=== PATIENT | female | born 1935 | race Caucasian/White ===

== ENCOUNTER 2016-11-30 13:05 | Emergency (ER) | payer MEDICARE, BC ==
[2016-11-30 13:40] VITALS: BP 125/57
[2016-11-30] MEDS ORDERED: Magnesium Citrate Solution 296 ML Bottle PO ONE (15:11)
--- NOTE | 2016-11-30 15:58 | EDM.PDOC ---
ED HPI RENAL/ - General Chief Complaint: Abdominal Pain Stated Complaint: STOMACH PAIN Time Seen by Provider: 11/30/16 13:40 Source: Reports: Patient History Limitations: Reports: No limitations - History of Present Illness INITIAL COMMENTS - FREE TEXT/NARRATIVE: pt has not had a bm for 2-3 days. She has pain in her rt lower abdoman. Timing/Duration: Reports: Hour(s):, Getting worse Location: Reports: RLQ Quality: Reports: cramping, fullness, stabbing Severity: moderate Associated Symptoms: Reports: denies other symptoms - Related Data Allergies/ADRs: Allergies Allergy/AdvReac Type Severity Reaction Status Date / Time tramadol AdvReac Vomiting Verified 11/04/16 14:22 Home Meds: Home Meds Lutein/Min/Vit C/Vit E Acetate [Ocuvite Lutein] 1 tab PO DAILY 01/13/15 [History ] Digoxin [Lanoxin] 125 mcg PO DAILY@13 tablet 04/26/15 [Rx] LORazepam 2 mg PO BEDTIME #7 tablet 04/26/15 [Rx] [id number] Ethyl Esters [Lovaza] 1 gm PO BID cap 04/26/15 [Rx] Warfarin [Coumadin] 3 mg PO DAILY 05/04/16 [History] Carvedilol [Coreg] 6.25 mg PO BIDMEALS 05/06/16 [History] Cholecalciferol (Vitamin D3) [Vitamin D3] 1,000 unit PO DAILY 06/01/16 [History] Acetaminophen [Tylenol Extra Strength] 1,000 mg PO ASDIRECTED PRN 10/03/16 [ History] Morphine [MS Contin] 15 mg PO Q6HR PRN 10/07/16 [History] Ondansetron HCl [Zofran] 4 mg PO ASDIRECTED PRN 10/07/16 [History] Past Medical History HEENT History: Reports: Cataract, Impaired vision Cardiovascular History: Reports: Afib, Arrhythmia, Heart Failure, Other (see below) Other Cardiovascular History: endocarditis 2009 Gastrointestinal History: Reports: None Genitourinary History: Reports: Urinary incontinence Musculoskeletal History: Reports: Back pain, chronic, Fracture Neurological History: Reports: None Psychiatric History: Reports: Anxiety, Depression Oncologic (Cancer) History: Reports: Uterine Dermatologic History: Reports: None - Infectious Disease History Infectious Disease History: Reports: Chicken pox, Measles, Mumps - Past Surgical History HEENT Surgical History: Reports: None, Cataract surgery Cardiovascular Surgical History: Reports: None Other Cardiovascular Surgeries/Procedures: Right 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 GI Surgical History: Reports: Colonoscopy Female Surgical History: Reports: Hysterectomy Neurological Surgical History: Reports: Discectomy Musculoskeletal Surgical History: Reports: Shoulder surgery, Other (see below) Other Musculoskeletal Surgeries/Procedures:: Knee fracture/pins, back surgery Social & Family History - Tobacco Use Smoking Status *Q: Never Smoker Years of Tobacco use: 10 Packs/Tins Daily: 0.2 Used Tobacco, but Quit: Yes Month Tobacco Last Used: September Second Hand Smoke Exposure: No - Caffeine Use Caffeine Use: Reports: None - Alcohol Use Days Per Week of Alcohol Use: 0 - Recreational Drug Use Recreational Drug Use: No ED ROS GENERAL - Review of Systems Review Of Systems: See Below Constitutional: Reports: no symptoms, weight gain HEENT: Reports: No symptoms Respiratory: Reports: No Symptoms Cardiovascular: Reports: No symptoms Endocrine: Reports: no symptoms GI/Abdominal: Reports: Abdominal pain : Reports: no symptoms Musculoskeletal: Reports: no symptoms Neurological: Reports: No Symptoms ED EXAM, RENAL/ - Physical Exam Exam: See Below Text/Narrative:: pt arrived with pain in her rt lower abdomn. She has not had a stool for the past 2-3 days. Exam Limited By: No limitations General Appearance: alert, anxious Ears: normal TMs Nose: normal inspection Throat/Mouth: Normal inspection Head: atraumatic Neck: normal inspection Respiratory/Chest: no respiratory distress GI/Abdominal: other (pt has tenderness in the rt lower abdoman. She is not guarded. ) Rectal (Female) Exam: Other (no masses. Pt has no stool low in the abdomn. ) Back Exam: normal inspection Extremities: normal inspection Neurological: alert, oriented Course - Vital Signs Last Recorded V/S: Last Vital Signs Temp 36.8 C 11/30/16 13:40 Pulse 50 L 11/30/16 13:40 Resp 15 11/30/16 13:40 BP 125/57 L 11/30/16 13:40 Pulse Ox 97 11/30/16 13:40 - Orders/Labs/Meds Orders: Active Orders 24 hr Category Date Time Status Enema [RC] ASDIRECTED Care 11/30/16 15:52 Active Abdomen 2V AP Flat Upright [CR] Stat Exams 11/30/16 14:03 Taken Labs: Laboratory Tests 11/30/16 11/30/16 11/30/16 Range/Units 14:09 14:09 14:09 WBC 4.3 L (4.5-11.0) K/uL RBC 3.71 (3.30-5.50) M/uL Hgb 12.0 (12.0-15.0) g/dL Hct 37.5 (36.0-48.0) % MCV 101 H (80-98) fL MCH 32 H (27-31) pg MCHC 32 (32-36) % Plt Count 117 L (150-400) K/uL Neut % (Auto) 64 (36-66) % Lymph % (Auto) 24 (24-44) % [place] % (Auto) 11 H (2-6) % Eos % (Auto) 1 L (2-4) % Baso % (Auto) 0 (0-1) % PT (9.5-12.0) sec INR (0.80-1.20) Sodium 144 (140-148) mmol/L Potassium 4.5 (3.6-5.2) mmol/L Chloride 108 (100-108) mmol/L Carbon Dioxide 31 (21-32) mmol/L Anion Gap 5.3 (5.0-14.0) mmol/L BUN 37 H (7-18) mg/dL Creatinine 0.9 (0.6-1.0) mg/dL Est Cr Clr Drug Dosing 36.86 mL/min Estimated GFR (MDRD) 60 (>60) Glucose 98 (74-106) mg/dL Calcium 9.6 (8.5-10.1) mg/dL Total Bilirubin 0.7 (0.2-1.0) mg/dL AST 15 (15-37) U/L ALT 18 (12-78) U/L Alkaline Phosphatase 30 L (46-116) U/L C-Reactive Protein 1.17 H (0.0-0.3) mg/dL Total Protein 6.4 (6.4-8.2) g/dL Albumin 3.0 L (3.4-5.0) g/dL Globulin 3.4 (2.3-3.5) g/dL Albumin/Globulin Ratio 0.9 L (1.2-2.2) Urine Color Urine Appearance Urine pH (4.5-8.0) Ur Specific [place] (1.008-1.030) Urine Protein (NEGATIVE) mg/dL Urine Glucose (UA) (NEGATIVE) mg/dL Urine Ketones (NEGATIVE) mg/dL Urine Occult Blood (NEGATIVE) Urine Nitrite (NEGATIVE) Urine Bilirubin (NEGATIVE) Urine Urobilinogen (NORMAL) mg/dL Ur Leukocyte Esterase (NEGATIVE) Urine RBC (0-5) Urine WBC (0-5) Ur Epithelial Cells Amorphous Sediment Urine Bacteria Urine Mucus 11/30/16 11/30/16 Range/Units 14:09 16:10 WBC (4.5-11.0) K/uL RBC (3.30-5.50) M/uL Hgb (12.0-15.0) g/dL Hct (36.0-48.0) % MCV (80-98) fL MCH (27-31) pg MCHC (32-36) % Plt Count (150-400) K/uL Neut % (Auto) (36-66) % Lymph % (Auto) (24-44) % [place] % (Auto) (2-6) % Eos % (Auto) (2-4) % Baso % (Auto) (0-1) % PT 39.3 H (9.5-12.0) sec INR 3.56 H (0.80-1.20) Sodium (140-148) mmol/L Potassium (3.6-5.2) mmol/L Chloride (100-108) mmol/L Carbon Dioxide (21-32) mmol/L Anion Gap (5.0-14.0) mmol/L BUN (7-18) mg/dL Creatinine (0.6-1.0) mg/dL Est Cr Clr Drug Dosing mL/min Estimated GFR (MDRD) (>60) Glucose (74-106) mg/dL Calcium (8.5-10.1) mg/dL Total Bilirubin (0.2-1.0) mg/dL AST (15-37) U/L ALT (12-78) U/L Alkaline Phosphatase (46-116) U/L C-Reactive Protein (0.0-0.3) mg/dL Total Protein (6.4-8.2) g/dL Albumin (3.4-5.0) g/dL Globulin (2.3-3.5) g/dL Albumin/Globulin Ratio (1.2-2.2) Urine Color Yellow Urine Appearance Clear Urine pH 6.5 (4.5-8.0) Ur Specific [place] 1.015 (1.008-1.030) Urine Protein Negative (NEGATIVE) mg/dL Urine Glucose (UA) Normal (NEGATIVE) mg/dL Urine Ketones Negative (NEGATIVE) mg/dL Urine Occult Blood Negative (NEGATIVE) Urine Nitrite Negative (NEGATIVE) Urine Bilirubin Negative (NEGATIVE) Urine Urobilinogen Normal (NORMAL) mg/dL Ur Leukocyte Esterase Negative (NEGATIVE) Urine RBC 0-5 (0-5) Urine WBC 0-5 (0-5) Ur Epithelial Cells Few Amorphous Sediment Few Urine Bacteria Not seen Urine Mucus Rare Meds: Medications Discontinued Medications Generic Name Dose Route Start Last Admin Trade Name Freq PRN Reason Stop Dose Admin Ketorolac Tromethamine 30 mg 11/30/16 16:59 11/30/16 17:06 Toradol IM 11/30/16 17:00 30 mg ONETIME ONE Administration Magnesium Citrate 296 ml 11/30/16 15:11 11/30/16 15:22 Citrate Of Magnesia PO 11/30/16 15:12 296 ml ONETIME ONE Administration - Re-Assessments/Exams Free Text/Narrative Re-Assessment/Exam: 11/30/16 15:59 wbc was normal, chem was normal. Flat and upright of the abdoman was neg except alot of stool. Pt was given mag citrate and this was followed by a tap water eneme. 11/30/16 17:02 pt was reevaluated and his abdoman was tender but not guarded. She was given torodol 30mg im. 11/30/16 17:39 She at this point is much more comfortable. She was advised that she couild have more stools from the mag citrate. Departure - Departure Time of Disposition: 17:40 Disposition: Home, Self-Care 01 Condition: fair Clinical Impression: Constipation, Right lower quadrant abdominal pain Forms: ED Department Discharge Care Plan Goals: high fiber diet, prunes 2-3 daily gummy fibers 1 tab daily, If pt continues to have pain she should rtc for a repeat wbc and have the abdoman evaluated. - My Orders Last 24 Hours: My Active Orders 11/30/16 14:03 Abdomen 2V AP Flat Upright [CR] Stat 11/30/16 15:52 Enema [RC] ASDIRECTED - Assessment/Plan Last 24 Hours: My Active Orders 11/30/16 14:03 Abdomen 2V AP Flat Upright [CR] Stat 11/30/16 15:52 Enema [RC] ASDIRECTED
[2016-11-30] MEDS ORDERED: Ketorolac 60 MG/2 ML SDV IM ONE (16:59)
--- NOTE | 2016-12-01 08:41 | CR ---
Abdomen 2V AP Flat Upright INDICATION: pain in rt lower abdomen. FINDINGS: Nonspecific bowel gas pattern. No evidence for small bowel obstruction or free air. Hernia clips projected over the lower abdomen. Cholelithiasis.
== END 2016-11-30 18:01 | disposition home or self-care (01) ==
LOC: JP.ED 13:05
DX: K59.00 Constipation, unspecified (principal); R10.31 Right lower quadrant pain; I50.9 Heart failure, unspecified; I48.91 Unspecified atrial fibrillation; F41.9 Anxiety disorder, unspecified; F32.9 Major depressive disorder, single episode, unspecified; Z98.49 Cataract extraction status, unspecified eye; Z90.710 Acquired absence of both cervix and uterus; Z98.890 Other specified postprocedural states; Z85.42 Personal history of malignant neoplasm of other parts of uterus; Z79.01 Long term (current) use of anticoagulants; Z79.899 Other long term (current) drug therapy; Z88.8 Allergy status to other drugs, medicaments and biological substances
CPT/HCPCS: 36415; 74020; 80053; 81001; 85025; 85610; 86140; 96372; 99284; A9270; J1885; 99283

== ENCOUNTER 2018-02-06 08:56 | Emergency (ER) | payer MEDICARE, BC ==
--- NOTE | 2018-02-06 10:02 | EDM.PDOC ---
ED HPI GENERAL MEDICAL PROBLEM - General Chief Complaint: Respiratory Problem Stated Complaint: SHORTNESS OF BREATH Time Seen by Provider: 02/06/18 09:30 Source of Information: Reports: Patient, Family History Limitations: Reports: No Limitations - History of Present Illness INITIAL COMMENTS - FREE TEXT/NARRATIVE: 82-year-old female who had a AAA repair 4 days ago, discharged from the [facility] 3 days ago was doing better yesterday but today has developed more shortness of breath and feels she has had more abdominal pain as well. Generalized malaise and tired, no fevers or chills. She has more cough and it hurts to cough. Onset: Unknown/Unsure Severity: Moderate Associated Symptoms: Reports: Loss of Appetite, Malaise, Shortness of Breath, Weakness. Denies: Fever/Chills Abdominal Pain Score (Numeric/FACES): 9 - Related Data Allergies Allergy/AdvReac Type Severity Reaction Status Date / Time tramadol AdvReac Vomiting Verified 11/04/16 14:22 Home Meds: Home Meds Lutein/Min/Vit C/Vit E Acetate [Ocuvite Lutein] 1 tab PO DAILY 01/13/15 [History ] Digoxin [Lanoxin] 125 mcg PO DAILY@13 tablet 04/26/15 [Rx] LORazepam 2 mg PO BEDTIME #7 tablet 04/26/15 [Rx] Warfarin [Coumadin] 3 mg PO DAILY 05/04/16 [History] Carvedilol [Coreg] 6.25 mg PO BIDMEALS 05/06/16 [History] Cholecalciferol (Vitamin D3) [Vitamin D3] 1,000 unit PO DAILY 06/01/16 [History] Acetaminophen [Tylenol Extra Strength] 1,000 mg PO ASDIRECTED PRN 10/03/16 [ History] Past Medical History HEENT History: Reports: Cataract, Impaired Vision, Macular Degeneration Cardiovascular History: Reports: Afib, Arrhythmia, Heart Failure, Other (See Below) Other Cardiovascular History: endocarditis 2009 Gastrointestinal History: Reports: None Genitourinary History: Reports: Urinary Incontinence Musculoskeletal History: Reports: Back Pain, Chronic, Fracture Neurological History: Reports: None Psychiatric History: Reports: Anxiety, Depression Oncologic (Cancer) History: Reports: Uterine Dermatologic History: Reports: None - Infectious Disease History Infectious Disease History: Reports: Chicken Pox, Measles, Mumps - Past Surgical History HEENT Surgical History: Reports: Cataract Surgery Cardiovascular Surgical History: Reports: AAA Repair Other Cardiovascular Surgeries/Procedures: 02/02/2018 [facility] GI Surgical History: Reports: Colonoscopy Neurological Surgical History: Reports: Discectomy Musculoskeletal Surgical History: Reports: Shoulder Surgery, Other (See Below) Social & Family History - Tobacco Use Smoking Status *Q: Former Smoker Used Tobacco, but Quit: Yes Month/Year Tobacco Last Used: 15 years ago - Caffeine Use Caffeine Use: Reports: None - Recreational Drug Use Recreational Drug Use: No ED ROS GENERAL - Review of Systems Review Of Systems: See Below Constitutional: Reports: Malaise, Weakness, Decreased Appetite. Denies: Fever, Chills HEENT: Reports: No Symptoms Respiratory: Reports: Shortness of Breath, Cough GI/Abdominal: Reports: Abdominal Pain, Decreased Appetite. Denies: Nausea, Vomiting Skin: Reports: Pallor Neurological: Reports: Weakness ED EXAM, GENERAL - Physical Exam Exam: See Below Exam Limited By: No Limitations General Appearance: Alert, No Apparent Distress Eye Exam: Bilateral Eye: Other (EOMs are intact, no jaundice, conjunctiva is somewhat pale) Head: Atraumatic Respiratory/Chest: No Respiratory Distress, Decreased Breath Sounds (Decreased breath sounds in the right base) Cardiovascular: Regular Rate, Rhythm GI/Abdominal: Normal Bowel Sounds, Soft, Other (Some bruising at the surgical incisions in right groin but no significant distention) Course - Vital Signs Last Recorded V/S: Last Vital Signs Temp 96.5 F 02/06/18 09:32 Pulse 65 02/06/18 11:28 Resp 18 02/06/18 11:28 BP 148/82 H 02/06/18 11:28 Pulse Ox 94 L 02/06/18 11:28 - Orders/Labs/Meds Orders: Active Orders 24 hr Category Date Time Status Chest 1V Frontal [CR] Stat Exams 02/06/18 09:49 Taken Labs: Laboratory Tests 02/06/18 02/06/18 Range/Units 10:20 10:20 WBC 4.1 L (4.5-11.0) K/uL RBC 3.49 (3.30-5.50) M/uL Hgb 11.2 L (12.0-15.0) g/dL Hct 33.9 L (36.0-48.0) % MCV 97 (80-98) fL MCH 32 H (27-31) pg MCHC 33 (32-36) % Plt Count 81 L (150-400) K/uL Neut % (Auto) 71 H (36-66) % Lymph % (Auto) 16 L (24-44) % [place] % (Auto) 11 H (2-6) % Eos % (Auto) 2 (2-4) % Baso % (Auto) 1 (0-1) % Sodium 141 (140-148) mmol/L Potassium 4.3 (3.6-5.2) mmol/L Chloride 105 (100-108) mmol/L Carbon Dioxide 25 (21-32) mmol/L Anion Gap 10.6 (5.0-14.0) mmol/L BUN 21 H (7-18) mg/dL Creatinine 0.9 (0.6-1.0) mg/dL Est Cr Clr Drug Dosing 40.77 mL/min Estimated GFR (MDRD) 60 (>60) Glucose 100 (74-106) mg/dL Calcium 8.7 (8.5-10.1) mg/dL Total Bilirubin 1.1 H D (0.2-1.0) mg/dL AST 25 (15-37) U/L ALT 15 (12-78) U/L Alkaline Phosphatase 87 D (46-116) U/L Total Protein 6.3 L (6.4-8.2) g/dL Albumin 3.0 L (3.4-5.0) g/dL Globulin 3.3 (2.3-3.5) g/dL Albumin/Globulin Ratio 0.9 L (1.2-2.2) - Re-Assessments/Exams Free Text/Narrative Re-Assessment/Exam: 02/06/18 10:02 CBC, CMP and portable chest x-ray were obtained. 02/06/18 11:15 Chest x-ray showed significant cardiomegaly but consistent with past findings. The rest of the pulmonary alvarado looked clear. The patient continued to complain of shortness of breath but looked great, normal O2 saturations, respiratory rate, and looked to be in no distress or needing extra effort. CBC was reassuring, hemoglobin was consistent with past levels and white count was normal. Electrolytes were normal. Patient was reassured but she felt she needed something to help her breathing so was offered an albuterol metered-dose inhaler to use sparingly. 02/06/18 11:39 An albuterol inhaler was prescribed to the patient that she was unable to afford it today, called her primary provider and he will provide her with one tomorrow. She is very stable and well enough to go home, she can return if she feels she is worsening. Departure - Departure Time of Disposition: 12:16 Disposition: Home, Self-Care 01 Condition: Fair Clinical Impression: Shortness of breath - Discharge Information Instructions: Shortness of Breath, Adult, [id number] Referrals: Guy Pastor Sr, MD [Primary Care Provider] - Forms: ED Department Discharge Care Plan Goals: Continue your current medications, recheck with Dr. Pastor tomorrow if you feel you are not improving. Return to the emergency room if worsening or you develop other concerns. - My Orders Last 24 Hours: My Active Orders 02/06/18 09:49 Chest 1V Frontal [CR] Stat - Assessment/Plan Last 24 Hours: My Active Orders 02/06/18 09:49 Chest 1V Frontal [CR] Stat
[2018-02-06 11:29] VITALS: BP 148/82
--- NOTE | 2018-02-07 09:32 | CR ---
Market cardiomegaly has mildly increased compared with 2009 study. Would still correlate for a perica rdial effusion. Mild interstitial pulmonary edema. Probable trace pleural effusion left costophrenic angle. Mitral valve annular calculus. No focal consolidation.
== END 2018-02-06 12:16 | disposition home or self-care (01) ==
LOC: JP.ED 08:56
DX: R06.02 Shortness of breath (principal); I48.91 Unspecified atrial fibrillation; I50.9 Heart failure, unspecified; F41.9 Anxiety disorder, unspecified; F32.9 Major depressive disorder, single episode, unspecified; Z79.01 Long term (current) use of anticoagulants; Z79.899 Other long term (current) drug therapy; Z88.5 Allergy status to narcotic agent
CPT/HCPCS: 36415; 71045; 71045-26; 80053; 85025; 99285

== ENCOUNTER 2018-02-16 07:36 | Emergency (ER) | payer MEDICARE, BC ==
[2018-02-16] MEDS ORDERED: Sodium Chloride 0.9% 10 ML Syringe FLUSH PRN (08:04)
[2018-02-16] MEDS ORDERED: Acetaminophen 500 MG Tab PO ONE (08:13)
--- NOTE | 2018-02-16 08:13 | EDM.PDOC ---
ED HPI GENERAL MEDICAL PROBLEM - General Chief Complaint: Neuro Symptoms/Deficits Stated Complaint: STOMACH PAIN CANNOT SLEEP Time Seen by Provider: 02/16/18 08:00 Source of Information: Reports: Patient, Family, Old Records History Limitations: Reports: Other (limited records available, patient not a good historian.) - History of Present Illness INITIAL COMMENTS - FREE TEXT/NARRATIVE: 82 yo female here with complaints of lower half abdominal pain that is keeping her awake the past 4 nights. Bowels are normal. Has urinary incontinence at night only, she says since her recent AAA repair in [place]. Did not have a cadet in association with that procedure. Has been to [facility] for this(her primary), but he "only prescribed ibuprofen and it is not helping". Her follow up with [place] after her procedure is still a few weeks away. Also has weak legs today and is having increased difficulty with ambulation. No recent falls reported. Onset: Unknown/Unsure (present about 4 days(abdominal pain), but the leg weakness is more recent. ) Duration: Day(s): Location: Reports: Abdomen Quality: Reports: Ache Severity: Moderate Improves with: Reports: None Worsens with: Reports: None Associated Symptoms: Reports: Weakness, Other (insomnia) Treatments [employer] HEL[employer]: Reports: NSAIDS (ibuprofen) Lower Abdominal Pain Score (Numeric/FACES): 8 - Related Data Allergies Allergy/AdvReac Type Severity Reaction Status Date / Time tramadol AdvReac Vomiting Verified 02/16/18 07:52 Home Meds: Home Meds Lutein/Min/Vit C/Vit E Acetate [Ocuvite Lutein] 1 tab PO DAILY 01/13/15 [History ] Digoxin [Lanoxin] 125 mcg PO DAILY@13 tablet 04/26/15 [Rx] LORazepam 2 mg PO BEDTIME #7 tablet 04/26/15 [Rx] Warfarin [Coumadin] 3 mg PO DAILY 05/04/16 [History] Carvedilol [Coreg] 6.25 mg PO BIDMEALS 05/06/16 [History] Cholecalciferol (Vitamin D3) [Vitamin D3] 1,000 unit PO DAILY 06/01/16 [History] Acetaminophen [Tylenol Extra Strength] 1,000 mg PO ASDIRECTED PRN 10/03/16 [ History] Ibuprofen 200 mg PO Q6HR 02/16/18 [History] Mirtazapine 15 mg PO BEDTIME #30 tablet 02/16/18 [Rx] Past Medical History HEENT History: Reports: Cataract, Impaired Vision, Macular Degeneration Cardiovascular History: Reports: Afib, Arrhythmia, Heart Failure, Other (See Below) Other Cardiovascular History: endocarditis 2009 Gastrointestinal History: Reports: None Genitourinary History: Reports: Urinary Incontinence Musculoskeletal History: Reports: Back Pain, Chronic, Fracture Neurological History: Reports: None Psychiatric History: Reports: Anxiety, Depression Oncologic (Cancer) History: Reports: Uterine Dermatologic History: Reports: None - Infectious Disease History Infectious Disease History: Reports: Chicken Pox, Measles, Mumps - Past Surgical History HEENT Surgical History: Reports: Cataract Surgery Cardiovascular Surgical History: Reports: AAA Repair Other Cardiovascular Surgeries/Procedures: 02/02/2018 [facility] GI Surgical History: Reports: Colonoscopy Neurological Surgical History: Reports: Discectomy Musculoskeletal Surgical History: Reports: Shoulder Surgery, Other (See Below) Social & Family History - Caffeine Use Caffeine Use: Reports: None ED ROS GENERAL - Review of Systems Review Of Systems: See Below Constitutional: Reports: Weakness (mainly of the legs) HEENT: Reports: No Symptoms Respiratory: Reports: No Symptoms Cardiovascular: Reports: No Symptoms Endocrine: Reports: No Symptoms GI/Abdominal: Reports: Abdominal Pain. Denies: Black Stool, Bloody Stool, Constipation, Diarrhea, Distension, Flatus, Hematemesis, Hematochezia, Melena, Nausea, Vomiting : Reports: Incontinence Musculoskeletal: Reports: No Symptoms Skin: Reports: No Symptoms Neurological: Reports: No Symptoms Psychiatric: Reports: No Symptoms ED EXAM, GI/ABD - Physical Exam Exam: See Below Exam Limited By: No Limitations General Appearance: Alert, WD/WN, No Apparent Distress Eyes: Bilateral: Normal Appearance Ears: Normal External Exam, Normal Canal, Hearing Grossly Normal, Normal TMs Nose: Normal Inspection, Normal Mucosa, No Blood Throat/Mouth: Normal Inspection, Normal Lips, Normal Oropharynx, Normal Voice, No Airway Compromise Head: Atraumatic, Normocephalic Neck: Normal Inspection, Supple, Non-Tender Respiratory/Chest: No Respiratory Distress, Lungs Clear, Normal Breath Sounds, No Accessory Muscle Use Cardiovascular: No Edema, Irregularly Irregular GI/Abdominal Exam: Normal Bowel Sounds, Soft, Non-Tender, No Distention. No: Tender (not any discernible increase in her pain with palpation. ) Back Exam: Normal Inspection. No: CVA Tenderness (R), CVA Tenderness (L) Extremities: Normal Inspection, Normal Range of Motion, Non-Tender, No Pedal Edema Neurological: Alert, Oriented, CN II-XII Intact, Normal Cognition, No Motor/ Sensory Deficits Psychiatric: Normal Affect, Normal Mood Skin Exam: Warm, Dry, Intact, Normal Color, No Rash Lymphatic: No Adenopathy EKG INTERPRETATION EKG Date: 02/16/18 Time: 07:40 Rhythm: A-Fib Rate (Beats/Min): 82 [place]: Normal P-Wave: Absent QRS: Normal ST-T: Normal QT: Normal Comparison: NA - No Prior EKG Course - Vital Signs Last Recorded V/S: Last Vital Signs Temp 36.7 C 02/16/18 07:53 Pulse 75 02/16/18 07:53 Resp 14 02/16/18 07:53 BP 145/88 H 02/16/18 07:53 Pulse Ox 92 L 02/16/18 07:53 - Orders/Labs/Meds Orders: Active Orders 24 hr Category Date Time Status Cardiac Monitoring [RC] .As Directed Care 02/16/18 08:05 Active EKG Documentation Completion [RC] ASDIRECTED Care 02/16/18 08:05 Active Abdomen 1V Flat [CR] Stat Exams 02/16/18 08:06 Taken UA W/MICROSCOPIC [URIN] Stat Lab 02/16/18 08:41 Ordered Lactated Ringers [Ringers, Lactated] 1,000 ml Med 02/16/18 08:50 Active IV BOLUS Sodium Chloride 0.9% [Saline Flush] Med 02/16/18 08:04 Active 10 ml FLUSH ASDIRECTED PRN Saline Lock Insert [OM.PC] Routine Oth 02/16/18 08:04 Ordered EKG 12 Lead [EK] Routine Ther 02/16/18 08:05 Ordered Medication Orders Lactated Ringer's (Ringers, Lactated) 1,000 mls @ 1,000 mls/hr IV BOLUS ONE Stop: 02/16/18 09:49 Last Admin: 02/16/18 09:13 Dose: 1,000 mls/hr Sodium Chloride (Saline Flush) 10 ml FLUSH ASDIRECTED PRN PRN Reason: Keep Vein Open Last Admin: 02/16/18 08:42 Dose: 10 ml Labs: Laboratory Tests 02/16/18 02/16/18 02/16/18 Range/Units 06:11 06:11 06:11 WBC 4.6 (4.5-11.0) K/uL RBC 3.66 (3.30-5.50) M/uL Hgb 11.3 L (12.0-15.0) g/dL Hct 36.1 (36.0-48.0) % MCV 99 H (80-98) fL MCH 31 (27-31) pg MCHC 31 L (32-36) % Plt Count 169 (150-400) K/uL PT (9.5-12.0) sec INR (0.80-1.20) Sodium 145 (140-148) mmol/L Potassium 4.2 (3.6-5.2) mmol/L Chloride 109 H (100-108) mmol/L Carbon Dioxide 26 (21-32) mmol/L Anion Gap 14.2 H (5.0-14.0) mmol/L BUN 26 H (7-18) mg/dL Creatinine 1.0 (0.6-1.0) mg/dL Est Cr Clr Drug Dosing TNP Estimated GFR (MDRD) 53 L (>60) Glucose 124 H (74-106) mg/dL Calcium 9.0 (8.5-10.1) mg/dL Troponin I 0.031 (0.000-0.056) ng/mL C-Reactive Protein 0.40 H (0.0-0.3) mg/dL Lipase 74 (73-393) U/L Urine Color Urine Appearance Urine pH (4.5-8.0) Ur Specific [place] (1.008-1.030) Urine Protein (NEGATIVE) mg/dL Urine Glucose (UA) (NEGATIVE) mg/dL Urine Ketones (NEGATIVE) mg/dL Urine Occult Blood (NEGATIVE) Urine Nitrite (NEGATIVE) Urine Bilirubin (NEGATIVE) Urine Urobilinogen (NORMAL) mg/dL Ur Leukocyte Esterase (NEGATIVE) Urine RBC (0-5) Urine WBC (0-5) Ur Epithelial Cells Amorphous Sediment Urine Bacteria Urine Mucus 02/16/18 02/16/18 Range/Units 08:11 08:41 WBC (4.5-11.0) K/uL RBC (3.30-5.50) M/uL Hgb (12.0-15.0) g/dL Hct (36.0-48.0) % MCV (80-98) fL MCH (27-31) pg MCHC (32-36) % Plt Count (150-400) K/uL PT 31.8 H (9.5-12.0) sec INR 2.85 H (0.80-1.20) Sodium (140-148) mmol/L Potassium (3.6-5.2) mmol/L Chloride (100-108) mmol/L Carbon Dioxide (21-32) mmol/L Anion Gap (5.0-14.0) mmol/L BUN (7-18) mg/dL Creatinine (0.6-1.0) mg/dL Est Cr Clr Drug Dosing Estimated GFR (MDRD) (>60) Glucose (74-106) mg/dL Calcium (8.5-10.1) mg/dL Troponin I (0.000-0.056) ng/mL C-Reactive Protein (0.0-0.3) mg/dL Lipase (73-393) U/L Urine Color [place] Urine Appearance Clear Urine pH 5.0 (4.5-8.0) Ur Specific [place] 1.025 (1.008-1.030) Urine Protein 30 H (NEGATIVE) mg/dL Urine Glucose (UA) Normal (NEGATIVE) mg/dL Urine Ketones Negative (NEGATIVE) mg/dL Urine Occult Blood Moderate (NEGATIVE) Urine Nitrite Negative (NEGATIVE) Urine Bilirubin Negative (NEGATIVE) Urine Urobilinogen Normal (NORMAL) mg/dL Ur Leukocyte Esterase Negative (NEGATIVE) Urine RBC 10-20 H (0-5) Urine WBC 0-5 (0-5) Ur Epithelial Cells Not seen Amorphous Sediment Few Urine Bacteria Not seen Urine Mucus Not seen Meds: Medications Generic Name Dose Route Start Last Admin Trade Name Freq PRN Reason Stop Dose Admin Lactated Ringer's 1,000 mls @ 1,000 mls/hr 02/16/18 08:50 02/16/18 09:13 Ringers, Lactated IV 02/16/18 09:49 1,000 mls/hr BOLUS ONE Administration Sodium Chloride 10 ml 02/16/18 08:04 02/16/18 08:42 Saline Flush FLUSH 10 ml ASDIRECTED PRN Administration Keep Vein Open Discontinued Medications Generic Name Dose Route Start Last Admin Trade Name Freq PRN Reason Stop Dose Admin Acetaminophen 1,000 mg 02/16/18 08:13 02/16/18 08:40 Tylenol Extra Strength PO 02/16/18 08:14 1,000 mg ONETIME ONE Administration - Radiology Interpretation Free Text/Narrative:: single view abdominal X-ray-no acute pathology noted. Departure - Departure Time of Disposition: 10:00 Disposition: Home, Self-Care 01 Condition: Fair Clinical Impression: Depression with somatization - Discharge Information Prescriptions: Mirtazapine 15 mg PO BEDTIME #30 tablet Referrals: Guy Pastor Sr, MD [Primary Care Provider] - Forms: ED Department Discharge Additional Instructions: Take mirtazipine an hour before bedtime each day. If it is not helping afte a week or two, then see Dr. Pastor to discuss increasing the dose. As much as possible avoid ibuprofen as it is not safe to take when on warfarin. Use acetaminophen as your first line agent for pain or fever control. Use low dose ibuprofen only if acetaminophen is already in use and not sufficiently effective. - My Orders Last 24 Hours: My Active Orders 02/16/18 08:04 Sodium Chloride 0.9% [Saline Flush] 10 ml FLUSH ASDIRECTED PRN Saline Lock Insert [OM.PC] Routine 02/16/18 08:05 Cardiac Monitoring [RC] .As Directed EKG Documentation Completion [RC] ASDIRECTED EKG 12 Lead [EK] Routine 02/16/18 08:06 Abdomen 1V Flat [CR] Stat 02/16/18 08:41 UA W/MICROSCOPIC [URIN] Stat 02/16/18 08:50 Lactated Ringers [Ringers, Lactated] 1,000 ml IV BOLUS - Assessment/Plan Last 24 Hours: My Active Orders 02/16/18 08:04 Sodium Chloride 0.9% [Saline Flush] 10 ml FLUSH ASDIRECTED PRN Saline Lock Insert [OM.PC] Routine 02/16/18 08:05 Cardiac Monitoring [RC] .As Directed EKG Documentation Completion [RC] ASDIRECTED EKG 12 Lead [EK] Routine 02/16/18 08:06 Abdomen 1V Flat [CR] Stat 02/16/18 08:41 UA W/MICROSCOPIC [URIN] Stat 02/16/18 08:50 Lactated Ringers [Ringers, Lactated] 1,000 ml IV BOLUS
[2018-02-16] MEDS ORDERED: Lactated Ringers 1,000 ML IV ONE (08:50)
[2018-02-16 09:58] VITALS: BP 145/81
--- NOTE | 2018-02-17 12:35 | CR ---
Abdomen 1V Flat CLINICAL HISTORY: Abdominal pain FINDINGS: The bowel gas pattern is nonobstructive. No abnormal masses are noted. There are numerous s mall calcifications curvilinear distribution in the right mid to lower abdomen . These are felt to re present numerous gallstones. Patient has an aorto iliac stent graft. There is a small calcific-like d ensity in the left paraspinal region thought to be artifact. Heart is enlarged. There appears to be a small left effusion. IMPRESSION: Nonacute intestinal gas pattern Aorto iliac stent graft Cholelithiasis with numerous tiny gallstones
== END 2018-02-16 10:22 | disposition home or self-care (01) ==
LOC: JP.ED 07:36
DX: F32.9 Major depressive disorder, single episode, unspecified (principal); F45.9 Somatoform disorder, unspecified; I50.9 Heart failure, unspecified; Z88.6 Allergy status to analgesic agent; Z79.899 Other long term (current) drug therapy
CPT/HCPCS: 36415; 74018; 80048; 81001; 83690; 84484; 85027; 85610; 86140; 93005; 96360; 99284; A9270; J7050; J7120

== ENCOUNTER 2018-02-24 09:45 | Inpatient (IN) | payer MEDICARE, BC ==
[2018-02-24] MEDS ORDERED: Sodium Chloride 0.9% 10 ML Syringe FLUSH PRN (09:57)
--- NOTE | 2018-02-24 11:48 | CR ---
CHEST: 2 view CLINICAL HISTORY:Dyspnea COMPARISON:02/06/2018 FINDINGS: The heart is markedly enlarged. Pulmonary vascularity is normal.There are atherosclerotic changes in the aorta. The no infiltrates are seen. The lungs are hyperaerated. There is mild intersti tial prominence felt to be chronic. There are no effusions.. IMPRESSION: Moderate cardiomegaly similar to prior study COPD No acute cardiac pulmonary process
[2018-02-24] MEDS ORDERED: Acetaminophen 500 MG Tab PO PRN (12:51)
[2018-02-24] MEDS: Cholecalciferol (Vitamin D3) 1,000 Unit Tab PO SCH (13:27)
[2018-02-24] MEDS: Calcium Carbonate 500 MG Tab.Chew PO SCH (13:27)
[2018-02-24] MEDS: Beta-Carotene (Vitamin A) w/Vitamin C & E plus Minerals Tab PO SCH (13:27)
[2018-02-24] MEDS: Digoxin 125 MCG Tab PO SCH (13:28)
--- NOTE | 2018-02-24 14:53 | PCM.HP ---
H&P History of Present Illness - General Date of Service: 02/24/18 Admit Problem/Dx: Admission Diagnosis/Problem Admission Diagnosis/Problem Weakness Source of Information: Patient, Family History Limitations: Reports: Respiratory Distress - History of Present Illness Initial Comments - Free Text/Narative: Melissa was brought in by her caregiver she's having difficult time sleeping at night she says she only got 4 hours the day before she came in at maximum whenever she lays down she starts to cough. She has extreme fatigue. She have a hard time eating and she is unable to walk because of severe weakness. This has been a progressive problem recently. Onset of Symptoms: Reports: Gradual Duration of Symptoms: Reports: Day(s): Associated Symptoms: Reports: Cough, Shortness of Breath - Related Data Allergies/Adverse Reactions: Allergies Allergy/AdvReac Type Severity Reaction Status Date / Time tramadol AdvReac Vomiting Verified 02/16/18 07:52 Home Medications: Home Meds Lutein/Min/Vit C/Vit E Acetate [Ocuvite Lutein] 1 tab PO DAILY 01/13/15 [History ] Digoxin [Lanoxin] 125 mcg PO DAILY@13 tablet 04/26/15 [Rx] LORazepam 2 mg PO BEDTIME #7 tablet 04/26/15 [Rx] Warfarin [Coumadin] 2 mg PO DAILY 05/04/16 [History] Carvedilol [Coreg] 6.25 mg PO BID 05/06/16 [History] Cholecalciferol (Vitamin D3) [Vitamin D3] 1,000 unit PO DAILY 06/01/16 [History] Acetaminophen [Tylenol Extra Strength] 1,000 mg PO BID PRN 10/03/16 [History] Ibuprofen 200 mg PO Q6HR 02/16/18 [History] Calcium Carbonate [Calcium] 500 mg PO DAILY 02/24/18 [History] Past Medical History HEENT History: Reports: Cataract, Impaired Vision, Macular Degeneration Cardiovascular History: Reports: Afib, Arrhythmia, Heart Failure, Other (See Below) Other Cardiovascular History: endocarditis 2009 Gastrointestinal History: Reports: None Genitourinary History: Reports: Urinary Incontinence 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: hysterectomy Musculoskeletal History: Reports: Back Pain, Chronic, Fracture Neurological History: Reports: None Psychiatric History: Reports: Anxiety, Depression Oncologic (Cancer) History: Reports: Uterine Dermatologic History: Reports: None - Infectious Disease History Infectious Disease History: Reports: Chicken Pox, Measles, Mumps - Past Surgical History HEENT Surgical History: Reports: Cataract Surgery Cardiovascular Surgical History: Reports: AAA Repair Other Cardiovascular Surgeries/Procedures: 02/02/[address] [facility] GI Surgical History: Reports: Colonoscopy Female Surgical History: Reports: None Neurological Surgical History: Reports: Discectomy Musculoskeletal Surgical History: Reports: Shoulder Surgery, Other (See Below) Other Musculoskeletal Surgeries/Procedures:: Chronic right thigh pain Social & Family History - Family History Family Medical History: Noncontributory - Tobacco Use Smoking Status *Q: Former Smoker Years of Tobacco use: 5 Used Tobacco, but Quit: Yes Month/Year Tobacco Last Used: 2012 Second Hand Smoke Exposure: No - Caffeine Use Caffeine Use: Reports: None - Recreational Drug Use Recreational Drug Use: No H&P Review of Systems - Review of Systems: Review Of Systems: See Below General: Reports: Weakness, Decreased Appetite, Weight Loss Pulmonary: Reports: Shortness of Breath, Cough, Sputum Cardiovascular: Reports: Dyspnea on Exertion, Lightheadedness Genitourinary: Reports: Frequency, Urgency, Incontinence Musculoskeletal: Reports: Muscle Pain, Muscle Stiffness Skin: Reports: No Symptoms Psychiatric: Reports: Depression, Anxiety Neurological: Reports: Difficulty Walking, Weakness, Gait Disturbance Exam - Exam Exam: See Below - Vital Signs Vital Signs: Last Vital Signs Temp 96.6 F 02/24/18 10:10 Pulse 72 02/24/18 13:28 Resp 18 02/24/18 10:10 BP 141/76 H 02/24/18 10:10 Pulse Ox 92 L 02/24/18 10:10 Weight: 115 lb 9.6 oz - Exam General: Alert, Oriented, Cooperative, Moderate Distress HEENT: PERRLA Neck: Supple, Trachea Midline, 2 Lungs: Clear to Auscultation, Normal Respiratory Effort Cardiovascular: Irregular Rhythm GI/Abdominal Exam: Normal Bowel Sounds Extremities: Other (+1 edema) - Patient Data Lab Results Last 24 hrs: Laboratory Results - last 24 hr 02/24/18 02/24/18 02/24/18 Range/Units 10:14 10:14 10:32 WBC 4.6 (4.5-11.0) K/uL RBC 3.92 (3.30-5.50) M/uL Hgb 12.5 (12.0-15.0) g/dL Hct 39.5 (36.0-48.0) % MCV 101 H (80-98) fL MCH 32 H (27-31) pg MCHC 32 (32-36) % Plt Count 132 L (150-400) K/uL Neut % (Auto) 75 H (36-66) % Lymph % (Auto) 15 L (24-44) % [place] % (Auto) 9 H (2-6) % Eos % (Auto) 1 L (2-4) % Baso % (Auto) 0 (0-1) % PT 24.6 H (9.5-12.0) sec INR 2.22 H (0.80-1.20) Sodium 147 (140-148) mmol/L Potassium 3.8 (3.6-5.2) mmol/L Chloride 113 H (100-108) mmol/L Carbon Dioxide 28 (21-32) mmol/L Anion Gap 9.8 (5.0-14.0) mmol/L BUN 34 H (7-18) mg/dL Creatinine 1.0 (0.6-1.0) mg/dL Est Cr Clr Drug Dosing TNP Estimated GFR (MDRD) 53 L (>60) Glucose 111 H (74-106) mg/dL Calcium 8.9 (8.5-10.1) mg/dL Total Bilirubin 1.6 H (0.2-1.0) mg/dL AST 23 (15-37) U/L ALT 19 (12-78) U/L Alkaline Phosphatase 90 (46-116) U/L Total Protein 6.3 L (6.4-8.2) g/dL Albumin 3.1 L (3.4-5.0) g/dL Globulin 3.2 (2.3-3.5) g/dL Albumin/Globulin Ratio 1.0 L (1.2-2.2) Urine Color Urine Appearance Urine pH (4.5-8.0) Ur Specific [place] (1.008-1.030) Urine Protein (NEGATIVE) mg/dL Urine Glucose (UA) (NEGATIVE) mg/dL Urine Ketones (NEGATIVE) mg/dL Urine Occult Blood (NEGATIVE) Urine Nitrite (NEGATIVE) Urine Bilirubin (NEGATIVE) Urine Urobilinogen (NORMAL) mg/dL Ur Leukocyte Esterase (NEGATIVE) Urine RBC (0-5) Urine WBC (0-5) Ur Epithelial Cells Amorphous Sediment Urine Bacteria Urine Mucus Digoxin (0.90-2.00) ng/mL 02/24/18 02/24/18 Range/Units 10:33 12:12 WBC (4.5-11.0) K/uL RBC (3.30-5.50) M/uL Hgb (12.0-15.0) g/dL Hct (36.0-48.0) % MCV (80-98) fL MCH (27-31) pg MCHC (32-36) % Plt Count (150-400) K/uL Neut % (Auto) (36-66) % Lymph % (Auto) (24-44) % [place] % (Auto) (2-6) % Eos % (Auto) (2-4) % Baso % (Auto) (0-1) % PT (9.5-12.0) sec INR (0.80-1.20) Sodium (140-148) mmol/L Potassium (3.6-5.2) mmol/L Chloride (100-108) mmol/L Carbon Dioxide (21-32) mmol/L Anion Gap (5.0-14.0) mmol/L BUN (7-18) mg/dL Creatinine (0.6-1.0) mg/dL Est Cr Clr Drug Dosing Estimated GFR (MDRD) (>60) Glucose (74-106) mg/dL Calcium (8.5-10.1) mg/dL Total Bilirubin (0.2-1.0) mg/dL AST (15-37) U/L ALT (12-78) U/L Alkaline Phosphatase (46-116) U/L Total Protein (6.4-8.2) g/dL Albumin (3.4-5.0) g/dL Globulin (2.3-3.5) g/dL Albumin/Globulin Ratio (1.2-2.2) Urine Color [place] Urine Appearance Cloudy Urine pH 5.0 (4.5-8.0) Ur Specific [place] 1.025 (1.008-1.030) Urine Protein 30 H (NEGATIVE) mg/dL Urine Glucose (UA) Normal (NEGATIVE) mg/dL Urine Ketones Negative (NEGATIVE) mg/dL Urine Occult Blood Moderate (NEGATIVE) Urine Nitrite Negative (NEGATIVE) Urine Bilirubin Small (NEGATIVE) Urine Urobilinogen >=12 H (NORMAL) mg/dL Ur Leukocyte Esterase Large (NEGATIVE) Urine RBC 10-20 H (0-5) Urine WBC 20-30 H (0-5) Ur Epithelial Cells Few Amorphous Sediment Few Urine Bacteria Moderate Urine Mucus Not seen Digoxin 0.84 L (0.90-2.00) ng/mL Result Diagrams: 02/24/18 10:14 02/24/18 10:14 Problem List Initiated/Reviewed/Updated: Yes Orders Last 24hrs: Active Orders 24 hr Category Date Time Status Admission Status [Patient Status] [ADT] Routine ADT 02/24/18 09:55 Active Patient Status [ADT] Routine ADT 02/24/18 09:50 Active Activity as Tolerated [RC] .Routine Care 02/24/18 09:57 Active Height and Weight [RC] 0500 Care 02/24/18 09:50 Active Intake and Output [RC] QSHIFT Care 02/24/18 09:53 Active May Shower [RC] ASDIRECTED Care 02/24/18 09:50 Active Oxygen Therapy [RC] PRN Care 02/24/18 09:50 Active Peripheral IV Care [RC] QSHIFT Care 02/24/18 09:57 Active VTE/DVT Education [RC] Per Unit Routine Care 02/24/18 09:50 Active Vital Signs [RC] Q4H Care 02/24/18 09:50 Active Vital Signs [RC] Q4H Care 02/24/18 09:57 Active Regular Diet [DIET] Diet 02/24/18 Lunch Active Echo Comp wo Cont [US] Routine Exams 02/27/18 10:33 Ordered CULTURE URINE [RM] Routine Lab 02/24/18 12:12 Ordered INR,PT,PROTHROMBIN TIME [COAG] DAILY Lab 02/25/18 05:00 Ordered INR,PT,PROTHROMBIN TIME [COAG] DAILY Lab 02/26/18 05:00 Ordered INR,PT,PROTHROMBIN TIME [COAG] DAILY Lab 02/27/18 05:00 Ordered INR,PT,PROTHROMBIN TIME [COAG] DAILY Lab 02/28/18 05:00 Ordered INR,PT,PROTHROMBIN TIME [COAG] DAILY Lab 03/01/18 05:00 Ordered INR,PT,PROTHROMBIN TIME [COAG] DAILY Lab 03/02/18 05:00 Ordered UA W/MICROSCOPIC [URIN] Routine Lab 02/24/18 12:12 Ordered Acetaminophen [Tylenol Extra Strength] Med 02/24/18 12:51 Active 1,000 mg PO BID PRN Beta-Carotene(A) w/C & E/Min [Prosight] Med 02/24/18 13:30 Active 1 tab PO DAILY Calcium Carbonate [Tums] Med 02/24/18 13:30 Active 500 mg PO DAILY Carvedilol [Coreg] Med 02/24/18 21:00 Active 6.25 mg PO BID Cholecalciferol (Vitamin D3) [Vitamin D3] Med 02/24/18 13:30 Active 1,000 units PO DAILY Digoxin [Lanoxin] Med 02/24/18 13:00 Active 125 mcg PO DAILY@1300 Ibuprofen [Motrin] Med 02/24/18 16:00 Active 200 mg PO Q6H LORazepam [Ativan] Med 02/24/18 21:00 Active 2 mg PO BEDTIME Sodium Chloride 0.9% [Saline Flush] Med 02/24/18 09:57 Active 10 ml FLUSH ASDIRECTED PRN Warfarin [Coumadin] Med 02/24/18 13:00 Active 2 mg PO DAILY@1300 Peripheral IV Insertion Adult [OM.PC] Routine Oth 02/24/18 09:57 Ordered SCD [Sequential Compression Device] [OM.PC] Routine Oth 02/24/18 09:58 Ordered Resuscitation Status Routine Resus Stat 02/24/18 09:50 Ordered EKG 12 Lead [EK] Routine Ther 02/24/18 10:08 Ordered Medication Orders Acetaminophen (Tylenol Extra Strength) 1,000 mg PO BID PRN PRN Reason: PAIN/FEVER Calcium Carbonate/Glycine (Tums) 500 mg PO DAILY [facility] Last Admin: 02/24/18 13:27 Dose: 500 mg Carvedilol (Coreg) 6.25 mg PO BID [facility] Cholecalciferol (Vitamin D3) 1,000 units PO DAILY [facility] Last Admin: 02/24/18 13:27 Dose: 1,000 units Digoxin (Lanoxin) 125 mcg PO DAILY@1300 [facility] Last Admin: 02/24/18 13:28 Dose: 125 mcg Ibuprofen (Motrin) 200 mg PO Q6H [facility] Lorazepam (Ativan) 2 mg PO BEDTIME [facility] Multivitamins/Minerals (Prosight) 1 tab PO DAILY [facility] Last Admin: 02/24/18 13:27 Dose: 1 tab Sodium Chloride (Saline Flush) 10 ml FLUSH ASDIRECTED PRN PRN Reason: Keep Vein Open Warfarin Sodium (Coumadin) 2 mg PO DAILY@1300 RACHELLE Stop: 02/26/18 13:01 Last Admin: 02/24/18 13:28 Dose: 2 mg Assessment/Plan Comment:: Assessment/Plan: #1. Generalized weakness: Blood work is pending. #2. Atrial Fib: Chronic #3. Insomnia: Chronic k#4. UTI: Urine showed WBC's C & S pending.
[2018-02-24] MEDS: Ibuprofen 200 MG Tab PO SCH ×2 (15:18→21:31)
[2018-02-24] MEDS: Carvedilol 6.25 MG Tab PO SCH (21:30)
[2018-02-24] MEDS: Sulfamethoxazole/Trimethoprim 800-160 MG Tab PO SCH (21:31)
[2018-02-24] MEDS: LORazepam 1 MG Tab PO SCH (21:35)
[2018-02-25] MEDS: Ibuprofen 200 MG Tab PO SCH ×4 (04:53→21:02)
[2018-02-25] MEDS: Calcium Carbonate 500 MG Tab.Chew PO SCH (08:10)
[2018-02-25] MEDS: Carvedilol 6.25 MG Tab PO SCH ×2 (08:10→20:34)
[2018-02-25] MEDS: Cholecalciferol (Vitamin D3) 1,000 Unit Tab PO SCH (08:10)
[2018-02-25] MEDS: Beta-Carotene (Vitamin A) w/Vitamin C & E plus Minerals Tab PO SCH (08:10)
[2018-02-25] MEDS: Sulfamethoxazole/Trimethoprim 800-160 MG Tab PO SCH ×2 (08:11→20:34)
--- NOTE | 2018-02-25 08:53 | PCM.PN ---
- General Info Date of Service: 02/25/18 Subjective Update: Did not sleep last night Functional Status: Reports: Pain Controlled - Review of Systems General: Reports: Weakness, Fatigue HEENT: Reports: No Symptoms Pulmonary: Reports: No Symptoms Gastrointestinal: Reports: No Symptoms Genitourinary: Reports: No Symptoms Musculoskeletal: Reports: Joint Pain Skin: Reports: No Symptoms Neurological: Reports: Difficulty Walking, Weakness, Gait Disturbance Psychiatric: Reports: Depression - Patient Data Vitals - Most Recent: Last Vital Signs Temp 97.0 F 02/25/18 07:04 Pulse 72 02/25/18 08:10 Resp 20 02/25/18 07:04 BP 146/100 H 02/25/18 08:10 Pulse Ox 91 L 02/25/18 07:04 Weight - Most Recent: 115 lb 6.4 oz I&O - Last 24 Hours: Intake & Output 02/24/18 02/25/18 02/25/18 22:59 06:59 14:59 Intake Total 120 Balance 120 Lab Results Last 24 Hours: Laboratory Results - last 24 hr 02/24/18 02/24/18 02/24/18 Range/Units 10:14 10:14 10:32 WBC 4.6 (4.5-11.0) K/uL RBC 3.92 (3.30-5.50) M/uL Hgb 12.5 (12.0-15.0) g/dL Hct 39.5 (36.0-48.0) % MCV 101 H (80-98) fL MCH 32 H (27-31) pg MCHC 32 (32-36) % Plt Count 132 L (150-400) K/uL Neut % (Auto) 75 H (36-66) % Lymph % (Auto) 15 L (24-44) % [place] % (Auto) 9 H (2-6) % Eos % (Auto) 1 L (2-4) % Baso % (Auto) 0 (0-1) % PT 24.6 H (9.5-12.0) sec INR 2.22 H (0.80-1.20) Sodium 147 (140-148) mmol/L Potassium 3.8 (3.6-5.2) mmol/L Chloride 113 H (100-108) mmol/L Carbon Dioxide 28 (21-32) mmol/L Anion Gap 9.8 (5.0-14.0) mmol/L BUN 34 H (7-18) mg/dL Creatinine 1.0 (0.6-1.0) mg/dL Est Cr Clr Drug Dosing TNP Estimated GFR (MDRD) 53 L (>60) Glucose 111 H (74-106) mg/dL Calcium 8.9 (8.5-10.1) mg/dL Total Bilirubin 1.6 H (0.2-1.0) mg/dL AST 23 (15-37) U/L ALT 19 (12-78) U/L Alkaline Phosphatase 90 (46-116) U/L Total Protein 6.3 L (6.4-8.2) g/dL Albumin 3.1 L (3.4-5.0) g/dL Globulin 3.2 (2.3-3.5) g/dL Albumin/Globulin Ratio 1.0 L (1.2-2.2) Urine Color Urine Appearance Urine pH (4.5-8.0) Ur Specific [place] (1.008-1.030) Urine Protein (NEGATIVE) mg/dL Urine Glucose (UA) (NEGATIVE) mg/dL Urine Ketones (NEGATIVE) mg/dL Urine Occult Blood (NEGATIVE) Urine Nitrite (NEGATIVE) Urine Bilirubin (NEGATIVE) Urine Urobilinogen (NORMAL) mg/dL Ur Leukocyte Esterase (NEGATIVE) Urine RBC (0-5) Urine WBC (0-5) Ur Epithelial Cells Amorphous Sediment Urine Bacteria Urine Mucus Digoxin (0.90-2.00) ng/mL 02/24/18 02/24/18 02/25/18 Range/Units 10:33 12:12 05:51 WBC (4.5-11.0) K/uL RBC (3.30-5.50) M/uL Hgb (12.0-15.0) g/dL Hct (36.0-48.0) % MCV (80-98) fL MCH (27-31) pg MCHC (32-36) % Plt Count (150-400) K/uL Neut % (Auto) (36-66) % Lymph % (Auto) (24-44) % [place] % (Auto) (2-6) % Eos % (Auto) (2-4) % Baso % (Auto) (0-1) % PT 25.2 H (9.5-12.0) sec INR 2.28 H (0.80-1.20) Sodium (140-148) mmol/L Potassium (3.6-5.2) mmol/L Chloride (100-108) mmol/L Carbon Dioxide (21-32) mmol/L Anion Gap (5.0-14.0) mmol/L BUN (7-18) mg/dL Creatinine (0.6-1.0) mg/dL Est Cr Clr Drug Dosing Estimated GFR (MDRD) (>60) Glucose (74-106) mg/dL Calcium (8.5-10.1) mg/dL Total Bilirubin (0.2-1.0) mg/dL AST (15-37) U/L ALT (12-78) U/L Alkaline Phosphatase (46-116) U/L Total Protein (6.4-8.2) g/dL Albumin (3.4-5.0) g/dL Globulin (2.3-3.5) g/dL Albumin/Globulin Ratio (1.2-2.2) Urine Color [place] Urine Appearance Cloudy Urine pH 5.0 (4.5-8.0) Ur Specific [place] 1.025 (1.008-1.030) Urine Protein 30 H (NEGATIVE) mg/dL Urine Glucose (UA) Normal (NEGATIVE) mg/dL Urine Ketones Negative (NEGATIVE) mg/dL Urine Occult Blood Moderate (NEGATIVE) Urine Nitrite Negative (NEGATIVE) Urine Bilirubin Small (NEGATIVE) Urine Urobilinogen >=12 H (NORMAL) mg/dL Ur Leukocyte Esterase Large (NEGATIVE) Urine RBC 10-20 H (0-5) Urine WBC 20-30 H (0-5) Ur Epithelial Cells Few Amorphous Sediment Few Urine Bacteria Moderate Urine Mucus Not seen Digoxin 0.84 L (0.90-2.00) ng/mL Abdiaziz Results Last 24 Hours: Microbiology 02/24/18 12:12 Urine Culture - Preliminary Urine, Clean Catch Med Orders - Current: Current Medications Acetaminophen (Tylenol Extra Strength) 1,000 mg PO BID PRN PRN Reason: PAIN/FEVER Calcium Carbonate/Glycine (Tums) 500 mg PO DAILY [facility] Last Admin: 02/25/18 08:10 Dose: 500 mg Carvedilol (Coreg) 6.25 mg PO BID [facility] Last Admin: 02/25/18 08:10 Dose: 6.25 mg Cholecalciferol (Vitamin D3) 1,000 units PO DAILY [facility] Last Admin: 02/25/18 08:10 Dose: 1,000 units Digoxin (Lanoxin) 125 mcg PO DAILY@1300 [facility] Last Admin: 02/24/18 13:28 Dose: 125 mcg Ibuprofen (Motrin) 200 mg PO Q6H [facility] Last Admin: 02/25/18 04:53 Dose: Not Given Lorazepam (Ativan) 2 mg PO BEDTIME [facility] Last Admin: 02/24/18 21:35 Dose: 2 mg Multivitamins/Minerals (Prosight) 1 tab PO DAILY [facility] Last Admin: 02/25/18 08:10 Dose: 1 tab Sodium Chloride (Saline Flush) 10 ml FLUSH ASDIRECTED PRN PRN Reason: Keep Vein Open Trimethoprim/Sulfamethoxazole (Septra Ds) 1 tab PO BID [facility] Stop: 03/01/18 21:01 Last Admin: 02/25/18 08:11 Dose: 1 tab Warfarin Sodium (Coumadin) 2 mg PO DAILY@1300 [facility] Stop: 02/26/18 13:01 Last Admin: 02/24/18 13:28 Dose: 2 mg - Exam General: Mild Distress HEENT: Pupils Equal, Pupils Reactive, EOMI, Mucous Membr. Moist/[place] Neck: Supple Lungs: Clear to Auscultation, Normal Respiratory Effort Cardiovascular: Irregular Rhythm Back Exam: Vertebral Tenderness Extremities: Other (+1 edema) Peripheral Pulses: 1+: Radial (L), Radial (R) Skin: Warm, Dry, Intact Neurological: No New Focal Deficit Psy/Mental Status: Depressed - Problem List Review Problem List Initiated/Reviewed/Updated: Yes - My Orders Last 24 Hours: My Active Orders 02/24/18 09:50 Patient Status [ADT] Routine Height and Weight [RC] 0500 May Shower [RC] ASDIRECTED Oxygen Therapy [RC] PRN VTE/DVT Education [RC] Per Unit Routine Vital Signs [RC] Q4H Resuscitation Status Routine 02/24/18 09:53 Intake and Output [RC] QSHIFT 02/24/18 09:55 Admission Status [Patient Status] [ADT] Routine 02/24/18 09:57 Activity as Tolerated [RC] .Routine Peripheral IV Care [RC] QSHIFT Vital Signs [RC] Q4H Sodium Chloride 0.9% [Saline Flush] 10 ml FLUSH ASDIRECTED PRN Peripheral IV Insertion Adult [OM.PC] Routine 02/24/18 09:58 SCD [Sequential Compression Device] [OM.PC] Routine 02/24/18 10:08 EKG 12 Lead [EK] Routine 02/24/18 12:12 CULTURE URINE [RM] Routine UA W/MICROSCOPIC [URIN] Routine 02/24/18 12:51 Acetaminophen [Tylenol Extra Strength] 1,000 mg PO BID PRN 02/24/18 13:00 Digoxin [Lanoxin] 125 mcg PO DAILY@1300 Warfarin [Coumadin] 2 mg PO DAILY@1300 02/24/18 13:30 Beta-Carotene(A) w/C & E/Min [Prosight] 1 tab PO DAILY Calcium Carbonate [Tums] 500 mg PO DAILY Cholecalciferol (Vitamin D3) [Vitamin D3] 1,000 units PO DAILY 02/24/18 16:00 Ibuprofen [Motrin] 200 mg PO Q6H 02/24/18 21:00 Carvedilol [Coreg] 6.25 mg PO BID LORazepam [Ativan] 2 mg PO BEDTIME Sulfamethoxazole/Trimethoprim [Septra DS] 1 tab PO BID 02/24/18 Lunch Regular Diet [DIET] 02/25/18 08:45 Bladder Scan [RC] ONETIME 02/25/18 08:47 Consult to Physical Therapy [PT Evaluation and Treatment] [CONS] Routine 02/26/18 05:00 INR,PT,PROTHROMBIN TIME [COAG] DAILY 02/27/18 05:00 INR,PT,PROTHROMBIN TIME [COAG] DAILY 02/27/18 10:33 Echo Comp wo Cont [US] Routine 02/28/18 05:00 INR,PT,PROTHROMBIN TIME [COAG] DAILY 03/01/18 05:00 INR,PT,PROTHROMBIN TIME [COAG] DAILY 03/02/18 05:00 INR,PT,PROTHROMBIN TIME [COAG] DAILY - Plan Plan:: Assessment/Plan: #1. Generalized weakness: Blood work is pending. #2. Atrial Fib: Chronic #3. Insomnia: Chronic k#4. UTI: Urine showed WBC's C & S pending. Started on Septra
[2018-02-25] MEDS ORDERED: Ondansetron 4 MG Tab.DIS PO PRN (09:29)
[2018-02-25] MEDS: Digoxin 125 MCG Tab PO SCH (13:29)
[2018-02-25] MEDS ORDERED: traZODone 50 MG Tab PO PRN (14:53)
[2018-02-25] MEDS: LORazepam 1 MG Tab PO SCH (20:34)
[2018-02-25] MEDS ORDERED: Melatonin 3 MG Tab PO SCH (21:00)
[2018-02-26] MEDS: Ibuprofen 200 MG Tab PO SCH ×2 (05:09→09:59)
--- NOTE | 2018-02-26 08:16 | PCM.PN ---
- General Info Date of Service: 02/26/18 Subjective Update: She slept good last night on Trazodone. Urine frequency is better. Functional Status: Reports: Pain Controlled - Review of Systems General: Reports: Weakness HEENT: Reports: No Symptoms Pulmonary: Reports: Shortness of Breath Cardiovascular: Reports: Dyspnea on Exertion Gastrointestinal: Reports: No Symptoms Genitourinary: Reports: Frequency Skin: Reports: No Symptoms Psychiatric: Reports: Depression - Patient Data Vitals - Most Recent: Last Vital Signs Temp 95.4 F 02/26/18 07:13 Pulse 55 L 02/26/18 07:13 Resp 16 02/26/18 07:13 BP 119/75 02/26/18 07:13 Pulse Ox 99 02/26/18 07:13 Weight - Most Recent: 115 lb 6.4 oz I&O - Last 24 Hours: Intake & Output 02/25/18 02/26/18 02/26/18 22:59 06:59 14:59 Intake Total 480 Balance 480 Lab Results Last 24 Hours: Laboratory Results - last 24 hr 02/26/18 Range/Units 05:46 PT 27.3 H (9.5-12.0) sec INR 2.46 H (0.80-1.20) Abdiaziz Results Last 24 Hours: Microbiology 02/24/18 12:12 Urine Culture - Final Urine, Clean Catch Escherichia Coli Med Orders - Current: Current Medications Acetaminophen (Tylenol Extra Strength) 1,000 mg PO BID PRN PRN Reason: PAIN/FEVER Calcium Carbonate/Glycine (Tums) 500 mg PO DAILY [facility] Last Admin: 02/25/18 08:10 Dose: 500 mg Carvedilol (Coreg) 6.25 mg PO BID [facility] Last Admin: 02/25/18 20:34 Dose: 6.25 mg Cholecalciferol (Vitamin D3) 1,000 units PO DAILY [facility] Last Admin: 02/25/18 08:10 Dose: 1,000 units Digoxin (Lanoxin) 125 mcg PO DAILY@1300 [facility] Last Admin: 02/25/18 13:29 Dose: 125 mcg Ibuprofen (Motrin) 200 mg PO Q6H [facility] Last Admin: 02/26/18 05:09 Dose: Not Given Lorazepam (Ativan) 2 mg PO BEDTIME [facility] Last Admin: 02/25/18 20:34 Dose: 2 mg Multivitamins/Minerals (Prosight) 1 tab PO DAILY [facility] Last Admin: 02/25/18 08:10 Dose: 1 tab Ondansetron HCl (Zofran Odt) 4 mg PO Q4H PRN PRN Reason: Nausea/Vomiting Last Admin: 02/25/18 09:59 Dose: 4 mg Sodium Chloride (Saline Flush) 10 ml FLUSH ASDIRECTED PRN PRN Reason: Keep Vein Open Trazodone HCl (Trazodone) 50 mg PO BEDTIME PRN PRN Reason: Insomnia Last Admin: 02/25/18 21:01 Dose: 50 mg Trimethoprim/Sulfamethoxazole (Septra Ds) 1 tab PO BID [facility] Stop: 03/01/18 21:01 Last Admin: 02/25/18 20:34 Dose: 1 tab Warfarin Sodium (Coumadin) 2 mg PO DAILY@1300 [facility] Stop: 02/26/18 13:01 Last Admin: 02/25/18 13:28 Dose: 2 mg Warfarin Sodium (Coumadin) 3 mg PO ONETIME ONE Stop: 02/27/18 13:01 Discontinued Medications Melatonin (Melatonin) 3 mg PO BEDTIME [facility] - Exam General: Alert, Oriented HEENT: Pupils Equal, Pupils Reactive, EOMI, Mucous Membr. Moist/[place] Neck: Supple Lungs: Clear to Auscultation, Normal Respiratory Effort GI/Abdominal Exam: Normal Bowel Sounds, Soft, Non-Tender, No Organomegaly, No Distention, No Abnormal Bruit, No Mass, Pelvis Stable Back Exam: Normal Inspection, Full Range of Motion Extremities: Normal Inspection, Normal Range of Motion, Non-Tender, Normal Capillary Refill, Pedal Edema Peripheral Pulses: 1+: Radial (L), Radial (R) Skin: Warm, Dry, Intact - Problem List Review Problem List Initiated/Reviewed/Updated: Yes - My Orders Last 24 Hours: My Active Orders 02/25/18 08:47 Consult to Physical Therapy [PT Evaluation and Treatment] [CONS] Routine 02/25/18 09:29 Ondansetron [Zofran ODT] 4 mg PO Q4H PRN 02/25/18 14:53 traZODone 50 mg PO BEDTIME PRN 02/27/18 05:00 INR,PT,PROTHROMBIN TIME [COAG] DAILY 02/27/18 10:33 Echo Comp wo Cont [US] Routine 02/27/18 13:00 Warfarin [Coumadin] 3 mg PO ONETIME ONE 02/28/18 05:00 INR,PT,PROTHROMBIN TIME [COAG] DAILY 03/01/18 05:00 INR,PT,PROTHROMBIN TIME [COAG] DAILY 03/02/18 05:00 INR,PT,PROTHROMBIN TIME [COAG] DAILY - Plan Plan:: Assessment/Plan: #1. Generalized weakness: Blood work is pending. #2. Atrial Fib: Chronic #3. Insomnia: Chronic k#4. UTI: Urine showed WBC's C & S pending. Started on Septra and will continue upon discharge.
--- NOTE | 2018-02-26 08:22 | PCM.DCSUM1 ---
Discharge Summary - Hospital Course HPI Initial Comments: Admitted having generalized weakness and insomnia and increased freq. of urination. - Discharge Data Discharge Date: 02/26/18 Discharge Disposition: Home, Self-Care 01 Condition: Good - Patient Summary/Data Consults: Consultations 02/25/18 08:47 Consult to Physical Therapy [PT Evaluation and Treatment] [CONS] Routine Please Evaluate and Treat. PT Reason for Consult: Strengthening Pending Discharge: No Discharge Disposition: Home This query below is only for informational purposes and is not editable. Admission Diagnosis/Problem: Weakness Hospital Course: Followed in the hospital and had evidence of a UTI and treated and improved. Also had insomnia and responded well to Trazodone at night. She had PT which improved her strength. - Patient Instructions Diet: Heart Healthy Diet Activity: As Tolerated - Discharge Plan Home Medications: Home Meds Lutein/Min/Vit C/Vit E Acetate [Ocuvite Lutein] 1 tab PO DAILY 01/13/15 [History ] Digoxin [Lanoxin] 125 mcg PO DAILY@13 tablet 04/26/15 [Rx] LORazepam 2 mg PO BEDTIME #7 tablet 04/26/15 [Rx] Warfarin [Coumadin] 2 mg PO DAILY 05/04/16 [History] Carvedilol [Coreg] 6.25 mg PO BID 05/06/16 [History] Cholecalciferol (Vitamin D3) [Vitamin D3] 1,000 unit PO DAILY 06/01/16 [History] Acetaminophen [Tylenol Extra Strength] 1,000 mg PO BID PRN 10/03/16 [History] Ibuprofen 200 mg PO Q6HR 02/16/18 [History] Calcium Carbonate [Calcium] 500 mg PO DAILY 02/24/18 [History] Carvedilol [Coreg] 6.25 mg PO BID tablet 02/26/18 [Rx] Cholecalciferol (Vitamin D3) [Vitamin D3] 1,000 units PO DAILY tablet 02/26/18 [Rx] Ibuprofen [Motrin] 200 mg PO Q6H tablet 02/26/18 [Rx] LORazepam [Ativan] 2 mg PO BEDTIME tablet 02/26/18 [Rx] Sulfamethoxazole/Trimethoprim [Septra DS] 1 tab PO BID tablet 02/26/18 [Rx] - Patient Data Vitals - Most Recent: Last Vital Signs Temp 95.4 F 02/26/18 07:13 Pulse 55 L 02/26/18 07:13 Resp 16 02/26/18 07:13 BP 119/75 02/26/18 07:13 Pulse Ox 99 02/26/18 07:13 Weight - Most Recent: 115 lb 6.4 oz I&O - Last 24 hours: Intake & Output 02/25/18 02/26/18 02/26/18 22:59 06:59 14:59 Intake Total 480 Balance 480 Lab Results - Last 24 hrs: Laboratory Results - last 24 hr 02/26/18 Range/Units 05:46 PT 27.3 H (9.5-12.0) sec INR 2.46 H (0.80-1.20) [place] Results - Last 24 hrs: Microbiology 02/24/18 12:12 Urine Culture - Final Urine, Clean Catch Escherichia Coli Med Orders - Current: Current Medications Acetaminophen (Tylenol Extra Strength) 1,000 mg PO BID PRN PRN Reason: PAIN/FEVER Calcium Carbonate/Glycine (Tums) 500 mg PO DAILY [facility] Last Admin: 02/25/18 08:10 Dose: 500 mg Carvedilol (Coreg) 6.25 mg PO BID [facility] Last Admin: 02/25/18 20:34 Dose: 6.25 mg Cholecalciferol (Vitamin D3) 1,000 units PO DAILY [facility] Last Admin: 02/25/18 08:10 Dose: 1,000 units Digoxin (Lanoxin) 125 mcg PO DAILY@1300 [facility] Last Admin: 02/25/18 13:29 Dose: 125 mcg Ibuprofen (Motrin) 200 mg PO Q6H [facility] Last Admin: 02/26/18 05:09 Dose: Not Given Lorazepam (Ativan) 2 mg PO BEDTIME [facility] Last Admin: 02/25/18 20:34 Dose: 2 mg Multivitamins/Minerals (Prosight) 1 tab PO DAILY [facility] Last Admin: 02/25/18 08:10 Dose: 1 tab Ondansetron HCl (Zofran Odt) 4 mg PO Q4H PRN PRN Reason: Nausea/Vomiting Last Admin: 02/25/18 09:59 Dose: 4 mg Sodium Chloride (Saline Flush) 10 ml FLUSH ASDIRECTED PRN PRN Reason: Keep Vein Open Trazodone HCl (Trazodone) 50 mg PO BEDTIME PRN PRN Reason: Insomnia Last Admin: 02/25/18 21:01 Dose: 50 mg Trimethoprim/Sulfamethoxazole (Septra Ds) 1 tab PO BID [facility] Stop: 03/01/18 21:01 Last Admin: 02/25/18 20:34 Dose: 1 tab Warfarin Sodium (Coumadin) 2 mg PO DAILY@1300 [facility] Stop: 02/26/18 13:01 Last Admin: 02/25/18 13:28 Dose: 2 mg Warfarin Sodium (Coumadin) 3 mg PO ONETIME ONE Stop: 02/27/18 13:01 Discontinued Medications Melatonin (Melatonin) 3 mg PO BEDTIME [facility]
[2018-02-26] MEDS: Cholecalciferol (Vitamin D3) 1,000 Unit Tab PO SCH (09:52)
[2018-02-26] MEDS: Calcium Carbonate 500 MG Tab.Chew PO SCH (09:52)
[2018-02-26] MEDS: Carvedilol 6.25 MG Tab PO SCH (09:52)
[2018-02-26] MEDS: Sulfamethoxazole/Trimethoprim 800-160 MG Tab PO SCH (09:52)
[2018-02-26] MEDS: Beta-Carotene (Vitamin A) w/Vitamin C & E plus Minerals Tab PO SCH (09:52)
[2018-02-26 09:59] VITALS: BP 125/77
[2018-02-26] MEDS: Digoxin 125 MCG Tab PO SCH (13:02)
== END 2018-02-26 13:45 | disposition home or self-care (01) | DRG 690 ==
LOC: JP.MS 09:45
PROVIDERS: ADMIT Internal Medicine; ATTEND Internal Medicine
DX: N39.0 Urinary tract infection, site not specified (principal); R82.79 Other abnormal findings on microbiological examination of urine; Z66 Do not resuscitate; I50.9 Heart failure, unspecified; I48.2 Chronic atrial fibrillation; Z79.01 Long term (current) use of anticoagulants; G47.00 Insomnia, unspecified; Z85.42 Personal history of malignant neoplasm of other parts of uterus; Z87.891 Personal history of nicotine dependence; M54.9 Dorsalgia, unspecified; G89.29 Other chronic pain; H54.7 Unspecified visual loss; H35.30 Unspecified macular degeneration; Z88.8 Allergy status to other drugs, medicaments and biological substances; Z79.899 Other long term (current) drug therapy; Z51.81 Encounter for therapeutic drug level monitoring
CPT/HCPCS: 36415; 71046; 71046-26; 80053; 80162; 81001; 85025; 85610; 87086; 87088; 87186; 93005; 97161-GP; A9270-GY

== ENCOUNTER 2018-03-01 13:44 | Observation (INO) | payer MEDICARE, BC ==
[2018-03-01] MEDS ORDERED: Ibuprofen 200 MG Tab PO PRN (16:13)
--- NOTE | 2018-03-01 16:14 | PCM.HP ---
H&P History of Present Illness - General Date of Service: 03/01/18 Admit Problem/Dx: Admission Diagnosis/Problem Admission Diagnosis/Problem Weakness Source of Information: Patient, EMS History Limitations: Reports: No Limitations - History of Present Illness Initial Comments - Free Text/Narative: Went home 2 days ago and became confused last night an fell to the floor and called the Police and the EMS to get her up Onset of Symptoms: Reports: Gradual Associated Symptoms: Reports: Shortness of Breath, Weakness, Other (Falling to the floor) - Related Data Allergies/Adverse Reactions: Allergies Allergy/AdvReac Type Severity Reaction Status Date / Time tramadol AdvReac Vomiting Verified 02/16/18 07:52 Home Medications: Home Meds Digoxin [Lanoxin] 125 mcg PO DAILY@13 tablet 04/26/15 [Rx] Warfarin [Coumadin] 2 mg PO DAILY 05/04/16 [History] Calcium Carbonate [Calcium] 500 mg PO DAILY 02/24/18 [History] Carvedilol [Coreg] 6.25 mg PO BID tablet 02/26/18 [Rx] Cholecalciferol (Vitamin D3) [Vitamin D3] 1,000 units PO DAILY tablet 02/26/18 [Rx] LORazepam [Ativan] 2 mg PO BEDTIME tablet 02/26/18 [Rx] Sulfamethoxazole/Trimethoprim [Septra DS] 1 tab PO BID tablet 02/26/18 [Rx] Ibuprofen [Motrin] 200 mg PO Q4H 03/01/18 [History] Vit A/Vit C/Vit E/Zinc/Copper [Preservision] 1 tab PO BID 03/01/18 [History] Past Medical History HEENT History: Reports: Cataract, Impaired Vision, Macular Degeneration Cardiovascular History: Reports: Afib, Arrhythmia, Heart Failure, Other (See Below) Other Cardiovascular History: endocarditis 2008 Gastrointestinal History: Reports: None Genitourinary History: Reports: Urinary Incontinence, UTI, Recurrent Other Genitourinary History: current uti 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: hysterectomy/ uterine cancer Musculoskeletal History: Reports: Back Pain, Chronic, Fracture, Osteoporosis Other Musculoskeletal History: bilateral wrists, elbow, shoulder, left knee Neurological History: Reports: None Psychiatric History: Reports: Anxiety, Depression Oncologic (Cancer) History: Reports: Uterine Dermatologic History: Reports: None - Infectious Disease History Infectious Disease History: Reports: Chicken Pox - Past Surgical History HEENT Surgical History: Reports: Cataract Surgery Cardiovascular Surgical History: Reports: AAA Repair Other Cardiovascular Surgeries/Procedures: 02/02/2018 [facility] GI Surgical History: Reports: Colonoscopy Female Surgical History: Reports: None Neurological Surgical History: Reports: Discectomy Musculoskeletal Surgical History: Reports: Shoulder Surgery, Other (See Below) Other Musculoskeletal Surgeries/Procedures:: Chronic right thigh pain Oncologic Surgical History: Reports: None Social & Family History - Family History Family Medical History: Noncontributory - Tobacco Use Smoking Status *Q: Former Smoker Used Tobacco, but Quit: No Second Hand Smoke Exposure: No - Caffeine Use Caffeine Use: Reports: None - Recreational Drug Use Recreational Drug Use: No H&P Review of Systems - Review of Systems: Review Of Systems: See Below General: Reports: No Symptoms HEENT: Reports: No Symptoms Pulmonary: Reports: No Symptoms Cardiovascular: Reports: No Symptoms Gastrointestinal: Reports: No Symptoms Genitourinary: Reports: Incontinence Musculoskeletal: Reports: No Symptoms Skin: Reports: No Symptoms Psychiatric: Reports: No Symptoms Neurological: Reports: No Symptoms Exam - Exam Exam: See Below - Vital Signs Vital Signs: Last Vital Signs Temp 97.3 F 03/01/18 14:05 Pulse 54 L 03/01/18 14:05 Resp 20 03/01/18 14:05 BP 98/50 L 03/01/18 14:05 Pulse Ox 91 L 03/01/18 14:05 Weight: 117 lb - Exam General: Alert, Oriented, 4 HEENT: PERRLA, Hearing Intact, Mucosa Moist & [place], Nares Patent, Normal Nasal Septum, Posterior Pharynx Clear, Conjunctiva Clear, EOMI, EACs Clear, TMs Clear Neck: Supple, Trachea Midline, 2 Lungs: Clear to Auscultation, Normal Respiratory Effort Cardiovascular: Irregular Rhythm GI/Abdominal Exam: Normal Bowel Sounds, Soft, Non-Tender, No Organomegaly, No Distention, No Abnormal Bruit, No Mass, Pelvis Stable Back Exam: Normal Inspection, Full Range of Motion, NT Extremities: Other (Weakness right side) Peripheral Pulses: 1+: Radial (L), Radial (R) Skin: Warm Neurological: Cranial Nerves Intact Neuro Extensive - Mental Status: Oriented x3, Normal Cognition Neuro Extensive - Motor, Sensory, Reflexes: CN II-XII Intact, Tongue Deviation ( R) - Patient Data Lab Results Last 24 hrs: Laboratory Results - last 24 hr 03/01/18 Range/Units 15:34 PT 20.9 H (9.5-12.0) sec INR 1.90 H (0.80-1.20) Problem List Initiated/Reviewed/Updated: Yes Orders Last 24hrs: Active Orders 24 hr Category Date Time Status Admission Status [Patient Status] [ADT] Routine ADT 03/01/18 14:00 Active Activity as Tolerated [RC] .Routine Care 03/01/18 15:32 Active Vital Signs [RC] Q4H Care 03/01/18 15:31 Active PT Evaluation and Treatment [CONS] Routine Cons 03/02/18 09:00 Active Regular Diet [DIET] Diet 03/01/18 Dinner Active CBC W/O DIFF,HEMOGRAM [HEME] Routine Lab 03/01/18 16:08 Ordered COMPREHENSIVE METABOLIC PN,CMP [CHEM] Routine Lab 03/01/18 16:09 Ordered SCD [Sequential Compression Device] [OM.PC] Routine Oth 03/01/18 15:31 Ordered Assessment/Plan Comment:: Assessment/Plan: #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 #2. Atrial fib.--Chronic #3. Confusion: This was last night #4. History of Aneurysm. #5. HTN: Continue with meds. #6. UTI: cont. with meds.
[2018-03-01] MEDS: DIGOXIN 125 MCG PO SCH (16:42)
[2018-03-01] MEDS: WARFARIN 4 MG PO SCH (16:48)
[2018-03-01] MEDS: CARVEDILOL 12.5 MG PO SCH (16:50)
[2018-03-01] MEDS: TRIMETHOPRIM PO SCH (21:08)
[2018-03-01] MEDS: SULFAMETHOXAZOLE PO SCH (21:08)
[2018-03-01] MEDS: LORazepam 1 MG Tab PO SCH (21:08)
[2018-03-01] MEDS: traZODone 50 MG Tab PO SCH (21:08)
[2018-03-01] MEDS: [UNRECOGNIZED DRUG - OTHER] PO SCH (21:09)
[2018-03-02] MEDS: CARVEDILOL 12.5 MG PO SCH ×2 (07:58→18:13)
--- NOTE | 2018-03-02 08:44 | CT ---
Head wo Cont CLINICAL HISTORY: Right-sided weakness COMPARISON: 2014 TECHNIQUE: Transverse scans were obtained from the base of the skull through the vertex without IV co ntrast on a multislice, multidetector CT scanner. Auto dosage reduction and iterative reconstruction techniques employed. FINDINGS: No focal abnormal parenchymal density is identified. There is no mass effect, hemorrhage, o r extraaxial collection. The basal cisterns and sulci over the convexities are prominent. The ventric les are prominent. There is some heterogeneous white matter lucency IMPRESSION: Age-related atrophy Chronic ischemic microvascular changes No focal lesion hemorrhage or extra-axial collection
[2018-03-02] MEDS: TRIMETHOPRIM PO SCH ×2 (09:29→21:04)
[2018-03-02] MEDS: SULFAMETHOXAZOLE PO SCH ×2 (09:29→21:04)
[2018-03-02] MEDS: [UNRECOGNIZED DRUG - OTHER] PO SCH ×2 (09:29→21:07)
[2018-03-02] MEDS: Calcium Carbonate 500 MG Tab.Chew PO SCH (09:31)
[2018-03-02] MEDS: CHOLECALCIFEROL 1000 UNIT PO SCH (09:31)
[2018-03-02] MEDS: WARFARIN 4 MG PO SCH (12:46)
[2018-03-02] MEDS: DIGOXIN 125 MCG PO SCH (12:48)
--- NOTE | 2018-03-02 17:42 | PCM.PN ---
- General Info Date of Service: 03/02/18 Functional Status: Reports: Pain Controlled - Review of Systems General: Reports: Weakness HEENT: Reports: No Symptoms Pulmonary: Reports: No Symptoms Cardiovascular: Reports: No Symptoms Gastrointestinal: Reports: No Symptoms Genitourinary: Reports: Frequency, Urgency, Incontinence Neurological: Reports: No Symptoms Psychiatric: Reports: No Symptoms - Patient Data Vitals - Most Recent: Last Vital Signs Temp 96.9 F 03/02/18 15:01 Pulse 58 L 03/02/18 15:01 Resp 16 03/02/18 15:01 BP 107/54 L 03/02/18 15:01 Pulse Ox 99 03/02/18 15:01 Weight - Most Recent: 117 lb I&O - Last 24 Hours: Intake & Output 03/02/18 03/02/18 03/02/18 06:59 14:59 22:59 Intake Total 120 240 Output Total 200 Balance 120 40 Lab Results Last 24 Hours: Laboratory Results - last 24 hr 03/02/18 Range/Units 09:08 Urine Color Yellow Urine Appearance Slightly cloudy Urine pH 7.0 (4.5-8.0) Ur Specific [place] 1.010 (1.008-1.030) Urine Protein Negative (NEGATIVE) mg/dL Urine Glucose (UA) Normal (NEGATIVE) mg/dL Urine Ketones Negative (NEGATIVE) mg/dL Urine Occult Blood Negative (NEGATIVE) Urine Nitrite Negative (NEGATIVE) Urine Bilirubin Negative (NEGATIVE) Urine Urobilinogen 1 (NORMAL) mg/dL Ur Leukocyte Esterase Negative (NEGATIVE) Urine RBC 0-5 (0-5) Urine WBC 0-5 (0-5) Ur Epithelial Cells Rare Amorphous Sediment Many Urine Bacteria Rare Urine Mucus Not seen Med Orders - Current: Current Medications Calcium Carbonate/Glycine (Tums) 500 mg PO DAILY [facility] Last Admin: 03/02/18 09:31 Dose: 500 mg Carvedilol (Coreg) 0 mg PO BIDMEALS [facility] Last Admin: 03/02/18 07:58 Dose: 6.25 mg Cholecalciferol (Vitamin D3) 1,000 units PO DAILY [facility] Last Admin: 03/02/18 09:31 Dose: 1,000 units Digoxin (Lanoxin) 125 mcg PO DAILY@1300 [facility] Last Admin: 03/02/18 12:48 Dose: 125 mcg Ibuprofen (Motrin) 200 mg PO Q4H PRN PRN Reason: PAIN/INFLAMATION Last Admin: 03/01/18 20:02 Dose: 200 mg Lorazepam (Ativan) 2 mg PO BEDTIME [facility] Last Admin: 03/01/18 21:08 Dose: 2 mg Preservision Soft (GelsPom) 0 each PO BID [facility] Last Admin: 03/02/18 09:29 Dose: 1 each Warfarin (Coumadin) (4mgPom) 0 each PO DAILY@1300 [facility] Last Admin: 03/02/18 12:46 Dose: 0.5 each Trazodone HCl (Trazodone) 50 mg PO BEDTIME [facility] Last Admin: 03/01/18 21:08 Dose: 50 mg Trimethoprim/Sulfamethoxazole (Septra Ds) 1 tab PO BID [facility] Last Admin: 03/02/18 09:29 Dose: 1 tab - Exam General: Alert, Oriented HEENT: Pupils Equal Neck: Supple Lungs: Clear to Auscultation, Normal Respiratory Effort Cardiovascular: Irregular Rhythm GI/Abdominal Exam: Normal Bowel Sounds, Soft, Non-Tender, No Organomegaly, No Distention, No Abnormal Bruit, No Mass, Pelvis Stable Peripheral Pulses: 1+: Radial (L), Radial (R) Skin: Warm, Dry, Intact - Problem List Review Problem List Initiated/Reviewed/Updated: Yes - My Orders Last 24 Hours: My Active Orders 03/01/18 17:00 Carvedilol [Coreg] 0 mg PO BIDMEALS Patient's Own Medication [Ptom] 0 each PO DAILY@1300 03/01/18 21:00 LORazepam [Ativan] 2 mg PO BEDTIME Patient's Own Medication [Ptom] 0 each PO BID Sulfamethoxazole/Trimethoprim [Septra DS] 1 tab PO BID traZODone 50 mg PO BEDTIME 03/01/18 Dinner Regular Diet [DIET] 03/02/18 09:00 PT Evaluation and Treatment [CONS] Routine Calcium Carbonate [Tums] 500 mg PO DAILY Cholecalciferol (Vitamin D3) [Vitamin D3] 1,000 units PO DAILY 03/02/18 09:08 CULTURE URINE [RM] Routine UA W/MICROSCOPIC [URIN] Routine - Plan Plan:: Assessment/Plan: #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 CT did not show any evidence of a new CVA #2. Atrial fib.--Chronic INR 1.9 today #3. Confusion: This was last night #4. History of Aneurysm. #5. HTN: Continue with meds. #6. UTI: cont. with meds. She is stdill incontinent.
[2018-03-02] MEDS: traZODone 50 MG Tab PO SCH (21:04)
[2018-03-02] MEDS: LORazepam 1 MG Tab PO SCH (21:12)
[2018-03-03 07:11] VITALS: BP 117/72
[2018-03-03] MEDS: CARVEDILOL 12.5 MG PO SCH (08:04)
[2018-03-03] MEDS: Calcium Carbonate 500 MG Tab.Chew PO SCH (08:06)
[2018-03-03] MEDS: CHOLECALCIFEROL 1000 UNIT PO SCH (08:06)
[2018-03-03] MEDS: TRIMETHOPRIM PO SCH (08:06)
[2018-03-03] MEDS: [UNRECOGNIZED DRUG - OTHER] PO SCH (08:06)
[2018-03-03] MEDS: SULFAMETHOXAZOLE PO SCH (08:06)
--- NOTE | 2018-03-03 14:22 | PCM.PN ---
- General Info Date of Service: 03/03/18 Functional Status: Reports: Pain Controlled - Review of Systems General: Reports: Weakness HEENT: Reports: No Symptoms Pulmonary: Reports: No Symptoms Cardiovascular: Reports: No Symptoms Gastrointestinal: Reports: No Symptoms Genitourinary: Reports: Frequency, Burning Musculoskeletal: Reports: Joint Pain Skin: Reports: Rash Neurological: Reports: Weakness, Gait Disturbance Psychiatric: Reports: Confusion - Patient Data Vitals - Most Recent: Last Vital Signs Temp 95.6 F 03/03/18 07:07 Pulse 60 03/03/18 08:04 Resp 16 03/03/18 07:07 BP 117/72 03/03/18 08:04 Pulse Ox 93 L 03/03/18 07:07 Weight - Most Recent: 117 lb I&O - Last 24 Hours: Intake & Output 03/02/18 03/03/18 03/03/18 22:59 06:59 14:59 Intake Total 240 Balance 240 Abdiaziz Results Last 24 Hours: Microbiology 03/02/18 09:08 Urine Culture - Preliminary Urine, Clean Catch MIXED POSITIVE KATHY DAY 1 Med Orders - Current: Current Medications Discontinued Medications Calcium Carbonate/Glycine (Tums) 500 mg PO DAILY [facility] Last Admin: 03/03/18 08:06 Dose: 500 mg Carvedilol (Coreg) 0 mg PO BIDMEALS [facility] Last Admin: 03/03/18 08:04 Dose: 6.25 mg Cholecalciferol (Vitamin D3) 1,000 units PO DAILY [facility] Last Admin: 03/03/18 08:06 Dose: 1,000 units Digoxin (Lanoxin) 125 mcg PO DAILY@1300 [facility] Last Admin: 03/02/18 12:48 Dose: 125 mcg Ibuprofen (Motrin) 200 mg PO Q4H PRN PRN Reason: PAIN/INFLAMATION Last Admin: 03/01/18 20:02 Dose: 200 mg Lorazepam (Ativan) 2 mg PO BEDTIME [facility] Last Admin: 03/02/18 21:12 Dose: 2 mg Preservision Soft (GelsPom) 0 each PO BID [facility] Last Admin: 03/03/18 08:06 Dose: 1 each Warfarin (Coumadin) (4mgPom) 0 each PO DAILY@1300 [facility] Last Admin: 03/02/18 12:46 Dose: 0.5 each Trazodone HCl (Trazodone) 50 mg PO BEDTIME [facility] Last Admin: 03/02/18 21:04 Dose: 50 mg Trimethoprim/Sulfamethoxazole (Septra Ds) 1 tab PO BID [facility] Last Admin: 03/03/18 08:06 Dose: 1 tab - Exam General: Moderate Distress HEENT: Pupils Equal, Pupils Reactive, EOMI, Mucous Membr. Moist/[place] Neck: Supple Lungs: Clear to Auscultation Cardiovascular: Irregular Rhythm Back Exam: Normal Inspection, Full Range of Motion Extremities: Leg Pain Peripheral Pulses: 1+: Radial (L), Radial (R) Skin: Warm, Dry, Intact Wound/Incisions: Healing Well Psy/Mental Status: Labile Mood - Problem List Review Problem List Initiated/Reviewed/Updated: Yes - My Orders Last 24 Hours: My Active Orders 03/03/18 08:29 Ready for Discharge [RC] PER UNIT ROUTINE - Plan Plan:: Assessment/Plan: #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 Not confirmed by CT to be acute. #2. Atrial fib.--Chronic #3. Confusion: This was last night. She was very confused this morning I she insisted on having a and see if this makes a difference andome today. #4. History of Aneurysm. #5. HTN: Continue with meds. Her blood pressure is good control 117 systolic #6. UTI: cont. with meds. The urine I feel has been treated adeqthe sulfa when going to the [facility] today.
--- NOTE | 2018-03-03 14:27 | PCM.DCSUM1 ---
Discharge Summary - Hospital Course HPI Initial Comments: She was admitted from home after fallen on the floor was unable to get up by herself. The family felt that she could not take care of herself and needed to go to [facility] [place] [facility] care. She said that she had trouble walking last night and weak on her right side. Diagnosis: Stroke: No - Discharge Data Discharge Date: 03/03/18 Discharge Disposition: DC/Tfer to [facility] Condition: Good - Patient Summary/Data Consults: Consultations 03/02/18 09:00 PT Evaluation and Treatment [CONS] Routine Please Evaluate and Treat. PT Reason for Consult: weakness Special Instructions: planning NHP This query below is only for informational purposes and is not editable. Hospital Course: She did have a CAT scan of the head which showed no acute cerebrovascular accident. She was confused the day of discharge and feels this may be due to a medication that she is taking that she insisted on taking at home for sleep this has been stopped. She is also being treated for urinary tract infection feel that this has been treated adequately and will not be continued on medication for the infection. - Discharge Plan Home Medications: Home Meds Digoxin [Lanoxin] 125 mcg PO DAILY@13 tablet 04/26/15 [Rx] Warfarin [Coumadin] 2 mg PO DAILY 05/04/16 [History] Calcium Carbonate [Calcium] 500 mg PO DAILY 02/24/18 [History] Carvedilol [Coreg] 6.25 mg PO BID tablet 02/26/18 [Rx] Cholecalciferol (Vitamin D3) [Vitamin D3] 1,000 units PO DAILY tablet 02/26/18 [Rx] Ibuprofen [Motrin] 200 mg PO Q4H 03/01/18 [History] Vit A/Vit C/Vit E/Zinc/Copper [Preservision] 1 tab PO BID 03/01/18 [History] Carvedilol [Coreg] 0 mg PO BIDMEALS tablet 03/03/18 [Rx] Cholecalciferol (Vitamin D3) [Vitamin D3] 1,000 units PO DAILY tablet 03/03/18 [Rx] Ibuprofen [Motrin] 200 mg PO Q4H PRN tablet 03/03/18 [Rx] - Discharge Summary/Plan Comment Discharge Summary/Plan Comment: Assessment/Plan: #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 Not confirmed by CT to be acute. #2. Atrial fib.--Chronic #3. Confusion: This was last night. She was very confused this morning I she insisted on having a and see if this makes a difference andome today. #4. History of Aneurysm. #5. HTN: Continue with meds. Her blood pressure is good control 117 systolic #6. UTI: cont. with meds. The urine I feel has been treated adeqthe sulfa when going to the [place] [facility] today. - General Info Date of Service: 03/03/18 Functional Status: Reports: Pain Controlled - Review of Systems General: Reports: Weakness HEENT: Reports: No Symptoms Pulmonary: Reports: Shortness of Breath Cardiovascular: Reports: Dyspnea on Exertion Gastrointestinal: Reports: No Symptoms Genitourinary: Reports: Frequency, Incontinence Neurological: Reports: No Symptoms Psychiatric: Reports: Confusion - Patient Data Vitals - Most Recent: Last Vital Signs Temp 95.6 F 03/03/18 07:07 Pulse 60 03/03/18 08:04 Resp 16 03/03/18 07:07 BP 117/72 03/03/18 08:04 Pulse Ox 93 L 03/03/18 07:07 Weight - Most Recent: 117 lb I&O - Last 24 hours: Intake & Output 03/02/18 03/03/18 03/03/18 22:59 06:59 14:59 Intake Total 240 Balance 240 JUAN [place]IEGO Results - Last 24 hrs: Microbiology 03/02/18 09:08 Urine Culture - Preliminary Urine, Clean Catch MIXED POSITIVE KATHY DAY 1 Med Orders - Current: Current Medications Discontinued Medications Calcium Carbonate/Glycine (Tums) 500 mg PO DAILY [facility] Last Admin: 03/03/18 08:06 Dose: 500 mg Carvedilol (Coreg) 0 mg PO BIDMEALS [facility] Last Admin: 03/03/18 08:04 Dose: 6.25 mg Cholecalciferol (Vitamin D3) 1,000 units PO DAILY [facility] Last Admin: 03/03/18 08:06 Dose: 1,000 units Digoxin (Lanoxin) 125 mcg PO DAILY@1300 [facility] Last Admin: 03/02/18 12:48 Dose: 125 mcg Ibuprofen (Motrin) 200 mg PO Q4H PRN PRN Reason: PAIN/INFLAMATION Last Admin: 03/01/18 20:02 Dose: 200 mg Lorazepam (Ativan) 2 mg PO BEDTIME [facility] Last Admin: 03/02/18 21:12 Dose: 2 mg Preservision Soft (GelsPom) 0 each PO BID [facility] Last Admin: 03/03/18 08:06 Dose: 1 each Warfarin (Coumadin) (4mgPom) 0 each PO DAILY@1300 [facility] Last Admin: 03/02/18 12:46 Dose: 0.5 each Trazodone HCl (Trazodone) 50 mg PO BEDTIME [facility] Last Admin: 03/02/18 21:04 Dose: 50 mg Trimethoprim/Sulfamethoxazole (Septra Ds) 1 tab PO BID [facility] Last Admin: 03/03/18 08:06 Dose: 1 tab - Exam General: Reports: Cooperative, Mild Distress Lungs: Reports: Clear to Auscultation, Normal Respiratory Effort Extremities: Joint Swelling Skin: Reports: Rash Psy/Mental Status: Reports: Anxious
== END 2018-03-03 10:32 ==
LOC: JP.MS 13:44
PROVIDERS: ADMIT Internal Medicine; ATTEND Internal Medicine
DX: R53.1 Weakness (principal); W19.XXXA Unspecified fall, initial encounter; I48.2 Chronic atrial fibrillation; I10 Essential (primary) hypertension; R41.0 Disorientation, unspecified; N39.0 Urinary tract infection, site not specified; Z79.01 Long term (current) use of anticoagulants; Z79.2 Long term (current) use of antibiotics; Z79.899 Other long term (current) drug therapy; Z88.5 Allergy status to narcotic agent; Z87.891 Personal history of nicotine dependence
CPT/HCPCS: 36415; 70450; 80053; 81001; 85027; 85610; 87086; 97161; 97530; A9270; G0378

== ENCOUNTER 2018-05-05 17:13 | Emergency (ER) | payer MEDICARE, BC ==
--- NOTE | 2018-05-05 18:09 | EDM.PDOC ---
ED HPI GENERAL MEDICAL PROBLEM - General Chief Complaint: General Stated Complaint: FELL HIT HEAD Time Seen by Provider: 05/05/18 18:00 Source of Information: Reports: Patient, Family History Limitations: Reports: No Limitations - History of Present Illness INITIAL COMMENTS - FREE TEXT/NARRATIVE: Melissa is an 82-year-old female who presents to the emergency department today after falling backwards and striking her head. Patient was at home when this happened, it was an unwitnessed fall, she denies any loss of consciousness. Patient does use a walker to get around, she denies any dizziness or chest pain prior to the fall, she denies tripping, she is uncertain why she fell. Patient is on warfarin secondary to chronic atrial fibrillation. Patient does endorse lower back pain. Patient denies any chest pain, abdominal pain or extremity injuries. Patient did have ibuprofen prior to arrival here. Patient did have a fall in February at which point she was sent to the care home for 2 weeks to recover from, patient reports that she has no interest in being in a care home and would like to return home. Patient's niece is here who states that she , her as well as another family member check on patient on a daily basis and she does have a lady that comes to her house for 2 hours every morning to help her. Onset: Today, Sudden Occipital Head Pain Score (Numeric/FACES): 8 Lower Back Pain Score (Numeric/FACES): 9 - Related Data Allergies Allergy/AdvReac Type Severity Reaction Status Date / Time tramadol AdvReac Vomiting Verified 02/16/18 07:52 Home Meds: Home Meds Digoxin [Lanoxin] 125 mcg PO DAILY@13 tablet 04/26/15 [Rx] Warfarin [Coumadin] 2 mg PO DAILY 05/04/16 [History] Calcium Carbonate [Calcium] 500 mg PO DAILY 02/24/18 [History] Carvedilol [Coreg] 6.25 mg PO BID tablet 02/26/18 [Rx] Cholecalciferol (Vitamin D3) [Vitamin D3] 1,000 units PO DAILY tablet 02/26/18 [Rx] Ibuprofen [Motrin] 200 mg PO Q4H 03/01/18 [History] Vit A/Vit C/Vit E/Zinc/Copper [Preservision] 1 tab PO BID 03/01/18 [History] Carvedilol [Coreg] 0 mg PO BIDMEALS tablet 03/03/18 [Rx] Cholecalciferol (Vitamin D3) [Vitamin D3] 1,000 units PO DAILY tablet 03/03/18 [Rx] Ibuprofen [Motrin] 200 mg PO Q4H PRN tablet 03/03/18 [Rx] Past Medical History HEENT History: Reports: Cataract, Impaired Vision, Macular Degeneration Cardiovascular History: Reports: Afib, Arrhythmia, Heart Failure, Other (See Below) Other Cardiovascular History: endocarditis 2008 Gastrointestinal History: Reports: None Genitourinary History: Reports: Urinary Incontinence, UTI, Recurrent Other Genitourinary History: current uti Other [employer] History: hysterectomy/ uterine cancer Musculoskeletal History: Reports: Back Pain, Chronic, Fracture, Osteoporosis Other Musculoskeletal History: bilateral wrists, elbow, shoulder, left knee Neurological History: Reports: None Psychiatric History: Reports: Anxiety, Depression Oncologic (Cancer) History: Reports: Uterine Dermatologic History: Reports: None - Infectious Disease History Infectious Disease History: Reports: Chicken Pox, Measles, Mumps - Past Surgical History HEENT Surgical History: Reports: Cataract Surgery Cardiovascular Surgical History: Reports: AAA Repair Other Cardiovascular Surgeries/Procedures: 02/02/2018 [facility] GI Surgical History: Reports: Colonoscopy Female Surgical History: Reports: None Neurological Surgical History: Reports: Discectomy Musculoskeletal Surgical History: Reports: Shoulder Surgery, Other (See Below) Other Musculoskeletal Surgeries/Procedures:: Chronic right thigh pain Oncologic Surgical History: Reports: None Social & Family History - Family History Family Medical History: Noncontributory - Tobacco Use Smoking Status *Q: Never Smoker - Caffeine Use Caffeine Use: Reports: Coffee - Recreational Drug Use Recreational Drug Use: No ED ROS GENERAL - Review of Systems Review Of Systems: ROS reveals no pertinent complaints other than HPI. ED EXAM, GENERAL - Physical Exam Exam: See Below Exam Limited By: No Limitations General Appearance: Alert, WD/WN, No Apparent Distress Eye Exam: Bilateral Eye: EOMI, PERRL Ears: Normal External Exam, Normal TMs Ear Exam: Bilateral Ear: TM normal Nose: Normal Inspection Throat/Mouth: Normal Inspection, Normal Oropharynx Head: Other (Hematoma to left posterior scalp) Neck: Normal Inspection, Supple, Non-Tender, Full Range of Motion. No: Tender Midline Respiratory/Chest: No Respiratory Distress, Lungs Clear Cardiovascular: Normal Peripheral Pulses, Systolic Murmur, Irregularly Irregular GI/Abdominal: Normal Bowel Sounds, Soft, Non-Tender Extremities: Normal Inspection, Other (Healing wounds to right knee) Neurological: Alert, Oriented, CN II-XII Intact Psychiatric: Normal Affect, Normal Mood Lymphatic: No Adenopathy Course - Vital Signs Last Recorded V/S: Last Vital Signs Temp 37.4 C 05/05/18 17:36 Pulse 62 05/05/18 21:20 Resp 14 05/05/18 21:20 BP 119/71 05/05/18 21:20 Pulse Ox 92 L 05/05/18 21:20 Melissa is an 82-year-old female who presents to the emergency department today via private vehicle after falling backwards at her house. Please refer to history of present illness and focused exam. Patient does arrive here hemodynamically stable and is afebrile. Patient's neuro focal exam is intact. Patient does have a hematoma to the back of her head, given her age and light of the fact that she is on warfarin, CT scans were obtained of head, cervical spine as well as lumbar spine as she is also tender here. Patient does have a history of bladder infections as well. Straight catheter was performed and urinalysis was obtained.. I did discuss with patient and her niece patient's safety at home, patient's niece as well as patient are insistent that patient does not want to go to a care home and even in a care home she can "still fall". Patient reports that her was given a wheelchair which she thinks she would benefit from. Patient's blood work was obtained, white count returns low at 4.2, hemoglobin stable patient 11.5. Platelets are mildly low at 129, patient does have a left shift. INR is mildly subtherapeutic at 1.98. BUNs is elevated at 26, GFR is 53 today with a glucose of 119. Urinalysis is negative for infection, urine culture is pending. CT scan of head and cervical spine are negative for any acute findings. CT scan of Lumbar spine shows an acute L1 vertebral body fracture, again noted are compression fractures of T12 and L3 that are unchanged. I discussed CT scan of Lumbar spine with Dr. Urrutia, neurosurgery, at [facility], he recommended TLSO which we do not have the ability to do here. Patient with her age, falls, and anti-coagulated state would benefit from transfer so this can be done and PT can consult for proper/safe placement. I discused the care with hospitalist, Dr. Sarabia who has graciously accepted patient for transfer. Patient and her niece were updated on plan of care and are agreeable. Patient was given Tylenol here for pain, lidocaine patch applied. Patient request no opioids. Patient discharged via BLS in stable condition. - Orders/Labs/Meds Orders: Active Orders 24 hr Category Date Time Status Cervical Spine wo Cont [CT] Stat Exams 05/05/18 18:05 Taken Head wo Cont [CT] Stat Exams 05/05/18 18:04 Taken Lumbar Spine wo Cont [CT] Stat Exams 05/05/18 18:05 Taken CULTURE URINE [RM] Stat Lab 05/05/18 18:36 Received URINALYSIS W/MICROSCOPIC [UA W/MICROSCOPIC] [URIN] Stat Lab 05/05/18 18:22 Ordered Lidocaine 5% [Lidoderm 5%] Med 05/05/18 20:45 Active 700 mg TOP Q24H Medication Orders Lidocaine (Lidoderm 5%) 700 mg TOP Q24H RACHELLE Last Admin: 05/05/18 20:57 Dose: 700 mg Labs: Laboratory Tests 05/05/18 05/05/18 05/05/18 Range/Units 18:06 18:06 18:06 WBC 4.2 L (4.5-11.0) K/uL RBC 3.68 (3.30-5.50) M/uL Hgb 11.5 L (12.0-15.0) g/dL Hct 36.3 (36.0-48.0) % MCV 99 H (80-98) fL MCH 31 (27-31) pg MCHC 32 (32-36) % Plt Count 129 L (150-400) K/uL Neut % (Auto) 73 H (36-66) % Lymph % (Auto) 13 L (24-44) % [place] % (Auto) 11 H (2-6) % Eos % (Auto) 3 (2-4) % Baso % (Auto) 1 (0-1) % PT 21.0 H (9.5-12.0) sec INR 1.98 H (0.80-1.20) Sodium 140 (140-148) mmol/L Potassium 4.6 (3.6-5.2) mmol/L Chloride 106 (100-108) mmol/L Carbon Dioxide 26 (21-32) mmol/L Anion Gap 8.2 (5.0-14.0) mmol/L BUN 26 H (7-18) mg/dL Creatinine 1.0 (0.6-1.0) mg/dL Est Cr Clr Drug Dosing 34.19 mL/min Estimated GFR (MDRD) 53 L (>60) Glucose 119 H (74-106) mg/dL Calcium 9.5 (8.5-10.1) mg/dL Urine Color Urine Appearance Urine pH (4.5-8.0) Ur Specific [place] (1.008-1.030) Urine Protein (NEGATIVE) mg/dL Urine Glucose (UA) (NEGATIVE) mg/dL Urine Ketones (NEGATIVE) mg/dL Urine Occult Blood (NEGATIVE) Urine Nitrite (NEGATIVE) Urine Bilirubin (NEGATIVE) Urine Urobilinogen (NORMAL) mg/dL Ur Leukocyte Esterase (NEGATIVE) Urine RBC (0-5) Urine WBC (0-5) Ur Epithelial Cells Amorphous Sediment Urine Bacteria Urine Mucus Urinalysis Comment 05/05/18 Range/Units 18:22 WBC (4.5-11.0) K/uL RBC (3.30-5.50) M/uL Hgb (12.0-15.0) g/dL Hct (36.0-48.0) % MCV (80-98) fL MCH (27-31) pg MCHC (32-36) % Plt Count (150-400) K/uL Neut % (Auto) (36-66) % Lymph % (Auto) (24-44) % [place] % (Auto) (2-6) % Eos % (Auto) (2-4) % Baso % (Auto) (0-1) % PT (9.5-12.0) sec INR (0.80-1.20) Sodium (140-148) mmol/L Potassium (3.6-5.2) mmol/L Chloride (100-108) mmol/L Carbon Dioxide (21-32) mmol/L Anion Gap (5.0-14.0) mmol/L BUN (7-18) mg/dL Creatinine (0.6-1.0) mg/dL Est Cr Clr Drug Dosing mL/min Estimated GFR (MDRD) (>60) Glucose (74-106) mg/dL Calcium (8.5-10.1) mg/dL Urine Color [place] Urine Appearance Cloudy Urine pH 5.0 (4.5-8.0) Ur Specific [place] 1.025 (1.008-1.030) Urine Protein Negative (NEGATIVE) mg/dL Urine Glucose (UA) Normal (NEGATIVE) mg/dL Urine Ketones Negative (NEGATIVE) mg/dL Urine Occult Blood Negative (NEGATIVE) Urine Nitrite Negative (NEGATIVE) Urine Bilirubin Negative (NEGATIVE) Urine Urobilinogen 4 (NORMAL) mg/dL Ur Leukocyte Esterase Negative (NEGATIVE) Urine RBC 0-5 (0-5) Urine WBC 0-5 (0-5) Ur Epithelial Cells Few Amorphous Sediment Numerous Urine Bacteria Rare Urine Mucus Few Urinalysis Comment See note Meds: Medications Generic Name Dose Route Start Last Admin Trade Name Freq PRN Reason Stop Dose Admin Lidocaine 700 mg 05/05/18 20:45 05/05/18 20:57 Lidoderm 5% TOP 700 mg Q24H RACHELLE Administration Discontinued Medications Generic Name Dose Route Start Last Admin Trade Name Freq PRN Reason Stop Dose Admin Acetaminophen 1,000 mg 05/05/18 19:57 05/05/18 20:03 Tylenol Extra Strength PO 05/05/18 19:58 1,000 mg ONETIME ONE Administration Departure - Departure Time of Disposition: 21:45 Disposition: DC/Tfer to Acute Hospital 02 Condition: Good Clinical Impression: L1 vertebral fracture Qualifiers: Encounter type: initial encounter Fracture type: closed Fracture morphology: unspecified fracture morphology Qualified Code(s): S32.019A - Unspecified fracture of first lumbar vertebra, initial encounter for closed fracture Fall in home Qualifiers: Encounter type: initial encounter Qualified Code(s): W19.XXXA - Unspecified fall, initial encounter - Discharge Information Referrals: Guy Pastor Sr, MD [Primary Care Provider] - Forms: ED Department Discharge - My Orders Last 24 Hours: My Active Orders 05/05/18 18:04 Head wo Cont [CT] Stat 05/05/18 18:05 Cervical Spine wo Cont [CT] Stat Lumbar Spine wo Cont [CT] Stat 05/05/18 18:22 URINALYSIS W/MICROSCOPIC [UA W/MICROSCOPIC] [URIN] Stat 05/05/18 18:36 CULTURE URINE [RM] Stat 05/05/18 20:45 Lidocaine 5% [Lidoderm 5%] 700 mg TOP Q24H - Assessment/Plan Last 24 Hours: My Active Orders 05/05/18 18:04 Head wo Cont [CT] Stat 05/05/18 18:05 Cervical Spine wo Cont [CT] Stat Lumbar Spine wo Cont [CT] Stat 05/05/18 18:22 URINALYSIS W/MICROSCOPIC [UA W/MICROSCOPIC] [URIN] Stat 05/05/18 18:36 CULTURE URINE [RM] Stat 05/05/18 20:45 Lidocaine 5% [Lidoderm 5%] 700 mg TOP Q24H
[2018-05-05] MEDS ORDERED: Acetaminophen 500 MG Tab PO ONE (19:57)
[2018-05-05] MEDS ORDERED: Lidocaine 5% 700 MG Patch TOP SCH (20:45)
[2018-05-05 21:21] VITALS: BP 119/71
== END 2018-05-05 21:50 ==
LOC: JP.ED 17:13
DX: S32.019A Unspecified fracture of first lumbar vertebra, initial encounter for closed fracture (principal); Z88.6 Allergy status to analgesic agent; Z79.01 Long term (current) use of anticoagulants; I50.9 Heart failure, unspecified; W18.00XA Striking against unspecified object with subsequent fall, initial encounter
CPT/HCPCS: 36415; 70450; 72125; 72131; 80048; 81001; 85025; 85610; 87086; 99285; A9270

== ENCOUNTER 2018-12-02 03:17 | Inpatient (IN) | payer MEDICARE, BC ==
--- NOTE | 2018-12-02 03:48 | EDM.PDOC ---
ED HPI GENERAL MEDICAL PROBLEM - General Chief Complaint: Trauma Stated Complaint: FALL Time Seen by Provider: 12/02/18 03:35 Source of Information: Reports: Patient, Old Records, RN History Limitations: Reports: No Limitations - History of Present Illness INITIAL COMMENTS - FREE TEXT/NARRATIVE: 83 yo female fell tonight and may have broken her L hip. Lives at an assisted living facility and was going to the bathroom without her walker when she fell. Is on Eliquis. No LOC. EMS gave fentanyl 50 mcg IV. Onset: Today Onset Date: 12/02/18 Onset Time: 02:50 Duration: Minutes:, Constant Location: Reports: Lower Extremity, Left Quality: Reports: Ache Severity: Moderate Improves with: Reports: Medication, Rest Worsens with: Reports: Movement Context: Reports: Trauma Associated Symptoms: Reports: No Other Symptoms Treatments SURVEY ASSOCIATE: Reports: Other (see below) (fentanyl 50 mcg IV) Left Hip Pain Score (Numeric/FACES): 8 - Related Data Allergies Allergy/AdvReac Type Severity Reaction Status Date / Time tramadol AdvReac Vomiting Verified 10/18/18 14:05 Home Meds: Home Meds Digoxin [Lanoxin] 125 mcg PO DAILY@13 tablet 04/26/15 [Rx] Calcium Carbonate [Calcium] 500 mg PO DAILY 02/24/18 [History] Carvedilol [Coreg] 6.25 mg PO BID tablet 02/26/18 [Rx] Cholecalciferol (Vitamin D3) [Vitamin D3] 1,000 units PO DAILY tablet 02/26/18 [Rx] Vit A/Vit C/Vit E/Zinc/Copper [Preservision] 1 tab PO BID 03/01/18 [History] Ibuprofen [Motrin] 200 mg PO Q4H PRN tablet 03/03/18 [Rx] Acetaminophen [Tylenol] 650 mg PO BID PRN 09/13/18 [History] Apixaban [Eliquis] 5 mg PO BID 09/13/18 [History] Dextromethorphan/guaiFENesin [Robitussin DM] 10 ml PO ASDIRECTED 09/13/18 [ History] Gabapentin [Neurontin] 100 mg PO TID 09/13/18 [History] Hydrocortisone [Preparation H] 1 applic TOP ASDIRECTED 09/13/18 [History] LORazepam 2 mg PO BEDTIME 09/13/18 [History] Loperamide [Imodium] 2 mg PO ASDIRECTED 09/13/18 [History] Mag Hydrox/Al Hydrox/Simeth [Maalox Maximum Strength Susp] 10 ml PO ASDIRECTED 09/13/18 [History] Magnesium Hydroxide [Milk of Magnesia] 30 ml PO DAILY PRN 09/13/18 [History] Na Phos,M-B/Na Phos,DI-B [Fleet Enema] 133 ml RC ASDIRECTED 09/13/18 [History] Past Medical History HEENT History: Reports: Cataract, Impaired Vision, Macular Degeneration Cardiovascular History: Reports: Afib, Arrhythmia, Heart Failure, Other (See Below) Other Cardiovascular History: endocarditis 2008 Gastrointestinal History: Reports: None Genitourinary History: Reports: Urinary Incontinence, UTI, Recurrent Other Genitourinary History: current uti 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: hysterectomy/ uterine cancer Musculoskeletal History: Reports: Back Pain, Chronic, Fracture, Osteoporosis Other Musculoskeletal History: bilateral wrists, elbow, shoulder, left knee Neurological History: Reports: None Psychiatric History: Reports: Anxiety, Depression Oncologic (Cancer) History: Reports: Uterine Dermatologic History: Reports: None - Infectious Disease History Infectious Disease History: Reports: Chicken Pox, Measles, Mumps - Past Surgical History HEENT Surgical History: Reports: Cataract Surgery Cardiovascular Surgical History: Reports: AAA Repair Other Cardiovascular Surgeries/Procedures: 02/02/[address] [facility] GI Surgical History: Reports: Colonoscopy Female Surgical History: Reports: None Neurological Surgical History: Reports: Discectomy Musculoskeletal Surgical History: Reports: Shoulder Surgery, Other (See Below) Other Musculoskeletal Surgeries/Procedures:: Chronic right thigh pain Oncologic Surgical History: Reports: None Social & Family History - Family History Family Medical History: Noncontributory - Tobacco Use Smoking Status *Q: Never Smoker - Caffeine Use Caffeine Use: Reports: None Review of Systems - Review of Systems Review Of Systems: See Below Constitutional: Reports: No Symptoms Eyes: Reports: No Symptoms Ears: Reports: No Symptoms Nose: Reports: No Symptoms Mouth/Throat: Reports: No Symptoms Respiratory: Reports: No Symptoms Cardiovascular: Reports: No Symptoms GI/Abdominal: Reports: No Symptoms Genitourinary: Reports: No Symptoms Musculoskeletal: Reports: Joint Pain (L hip) Skin: Reports: No Symptoms Neurological: Reports: No Symptoms ED EXAM, GENERAL - Physical Exam Exam: See Below Exam Limited By: No Limitations General Appearance: Alert, WD/WN, No Apparent Distress Eye Exam: Bilateral Eye: Normal Inspection Ears: Normal External Exam, Normal Canal, Hearing Grossly Normal Ear Exam: Bilateral Ear: Auricle Normal, Canal Normal Nose: Normal Inspection, Normal Mucosa, No Blood Throat/Mouth: Normal Inspection, Normal Lips, Normal Oropharynx, Normal Voice, No Airway Compromise Head: Atraumatic, Normocephalic Neck: Normal Inspection Respiratory/Chest: No Respiratory Distress, Lungs Clear, Normal Breath Sounds, No Accessory Muscle Use Cardiovascular: No Edema, Irregularly Irregular GI/Abdominal: Normal Bowel Sounds, Soft, Non-Tender, No Distention Back Exam: Normal Inspection. No: CVA Tenderness (R), CVA Tenderness (L) Extremities: Normal Inspection, No Pedal Edema, Leg Pain (L hip pain), Limited Range of Motion (L hip due to pain, external rotation and shortening.). No: Non -Tender Neurological: Alert, Oriented, CN II-XII Intact, Normal Cognition, No Motor/ Sensory Deficits Psychiatric: Normal Affect, Normal Mood Skin Exam: Warm, Dry, Intact, Normal Color, No Rash Course - Vital Signs Text/Narrative:: Dr. Pastor called @ 0420h Last Recorded V/S: Last Vital Signs Temp 36.1 C 12/02/18 03:23 Pulse 74 12/02/18 03:23 Resp 16 12/02/18 03:23 BP 134/95 H 12/02/18 03:23 Pulse Ox 96 12/02/18 03:23 - Orders/Labs/Meds Orders: Active Orders 24 hr Category Date Time Status Khan Catheter Insertion [Insert Urinary Catheter] [OM. Care 12/02/18 03:45 Ordered PC] Q24H Urinary Catheter Assessment [RC] ASDIRECTED Care 12/02/18 03:38 Active Chest 1V Frontal [CR] Stat Exams 12/02/18 03:35 Ordered Hip Min 2V or 3V Lt [CR] Stat Exams 12/02/18 03:35 Taken Pelvis 1V or 2V [CR] Stat Exams 12/02/18 03:35 Taken UA W/MICROSCOPIC [URIN] Stat Lab 12/02/18 03:38 Ordered Labs: Laboratory Tests 12/02/18 12/02/18 Range/Units 03:48 03:48 WBC 4.9 (4.5-11.0) K/uL RBC 3.51 (3.30-5.50) M/uL Hgb 11.5 L (12.0-15.0) g/dL Hct 36.7 (36.0-48.0) % MCV 105 H (80-98) fL MCH 33 H (27-31) pg MCHC 31 L (32-36) % Plt Count 118 L (150-400) K/uL Sodium 143 (140-148) mmol/L Potassium 4.6 (3.6-5.2) mmol/L Chloride 108 (100-108) mmol/L Carbon Dioxide 28 (21-32) mmol/L Anion Gap 7.3 (5.0-14.0) mmol/L BUN 28 H (7-18) mg/dL Creatinine 0.9 (0.6-1.0) mg/dL Est Cr Clr Drug Dosing 36.32 mL/min Estimated GFR (MDRD) 60 (>60) Glucose 124 H (74-106) mg/dL Calcium 9.3 (8.5-10.1) mg/dL - Radiology Interpretation Free Text/Narrative:: L hip and pelvis X-ray-L intertrochanteric hip fx CXR-no acute changes. Departure - Departure Time of Disposition: 04:30 Disposition: Admitted As Inpatient 64 Condition: Fair Clinical Impression: Intertrochanteric fracture of left hip Qualifiers: Encounter type: initial encounter Fracture type: closed Fracture alignment: nondisplaced Qualified Code(s): S72.145A - Nondisplaced intertrochanteric fracture of left femur, initial encounter for closed fracture - Discharge Information *PRESCRIPTION DRUG MONITORING PROGRAM REVIEWED*: No *COPY OF PRESCRIPTION DRUG MONITORING REPORT IN PATIENT ZUNILDA: No Referrals: Guy Pastor Sr, MD [Primary Care Provider] - Forms: ED Department Discharge - My Orders Last 24 Hours: My Active Orders 12/02/18 03:35 Chest 1V Frontal [CR] Stat Hip Min 2V or 3V Lt [CR] Stat Pelvis 1V or 2V [CR] Stat 12/02/18 03:38 Urinary Catheter Assessment [RC] ASDIRECTED UA W/MICROSCOPIC [URIN] Stat 12/02/18 03:45 Khan Catheter Insertion [Insert Urinary Catheter] [OM.PC] Q24H - Assessment/Plan Last 24 Hours: My Active Orders 12/02/18 03:35 Chest 1V Frontal [CR] Stat Hip Min 2V or 3V Lt [CR] Stat Pelvis 1V or 2V [CR] Stat 12/02/18 03:38 Urinary Catheter Assessment [RC] ASDIRECTED UA W/MICROSCOPIC [URIN] Stat 12/02/18 03:45 Khan Catheter Insertion [Insert Urinary Catheter] [OM.PC] Q24H
--- NOTE | 2018-12-02 04:23 | CRLCR ---
INDICATION: Fall with left hip pain TECHNIQUE: Pelvis radiograph, Hip radiograph 2 views left COMPARISON: None FINDINGS: Bone: There is intertrochanteric left hip fracture present extending into the subtrochanteric region and proximal diaphysis of the left femur. Severe diffuse osteopenia is noted. Stenting of the common iliac vessels are partially visualized. Portions of the iliac crests are excluded. Joint: Mild bilateral hip joint space narrowing is present, consistent with osteoarthritis. The visualized sacroiliac joints are unremarkable in appearance. The pubic symphysis is normal in appearance. Soft tissue: Unremarkable. The visualized bowel gas pattern of the pelvis is unremarkable in appearance. No radiopaque foreign bodies are seen. IMPRESSION: 1. There is intertrochanteric left hip fracture present extending into the subtrochanteric region and proximal diaphysis of the left femur. Dictated by Torres Hendrix MD @ 12/02/2018 4:20:54 AM Dictated by: Torres Hendrix MD @ 12/02/2018 04:20:58 (Electronically Signed)
--- NOTE | 2018-12-02 04:23 | CRLCR ---
INDICATION: Fall with left hip pain TECHNIQUE: Chest radiograph 6 views COMPARISON: 02/24/2018 FINDINGS: Mediastinum: The mediastinum is normal in appearance. Severe cardiac enlargement is present and increased compared to prior examination. Lung: Pulmonary vascular congestion and right basilar atelectasis noted. No sign of pleural effusion seen. No pneumothorax is identified. Musculoskeletal: Compression deformities are noted at T12 and L1 with methylmethacrylate seen at the L1 level. Old fracture deformity of the right humerus is partially visualized. Near diffuse osteopenia seen IMPRESSIONS: 1. Severe cardiac enlargement is present and increased compared to prior examination. 2. Pulmonary vascular congestion and right basilar atelectasis noted. Dictated by Torres Hendrix MD @ 12/02/2018 4:21:53 AM Dictated by: Torres Hendrix MD @ 12/02/2018 04:21:55 (Electronically Signed)
[2018-12-02] MEDS ORDERED: fentaNYL 100 MCG/2 ML SDV IVPUSH ONE (04:24)
--- NOTE | 2018-12-02 05:26 | CRLCR ---
Final Report: INDICATION: Fall with left hip pain TECHNIQUE: Hip radiograph 2 views left COMPARISON: None FINDINGS: Bone: There is a comminuted fracture involving the left intertrochanteric region , subtrochanteric region and proximal femoral diaphysis. Joint: The hip joint is unremarkable. The visualized sacroiliac joints are unremarkable in appearance. The pubic symphysis is normal in appearance. Soft tissue: Unremarkable. No radiopaque foreign bodies are seen. IMPRESSION: 1. There is a comminuted fracture involving the left intertrochanteric region, subtrochanteric region and proximal femoral diaphysis. Dictated by Torres Hendrix MD @ 12/02/2018 4:31:56 AM Dictated by: Torres Hendrix MD @ 12/02/2018 04:32:01 (Electronic Signature) [email or web address]
[2018-12-02] MEDS ORDERED: HYDROmorphone 0.5 MG/0.5 ML Syringe IVPUSH ONE (05:47)
[2018-12-02] MEDS ORDERED: Ondansetron 4 MG Tab.DIS PO ONE (06:46)
[2018-12-02] MEDS ORDERED: Lactated Ringers 1,000 ML IV SCH (07:00)
[2018-12-02] MEDS ORDERED: Hydrocortisone 1% Crm 30 GM Tube TOP SCH (07:30)
[2018-12-02] MEDS ORDERED: Acetaminophen 325 MG Tab PO PRN (07:30)
[2018-12-02] MEDS ORDERED: guaiFENesin/Dextromethorphan 100-10 MG/5 ML Soln 10 ML Cup PO PRN (07:30)
[2018-12-02] MEDS ORDERED: Loperamide 2 MG Cap PO PRN (07:30)
--- NOTE | 2018-12-02 07:35 | PCM.HP ---
H&P History of Present Illness - General Date of Service: 12/02/18 Admit Problem/Dx: Admission Diagnosis/Problem Admission Diagnosis/Problem Hip fracture due to osteoporosis Source of Information: Patient, EMS - History of Present Illness Initial Comments - Free Text/Narative: While at [facility] she fractures her hip and fell and was in pain. She was brought to the ER by EMS. X-ray showed a fracture of the left hip with a intertrochanteric fracture. She is being admitted for pain control and we need 2 days as she is on Eliquis. Onset of Symptoms: Reports: Today Location: Reports: Other (Left hip) Severity: Moderate Improves with: Reports: Rest Worsens with: Reports: Movement Associated Symptoms: Reports: Nausea/Vomiting Left Hip Pain Score (Numeric/FACES): 8 - Related Data Allergies/Adverse Reactions: Allergies Allergy/AdvReac Type Severity Reaction Status Date / Time tramadol AdvReac Vomiting Verified 10/18/18 14:05 Home Medications: Home Meds Digoxin [Lanoxin] 125 mcg PO DAILY@13 tablet 04/26/15 [Rx] Calcium Carbonate [Calcium] 500 mg PO DAILY 02/24/18 [History] Carvedilol [Coreg] 6.25 mg PO BID tablet 02/26/18 [Rx] Cholecalciferol (Vitamin D3) [Vitamin D3] 1,000 units PO DAILY tablet 02/26/18 [Rx] Vit A/Vit C/Vit E/Zinc/Copper [Preservision] 1 tab PO BID 03/01/18 [History] Ibuprofen [Motrin] 200 mg PO Q4H PRN tablet 03/03/18 [Rx] Acetaminophen [Tylenol] 325 mg PO QID 09/13/18 [History] Apixaban [Eliquis] 5 mg PO BID 09/13/18 [History] Dextromethorphan/guaiFENesin [Robitussin DM] 10 ml PO ASDIRECTED 09/13/18 [ History] Gabapentin [Neurontin] 100 mg PO TID 09/13/18 [History] Hydrocortisone [Preparation H] 1 applic TOP ASDIRECTED 09/13/18 [History] LORazepam 2 mg PO BEDTIME 09/13/18 [History] Loperamide [Imodium] 2 mg PO ASDIRECTED 09/13/18 [History] Mag Hydrox/Al Hydrox/Simeth [Maalox Maximum Strength Susp] 10 ml PO ASDIRECTED 09/13/18 [History] Magnesium Hydroxide [Milk of Magnesia] 30 ml PO DAILY PRN 09/13/18 [History] Na Phos,M-B/Na Phos,DI-B [Fleet Enema] 133 ml RC ASDIRECTED 09/13/18 [History] Carboxymethylcellulose Sodium [Refresh Tears] 1 drop EYEBOTH QID 12/02/18 [ History] Past Medical History HEENT History: Reports: Cataract, Impaired Vision, Macular Degeneration Cardiovascular History: Reports: Afib, Arrhythmia, Heart Failure, Other (See Below) Other Cardiovascular History: endocarditis 2008 Gastrointestinal History: Reports: None Genitourinary History: Reports: Urinary Incontinence, UTI, Recurrent Other Genitourinary History: current uti 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: hysterectomy/ uterine cancer Musculoskeletal History: Reports: Back Pain, Chronic, Fracture, Osteoporosis Other Musculoskeletal History: bilateral wrists, elbow, shoulder, left knee Neurological History: Reports: None Psychiatric History: Reports: Anxiety, Depression Oncologic (Cancer) History: Reports: Uterine Dermatologic History: Reports: None - Infectious Disease History Infectious Disease History: Reports: Chicken Pox, Measles, Mumps - Past Surgical History HEENT Surgical History: Reports: Cataract Surgery Cardiovascular Surgical History: Reports: AAA Repair Other Cardiovascular Surgeries/Procedures: 02/02/2018 [facility] GI Surgical History: Reports: Colonoscopy Female Surgical History: Reports: None Neurological Surgical History: Reports: Discectomy Musculoskeletal Surgical History: Reports: Shoulder Surgery, Other (See Below) Other Musculoskeletal Surgeries/Procedures:: Chronic right thigh pain Oncologic Surgical History: Reports: None Social & Family History - Family History Family Medical History: Noncontributory - Tobacco Use Smoking Status *Q: Never Smoker - Caffeine Use Caffeine Use: Reports: None H&P Review of Systems - Review of Systems: Review Of Systems: See Below General: Reports: Weakness HEENT: Reports: No Symptoms Pulmonary: Reports: No Symptoms Cardiovascular: Reports: No Symptoms Gastrointestinal: Reports: No Symptoms Genitourinary: Reports: No Symptoms Musculoskeletal: Reports: Leg Pain, Joint Pain Skin: Reports: No Symptoms Exam - Exam Exam: See Below - Vital Signs Vital Signs: Last Vital Signs Temp 96.9 F 12/02/18 03:23 Pulse 80 12/02/18 06:54 Resp 12 12/02/18 06:54 BP 111/78 12/02/18 06:54 Pulse Ox 95 12/02/18 04:16 Weight: 111 lb - Exam General: Alert, Oriented, 4 HEENT: PERRLA, Hearing Intact, Mucosa Moist & Gray, Nares Patent, Normal Nasal Septum, Posterior Pharynx Clear, Conjunctiva Clear, EOMI, EACs Clear, TMs Clear Neck: Supple, Trachea Midline, 2 Lungs: Clear to Auscultation, Normal Respiratory Effort Cardiovascular: Irregular Rhythm GI/Abdominal Exam: Normal Bowel Sounds, Soft, Non-Tender, No Organomegaly, No Distention, No Abnormal Bruit, No Mass, Pelvis Stable Extremities: Joint Swelling (Pain to movement of the right Hip) Skin: Warm, Dry, Intact Neurological: Cranial Nerves Intact, Reflexes Equal Bilateral Neuro Extensive - Mental Status: Alert, Oriented x3, Normal Mood/Affect, Normal Cognition Psychiatric: Alert, Normal Affect - Patient Data Lab Results Last 24 hrs: Laboratory Results - last 24 hr 12/02/18 12/02/18 12/02/18 Range/Units 03:48 03:48 05:00 WBC 4.9 (4.5-11.0) K/uL RBC 3.51 (3.30-5.50) M/uL Hgb 11.5 L (12.0-15.0) g/dL Hct 36.7 (36.0-48.0) % MCV 105 H (80-98) fL MCH 33 H (27-31) pg MCHC 31 L (32-36) % Plt Count 118 L (150-400) K/uL Sodium 143 (140-148) mmol/L Potassium 4.6 (3.6-5.2) mmol/L Chloride 108 (100-108) mmol/L Carbon Dioxide 28 (21-32) mmol/L Anion Gap 7.3 (5.0-14.0) mmol/L BUN 28 H (7-18) mg/dL Creatinine 0.9 (0.6-1.0) mg/dL Est Cr Clr Drug Dosing 36.32 mL/min Estimated GFR (MDRD) 60 (>60) Glucose 124 H (74-106) mg/dL Calcium 9.3 (8.5-10.1) mg/dL Urine Color Yellow Urine Appearance Slightly cloudy Urine pH 5.0 (4.5-8.0) Ur Specific [place] 1.020 (1.008-1.030) Urine Protein Trace (NEGATIVE) mg/dL Urine Glucose (UA) Normal (NEGATIVE) mg/dL Urine Ketones Negative (NEGATIVE) mg/dL Urine Occult Blood Trace (NEGATIVE) Urine Nitrite Positive H (NEGATIVE) Urine Bilirubin Negative (NEGATIVE) Urine Urobilinogen Normal (NORMAL) mg/dL Ur Leukocyte Esterase Small (NEGATIVE) Urine RBC 0-5 (0-5) Urine WBC 10-20 H (0-5) Ur Epithelial Cells Not seen Amorphous Sediment Not seen Urine Bacteria Many Urine Mucus Not seen Result Diagrams: 12/03/18 08:56 12/03/18 08:56 Problem List Initiated/Reviewed/Updated: Yes Orders Last 24hrs: Active Orders 24 hr Category Date Time Status Patient Status [ADT] Routine ADT 12/02/18 07:21 Ordered Bedrest Bedside Commode [RC] ASDIRECTED Care 12/02/18 07:21 Ordered Khan Catheter Insertion [Insert Urinary Catheter] [OM. Care 12/02/18 03:45 Ordered PC] Q24H Height and Weight [RC] UPON Care 12/02/18 07:21 Ordered Intake and Output [RC] QSHIFT Care 12/02/18 07:25 Ordered Oxygen Therapy [RC] PRN Care 12/02/18 07:21 Ordered Urinary Catheter Assessment [RC] ASDIRECTED Care 12/02/18 03:38 Active VTE/DVT Education [RC] Per Unit Routine Care 12/02/18 07:21 Ordered Vital Signs [RC] Q4H Care 12/02/18 07:21 Ordered Regular Diet [DIET] Diet 12/02/18 Breakfast Ordered Acetaminophen [Tylenol] Med 12/02/18 07:30 Ordered 650 mg PO BID PRN Calcium Carbonate [Calcium] Med 12/02/18 09:00 Ordered 500 mg PO DAILY Carvedilol [Coreg] Med 12/02/18 09:00 Ordered 6.25 mg PO BID Cholecalciferol (Vitamin D3) [Vitamin D3] Med 12/02/18 09:00 Ordered 1,000 units PO DAILY Dextromethorphan/guaiFENesin [Robitussin DM] Med 12/02/18 07:30 Ordered 10 ml PO ASDIRECTED Digoxin [Lanoxin] Med 12/02/18 13:00 Ordered 125 mcg PO DAILY@13 Gabapentin [Neurontin] Med 12/02/18 09:00 Ordered 100 mg PO TID Hydrocortisone [Hydrocortisone 1% Crm] Med 12/02/18 07:30 Ordered 1 applic TOP ASDIRECTED LORazepam [LORazepam] Med 12/02/18 21:00 Ordered 2 mg PO BEDTIME Lactated Ringers [Ringers, Lactated] 1,000 ml Med 12/02/18 07:00 Active IV ASDIRECTED Loperamide [Imodium] Med 12/02/18 07:30 Ordered 2 mg PO ASDIRECTED Mag Hydrox/Al Hydrox/Simeth [Maalox Maximum Strength Med 12/02/18 07:30 Ordered Susp] 10 ml PO ASDIRECTED Magnesium Hydroxide [Milk of Magnesia] Med 12/02/18 07:30 Ordered 30 ml PO DAILY PRN Ondansetron [Zofran] Med 12/02/18 07:21 Ordered 4 mg IV Q4H PRN Sodium Chloride 0.9% [Normal Saline] 1,000 ml Med 12/02/18 07:30 Ordered IV ASDIRECTED Vit A/Vit C/Vit E/Zinc/Copper [Preservision] Med 12/02/18 09:00 Ordered 1 tab PO BID Resuscitation Status Routine Resus Stat 12/02/18 07:21 Ordered Medication Orders Lactated Ringer's (Ringers, Lactated) 1,000 mls @ 125 mls/hr IV ASDIRECTED RACHELLE Last Admin: 12/02/18 06:53 Dose: 125 mls/hr Assessment/Plan Comment:: Assessment/Plan: #1. Fracture Left hip. Will place in the hospital and plan surgery Tuesday. #2. Osteoporosis: She has a history of a compression fracture of her spine. #3. Chronic Atrial Fib. #4. CHF #5. History of Colles fracture and Humerus fracture #6. UTI #7. Depression #8. Generalized weakness
[2018-12-02] MEDS ORDERED: HYDROmorphone/Normal Saline 15 MG/30 ML PCA IV PRN (07:50)
[2018-12-02] MEDS ORDERED: Naloxone 0.4 MG/ML SDV IV PRN (07:50)
[2018-12-02] MEDS ORDERED: Aluminum Hydroxide/Magnesium Hydroxide/Simethicone Susp 30 ML Cup PO PRN (07:55)
[2018-12-02] MEDS: Sodium Chloride 0.9% 1,000 ML IV SCH ×2 (08:21→21:10)
[2018-12-02] MEDS: Carvedilol 6.25 MG Tab PO SCH ×2 (09:26→20:27)
[2018-12-02] MEDS: Gabapentin 100 MG Cap PO SCH ×3 (09:27→20:27)
[2018-12-02] MEDS: Cholecalciferol (Vitamin D3) 1,000 Unit Tab PO SCH (09:28)
[2018-12-02] MEDS: Calcium Carbonate 500 MG Tab.Chew PO SCH (09:28)
[2018-12-02] MEDS: Beta-Carotene (Vitamin A) w/Vitamin C & E plus Minerals Tab PO SCH ×2 (09:28→20:27)
[2018-12-02] MEDS ORDERED: Acetaminophen 325 MG Tab PO SCH (11:00)
[2018-12-02] MEDS: Ondansetron 4 MG/2 ML SDV IV PRN ×2 (11:10→16:33)
[2018-12-02] MEDS ORDERED: Amoxicillin 500 MG Cap PO ONE (11:30)
[2018-12-02] MEDS: Digoxin 125 MCG Tab PO SCH (12:10)
[2018-12-02] MEDS ORDERED: Acetaminophen 650 MG Supp RECTAL PRN (13:57)
[2018-12-02] MEDS ORDERED: Ampicillin 1 GM in Sodium Chloride 0.9% 100 ML IV SCH (14:00)
[2018-12-02] MEDS: Ampicillin 1 GM in Sodium Chloride 0.9% 50 ML IV SCH ×2 (14:19→22:33)
[2018-12-02] MEDS: Acetaminophen 325 MG Tab PO SCH ×2 (16:29→22:33)
[2018-12-02] MEDS: HYDROmorphone 0.5 MG/0.5 ML Syringe IVPUSH PRN ×4 (17:21→22:40)
[2018-12-02] MEDS: LORazepam 1 MG Tab PO SCH (20:34)
[2018-12-02] MEDS ORDERED: Amoxicillin 500 MG Cap PO SCH (22:00)
[2018-12-03] MEDS: HYDROmorphone 0.5 MG/0.5 ML Syringe IVPUSH PRN ×7 (03:05→23:21)
[2018-12-03] MEDS: Acetaminophen 325 MG Tab PO SCH ×4 (05:52→21:10)
[2018-12-03] MEDS: Ampicillin 1 GM in Sodium Chloride 0.9% 50 ML IV SCH ×3 (05:52→22:58)
[2018-12-03] MEDS: Gabapentin 100 MG Cap PO SCH ×3 (08:30→20:04)
[2018-12-03] MEDS: Beta-Carotene (Vitamin A) w/Vitamin C & E plus Minerals Tab PO SCH ×2 (08:30→20:04)
[2018-12-03] MEDS: Calcium Carbonate 500 MG Tab.Chew PO SCH (08:30)
[2018-12-03] MEDS: Cholecalciferol (Vitamin D3) 1,000 Unit Tab PO SCH (08:31)
[2018-12-03] MEDS: Carvedilol 6.25 MG Tab PO SCH ×2 (08:31→20:03)
[2018-12-03] MEDS ORDERED: Sodium Chloride 0.9% 250 ML IV ONE ×2 (12:03→13:40)
[2018-12-03] MEDS: Digoxin 125 MCG Tab PO SCH (13:40)
--- NOTE | 2018-12-03 14:09 | PCM.PN ---
- General Info Date of Service: 12/03/18 Subjective Update: Her pain is adequately controlled with medicaion - Review of Systems General: Reports: Weakness HEENT: Reports: No Symptoms Pulmonary: Reports: No Symptoms Cardiovascular: Reports: No Symptoms Gastrointestinal: Reports: No Symptoms Genitourinary: Reports: No Symptoms Musculoskeletal: Reports: Joint Pain Skin: Reports: No Symptoms Neurological: Reports: Confusion, Difficulty Walking, Weakness, Gait Disturbance Psychiatric: Reports: Depression - Patient Data Vitals - Most Recent: Last Vital Signs Temp 96.5 F 12/03/18 10:33 Pulse 73 12/03/18 13:40 Resp 16 12/03/18 10:33 BP 81/45 L 12/03/18 12:54 Pulse Ox 100 12/03/18 13:52 Weight - Most Recent: 111 lb I&O - Last 24 Hours: Intake & Output 12/02/18 12/03/18 12/03/18 22:59 06:59 14:59 Intake Total 830 899 174 Output Total 375 200 247 Balance 455 699 -73 Lab Results Last 24 Hours: Laboratory Results - last 24 hr 12/03/18 12/03/18 12/03/18 Range/Units 08:55 08:56 08:56 WBC 6.0 (4.5-11.0) K/uL RBC 3.05 L (3.30-5.50) M/uL Hgb 9.6 L (12.0-15.0) g/dL Hct 33.4 L (36.0-48.0) % MCV 110 H (80-98) fL MCH 32 H (27-31) pg MCHC 29 L (32-36) % Plt Count 117 L (150-400) K/uL Add Manual Diff Yes Neutrophils % (Manual) 64 (36-66) % Band Neutrophils % 7 (5-11) % Lymphocytes % (Manual) 11 L (24-44) % Monocytes % (Manual) 13 H (2-6) % Eosinophils % (Manual) 4 (2-4) % Percent Retic 2.2 H (0.5-1.5) % Sodium 145 (140-148) mmol/L Potassium 5.0 (3.6-5.2) mmol/L Chloride 109 H (100-108) mmol/L Carbon Dioxide 29 (21-32) mmol/L Anion Gap 12.0 (5.0-14.0) mmol/L BUN 34 H (7-18) mg/dL Creatinine 1.0 (0.6-1.0) mg/dL Est Cr Clr Drug Dosing 32.69 mL/min Estimated GFR (MDRD) 53 L (>60) Glucose 112 H (74-106) mg/dL Calcium 8.8 (8.5-10.1) mg/dL Total Bilirubin 0.6 (0.2-1.0) mg/dL AST 14 L (15-37) U/L ALT 12 (12-78) U/L Alkaline Phosphatase 66 (46-116) U/L Total Protein 6.3 L (6.4-8.2) g/dL Albumin 2.8 L (3.4-5.0) g/dL Globulin 3.5 (2.3-3.5) g/dL Albumin/Globulin Ratio 0.8 L (1.2-2.2) Digoxin (0.90-2.00) ng/mL 12/03/18 Range/Units 13:16 WBC (4.5-11.0) K/uL RBC (3.30-5.50) M/uL Hgb (12.0-15.0) g/dL Hct (36.0-48.0) % MCV (80-98) fL MCH (27-31) pg MCHC (32-36) % Plt Count (150-400) K/uL Add Manual Diff Neutrophils % (Manual) (36-66) % Band Neutrophils % (5-11) % Lymphocytes % (Manual) (24-44) % Monocytes % (Manual) (2-6) % Eosinophils % (Manual) (2-4) % Percent Retic (0.5-1.5) % Sodium (140-148) mmol/L Potassium (3.6-5.2) mmol/L Chloride (100-108) mmol/L Carbon Dioxide (21-32) mmol/L Anion Gap (5.0-14.0) mmol/L BUN (7-18) mg/dL Creatinine (0.6-1.0) mg/dL Est Cr Clr Drug Dosing mL/min Estimated GFR (MDRD) (>60) Glucose (74-106) mg/dL Calcium (8.5-10.1) mg/dL Total Bilirubin (0.2-1.0) mg/dL AST (15-37) U/L ALT (12-78) U/L Alkaline Phosphatase (46-116) U/L Total Protein (6.4-8.2) g/dL Albumin (3.4-5.0) g/dL Globulin (2.3-3.5) g/dL Albumin/Globulin Ratio (1.2-2.2) Digoxin 1.06 (0.90-2.00) ng/mL Abdiaziz Results Last 24 Hours: Microbiology 12/02/18 05:00 Urine Culture - Preliminary Urine, Catheterized Med Orders - Current: Current Medications Acetaminophen (Tylenol) 650 mg PO QID [facility] Last Admin: 12/03/18 10:23 Dose: 650 mg Acetaminophen (Tylenol) 650 mg RECTAL QID PRN PRN Reason: Pain Al Hydroxide/Mg Hydroxide (Mag-Al Plus) 10 ml PO ASDIRECTED PRN PRN Reason: INDIGESTION Calcium Carbonate/Glycine (Tums) 500 mg PO DAILY [facility] Last Admin: 12/03/18 08:30 Dose: 500 mg Carvedilol (Coreg) 6.25 mg PO BID [facility] Last Admin: 12/03/18 08:31 Dose: Not Given Cholecalciferol (Vitamin D3) 1,000 units PO DAILY [facility] Last Admin: 12/03/18 08:31 Dose: 1,000 units Digoxin (Lanoxin) 125 mcg PO DAILY@13 [facility] Last Admin: 12/03/18 13:40 Dose: 125 mcg Gabapentin (Neurontin) 100 mg PO TID [facility] Last Admin: 12/03/18 13:43 Dose: 100 mg Guaifenesin/Dextromethorphan (Robitussin Dm) 10 ml PO ASDIRECTED PRN PRN Reason: COUGH Hydrocortisone (Hydrocortisone 1% Crm) 0 gm TOP ASDIRECTED [facility] Hydromorphone HCl (Dilaudid) 0.2 mg IVPUSH Q1H PRN PRN Reason: Pain Last Admin: 12/03/18 10:23 Dose: 0.2 mg Ampicillin Sodium 1 gm/ Sodium (Chloride) 50 mls @ 100 mls/hr IV Q8H [facility] Last Admin: 12/03/18 13:45 Dose: 100 mls/hr Sodium Chloride (Normal Saline) 1,000 mls @ 125 mls/hr IV ASDIRECTED [facility] Loperamide HCl (Imodium) 2 mg PO ASDIRECTED PRN PRN Reason: DIARRHEA Lorazepam (Ativan) 2 mg PO BEDTIME [facility] Last Admin: 12/02/18 20:34 Dose: 2 mg Magnesium Hydroxide (Milk Of Magnesia) 30 ml PO DAILY PRN PRN Reason: Constipation Multivitamins/Minerals (Prosight) 1 tab PO BID [facility] Last Admin: 12/03/18 08:30 Dose: 1 tab Naloxone HCl (Narcan) 0.1 mg IV ASDIRECTED PRN PRN Reason: decreased respiratory rate Ondansetron HCl (Zofran) 4 mg IV Q4H PRN PRN Reason: Nausea/Vomiting Last Admin: 12/02/18 16:33 Dose: 4 mg Discontinued Medications Acetaminophen (Tylenol) 650 mg PO BID PRN PRN Reason: Pain Acetaminophen (Tylenol) 325 mg PO QID [facility] Last Admin: 12/02/18 12:10 Dose: 325 mg Amoxicillin (Amoxil) 500 mg PO Q8H [facility] Amoxicillin (Amoxil) 500 mg PO ONETIME ONE Stop: 12/02/18 11:31 Last Admin: 12/02/18 12:10 Dose: 500 mg Fentanyl (Sublimaze) 50 mcg IVPUSH ONETIME ONE Stop: 12/02/18 04:25 Last Admin: 12/02/18 04:27 Dose: 50 mcg Hydromorphone HCl (Dilaudid) 0.5 mg IVPUSH ONETIME ONE Stop: 12/02/18 05:48 Last Admin: 12/02/18 05:54 Dose: 0.5 mg Hydromorphone HCl (Dilaudid Siphon Operator 15 Mg In Ns 30 Ml) 0 mg IV ASDIRECTED PRN; Protocol PRN Reason: DEVELOPMENT LEAD PAIN CONTROL Last Admin: 12/02/18 09:09 Dose: 15 mg Lactated Ringer's (Ringers, Lactated) 1,000 mls @ 125 mls/hr IV ASDIRECTED [facility] Last Admin: 12/02/18 06:53 Dose: 125 mls/hr Sodium Chloride (Normal Saline) 1,000 mls @ 100 mls/hr IV ASDIRECTED [facility] Last Admin: 12/02/18 21:10 Dose: 75 mls/hr Sodium Chloride (Normal Saline) 250 mls @ 999 mls/hr IV .BOLUS ONE Stop: 12/03/18 12:18 Last Admin: 12/03/18 12:13 Dose: 999 mls/hr Sodium Chloride (Normal Saline) 250 mls @ 999 mls/hr IV .BOLUS ONE Stop: 12/03/18 13:55 Last Admin: 12/03/18 13:46 Dose: 999 mls/hr Ondansetron HCl (Zofran Odt) 4 mg PO ONETIME ONE Stop: 12/02/18 06:47 Last Admin: 12/02/18 06:51 Dose: 4 mg - Exam General: Alert, Oriented HEENT: Pupils Equal, Pupils Reactive, EOMI, Mucous Membr. Moist/[place] Lungs: Clear to Auscultation, Normal Respiratory Effort Cardiovascular: Irregular Rhythm GI/Abdominal Exam: Normal Bowel Sounds, Soft, Non-Tender, No Organomegaly, No Distention, No Abnormal Bruit, No Mass, Pelvis Stable Back Exam: Normal Inspection, Full Range of Motion Extremities: Joint Swelling, Leg Pain, Other (Pain and swelling of the right hip area.) Peripheral Pulses: 1+: Radial (L), Radial (R) Skin: Warm Psy/Mental Status: Alert, Normal Affect, Normal Mood - Problem List Review Problem List Initiated/Reviewed/Updated: Yes - My Orders Last 24 Hours: My Active Orders 12/02/18 13:41 Cardiac Monitoring [RC] .As Directed 12/02/18 13:57 Acetaminophen [Tylenol] 650 mg RECTAL QID PRN 12/02/18 14:00 Ampicillin 1 gm Sodium Chloride 0.9% [Normal Saline] 50 ml IV Q8H 12/02/18 16:00 Acetaminophen [Tylenol] 650 mg PO QID 12/02/18 16:42 HYDROmorphone [Dilaudid] 0.2 mg IVPUSH Q1H PRN 12/02/18 21:00 LORazepam [Ativan] 2 mg PO BEDTIME 12/03/18 14:00 Sodium Chloride 0.9% [Normal Saline] 1,000 ml IV ASDIRECTED 12/04/18 10:59 Echo Comp wo Cont [US] Routine - Plan Plan:: Assessment/Plan: #1. Fracture Left hip. Will place in the hospital and plan surgery Tuesday. #2. Osteoporosis: She has a history of a compression fracture of her spine. #3. Hypotension. Will give fluid challenges which will also improve her urine output which is compromised. #4. CHF. Echocardiogram is pending. #5. Anemia secondary to the fracture. Ritic count 2.2, Hb. 9.6 #6. UTI. Treating with Amoxicillin. #7. Depression #8. Generalized weakness #9. History of Colles fracture and Humerus fracture
[2018-12-03] MEDS: Sodium Chloride 0.9% 1,000 ML IV SCH (19:57)
[2018-12-03] MEDS: LORazepam 1 MG Tab PO SCH (20:01)
[2018-12-04] MEDS: Sodium Chloride 0.9% 1,000 ML IV SCH ×2 (03:56→15:28)
[2018-12-04] MEDS: Ampicillin 1 GM in Sodium Chloride 0.9% 50 ML IV SCH (05:37)
[2018-12-04] MEDS: Acetaminophen 325 MG Tab PO SCH ×4 (05:40→21:05)
[2018-12-04] MEDS ORDERED: ceFAZolin 1 GM in Premix Bag 1 BAG IV ONE (08:00)
[2018-12-04] MEDS: Carvedilol 6.25 MG Tab PO SCH ×2 (08:07→21:07)
[2018-12-04] MEDS: Levofloxacin/Dextrose 5%-Water 250 MG in Premix Bag 1 BAG IV SCH (08:50)
--- NOTE | 2018-12-04 08:56 | PCM.PN ---
- General Info Date of Service: 12/04/18 Functional Status: Reports: Pain Controlled - Review of Systems General: Reports: Weakness HEENT: Reports: No Symptoms Pulmonary: Reports: No Symptoms Cardiovascular: Reports: No Symptoms Gastrointestinal: Reports: No Symptoms Genitourinary: Reports: No Symptoms Musculoskeletal: Reports: No Symptoms Skin: Reports: No Symptoms Neurological: Reports: No Symptoms Psychiatric: Reports: No Symptoms - Patient Data Vitals - Most Recent: Last Vital Signs Temp 96.3 F 12/04/18 07:47 Pulse 70 12/04/18 08:07 Resp 14 12/04/18 07:47 BP 106/60 12/04/18 08:07 Pulse Ox 96 12/04/18 07:47 Weight - Most Recent: 111 lb I&O - Last 24 Hours: Intake & Output 12/03/18 12/04/18 12/04/18 22:59 06:59 14:59 Intake Total 1862 879 Output Total 215 199 Balance 1647 680 Lab Results Last 24 Hours: Laboratory Results - last 24 hr 12/03/18 12/03/18 12/03/18 Range/Units 08:55 08:56 08:56 WBC 6.0 (4.5-11.0) K/uL RBC 3.05 L (3.30-5.50) M/uL Hgb 9.6 L (12.0-15.0) g/dL Hct 33.4 L (36.0-48.0) % MCV 110 H (80-98) fL MCH 32 H (27-31) pg MCHC 29 L (32-36) % Plt Count 117 L (150-400) K/uL Neut % (Auto) (36-66) % Lymph % (Auto) (24-44) % [place] % (Auto) (2-6) % Eos % (Auto) (2-4) % Baso % (Auto) (0-1) % Add Manual Diff Yes Neutrophils % (Manual) 64 (36-66) % Band Neutrophils % 7 (5-11) % Lymphocytes % (Manual) 11 L (24-44) % Monocytes % (Manual) 13 H (2-6) % Eosinophils % (Manual) 4 (2-4) % Percent Retic 2.2 H (0.5-1.5) % Sodium 145 (140-148) mmol/L Potassium 5.0 (3.6-5.2) mmol/L Chloride 109 H (100-108) mmol/L Carbon Dioxide 29 (21-32) mmol/L Anion Gap 12.0 (5.0-14.0) mmol/L BUN 34 H (7-18) mg/dL Creatinine 1.0 (0.6-1.0) mg/dL Est Cr Clr Drug Dosing 32.69 mL/min Estimated GFR (MDRD) 53 L (>60) Glucose 112 H (74-106) mg/dL Calcium 8.8 (8.5-10.1) mg/dL Total Bilirubin 0.6 (0.2-1.0) mg/dL AST 14 L (15-37) U/L ALT 12 (12-78) U/L Alkaline Phosphatase 66 (46-116) U/L Total Protein 6.3 L (6.4-8.2) g/dL Albumin 2.8 L (3.4-5.0) g/dL Globulin 3.5 (2.3-3.5) g/dL Albumin/Globulin Ratio 0.8 L (1.2-2.2) Digoxin (0.90-2.00) ng/mL Blood Type Gel Antibody Screen 12/03/18 12/04/18 12/04/18 Range/Units 13:16 07:24 07:24 WBC 7.1 (4.5-11.0) K/uL RBC 2.68 L (3.30-5.50) M/uL Hgb 8.8 L (12.0-15.0) g/dL Hct 29.7 L (36.0-48.0) % MCV 111 H (80-98) fL MCH 33 H (27-31) pg MCHC 30 L (32-36) % Plt Count 97 L (150-400) K/uL Neut % (Auto) 76 H (36-66) % Lymph % (Auto) 12 L (24-44) % [place] % (Auto) 11 H (2-6) % Eos % (Auto) 1 L (2-4) % Baso % (Auto) 0 (0-1) % Add Manual Diff Neutrophils % (Manual) (36-66) % Band Neutrophils % (5-11) % Lymphocytes % (Manual) (24-44) % Monocytes % (Manual) (2-6) % Eosinophils % (Manual) (2-4) % Percent Retic (0.5-1.5) % Sodium 144 (140-148) mmol/L Potassium 5.0 (3.6-5.2) mmol/L Chloride 113 H (100-108) mmol/L Carbon Dioxide 26 (21-32) mmol/L Anion Gap 10.0 (5.0-14.0) mmol/L BUN 31 H (7-18) mg/dL Creatinine 0.9 (0.6-1.0) mg/dL Est Cr Clr Drug Dosing 36.32 mL/min Estimated GFR (MDRD) 60 (>60) Glucose 131 H (74-106) mg/dL Calcium 8.4 L (8.5-10.1) mg/dL Total Bilirubin (0.2-1.0) mg/dL AST (15-37) U/L ALT (12-78) U/L Alkaline Phosphatase (46-116) U/L Total Protein (6.4-8.2) g/dL Albumin (3.4-5.0) g/dL Globulin (2.3-3.5) g/dL Albumin/Globulin Ratio (1.2-2.2) Digoxin 1.06 (0.90-2.00) ng/mL Blood Type Gel Antibody Screen 12/04/18 Range/Units 07:24 WBC (4.5-11.0) K/uL RBC (3.30-5.50) M/uL Hgb (12.0-15.0) g/dL Hct (36.0-48.0) % MCV (80-98) fL MCH (27-31) pg MCHC (32-36) % Plt Count (150-400) K/uL Neut % (Auto) (36-66) % Lymph % (Auto) (24-44) % [place] % (Auto) (2-6) % Eos % (Auto) (2-4) % Baso % (Auto) (0-1) % Add Manual Diff Neutrophils % (Manual) (36-66) % Band Neutrophils % (5-11) % Lymphocytes % (Manual) (24-44) % Monocytes % (Manual) (2-6) % Eosinophils % (Manual) (2-4) % Percent Retic (0.5-1.5) % Sodium (140-148) mmol/L Potassium (3.6-5.2) mmol/L Chloride (100-108) mmol/L Carbon Dioxide (21-32) mmol/L Anion Gap (5.0-14.0) mmol/L BUN (7-18) mg/dL Creatinine (0.6-1.0) mg/dL Est Cr Clr Drug Dosing mL/min Estimated GFR (MDRD) (>60) Glucose (74-106) mg/dL Calcium (8.5-10.1) mg/dL Total Bilirubin (0.2-1.0) mg/dL AST (15-37) U/L ALT (12-78) U/L Alkaline Phosphatase (46-116) U/L Total Protein (6.4-8.2) g/dL Albumin (3.4-5.0) g/dL Globulin (2.3-3.5) g/dL Albumin/Globulin Ratio (1.2-2.2) Digoxin (0.90-2.00) ng/mL Blood Type A POSITIVE Gel Antibody Screen Negative Abdiaziz Results Last 24 Hours: Microbiology 12/02/18 05:00 Urine Culture - Final Urine, Catheterized Klebsiella Oxytoca Med Orders - Current: Current Medications Acetaminophen (Tylenol) 650 mg PO QID [facility] Last Admin: 12/04/18 05:40 Dose: Not Given Acetaminophen (Tylenol) 650 mg RECTAL QID PRN PRN Reason: Pain Al Hydroxide/Mg Hydroxide (Mag-Al Plus) 10 ml PO ASDIRECTED PRN PRN Reason: INDIGESTION Calcium Carbonate/Glycine (Tums) 500 mg PO DAILY [facility] Last Admin: 12/03/18 08:30 Dose: 500 mg Carvedilol (Coreg) 6.25 mg PO BID [facility] Last Admin: 12/04/18 08:07 Dose: 6.25 mg Cholecalciferol (Vitamin D3) 1,000 units PO DAILY [facility] Last Admin: 12/03/18 08:31 Dose: 1,000 units Digoxin (Lanoxin) 125 mcg PO DAILY@13 [facility] Last Admin: 12/03/18 13:40 Dose: 125 mcg Gabapentin (Neurontin) 100 mg PO TID [facility] Last Admin: 12/03/18 20:04 Dose: 100 mg Guaifenesin/Dextromethorphan (Robitussin Dm) 10 ml PO ASDIRECTED PRN PRN Reason: COUGH Hydrocortisone (Hydrocortisone 1% Crm) 0 gm TOP ASDIRECTED [facility] Hydromorphone HCl (Dilaudid) 0.2 mg IVPUSH Q1H PRN PRN Reason: Pain Last Admin: 12/03/18 23:21 Dose: 0.2 mg Sodium Chloride (Normal Saline) 1,000 mls @ 125 mls/hr IV ASDIRECTED [facility] Last Admin: 12/04/18 03:56 Dose: 125 mls/hr Levofloxacin/Dextrose 250 mg/ (Premix) 50 mls @ 50 mls/hr IV Q24H [facility] Stop: 12/06/18 08:59 Loperamide HCl (Imodium) 2 mg PO ASDIRECTED PRN PRN Reason: DIARRHEA Lorazepam (Ativan) 2 mg PO BEDTIME [facility] Last Admin: 12/03/18 20:01 Dose: 2 mg Magnesium Hydroxide (Milk Of Magnesia) 30 ml PO DAILY PRN PRN Reason: Constipation Multivitamins/Minerals (Prosight) 1 tab PO BID [facility] Last Admin: 12/03/18 20:04 Dose: 1 tab Naloxone HCl (Narcan) 0.1 mg IV ASDIRECTED PRN PRN Reason: decreased respiratory rate Ondansetron HCl (Zofran) 4 mg IV Q4H PRN PRN Reason: Nausea/Vomiting Last Admin: 12/02/18 16:33 Dose: 4 mg Discontinued Medications Acetaminophen (Tylenol) 650 mg PO BID PRN PRN Reason: Pain Acetaminophen (Tylenol) 325 mg PO QID [facility] Last Admin: 12/02/18 12:10 Dose: 325 mg Amoxicillin (Amoxil) 500 mg PO Q8H [facility] Amoxicillin (Amoxil) 500 mg PO ONETIME ONE Stop: 12/02/18 11:31 Last Admin: 12/02/18 12:10 Dose: 500 mg Fentanyl (Sublimaze) 50 mcg IVPUSH ONETIME ONE Stop: 12/02/18 04:25 Last Admin: 12/02/18 04:27 Dose: 50 mcg Hydromorphone HCl (Dilaudid) 0.5 mg IVPUSH ONETIME ONE Stop: 12/02/18 05:48 Last Admin: 12/02/18 05:54 Dose: 0.5 mg Hydromorphone HCl (Dilaudid [employer] Us[employer] 15 Mg In Ns 30 Ml) 0 mg IV ASDIRECTED PRN; Protocol PRN Reason: ATTENDING RADIOLOGIST PAIN CONTROL Last Admin: 12/02/18 09:09 Dose: 15 mg Lactated Ringer's (Ringers, Lactated) 1,000 mls @ 125 mls/hr IV ASDIRECTED [facility] Last Admin: 12/02/18 06:53 Dose: 125 mls/hr Sodium Chloride (Normal Saline) 1,000 mls @ 100 mls/hr IV ASDIRECTED [facility] Last Admin: 12/02/18 21:10 Dose: 75 mls/hr Ampicillin Sodium 1 gm/ Sodium (Chloride) 50 mls @ 100 mls/hr IV Q8H [facility] Last Admin: 12/04/18 05:37 Dose: 100 mls/hr Sodium Chloride (Normal Saline) 250 mls @ 999 mls/hr IV .BOLUS ONE Stop: 12/03/18 12:18 Last Admin: 12/03/18 12:13 Dose: 999 mls/hr Sodium Chloride (Normal Saline) 250 mls @ 999 mls/hr IV .BOLUS ONE Stop: 12/03/18 13:55 Last Admin: 12/03/18 13:46 Dose: 999 mls/hr Cefazolin Sodium/Dextrose 1 gm (/ Premix) 50 mls @ 100 mls/hr IV ONETIME ONE Stop: 12/04/18 08:29 Ondansetron HCl (Zofran Odt) 4 mg PO ONETIME ONE Stop: 12/02/18 06:47 Last Admin: 12/02/18 06:51 Dose: 4 mg - Exam General: Alert, Oriented HEENT: Pupils Equal, Pupils Reactive, EOMI, Mucous Membr. Moist/[place] Neck: Supple Lungs: Clear to Auscultation, Normal Respiratory Effort Cardiovascular: Regular Rate, Regular Rhythm GI/Abdominal Exam: Normal Bowel Sounds, Soft, Non-Tender, No Organomegaly, No Distention, No Abnormal Bruit, No Mass, Pelvis Stable Extremities: Joint Swelling, Leg Pain Peripheral Pulses: 1+: Radial (L), Radial (R) Skin: Warm, Dry, Intact Psy/Mental Status: Alert, Normal Affect, Normal Mood - Problem List Review Problem List Initiated/Reviewed/Updated: Yes - My Orders Last 24 Hours: My Active Orders 12/03/18 14:00 Sodium Chloride 0.9% [Normal Saline] 1,000 ml IV ASDIRECTED 12/04/18 07:09 Dietary Supplements [RC] BIDMEALS 12/04/18 07:10 EKG Documentation Completion [RC] ASDIRECTED EKG 12 Lead [EK] Routine 12/04/18 08:00 Levofloxacin/Dextrose 5%-Water [Levaquin in D5W 250 MG/50 ML] 250 mg Premix Bag 1 bag IV Q24H 12/04/18 10:59 Echo Comp wo Cont [US] Routine 12/04/18 Breakfast NPO After Midnight [Nothing per Oral After Midnight Diet] [DIET] - Plan Plan:: Assessment/Plan: #1. Fracture Left hip. Will place in the hospital and plan surgery Tuesday. #2. Osteoporosis: She has a history of a compression fracture of her spine. #3. Hypotension. Will give fluid challenges which will also improve her urine output which is compromised. bp 106 systolic #4. CHF. Echocardiogram Showed severe MR and TR with stable EF compared to 2 years ago at 45% #5. Anemia secondary to the fracture. Ritic count 2.2, Hb. 8.8 drop due to dilution #6. UTI. Treating with Levofloxacin. #7. Depression #8. Generalized weakness #9. History of Colles fracture and Humerus fracture I feel she is medically stable for the planned procedure and would expect no intraoperative or postoperative acute medical problem. Will need to watch the fluid balance closely.
[2018-12-04] MEDS: Beta-Carotene (Vitamin A) w/Vitamin C & E plus Minerals Tab PO SCH ×2 (09:00→21:06)
[2018-12-04] MEDS ORDERED: Nozin Nasal Sanitizer NASBOTH SCH (09:00)
[2018-12-04] MEDS: Gabapentin 100 MG Cap PO SCH ×3 (09:07→21:06)
[2018-12-04] MEDS ORDERED: fentaNYL 100 MCG/2 ML SDV ONE (09:10)
[2018-12-04] MEDS ORDERED: Midazolam 1 MG/ML 2 ML SDV ONE (09:10)
[2018-12-04] MEDS ORDERED: Propofol 200 MG/20 ML SDV ONE (09:10)
[2018-12-04] MEDS: HYDROmorphone 0.5 MG/0.5 ML Syringe IVPUSH PRN ×2 (10:04→18:32)
--- NOTE | 2018-12-04 11:10 | PCM.CONS ---
H&P History of Present Illness - General Date of Service: 12/04/18 Admit Problem/Dx: Admission Diagnosis/Problem Admission Diagnosis/Problem Hip fracture due to osteoporosis Source of Information: Old Records, Provider History Limitations: Reports: Altered Mental Status - History of Present Illness Initial Comments - Free Text/Narative: 83 year old fell while attempting to get to the bathroom without her walker at assisted living. Admitted thru the ED with comminuted left intertrochanteric fracture extending down medial shaft. On Eliquis, has been off for 48 hours. Onset of Symptoms: Reports: Sudden Location: Reports: Lower Extremity, Left Improves with: Reports: Immobilization, Rest Worsens with: Reports: Movement Left Hip Pain Score (Numeric/FACES): 8 - Related Data Allergies/Adverse Reactions: Allergies Allergy/AdvReac Type Severity Reaction Status Date / Time tramadol AdvReac Vomiting Verified 10/18/18 14:05 Home Medications: Home Meds Digoxin [Lanoxin] 125 mcg PO DAILY@13 tablet 04/26/15 [Rx] Calcium Carbonate [Calcium] 500 mg PO DAILY 02/24/18 [History] Carvedilol [Coreg] 6.25 mg PO BID tablet 02/26/18 [Rx] Cholecalciferol (Vitamin D3) [Vitamin D3] 1,000 units PO DAILY tablet 02/26/18 [Rx] Vit A/Vit C/Vit E/Zinc/Copper [Preservision] 1 tab PO BID 03/01/18 [History] Ibuprofen [Motrin] 200 mg PO Q4H PRN tablet 03/03/18 [Rx] Acetaminophen [Tylenol] 325 mg PO QID 09/13/18 [History] Apixaban [Eliquis] 5 mg PO BID 09/13/18 [History] Dextromethorphan/guaiFENesin [Robitussin DM] 10 ml PO ASDIRECTED 09/13/18 [ History] Gabapentin [Neurontin] 100 mg PO TID 09/13/18 [History] Hydrocortisone [Preparation H] 1 applic TOP ASDIRECTED 09/13/18 [History] LORazepam 2 mg PO BEDTIME 09/13/18 [History] Loperamide [Imodium] 2 mg PO ASDIRECTED 09/13/18 [History] Mag Hydrox/Al Hydrox/Simeth [Maalox Maximum Strength Susp] 10 ml PO ASDIRECTED 09/13/18 [History] Magnesium Hydroxide [Milk of Magnesia] 30 ml PO DAILY PRN 09/13/18 [History] Na Phos,M-B/Na Phos,DI-B [Fleet Enema] 133 ml RC ASDIRECTED 09/13/18 [History] Carboxymethylcellulose Sodium [Refresh Tears] 1 drop EYEBOTH QID 12/02/18 [ History] Past Medical History HEENT History: Reports: Cataract, Impaired Vision, Macular Degeneration Cardiovascular History: Reports: Afib, Arrhythmia, Heart Failure, Other (See Below) Other Cardiovascular History: endocarditis 2008 Gastrointestinal History: Reports: None Genitourinary History: Reports: Urinary Incontinence, UTI, Recurrent Other Genitourinary History: current uti 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: hysterectomy/ uterine cancer Musculoskeletal History: Reports: Back Pain, Chronic, Fracture, Osteoporosis Other Musculoskeletal History: bilateral wrists, elbow, shoulder, left knee Neurological History: Reports: None Psychiatric History: Reports: Anxiety, Depression Oncologic (Cancer) History: Reports: Uterine Dermatologic History: Reports: None - Infectious Disease History Infectious Disease History: Reports: Chicken Pox, Measles, Mumps - Past Surgical History HEENT Surgical History: Reports: Cataract Surgery Cardiovascular Surgical History: Reports: AAA Repair Other Cardiovascular Surgeries/Procedures: 02/02/2018 [facility] GI Surgical History: Reports: Colonoscopy Female Surgical History: Reports: None Neurological Surgical History: Reports: Discectomy Musculoskeletal Surgical History: Reports: Shoulder Surgery, Other (See Below) Other Musculoskeletal Surgeries/Procedures:: Chronic right thigh pain Oncologic Surgical History: Reports: None Social & Family History - Family History Family Medical History: Noncontributory - Tobacco Use Smoking Status *Q: Never Smoker - Caffeine Use Caffeine Use: Reports: None H&P Review of Systems - Review of Systems: Review Of Systems: See Below General: Reports: No Symptoms Exam - Exam Exam: See Below - Vital Signs Vital Signs: Last Vital Signs Temp 35.7 C 12/04/18 07:47 Pulse 70 12/04/18 08:07 Resp 14 12/04/18 07:47 BP 106/60 12/04/18 08:07 Pulse Ox 96 12/04/18 07:47 Weight: 50.349 kg - Exam Skin: Warm, Dry, Intact Physical Exam Comments:: left leg pain with any movement, externally rotated, slightly shorter than right - Patient Data Lab Results Last 24 hrs: Laboratory Results - last 24 hr 12/03/18 12/04/18 12/04/18 Range/Units 13:16 07:24 07:24 WBC 7.1 (4.5-11.0) K/uL RBC 2.68 L (3.30-5.50) M/uL Hgb 8.8 L (12.0-15.0) g/dL Hct 29.7 L (36.0-48.0) % MCV 111 H (80-98) fL MCH 33 H (27-31) pg MCHC 30 L (32-36) % Plt Count 97 L (150-400) K/uL Neut % (Auto) 76 H (36-66) % Lymph % (Auto) 12 L (24-44) % [place] % (Auto) 11 H (2-6) % Eos % (Auto) 1 L (2-4) % Baso % (Auto) 0 (0-1) % Sodium 144 (140-148) mmol/L Potassium 5.0 (3.6-5.2) mmol/L Chloride 113 H (100-108) mmol/L Carbon Dioxide 26 (21-32) mmol/L Anion Gap 10.0 (5.0-14.0) mmol/L BUN 31 H (7-18) mg/dL Creatinine 0.9 (0.6-1.0) mg/dL Est Cr Clr Drug Dosing 36.32 mL/min Estimated GFR (MDRD) 60 (>60) Glucose 131 H (74-106) mg/dL Calcium 8.4 L (8.5-10.1) mg/dL Digoxin 1.06 (0.90-2.00) ng/mL Blood Type Gel Antibody Screen Crossmatch 12/04/18 Range/Units 07:24 WBC (4.5-11.0) K/uL RBC (3.30-5.50) M/uL Hgb (12.0-15.0) g/dL Hct (36.0-48.0) % MCV (80-98) fL MCH (27-31) pg MCHC (32-36) % Plt Count (150-400) K/uL Neut % (Auto) (36-66) % Lymph % (Auto) (24-44) % [place] % (Auto) (2-6) % Eos % (Auto) (2-4) % Baso % (Auto) (0-1) % Sodium (140-148) mmol/L Potassium (3.6-5.2) mmol/L Chloride (100-108) mmol/L Carbon Dioxide (21-32) mmol/L Anion Gap (5.0-14.0) mmol/L BUN (7-18) mg/dL Creatinine (0.6-1.0) mg/dL Est Cr Clr Drug Dosing mL/min Estimated GFR (MDRD) (>60) Glucose (74-106) mg/dL Calcium (8.5-10.1) mg/dL Digoxin (0.90-2.00) ng/mL Blood Type A POSITIVE Gel Antibody Screen Negative Crossmatch See Detail Result Diagrams: 12/04/18 07:24 12/04/18 07:24 Abdiaziz Results Last 24 hrs: Microbiology 12/02/18 05:00 Urine Culture - Final Urine, Catheterized Klebsiella Oxytoca Consult PN Assessment/Plan Procedures: Procedures APPLY FOREARM SPLINT (07/01/13) ASSAY OF AMYLASE (04/25/15) ASSAY OF CREATININE (08/22/18) ASSAY OF DIGOXIN TOTAL (02/24/18) ASSAY OF LIPASE (02/16/18) ASSAY OF NATRIURETIC PEPTIDE (10/13/14) ASSAY OF TROPONIN QUANT (02/16/18) C-REACTIVE PROTEIN (02/16/18) CATARACT SURG W/IOL 1 STAGE (06/03/16) CHEST X-RAY 1 VIEW FRONTAL (01/14/15) CHEST X-RAY 2VW FRONTAL&LATL (10/13/14) CINE/VID X-RAY THROAT/ESOPH (11/14/13) COMPLETE CBC AUTOMATED (03/01/18) COMPLETE CBC W/AUTO DIFF WBC (05/05/18) COMPREHEN METABOLIC PANEL (03/01/18) CT ABD & PELVIS W/O CONTRAST (04/25/15) CT ANGIO ABDOM W/O & W/DYE (08/25/18) CT ANGIOGRAPH PELV W/O&W/DYE (08/25/18) CT HEAD/BRAIN W/O DYE (05/05/18) CT LUMBAR SPINE W/O DYE (08/22/18) CT NECK SPINE W/O DYE (05/05/18) ELECTROCARDIOGRAM TRACING (02/24/18) EMERGENCY DEPT VISIT (05/05/18) EMERGENCY DEPT VISIT (05/05/18) EMERGENCY DEPT VISIT (02/16/18) EMERGENCY DEPT VISIT (02/06/18) EMERGENCY DEPT VISIT (11/30/16) EMERGENCY DEPT VISIT (04/25/15) EMERGENCY DEPT VISIT (01/14/15) EMERGENCY DEPT VISIT (01/14/15) EMERGENCY DEPT VISIT (01/03/15) EMERGENCY DEPT VISIT (10/26/14) EMERGENCY DEPT VISIT (07/01/13) EXTRACRANIAL BILAT STUDY (04/09/14) GAIT TRAINING THERAPY (01/14/15) HEPATIC FUNCTION PANEL (04/25/15) HOT OR COLD PACKS THERAPY (10/10/13) HYDRATE IV INFUSION ADD-ON (10/03/16) HYDRATION IV INFUSION INIT (02/16/18) MANUAL THERAPY 1/> REGIONS (12/10/16) METABOLIC PANEL TOTAL CA (05/05/18) MICROBE SUSCEPTIBLE ABDIAZIZ (02/24/18) MOTION FLUOROSCOPY/SWALLOW (11/14/13) MRI CHEST SPINE W/O DYE (04/27/17) MRI LUMBAR SPINE W/O DYE (04/27/17) MRI PELVIS W/O DYE (04/27/17) NJX INTERLAMINAR LMBR/SAC (10/18/18) ORAL FUNCTION THERAPY (11/14/13) ORTHOTIC MGMT&TRAINJ 1ST ENC (09/10/13) OT EVALUATION (09/10/13) PROTHROMBIN TIME (06/01/18) PT EVAL LOW COMPLEX 20 MIN (03/01/18) PT EVAL MOD COMPLEX 30 MIN (11/05/16) PT EVALUATION (01/14/15) ROUTINE VENIPUNCTURE (08/22/18) THER/PROPH/DIAG INJ IV PUSH (10/03/16) THER/PROPH/DIAG INJ SC/IM (11/30/16) THERAPEUTIC ACTIVITIES (03/01/18) THERAPEUTIC EXERCISES (12/10/16) TTE W/DOPPLER COMPLETE (04/08/16) TX/PRO/DX INJ NEW DRUG ADDON (10/03/16) ULTRASOUND THERAPY (11/05/16) UPR/L XTREMITY ART 2 LEVELS (11/25/14) URINALYSIS AUTO W/SCOPE (05/05/18) URINE BACTERIA CULTURE (02/24/18) URINE CULTURE/COLONY COUNT (05/05/18) US EXAM ABDO BACK WALL YOUNG (06/23/17) US EXAM ABDOM COMPLETE (12/29/17) US URINE CAPACITY MEASURE (02/09/18) X-RAY EXAM ABDOMEN 1 VIEW (08/22/18) X-RAY EXAM CHEST 1 VIEW (02/06/18) X-RAY EXAM CHEST 2 VIEWS (02/24/18) X-RAY EXAM L-2 SPINE 4/>VWS (10/07/16) X-RAY EXAM OF ABDOMEN (11/30/16) X-RAY EXAM OF ELBOW (01/03/15) X-RAY EXAM OF HIP (01/14/15) X-RAY EXAM OF SHOULDER (01/03/15) X-RAY EXAM OF WRIST (01/14/15) X-RAY EXAM OF WRIST (01/03/15) X-RAY EXAM OF WRIST (07/01/13) X-RAY EXAM UNILAT RIBS/CHEST (10/26/14) (1) Intertrochanteric fracture of left hip SNOMED Code(s): 538375359 Code(s): S72.142A - DISPLACED INTERTROCHANTERIC FRACTURE OF LEFT FEMUR, INIT Current Visit: Yes Qualifiers: Encounter type: initial encounter Fracture type: closed Fracture alignment: displaced Qualified Code(s): S72.142A - Displaced intertrochanteric fracture of left femur, initial encounter for closed fracture (2) Anticoagulant therapy SNOMED Code(s): 778304558 Code(s): Z79.01 - [employer] (CURRENT) USE OF ANTICOAGULANTS Current Visit: No Problem List Initiated/Reviewed/Updated: Yes My Orders Last 24 Hours: My Active Orders 12/04/18 00:00 OR Fluoro-NC [CR] Routine 12/04/18 07:16 Verify Patient Consent Obtain [RC] ASDIRECTED 12/04/18 07:20 Dietary Supplements [RC] BIDMEALS 12/04/18 07:24 TYPE AND SCREEN [BBK] Routine Plan: Comminuted, mildy displaced intertroch fracture left hip that will require internal fixation. Off anticoagulation medication for over 48 hours so safe to proceed from that standpoint. Had echocardiogram this AM, await results. Proceed with intramedullary fixation when safe from cardiac standpoint.
[2018-12-04] MEDS ORDERED: Sodium Chloride 0.9% 10 ML ONE (11:43)
[2018-12-04] MEDS ORDERED: Lactated Ringers 1,000 ML ONE (12:24)
[2018-12-04] MEDS ORDERED: Phenylephrine 1% 10 MG/ML SDV ONE (12:25)
[2018-12-04] MEDS ORDERED: ePHEDrine 50 MG/ML SDV ONE (12:25)
[2018-12-04] MEDS ORDERED: Povidone-Iodine 10% Soln 118.25 ML Bottle ONE (12:35)
[2018-12-04] MEDS ORDERED: Sodium Chloride 0.9% 250 ML ONE ×2 (12:54→12:55)
[2018-12-04] MEDS: Cholecalciferol (Vitamin D3) 1,000 Unit Tab PO SCH (14:23)
[2018-12-04] MEDS: Digoxin 125 MCG Tab PO SCH (14:23)
[2018-12-04] MEDS: Calcium Carbonate 500 MG Tab.Chew PO SCH (14:23)
[2018-12-04] MEDS: Hypromellose 0.4% Ophth Soln 15 ML Bottle EYEBOTH SCH ×2 (15:30→21:18)
[2018-12-04] MEDS ORDERED: CARBOXYMETHYLCELLULOSE SODIUM EYEBOTH SCH (16:00)
[2018-12-04] MEDS: ceFAZolin 1 GM in Premix Bag 1 BAG IV SCH (17:08)
[2018-12-04] MEDS: Acetaminophen/oxyCODONE 325-5 MG Tab PO PRN (17:32)
--- NOTE | 2018-12-04 18:49 | PCM.OPNOTE ---
- General Post-Op/Procedure Note Date of Surgery/Procedure: 12/04/18 Operative Procedure(s): Limited open reduction and intramedullary fixation with a long Synthes TFNa nail 12mm x 400mm Findings: Comminuted, displaced intertrochanteric fracture with extension down medial femoral shaft Pre Op Diagnosis: Comminuted, displaced peritrochanteric fracture left hip Post-Op Diagnosis: Same Anesthesia Technique: Moderate Sedation, Spinal Primary Surgeon: Guy Infante EBL in mLs: 400 Complications: None Condition: Fair Free Text/Narrative:: Intake & Output 12/04/18 12/04/18 12/04/18 06:59 14:59 22:59 Intake Total 451 155 2297 Output Total 199 210 95 Balance 680 -35 1354 Indications: 83 year old female who sustained a comminuted peritrochanteric fracture of the left hip in a fall. Taken to the operating room for fixation of the fracture. Procedure: After adequate anesthesia was obtained the patient was placed on the fracture table and traction was applied. The reduction was evaluated and the hip and leg was prepped and draped in a sterile fashion.An incision was made over the greater trochanter and extended proximally for a short distance. Tensor fascia was divided. Dissection carried down to the tip of the trochanter.A bone hook was placed around the medial aspect of the proximal femur reducing the medial spike. Guidepin was then drilled into the trochanter under fluoroscopic guidance. The proximal entry point was then reamed.A long guidewire was then placed across the fracture down to the knee. Position within the femur was confirmed. The canal was then sequentially reamed to 13 mm. Length was measured at 400 mm. A 12 mm diameter by 400 mm length TFN nail was then placed over the guidewire Guidewire was removed and final position was confirmed.Two small stab incisions were made anteriorly and used to reduce the anterior fragment with direct pressure percutaneously. Guide for the spiral nail was then placed in the insertion guide. A small incision was made through the skin and tensor fascia. A guide was placed against the lateral cortex. Guidewire was then advanced through this and position confirmed with A/P and lateral image on fluoroscopy. This was then measured. The lateral cortex was drilled and a 100 mm spiral blade was then tapped into position and confirmed on AP and lateral images. This was then locked into position in the nail.The insertion guide was removed and final images were obtained. A lateral view of the knee was obtained for placement of a locking screw. Small stab incision was made over the dynamic locking hole. Freehand drill technique was then used This was measured and a transverse locking screw was placed and position confirmed on AP and lateral views.All incisions were then irrigated.Tensor fascia was closed in a running fashion #1 Vicryl. Skin incisions were closed with 2-0 Vicryl and 3-0 Monocryl. Steri-Strips strips were applied and sterile dressings were placed.Patient tolerated the procedure well to her application she was taken from the operating room in stable condition.
[2018-12-04] MEDS: LORazepam 1 MG Tab PO SCH (21:17)
[2018-12-04] MEDS: Nozin Nasal Sanitizer NASBOTH SCH (21:22)
[2018-12-05] MEDS: ceFAZolin 1 GM in Premix Bag 1 BAG IV SCH (01:18)
[2018-12-05] MEDS: Acetaminophen/oxyCODONE 325-5 MG Tab PO PRN ×3 (01:19→16:48)
[2018-12-05] MEDS: Sodium Chloride 0.9% 1,000 ML IV SCH ×4 (01:20→23:09)
[2018-12-05] MEDS: Acetaminophen 325 MG Tab PO SCH ×4 (05:09→21:17)
[2018-12-05] MEDS: Hypromellose 0.4% Ophth Soln 15 ML Bottle EYEBOTH SCH ×4 (05:09→21:17)
[2018-12-05] MEDS: Levofloxacin/Dextrose 5%-Water 250 MG in Premix Bag 1 BAG IV SCH (07:44)
[2018-12-05] MEDS: Nozin Nasal Sanitizer NASBOTH SCH ×2 (09:00→21:28)
[2018-12-05] MEDS: Beta-Carotene (Vitamin A) w/Vitamin C & E plus Minerals Tab PO SCH ×2 (09:07→21:21)
[2018-12-05] MEDS: Gabapentin 100 MG Cap PO SCH ×3 (09:07→21:18)
[2018-12-05] MEDS: Carvedilol 6.25 MG Tab PO SCH ×2 (09:08→21:21)
[2018-12-05] MEDS: Cholecalciferol (Vitamin D3) 1,000 Unit Tab PO SCH (09:08)
[2018-12-05] MEDS: Calcium Carbonate 500 MG Tab.Chew PO SCH (09:11)
[2018-12-05] MEDS ORDERED: Furosemide 20 MG/2 ML VIAL IVPUSH ONE (11:30)
[2018-12-05] MEDS: Magnesium Hydroxide 400 MG/5 ML Susp 30 ML Cup PO PRN (12:48)
[2018-12-05] MEDS: Digoxin 125 MCG Tab PO SCH (12:48)
[2018-12-05] MEDS: Docusate Sodium 100 MG Cap PO PRN (12:48)
--- NOTE | 2018-12-05 15:13 | PCM.SURGPN ---
- General Info Date of Service: 12/05/18 Date of Surgery/Procedure: 12/04/18 POD#: 1 Post-Op Diagnosis: peritrochanteric fracture left hip - Review of Systems General: Reports: No Symptoms (POD #1 S/P im Nailing of comminuted left hip fracture) - Patient Data Vitals - Most Recent: Last Vital Signs Temp 36.5 C 12/05/18 11:36 Pulse 76 12/05/18 12:48 Resp 12 12/05/18 11:36 BP 91/58 L 12/05/18 11:36 Pulse Ox 93 L 12/05/18 13:03 Weight - Most Recent: 50.349 kg I&O - Last 24 Hours: Intake & Output 12/05/18 12/05/18 12/05/18 06:59 14:59 22:59 Intake Total 1325 230 Output Total 375 828 Balance 950 -598 Lab Results Last 24 Hrs: Laboratory Results - last 24 hr 12/04/18 12/05/18 12/05/18 Range/Units 07:24 04:10 04:10 WBC 6.4 (4.5-11.0) K/uL RBC 2.85 L (3.30-5.50) M/uL Hgb 8.8 L (12.0-15.0) g/dL Hct 29.5 L (36.0-48.0) % MCV 104 H (80-98) fL MCH 31 (27-31) pg MCHC 30 L (32-36) % Plt Count 87 L (150-400) K/uL Sodium 144 (140-148) mmol/L Potassium 4.4 (3.6-5.2) mmol/L Chloride 113 H (100-108) mmol/L Carbon Dioxide 26 (21-32) mmol/L Anion Gap 9.4 (5.0-14.0) mmol/L BUN 27 H (7-18) mg/dL Creatinine 0.8 (0.6-1.0) mg/dL Est Cr Clr Drug Dosing 40.86 mL/min Estimated GFR (MDRD) > 60 (>60) Glucose 123 H (74-106) mg/dL Calcium 8.4 L (8.5-10.1) mg/dL Blood Type A POSITIVE Gel Antibody Screen Negative Crossmatch See Detail Med Orders - Current: Current Medications Acetaminophen (Tylenol) 650 mg PO QID [facility] Last Admin: 12/05/18 09:10 Dose: 650 mg Acetaminophen (Tylenol) 650 mg RECTAL QID PRN PRN Reason: Pain Al Hydroxide/Mg Hydroxide (Mag-Al Plus) 10 ml PO ASDIRECTED PRN PRN Reason: INDIGESTION Artificial Tears (Natural Balance Tears) 0 ml EYEBOTH QID [facility] Last Admin: 12/05/18 09:12 Dose: 1 drop Bandage/Support Products ( Nasal Bindery Machine Setter) 1 applic NASBOTH BID [facility] Last Admin: 12/05/18 09:00 Dose: Not Given Calcium Carbonate/Glycine (Tums) 500 mg PO DAILY [facility] Last Admin: 12/05/18 09:11 Dose: 500 mg Carvedilol (Coreg) 6.25 mg PO BID [facility] Last Admin: 12/05/18 09:08 Dose: 6.25 mg Cholecalciferol (Vitamin D3) 1,000 units PO DAILY [facility] Last Admin: 12/05/18 09:08 Dose: 1,000 units Digoxin (Lanoxin) 125 mcg PO DAILY@13 [facility] Last Admin: 12/05/18 12:48 Dose: 125 mcg Docusate Sodium (Colace) 100 mg PO BID PRN PRN Reason: Constipation Last Admin: 12/05/18 12:48 Dose: 100 mg Gabapentin (Neurontin) 100 mg PO TID [facility] Last Admin: 12/05/18 13:00 Dose: 100 mg Guaifenesin/Dextromethorphan (Robitussin Dm) 10 ml PO ASDIRECTED PRN PRN Reason: COUGH Hydrocortisone (Hydrocortisone 1% Crm) 0 gm TOP ASDIRECTED [facility] Hydromorphone HCl (Dilaudid) 0.2 mg IVPUSH Q1H PRN PRN Reason: Pain Last Admin: 12/04/18 18:32 Dose: 0.2 mg Sodium Chloride (Normal Saline) 1,000 mls @ 125 mls/hr IV ASDIRECTED [facility] Last Admin: 12/05/18 07:40 Dose: 125 mls/hr Levofloxacin/Dextrose 250 mg/ (Premix) 50 mls @ 50 mls/hr IV Q24H [facility] Stop: 12/06/18 08:59 Last Admin: 12/05/18 07:44 Dose: 50 mls/hr Loperamide HCl (Imodium) 2 mg PO ASDIRECTED PRN PRN Reason: DIARRHEA Lorazepam (Ativan) 2 mg PO BEDTIME [facility] Last Admin: 12/04/18 21:17 Dose: 2 mg Magnesium Hydroxide (Milk Of Magnesia) 30 ml PO DAILY PRN PRN Reason: Constipation Last Admin: 12/05/18 12:48 Dose: 30 ml Multivitamins/Minerals (Prosight) 1 tab PO BID [facility] Last Admin: 12/05/18 09:07 Dose: 1 tab Naloxone HCl (Narcan) 0.1 mg IV ASDIRECTED PRN PRN Reason: decreased respiratory rate Ondansetron HCl (Zofran) 4 mg IV Q4H PRN PRN Reason: Nausea/Vomiting Last Admin: 12/02/18 16:33 Dose: 4 mg Oxycodone/Acetaminophen (Percocet 325-5 Mg) 1 tab PO Q6H PRN PRN Reason: Pain (severe 7-10) Last Admin: 12/05/18 07:26 Dose: 1 tab Pneumococcal Polyvalent Vaccine (Pneumovax 23) 0.5 ml IM .ONCE ONE Stop: 12/06/18 12:01 Discontinued Medications Acetaminophen (Tylenol) 650 mg PO BID PRN PRN Reason: Pain Acetaminophen (Tylenol) 325 mg PO QID [facility] Last Admin: 12/02/18 12:10 Dose: 325 mg Amoxicillin (Amoxil) 500 mg PO Q8H [facility] Amoxicillin (Amoxil) 500 mg PO ONETIME ONE Stop: 12/02/18 11:31 Last Admin: 12/02/18 12:10 Dose: 500 mg Ephedrine Sulfate (Ephedrine Sulfate) Confirm Administered Dose 50 mg .ROUTE .STK-MED ONE Stop: 12/04/18 12:26 Fentanyl (Sublimaze) 50 mcg IVPUSH ONETIME ONE Stop: 12/02/18 04:25 Last Admin: 12/02/18 04:27 Dose: 50 mcg Fentanyl (Sublimaze) Confirm Administered Dose 100 mcg .ROUTE .STK-MED ONE Stop: 12/04/18 09:11 Furosemide (Lasix) 20 mg IVPUSH ONETIME ONE Stop: 12/05/18 11:31 Last Admin: 12/05/18 11:39 Dose: 20 mg Hydromorphone HCl (Dilaudid) 0.5 mg IVPUSH ONETIME ONE Stop: 12/02/18 05:48 Last Admin: 12/02/18 05:54 Dose: 0.5 mg Hydromorphone HCl (Dilaudid Interrelated Special Education Teacher 15 Mg In Ns 30 Ml) 0 mg IV ASDIRECTED PRN; Protocol PRN Reason: TEST PREPARER PAIN CONTROL Last Admin: 12/02/18 09:09 Dose: 15 mg Lactated Ringer's (Ringers, Lactated) 1,000 mls @ 125 mls/hr IV ASDIRECTED [facility] Last Admin: 12/02/18 06:53 Dose: 125 mls/hr Sodium Chloride (Normal Saline) 1,000 mls @ 100 mls/hr IV ASDIRECTED [facility] Last Admin: 12/02/18 21:10 Dose: 75 mls/hr Ampicillin Sodium 1 gm/ Sodium (Chloride) 50 mls @ 100 mls/hr IV Q8H [facility] Last Admin: 12/04/18 05:37 Dose: 100 mls/hr Sodium Chloride (Normal Saline) 250 mls @ 999 mls/hr IV .BOLUS ONE Stop: 12/03/18 12:18 Last Admin: 12/03/18 12:13 Dose: 999 mls/hr Sodium Chloride (Normal Saline) 250 mls @ 999 mls/hr IV .BOLUS ONE Stop: 12/03/18 13:55 Last Admin: 12/03/18 13:46 Dose: 999 mls/hr Cefazolin Sodium/Dextrose 1 gm (/ Premix) 50 mls @ 100 mls/hr IV ONETIME ONE Stop: 12/04/18 08:29 Last Admin: 12/04/18 10:30 Dose: 100 mls/hr Sodium Chloride (Normal Saline) Confirm Administered Dose 10 mls @ as directed .ROUTE .STK-MED ONE Stop: 12/04/18 11:44 Lactated Ringer's (Ringers, Lactated) Confirm Administered Dose 1,000 mls @ as directed .ROUTE .STK-MED ONE Stop: 12/04/18 12:25 Sodium Chloride (Normal Saline) Confirm Administered Dose 250 mls @ as directed .ROUTE .STK-MED ONE Stop: 12/04/18 12:55 Sodium Chloride (Normal Saline) Confirm Administered Dose 250 mls @ as directed .ROUTE .STK-MED ONE Stop: 12/04/18 12:56 Cefazolin Sodium/Dextrose 1 gm (/ Premix) 50 mls @ 100 mls/hr IV Q8H [facility] Stop: 12/05/18 02:29 Last Admin: 12/05/18 01:18 Dose: 100 mls/hr Midazolam HCl (Versed 1 Mg/Ml) Confirm Administered Dose 2 mg .ROUTE .STK-MED ONE Stop: 12/04/18 09:11 Ondansetron HCl (Zofran Odt) 4 mg PO ONETIME ONE Stop: 12/02/18 06:47 Last Admin: 12/02/18 06:51 Dose: 4 mg Phenylephrine HCl (Fidel-Synephrine) Confirm Administered Dose 10 mg .ROUTE .STK- MED ONE Stop: 12/04/18 12:26 Povidone Iodine (Betadine 10% Soln) Confirm Administered Dose 1 ml .ROUTE .STK- MED ONE Stop: 12/04/18 12:36 Propofol (Diprivan 20 Ml) Confirm Administered Dose 200 mg .ROUTE .STK-MED ONE Stop: 12/04/18 09:11 - Exam Physical Findings Comment:: Up in chair this AM. Dressing on, some bleed thru, not unexpected. Moderate swelling in leg, Santana's negative. - Problem List & Annotations (1) Intertrochanteric fracture of left hip SNOMED Code(s): 165667040 Code(s): S72.142A - DISPLACED INTERTROCHANTERIC FRACTURE OF LEFT FEMUR, INIT Status: Acute Current Visit: Yes Qualifiers: Encounter type: initial encounter Fracture type: closed Fracture alignment: displaced Qualified Code(s): S72.142A - Displaced intertrochanteric fracture of left femur, initial encounter for closed fracture (2) Anticoagulant therapy SNOMED Code(s): 361289223 Code(s): Z79.01 - SNF (CURRENT) USE OF ANTICOAGULANTS Status: Chronic Current Visit: No - Problem List Review Problem List Initiated/Reviewed/Updated: Yes - My Orders Last 24 Hours: Active Orders 24 hr Category Date Time Status 2 Gram Sodium Diet [DIET] Diet 12/04/18 Dinner Active Docusate Sodium [Colace] Med 12/05/18 11:24 Active 100 mg PO BID PRN Hypromellose [Natural Balance Tears] Med 12/04/18 16:00 Active 0 ml EYEBOTH QID Nozin [ Nasal Bindery Machine Setter] Med 12/04/18 21:00 Active 1 applic NASBOTH BID Pneumococcal Polyvalent-23 Vac [Pneumovax 23] Med 12/06/18 12:00 Once 0.5 ml IM .ONCE ONE Medication Orders Acetaminophen (Tylenol) 650 mg PO QID [facility] Last Admin: 12/05/18 09:10 Dose: 650 mg Admin: 12/05/18 05:09 Dose: 650 mg Admin: 12/04/18 21:05 Dose: 650 mg Admin: 12/04/18 15:29 Dose: 650 mg Admin: 12/04/18 09:49 Dose: Admin: 12/04/18 05:40 Dose: Admin: 12/03/18 21:10 Dose: 650 mg Admin: 12/03/18 16:09 Dose: 650 mg Admin: 12/03/18 10:23 Dose: 650 mg Admin: 12/03/18 05:52 Dose: 650 mg Admin: 12/02/18 22:33 Dose: 650 mg Admin: 12/02/18 16:29 Dose: 650 mg Acetaminophen (Tylenol) 650 mg RECTAL QID PRN PRN Reason: Pain Al Hydroxide/Mg Hydroxide (Mag-Al Plus) 10 ml PO ASDIRECTED PRN PRN Reason: INDIGESTION Artificial Tears (Natural Balance Tears) 0 ml EYEBOTH QID [facility] Last Admin: 12/05/18 09:12 Dose: 1 drop Admin: 12/05/18 05:09 Dose: 1 drop Admin: 12/04/18 21:18 Dose: 1 drop Admin: 12/04/18 15:30 Dose: 1 drop Bandage/Support Products ( Nasal Bindery Machine Setter) 1 applic NASBOTH BID [facility] Last Admin: 12/05/18 09:00 Dose: Admin: 12/04/18 21:22 Dose: Calcium Carbonate/Glycine (Tums) 500 mg PO DAILY [facility] Last Admin: 12/05/18 09:11 Dose: 500 mg Admin: 12/04/18 14:23 Dose: 500 mg Admin: 12/03/18 08:30 Dose: 500 mg Admin: 12/02/18 09:28 Dose: 500 mg Carvedilol (Coreg) 6.25 mg PO BID [facility] Last Admin: 12/05/18 09:08 Dose: 6.25 mg Admin: 12/04/18 21:07 Dose: 6.25 mg Admin: 12/04/18 08:07 Dose: 6.25 mg Admin: 12/03/18 20:03 Dose: 6.25 mg Admin: 12/03/18 08:31 Dose: Admin: 12/02/18 20:27 Dose: 6.25 mg Admin: 12/02/18 09:26 Dose: 6.25 mg Cholecalciferol (Vitamin D3) 1,000 units PO DAILY [facility] Last Admin: 12/05/18 09:08 Dose: 1,000 units Admin: 12/04/18 14:23 Dose: 1,000 units Admin: 12/03/18 08:31 Dose: 1,000 units Admin: 12/02/18 09:28 Dose: 1,000 units Digoxin (Lanoxin) 125 mcg PO DAILY@13 [facility] Last Admin: 12/05/18 12:48 Dose: 125 mcg Admin: 12/04/18 14:23 Dose: 125 mcg Admin: 12/03/18 13:40 Dose: 125 mcg Admin: 12/02/18 12:10 Dose: 125 mcg Docusate Sodium (Colace) 100 mg PO BID PRN PRN Reason: Constipation Last Admin: 12/05/18 12:48 Dose: 100 mg Gabapentin (Neurontin) 100 mg PO TID [facility] Last Admin: 12/05/18 13:00 Dose: 100 mg Admin: 12/05/18 09:07 Dose: 100 mg Admin: 12/04/18 21:06 Dose: 100 mg Admin: 12/04/18 14:23 Dose: 100 mg Admin: 12/04/18 09:07 Dose: Admin: 12/03/18 20:04 Dose: 100 mg Admin: 12/03/18 13:43 Dose: 100 mg Admin: 12/03/18 08:30 Dose: 100 mg Admin: 12/02/18 20:27 Dose: 100 mg Admin: 12/02/18 14:19 Dose: 100 mg Admin: 12/02/18 09:27 Dose: 100 mg Guaifenesin/Dextromethorphan (Robitussin Dm) 10 ml PO ASDIRECTED PRN PRN Reason: COUGH Hydrocortisone (Hydrocortisone 1% Crm) 0 gm TOP ASDIRECTED [facility] Hydromorphone HCl (Dilaudid) 0.2 mg IVPUSH Q1H PRN PRN Reason: Pain Last Admin: 12/04/18 18:32 Dose: 0.2 mg Admin: 12/04/18 10:04 Dose: 0.2 mg Admin: 12/03/18 23:21 Dose: 0.2 mg Admin: 12/03/18 20:30 Dose: 0.2 mg Admin: 12/03/18 18:00 Dose: 0.2 mg Admin: 12/03/18 14:44 Dose: 0.2 mg Admin: 12/03/18 10:23 Dose: 0.2 mg Admin: 12/03/18 07:08 Dose: 0.2 mg Admin: 12/03/18 03:05 Dose: 0.2 mg Admin: 12/02/18 22:40 Dose: 0.2 mg Admin: 12/02/18 20:43 Dose: 0.2 mg Admin: 12/02/18 18:31 Dose: 0.2 mg Admin: 12/02/18 17:21 Dose: 0.2 mg Sodium Chloride (Normal Saline) 1,000 mls @ 125 mls/hr IV ASDIRECTED [facility] Last Admin: 12/05/18 07:40 Dose: 125 mls/hr Infusion: 12/05/18 07:40 Dose: 125 mls/hr Admin: 12/05/18 01:20 Dose: 125 mls/hr Infusion: 12/04/18 23:28 Dose: 125 mls/hr Admin: 12/04/18 15:28 Dose: 125 mls/hr Infusion: 12/04/18 11:56 Dose: 125 mls/hr Admin: 12/04/18 03:56 Dose: 125 mls/hr Infusion: 12/04/18 03:56 Dose: 125 mls/hr Admin: 12/03/18 19:57 Dose: 125 mls/hr Levofloxacin/Dextrose 250 mg/ (Premix) 50 mls @ 50 mls/hr IV Q24H [facility] Stop: 12/06/18 08:59 Last Admin: 12/05/18 07:44 Dose: 50 mls/hr Infusion: 12/04/18 09:50 Dose: 50 mls/hr Admin: 12/04/18 08:50 Dose: 50 mls/hr Loperamide HCl (Imodium) 2 mg PO ASDIRECTED PRN PRN Reason: DIARRHEA Lorazepam (Ativan) 2 mg PO BEDTIME [facility] Last Admin: 12/04/18 21:17 Dose: 2 mg Admin: 12/03/18 20:01 Dose: 2 mg Admin: 12/02/18 20:34 Dose: 2 mg Magnesium Hydroxide (Milk Of Magnesia) 30 ml PO DAILY PRN PRN Reason: Constipation Last Admin: 12/05/18 12:48 Dose: 30 ml Multivitamins/Minerals (Prosight) 1 tab PO BID [facility] Last Admin: 12/05/18 09:07 Dose: 1 tab Admin: 12/04/18 21:06 Dose: 1 tab Admin: 12/04/18 09:00 Dose: Admin: 12/03/18 20:04 Dose: 1 tab Admin: 12/03/18 08:30 Dose: 1 tab Admin: 12/02/18 20:27 Dose: 1 tab Admin: 12/02/18 09:28 Dose: 1 tab Naloxone HCl (Narcan) 0.1 mg IV ASDIRECTED PRN PRN Reason: decreased respiratory rate Ondansetron HCl (Zofran) 4 mg IV Q4H PRN PRN Reason: Nausea/Vomiting Last Admin: 12/02/18 16:33 Dose: 4 mg Admin: 12/02/18 11:10 Dose: 4 mg Oxycodone/Acetaminophen (Percocet 325-5 Mg) 1 tab PO Q6H PRN PRN Reason: Pain (severe 7-10) Last Admin: 12/05/18 07:26 Dose: 1 tab Admin: 12/05/18 01:19 Dose: 1 tab Admin: 12/04/18 17:32 Dose: 1 tab Pneumococcal Polyvalent Vaccine (Pneumovax 23) 0.5 ml IM .ONCE ONE Stop: 12/06/18 12:01 - Assessment Assessment (Free Text/Narrative):: Stable over night, H/H unchanged. BP ok up in chair this AM. - Plan Plan (Free Text/Narrative):: Change dressing tomorrow. Watch H/H, if stays stable can resume anticoagulation . Will need placement for PT/OT, anticipate partial weight bearing for 3-4 weeks. Follow up with Ortho at that time for new x-rays.
--- NOTE | 2018-12-05 16:59 | PCM.PN ---
- General Info Date of Service: 12/05/18 Functional Status: Reports: Pain Controlled - Review of Systems General: Reports: Weakness HEENT: Reports: No Symptoms Pulmonary: Reports: No Symptoms Cardiovascular: Reports: No Symptoms Gastrointestinal: Reports: No Symptoms Genitourinary: Reports: No Symptoms Skin: Reports: No Symptoms Neurological: Reports: Confusion Psychiatric: Reports: Confusion, Hallucinations - Patient Data Vitals - Most Recent: Last Vital Signs Temp 98.2 F 12/05/18 16:00 Pulse 75 12/05/18 16:00 Resp 18 12/05/18 16:00 BP 113/61 12/05/18 16:00 Pulse Ox 94 L 12/05/18 16:00 Weight - Most Recent: 111 lb 0.009 oz I&O - Last 24 Hours: Intake & Output 12/05/18 12/05/18 12/05/18 06:59 14:59 22:59 Intake Total 1325 230 Output Total 375 828 350 Balance 950 598 -350 Lab Results Last 24 Hours: Laboratory Results - last 24 hr 12/04/18 12/05/18 12/05/18 Range/Units 07:24 04:10 04:10 WBC 6.4 (4.5-11.0) K/uL RBC 2.85 L (3.30-5.50) M/uL Hgb 8.8 L (12.0-15.0) g/dL Hct 29.5 L (36.0-48.0) % MCV 104 H (80-98) fL MCH 31 (27-31) pg MCHC 30 L (32-36) % Plt Count 87 L (150-400) K/uL Sodium 144 (140-148) mmol/L Potassium 4.4 (3.6-5.2) mmol/L Chloride 113 H (100-108) mmol/L Carbon Dioxide 26 (21-32) mmol/L Anion Gap 9.4 (5.0-14.0) mmol/L BUN 27 H (7-18) mg/dL Creatinine 0.8 (0.6-1.0) mg/dL Est Cr Clr Drug Dosing 40.86 mL/min Estimated GFR (MDRD) > 60 (>60) Glucose 123 H (74-106) mg/dL Calcium 8.4 L (8.5-10.1) mg/dL Blood Type A POSITIVE Gel Antibody Screen Negative Crossmatch See Detail Med Orders - Current: Current Medications Acetaminophen (Tylenol) 650 mg PO QID [facility] Last Admin: 12/05/18 15:38 Dose: Not Given Acetaminophen (Tylenol) 650 mg RECTAL QID PRN PRN Reason: Pain Al Hydroxide/Mg Hydroxide (Mag-Al Plus) 10 ml PO ASDIRECTED PRN PRN Reason: INDIGESTION Artificial Tears (Natural Balance Tears) 0 ml EYEBOTH QID [facility] Last Admin: 12/05/18 15:38 Dose: 1 drop Bandage/Support Products ( Nasal Calciner Operator) 1 applic NASBOTH BID [facility] Last Admin: 12/05/18 09:00 Dose: Not Given Calcium Carbonate/Glycine (Tums) 500 mg PO DAILY [facility] Last Admin: 12/05/18 09:11 Dose: 500 mg Carvedilol (Coreg) 6.25 mg PO BID [facility] Last Admin: 12/05/18 09:08 Dose: 6.25 mg Cholecalciferol (Vitamin D3) 1,000 units PO DAILY [facility] Last Admin: 12/05/18 09:08 Dose: 1,000 units Digoxin (Lanoxin) 125 mcg PO DAILY@13 [facility] Last Admin: 12/05/18 12:48 Dose: 125 mcg Divalproex Sodium (Divalproex Sodium) 250 mg PO ONETIME ONE Stop: 12/05/18 18:01 Docusate Sodium (Colace) 100 mg PO BID PRN PRN Reason: Constipation Last Admin: 12/05/18 12:48 Dose: 100 mg Gabapentin (Neurontin) 100 mg PO TID [facility] Last Admin: 12/05/18 13:00 Dose: 100 mg Guaifenesin/Dextromethorphan (Robitussin Dm) 10 ml PO ASDIRECTED PRN PRN Reason: COUGH Hydrocortisone (Hydrocortisone 1% Crm) 0 gm TOP ASDIRECTED [facility] Hydromorphone HCl (Dilaudid) 0.2 mg IVPUSH Q1H PRN PRN Reason: Pain Last Admin: 12/04/18 18:32 Dose: 0.2 mg Sodium Chloride (Normal Saline) 1,000 mls @ 125 mls/hr IV ASDIRECTED [facility] Last Admin: 12/05/18 07:40 Dose: 125 mls/hr Levofloxacin/Dextrose 250 mg/ (Premix) 50 mls @ 50 mls/hr IV Q24H [facility] Stop: 12/06/18 08:59 Last Admin: 12/05/18 07:44 Dose: 50 mls/hr Loperamide HCl (Imodium) 2 mg PO ASDIRECTED PRN PRN Reason: DIARRHEA Lorazepam (Ativan) 2 mg PO BEDTIME [facility] Last Admin: 12/04/18 21:17 Dose: 2 mg Magnesium Hydroxide (Milk Of Magnesia) 30 ml PO DAILY PRN PRN Reason: Constipation Last Admin: 12/05/18 12:48 Dose: 30 ml Multivitamins/Minerals (Prosight) 1 tab PO BID [facility] Last Admin: 12/05/18 09:07 Dose: 1 tab Naloxone HCl (Narcan) 0.1 mg IV ASDIRECTED PRN PRN Reason: decreased respiratory rate Ondansetron HCl (Zofran) 4 mg IV Q4H PRN PRN Reason: Nausea/Vomiting Last Admin: 12/02/18 16:33 Dose: 4 mg Oxycodone/Acetaminophen (Percocet 325-5 Mg) 1 tab PO Q6H PRN PRN Reason: Pain (severe 7-10) Last Admin: 12/05/18 07:26 Dose: 1 tab Pneumococcal Polyvalent Vaccine (Pneumovax 23) 0.5 ml IM .ONCE ONE Stop: 12/06/18 12:01 Discontinued Medications Acetaminophen (Tylenol) 650 mg PO BID PRN PRN Reason: Pain Acetaminophen (Tylenol) 325 mg PO QID [facility] Last Admin: 12/02/18 12:10 Dose: 325 mg Amoxicillin (Amoxil) 500 mg PO Q8H [facility] Amoxicillin (Amoxil) 500 mg PO ONETIME ONE Stop: 12/02/18 11:31 Last Admin: 12/02/18 12:10 Dose: 500 mg Ephedrine Sulfate (Ephedrine Sulfate) Confirm Administered Dose 50 mg .ROUTE .STK-MED ONE Stop: 12/04/18 12:26 Fentanyl (Sublimaze) 50 mcg IVPUSH ONETIME ONE Stop: 12/02/18 04:25 Last Admin: 12/02/18 04:27 Dose: 50 mcg Fentanyl (Sublimaze) Confirm Administered Dose 100 mcg .ROUTE .STK-MED ONE Stop: 12/04/18 09:11 Furosemide (Lasix) 20 mg IVPUSH ONETIME ONE Stop: 12/05/18 11:31 Last Admin: 12/05/18 11:39 Dose: 20 mg Hydromorphone HCl (Dilaudid) 0.5 mg IVPUSH ONETIME ONE Stop: 12/02/18 05:48 Last Admin: 12/02/18 05:54 Dose: 0.5 mg Hydromorphone HCl (Dilaudid Resistor Tester 15 Mg In Ns 30 Ml) 0 mg IV ASDIRECTED PRN; Protocol PRN Reason: SWIMMING PROFESSOR 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 Last Admin: 12/02/18 09:09 Dose: 15 mg Lactated Ringer's (Ringers, Lactated) 1,000 mls @ 125 mls/hr IV ASDIRECTED [facility] Last Admin: 12/02/18 06:53 Dose: 125 mls/hr Sodium Chloride (Normal Saline) 1,000 mls @ 100 mls/hr IV ASDIRECTED [facility] Last Admin: 12/02/18 21:10 Dose: 75 mls/hr Ampicillin Sodium 1 gm/ Sodium (Chloride) 50 mls @ 100 mls/hr IV Q8H [facility] Last Admin: 12/04/18 05:37 Dose: 100 mls/hr Sodium Chloride (Normal Saline) 250 mls @ 999 mls/hr IV .BOLUS ONE Stop: 12/03/18 12:18 Last Admin: 12/03/18 12:13 Dose: 999 mls/hr Sodium Chloride (Normal Saline) 250 mls @ 999 mls/hr IV .BOLUS ONE Stop: 12/03/18 13:55 Last Admin: 12/03/18 13:46 Dose: 999 mls/hr Cefazolin Sodium/Dextrose 1 gm (/ Premix) 50 mls @ 100 mls/hr IV ONETIME ONE Stop: 12/04/18 08:29 Last Admin: 12/04/18 10:30 Dose: 100 mls/hr Sodium Chloride (Normal Saline) Confirm Administered Dose 10 mls @ as directed .ROUTE .STK-MED ONE Stop: 12/04/18 11:44 Lactated Ringer's (Ringers, Lactated) Confirm Administered Dose 1,000 mls @ as directed .ROUTE .STK-MED ONE Stop: 12/04/18 12:25 Sodium Chloride (Normal Saline) Confirm Administered Dose 250 mls @ as directed .ROUTE .STK-MED ONE Stop: 12/04/18 12:55 Sodium Chloride (Normal Saline) Confirm Administered Dose 250 mls @ as directed .ROUTE .STK-MED ONE Stop: 12/04/18 12:56 Cefazolin Sodium/Dextrose 1 gm (/ Premix) 50 mls @ 100 mls/hr IV Q8H RACHELLE Stop: 12/05/18 02:29 Last Admin: 12/05/18 01:18 Dose: 100 mls/hr Midazolam HCl (Versed 1 Mg/Ml) Confirm Administered Dose 2 mg .ROUTE .STK-MED ONE Stop: 12/04/18 09:11 Ondansetron HCl (Zofran Odt) 4 mg PO ONETIME ONE Stop: 12/02/18 06:47 Last Admin: 12/02/18 06:51 Dose: 4 mg Phenylephrine HCl (Fidel-Synephrine) Confirm Administered Dose 10 mg .ROUTE .STK- MED ONE Stop: 12/04/18 12:26 Povidone Iodine (Betadine 10% Soln) Confirm Administered Dose 1 ml .ROUTE .STK- MED ONE Stop: 12/04/18 12:36 Propofol (Diprivan 20 Ml) Confirm Administered Dose 200 mg .ROUTE .STK-MED ONE Stop: 12/04/18 09:11 - Exam General: Moderate Distress HEENT: Pupils Equal, Pupils Reactive, EOMI, Mucous Membr. Moist/[place]ck: Supple Lungs: Clear to Auscultation, Normal Respiratory Effort Cardiovascular: Regular Rate, Regular Rhythm GI/Abdominal Exam: Normal Bowel Sounds, Soft, Non-Tender, No Organomegaly, No Distention, No Abnormal Bruit, No Mass, Pelvis Stable Extremities: Joint Swelling, Leg Pain Peripheral Pulses: 1+: Radial (L), Radial (R) Skin: Warm Wound/Incisions: Healing Well Psy/Mental Status: Hallucinations - Problem List Review Problem List Initiated/Reviewed/Updated: Yes - My Orders Last 24 Hours: My Active Orders 12/05/18 11:24 Docusate Sodium [Colace] 100 mg PO BID PRN 12/05/18 18:00 Divalproex Sodium 250 mg PO ONETIME ONE 12/06/18 12:00 Pneumococcal Polyvalent-23 Vac [Pneumovax 23] 0.5 ml IM .ONCE ONE - Plan Plan:: Assessment/Plan: #1. Fracture Left hip. S/p surgery #2. Osteoporosis: She has a history of a compression fracture of her spine. #3. Hypotension. Stable #4. CHF. Echocardiogram Showed severe MR and TR with stable EF compared to 2 years ago at 45% #5. Anemia secondary to the fracture. Ritic count 2.2, Hb. 8.8 drop due to dilution #6. UTI. Treating with Levofloxacin. #7. Depression with confusion and hallucination. I started her on Depakote 250 mg daily #8. Generalized weakness #9. History of Colles fracture and Humerus fracture
[2018-12-05] MEDS ORDERED: Divalproex Sodium Delayed-Release 250 MG Tab.CR PO ONE (18:00)
[2018-12-05] MEDS: LORazepam 1 MG Tab PO SCH (21:20)
[2018-12-06] MEDS: Hypromellose 0.4% Ophth Soln 15 ML Bottle EYEBOTH SCH ×4 (05:30→21:45)
[2018-12-06] MEDS: Acetaminophen 325 MG Tab PO SCH ×4 (05:31→21:45)
[2018-12-06] MEDS: Sodium Chloride 0.9% 1,000 ML IV SCH ×2 (06:19→18:15)
[2018-12-06] MEDS ORDERED: Levofloxacin 250 MG Tab PO SCH (07:30)
[2018-12-06] MEDS: Carvedilol 6.25 MG Tab PO SCH ×2 (09:36→21:43)
[2018-12-06] MEDS: Divalproex Sodium Delayed-Release 250 MG Tab.CR PO SCH (09:37)
[2018-12-06] MEDS: Gabapentin 100 MG Cap PO SCH ×3 (09:40→21:45)
[2018-12-06] MEDS: Beta-Carotene (Vitamin A) w/Vitamin C & E plus Minerals Tab PO SCH ×2 (09:42→21:45)
[2018-12-06] MEDS: Calcium Carbonate 500 MG Tab.Chew PO SCH (09:45)
[2018-12-06] MEDS: Nozin Nasal Sanitizer NASBOTH SCH ×2 (09:51→21:42)
[2018-12-06] MEDS: Cholecalciferol (Vitamin D3) 1,000 Unit Tab PO SCH (11:15)
[2018-12-06] MEDS: Acetaminophen/oxyCODONE 325-5 MG Tab PO PRN (11:16)
[2018-12-06] MEDS: Docusate Sodium 100 MG Cap PO PRN (11:18)
[2018-12-06] MEDS: Magnesium Hydroxide 400 MG/5 ML Susp 30 ML Cup PO PRN (11:18)
[2018-12-06] MEDS ORDERED: Pneumococcal Polyvalent-23 Vaccine 0.5 ML SDV IM ONE (12:00)
[2018-12-06] MEDS: Digoxin 125 MCG Tab PO SCH (13:09)
--- NOTE | 2018-12-06 15:14 | PCM.SURGPN ---
- General Info Date of Service: 12/06/18 Date of Surgery/Procedure: 12/04/18 POD#: 2 Post-Op Diagnosis: Peritrochanteric fracture left hip, S/P intramedullary fixation Functional Status: Reports: Pain Controlled - Review of Systems General: Reports: No Symptoms Skin: Reports: No Symptoms - Patient Data Vitals - Most Recent: Last Vital Signs Temp 36.5 C 12/06/18 11:30 Pulse 64 12/06/18 13:09 Resp 12 12/06/18 11:30 BP 96/54 L 12/06/18 11:30 Pulse Ox 93 L 12/06/18 12:58 Weight - Most Recent: 50.349 kg I&O - Last 24 Hours: Intake & Output 12/06/18 12/06/18 12/06/18 06:59 14:59 22:59 Intake Total 1713 240 Output Total 275 163 Balance 1438 77 Lab Results Last 24 Hrs: Laboratory Results - last 24 hr 12/06/18 12/06/18 12/06/18 Range/Units 10:42 10:42 12:13 WBC 6.8 (4.5-11.0) K/uL RBC 2.61 L (3.30-5.50) M/uL Hgb 8.0 L (12.0-15.0) g/dL Hct 26.5 L (36.0-48.0) % MCV 102 H (80-98) fL MCH 31 (27-31) pg MCHC 30 L (32-36) % Plt Count 80 L (150-400) K/uL Sodium 142 (140-148) mmol/L Potassium 4.3 (3.6-5.2) mmol/L Chloride 111 H (100-108) mmol/L Carbon Dioxide 27 (21-32) mmol/L Anion Gap 8.3 (5.0-14.0) mmol/L BUN 24 H (7-18) mg/dL Creatinine 0.7 (0.6-1.0) mg/dL Est Cr Clr Drug Dosing 46.70 mL/min Estimated GFR (MDRD) > 60 (>60) Glucose 128 H (74-106) mg/dL Calcium 8.4 L (8.5-10.1) mg/dL Total Bilirubin 0.6 (0.2-1.0) mg/dL AST 16 (15-37) U/L ALT 8 L (12-78) U/L Alkaline Phosphatase 70 (46-116) U/L Total Protein 5.1 L (6.4-8.2) g/dL Albumin 2.0 L (3.4-5.0) g/dL Globulin 3.1 (2.3-3.5) g/dL Albumin/Globulin Ratio 0.7 L (1.2-2.2) Urine Color Yellow Urine Appearance Slightly cloudy Urine pH 5.0 (4.5-8.0) Ur Specific Fischer 1.015 (1.008-1.030) Urine Protein Trace (NEGATIVE) mg/dL Urine Glucose (UA) Normal (NEGATIVE) mg/dL Urine Ketones Negative (NEGATIVE) mg/dL Urine Occult Blood Trace (NEGATIVE) Urine Nitrite Negative (NEGATIVE) Urine Bilirubin Negative (NEGATIVE) Urine Urobilinogen Normal (NORMAL) mg/dL Ur Leukocyte Esterase Negative (NEGATIVE) Urine RBC 0-5 (0-5) Urine WBC 0-5 (0-5) Ur Epithelial Cells Few Amorphous Sediment Not seen Urine Bacteria Few Urine Mucus Not seen Med Orders - Current: Current Medications Acetaminophen (Tylenol) 650 mg PO QID [facility] Last Admin: 12/06/18 09:46 Dose: 650 mg Acetaminophen (Tylenol) 650 mg RECTAL QID PRN PRN Reason: Pain Al Hydroxide/Mg Hydroxide (Mag-Al Plus) 10 ml PO ASDIRECTED PRN PRN Reason: INDIGESTION Artificial Tears (Natural Balance Tears) 0 ml EYEBOTH QID [facility] Last Admin: 12/06/18 09:49 Dose: 1 drop Bandage/Support Products ( Nasal Blocker Polishing) 1 applic NASBOTH BID [facility] Last Admin: 12/06/18 09:51 Dose: 1 applic Calcium Carbonate/Glycine (Tums) 500 mg PO DAILY [facility] Last Admin: 12/06/18 09:45 Dose: 500 mg Carvedilol (Coreg) 6.25 mg PO BID [facility] Last Admin: 12/06/18 09:36 Dose: 6.25 mg Cholecalciferol (Vitamin D3) 1,000 units PO DAILY [facility] Last Admin: 12/06/18 11:15 Dose: 1,000 units Digoxin (Lanoxin) 125 mcg PO DAILY@13 [facility] Last Admin: 12/06/18 13:09 Dose: 125 mcg Divalproex Sodium (Divalproex Sodium) 250 mg PO DAILY [facility] Last Admin: 12/06/18 09:37 Dose: 250 mg Docusate Sodium (Colace) 100 mg PO BID PRN PRN Reason: Constipation Last Admin: 12/06/18 11:18 Dose: 100 mg Gabapentin (Neurontin) 100 mg PO TID [facility] Last Admin: 12/06/18 13:13 Dose: 100 mg Guaifenesin/Dextromethorphan (Robitussin Dm) 10 ml PO ASDIRECTED PRN PRN Reason: COUGH Hydrocortisone (Hydrocortisone 1% Crm) 0 gm TOP ASDIRECTED [facility] Hydromorphone HCl (Dilaudid) 0.2 mg IVPUSH Q1H PRN PRN Reason: Pain Last Admin: 12/04/18 18:32 Dose: 0.2 mg Sodium Chloride (Normal Saline) 1,000 mls @ 75 mls/hr IV ASDIRECTED [facility] Last Admin: 12/06/18 06:19 Dose: 125 mls/hr Loperamide HCl (Imodium) 2 mg PO ASDIRECTED PRN PRN Reason: DIARRHEA Lorazepam (Ativan) 2 mg PO BEDTIME [facility] Last Admin: 12/05/18 21:20 Dose: 2 mg Magnesium Hydroxide (Milk Of Magnesia) 30 ml PO DAILY PRN PRN Reason: Constipation Last Admin: 12/06/18 11:18 Dose: 30 ml Multivitamins/Minerals (Prosight) 1 tab PO BID [facility] Last Admin: 12/06/18 09:42 Dose: 1 tab Naloxone HCl (Narcan) 0.1 mg IV ASDIRECTED PRN PRN Reason: decreased respiratory rate Ondansetron HCl (Zofran) 4 mg IV Q4H PRN PRN Reason: Nausea/Vomiting Last Admin: 12/02/18 16:33 Dose: 4 mg Oxycodone/Acetaminophen (Percocet 325-5 Mg) 1 tab PO Q6H PRN PRN Reason: Pain (severe 7-10) Last Admin: 12/06/18 11:16 Dose: 1 tab Discontinued Medications Acetaminophen (Tylenol) 650 mg PO BID PRN PRN Reason: Pain Acetaminophen (Tylenol) 325 mg PO QID [facility] Last Admin: 12/02/18 12:10 Dose: 325 mg Amoxicillin (Amoxil) 500 mg PO Q8H [facility] Amoxicillin (Amoxil) 500 mg PO ONETIME ONE Stop: 12/02/18 11:31 Last Admin: 12/02/18 12:10 Dose: 500 mg Divalproex Sodium (Divalproex Sodium) 250 mg PO ONETIME ONE Stop: 12/05/18 18:01 Last Admin: 12/05/18 17:38 Dose: Not Given Ephedrine Sulfate (Ephedrine Sulfate) Confirm Administered Dose 50 mg .ROUTE .STK-MED ONE Stop: 12/04/18 12:26 Fentanyl (Sublimaze) 50 mcg IVPUSH ONETIME ONE Stop: 12/02/18 04:25 Last Admin: 12/02/18 04:27 Dose: 50 mcg Fentanyl (Sublimaze) Confirm Administered Dose 100 mcg .ROUTE .STK-MED ONE Stop: 12/04/18 09:11 Furosemide (Lasix) 20 mg IVPUSH ONETIME ONE Stop: 12/05/18 11:31 Last Admin: 12/05/18 11:39 Dose: 20 mg Hydromorphone HCl (Dilaudid) 0.5 mg IVPUSH ONETIME ONE Stop: 12/02/18 05:48 Last Admin: 12/02/18 05:54 Dose: 0.5 mg Hydromorphone HCl (Dilaudid Logger 15 Mg In Ns 30 Ml) 0 mg IV ASDIRECTED PRN; Protocol 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 Last Admin: 12/02/18 09:09 Dose: 15 mg Lactated Ringer's (Ringers, Lactated) 1,000 mls @ 125 mls/hr IV ASDIRECTED [facility] Last Admin: 12/02/18 06:53 Dose: 125 mls/hr Sodium Chloride (Normal Saline) 1,000 mls @ 100 mls/hr IV ASDIRECTED [facility] Last Admin: 12/02/18 21:10 Dose: 75 mls/hr Ampicillin Sodium 1 gm/ Sodium (Chloride) 50 mls @ 100 mls/hr IV Q8H [facility] Last Admin: 12/04/18 05:37 Dose: 100 mls/hr Sodium Chloride (Normal Saline) 250 mls @ 999 mls/hr IV .BOLUS ONE Stop: 12/03/18 12:18 Last Admin: 12/03/18 12:13 Dose: 999 mls/hr Sodium Chloride (Normal Saline) 250 mls @ 999 mls/hr IV .BOLUS ONE Stop: 12/03/18 13:55 Last Admin: 12/03/18 13:46 Dose: 999 mls/hr Levofloxacin/Dextrose 250 mg/ (Premix) 50 mls @ 50 mls/hr IV Q24H [facility] Stop: 12/06/18 08:59 Last Admin: 12/05/18 07:44 Dose: 50 mls/hr Cefazolin Sodium/Dextrose 1 gm (/ Premix) 50 mls @ 100 mls/hr IV ONETIME ONE Stop: 12/04/18 08:29 Last Admin: 12/04/18 10:30 Dose: 100 mls/hr Sodium Chloride (Normal Saline) Confirm Administered Dose 10 mls @ as directed .ROUTE .STK-MED ONE Stop: 12/04/18 11:44 Lactated Ringer's (Ringers, Lactated) Confirm Administered Dose 1,000 mls @ as directed .ROUTE .STK-MED ONE Stop: 12/04/18 12:25 Sodium Chloride (Normal Saline) Confirm Administered Dose 250 mls @ as directed .ROUTE .STK-MED ONE Stop: 12/04/18 12:55 Sodium Chloride (Normal Saline) Confirm Administered Dose 250 mls @ as directed .ROUTE .STK-MED ONE Stop: 12/04/18 12:56 Cefazolin Sodium/Dextrose 1 gm (/ Premix) 50 mls @ 100 mls/hr IV Q8H [facility] Stop: 12/05/18 02:29 Last Admin: 12/05/18 01:18 Dose: 100 mls/hr Levofloxacin (Levaquin) 250 mg PO ACBREAKFAST [facility] Stop: 12/06/18 07:31 Last Admin: 12/06/18 08:07 Dose: 250 mg Midazolam HCl (Versed 1 Mg/Ml) Confirm Administered Dose 2 mg .ROUTE .STK-MED ONE Stop: 12/04/18 09:11 Ondansetron HCl (Zofran Odt) 4 mg PO ONETIME ONE Stop: 12/02/18 06:47 Last Admin: 12/02/18 06:51 Dose: 4 mg Phenylephrine HCl (Fidel-Synephrine) Confirm Administered Dose 10 mg .ROUTE .STK- MED ONE Stop: 12/04/18 12:26 Pneumococcal Polyvalent Vaccine (Pneumovax 23) 0.5 ml IM .ONCE ONE Stop: 12/06/18 12:01 Last Admin: 12/06/18 13:10 Dose: 0.5 ml Povidone Iodine (Betadine 10% Soln) Confirm Administered Dose 1 ml .ROUTE .STK- MED ONE Stop: 12/04/18 12:36 Propofol (Diprivan 20 Ml) Confirm Administered Dose 200 mg .ROUTE .STK-MED ONE Stop: 12/04/18 09:11 - Exam Wound/Incisions: No Drainage Skin: Warm, Dry, Intact Physical Findings Comment:: Up in chair this AM. Minimal swelling in lower leg. Negative Santana's. - Problem List & Annotations (1) Intertrochanteric fracture of left hip SNOMED Code(s): 748444416 Code(s): S72.142A - DISPLACED INTERTROCHANTERIC FRACTURE OF LEFT FEMUR, INIT Status: Acute Current Visit: Yes Qualifiers: Encounter type: initial encounter Fracture type: closed Fracture alignment: displaced Qualified Code(s): S72.142A - Displaced intertrochanteric fracture of left femur, initial encounter for closed fracture (2) Anticoagulant therapy SNOMED Code(s): 790325285 Code(s): Z79.01 - SKILLED NURSING (CURRENT) USE OF ANTICOAGULANTS Status: Chronic Current Visit: No - Problem List Review Problem List Initiated/Reviewed/Updated: Yes - My Orders Last 24 Hours: Active Orders 24 hr Category Date Time Status Communication Order [RC] ASDIRECTED Care 12/06/18 10:14 Active Urinary Catheter Removal [RC] Per Unit Routine Care 12/06/18 10:14 Active Divalproex Sodium Med 12/06/18 09:00 Active 250 mg PO DAILY Medication Orders Acetaminophen (Tylenol) 650 mg PO QID [facility] Last Admin: 12/06/18 09:46 Dose: 650 mg Admin: 12/06/18 05:31 Dose: 650 mg Admin: 12/05/18 21:17 Dose: 650 mg Admin: 12/05/18 15:38 Dose: Not Given Admin: 12/05/18 09:10 Dose: 650 mg Admin: 12/05/18 05:09 Dose: 650 mg Admin: 12/04/18 21:05 Dose: 650 mg Admin: 12/04/18 15:29 Dose: 650 mg Admin: 12/04/18 09:49 Dose: Admin: 12/04/18 05:40 Dose: Admin: 12/03/18 21:10 Dose: 650 mg Admin: 12/03/18 16:09 Dose: 650 mg Admin: 12/03/18 10:23 Dose: 650 mg Admin: 12/03/18 05:52 Dose: 650 mg Admin: 12/02/18 22:33 Dose: 650 mg Admin: 12/02/18 16:29 Dose: 650 mg Acetaminophen (Tylenol) 650 mg RECTAL QID PRN PRN Reason: Pain Al Hydroxide/Mg Hydroxide (Mag-Al Plus) 10 ml PO ASDIRECTED PRN PRN Reason: INDIGESTION Artificial Tears (Natural Balance Tears) 0 ml EYEBOTH QID [facility] Last Admin: 12/06/18 09:49 Dose: 1 drop Admin: 12/06/18 05:30 Dose: 1 drop Admin: 12/05/18 21:17 Dose: 1 drop Admin: 12/05/18 15:38 Dose: 1 drop Admin: 12/05/18 09:12 Dose: 1 drop Admin: 12/05/18 05:09 Dose: 1 drop Admin: 12/04/18 21:18 Dose: 1 drop Admin: 12/04/18 15:30 Dose: 1 drop Bandage/Support Products ( Nasal Blocker Polishing) 1 applic NASBOTH BID [facility] Last Admin: 12/06/18 09:51 Dose: 1 applic Admin: 12/05/18 21:28 Dose: 1 applic Admin: 12/05/18 09:00 Dose: Admin: 12/04/18 21:22 Dose: Calcium Carbonate/Glycine (Tums) 500 mg PO DAILY [facility] Last Admin: 12/06/18 09:45 Dose: 500 mg Admin: 12/05/18 09:11 Dose: 500 mg Admin: 12/04/18 14:23 Dose: 500 mg Admin: 12/03/18 08:30 Dose: 500 mg Admin: 12/02/18 09:28 Dose: 500 mg Carvedilol (Coreg) 6.25 mg PO BID [facility] Last Admin: 12/06/18 09:36 Dose: 6.25 mg Admin: 12/05/18 21:21 Dose: 6.25 mg Admin: 12/05/18 09:08 Dose: 6.25 mg Admin: 12/04/18 21:07 Dose: 6.25 mg Admin: 12/04/18 08:07 Dose: 6.25 mg Admin: 12/03/18 20:03 Dose: 6.25 mg Admin: 12/03/18 08:31 Dose: Admin: 12/02/18 20:27 Dose: 6.25 mg Admin: 12/02/18 09:26 Dose: 6.25 mg Cholecalciferol (Vitamin D3) 1,000 units PO DAILY [facility] Last Admin: 12/06/18 11:15 Dose: 1,000 units Admin: 12/05/18 09:08 Dose: 1,000 units Admin: 12/04/18 14:23 Dose: 1,000 units Admin: 12/03/18 08:31 Dose: 1,000 units Admin: 12/02/18 09:28 Dose: 1,000 units Digoxin (Lanoxin) 125 mcg PO DAILY@13 [facility] Last Admin: 12/06/18 13:09 Dose: 125 mcg Admin: 12/05/18 12:48 Dose: 125 mcg Admin: 12/04/18 14:23 Dose: 125 mcg Admin: 12/03/18 13:40 Dose: 125 mcg Admin: 12/02/18 12:10 Dose: 125 mcg Divalproex Sodium (Divalproex Sodium) 250 mg PO DAILY [facility] Last Admin: 12/06/18 09:37 Dose: 250 mg Docusate Sodium (Colace) 100 mg PO BID PRN PRN Reason: Constipation Last Admin: 12/06/18 11:18 Dose: 100 mg Admin: 12/05/18 12:48 Dose: 100 mg Gabapentin (Neurontin) 100 mg PO TID [facility] Last Admin: 12/06/18 13:13 Dose: 100 mg Admin: 12/06/18 09:40 Dose: 100 mg Admin: 12/05/18 21:18 Dose: 100 mg Admin: 12/05/18 13:00 Dose: 100 mg Admin: 12/05/18 09:07 Dose: 100 mg Admin: 12/04/18 21:06 Dose: 100 mg Admin: 12/04/18 14:23 Dose: 100 mg Admin: 12/04/18 09:07 Dose: Admin: 12/03/18 20:04 Dose: 100 mg Admin: 12/03/18 13:43 Dose: 100 mg Admin: 12/03/18 08:30 Dose: 100 mg Admin: 12/02/18 20:27 Dose: 100 mg Admin: 12/02/18 14:19 Dose: 100 mg Admin: 12/02/18 09:27 Dose: 100 mg Guaifenesin/Dextromethorphan (Robitussin Dm) 10 ml PO ASDIRECTED PRN PRN Reason: COUGH Hydrocortisone (Hydrocortisone 1% Crm) 0 gm TOP ASDIRECTED [facility] Hydromorphone HCl (Dilaudid) 0.2 mg IVPUSH Q1H PRN PRN Reason: Pain Last Admin: 12/04/18 18:32 Dose: 0.2 mg Admin: 12/04/18 10:04 Dose: 0.2 mg Admin: 12/03/18 23:21 Dose: 0.2 mg Admin: 12/03/18 20:30 Dose: 0.2 mg Admin: 12/03/18 18:00 Dose: 0.2 mg Admin: 12/03/18 14:44 Dose: 0.2 mg Admin: 12/03/18 10:23 Dose: 0.2 mg Admin: 12/03/18 07:08 Dose: 0.2 mg Admin: 12/03/18 03:05 Dose: 0.2 mg Admin: 12/02/18 22:40 Dose: 0.2 mg Admin: 12/02/18 20:43 Dose: 0.2 mg Admin: 12/02/18 18:31 Dose: 0.2 mg Admin: 12/02/18 17:21 Dose: 0.2 mg Sodium Chloride (Normal Saline) 1,000 mls @ 75 mls/hr IV ASDIRECTED [facility] Last Admin: 12/06/18 06:19 Dose: 125 mls/hr Infusion: 12/06/18 06:19 Dose: 125 mls/hr Admin: 12/05/18 23:09 Dose: 125 mls/hr Infusion: 12/05/18 23:09 Dose: 125 mls/hr Admin: 12/05/18 16:53 Dose: 125 mls/hr Infusion: 12/05/18 15:40 Dose: 125 mls/hr Admin: 12/05/18 07:40 Dose: 125 mls/hr Infusion: 12/05/18 07:40 Dose: 125 mls/hr Admin: 12/05/18 01:20 Dose: 125 mls/hr Infusion: 12/04/18 23:28 Dose: 125 mls/hr Admin: 12/04/18 15:28 Dose: 125 mls/hr Infusion: 12/04/18 11:56 Dose: 125 mls/hr Admin: 12/04/18 03:56 Dose: 125 mls/hr Infusion: 12/04/18 03:56 Dose: 125 mls/hr Admin: 12/03/18 19:57 Dose: 125 mls/hr Loperamide HCl (Imodium) 2 mg PO ASDIRECTED PRN PRN Reason: DIARRHEA Lorazepam (Ativan) 2 mg PO BEDTIME [facility] Last Admin: 12/05/18 21:20 Dose: 2 mg Admin: 12/04/18 21:17 Dose: 2 mg Admin: 12/03/18 20:01 Dose: 2 mg Admin: 12/02/18 20:34 Dose: 2 mg Magnesium Hydroxide (Milk Of Magnesia) 30 ml PO DAILY PRN PRN Reason: Constipation Last Admin: 12/06/18 11:18 Dose: 30 ml Admin: 12/05/18 12:48 Dose: 30 ml Multivitamins/Minerals (Prosight) 1 tab PO BID [facility] Last Admin: 12/06/18 09:42 Dose: 1 tab Admin: 12/05/18 21:21 Dose: 1 tab Admin: 12/05/18 09:07 Dose: 1 tab Admin: 12/04/18 21:06 Dose: 1 tab Admin: 12/04/18 09:00 Dose: Admin: 12/03/18 20:04 Dose: 1 tab Admin: 12/03/18 08:30 Dose: 1 tab Admin: 12/02/18 20:27 Dose: 1 tab Admin: 12/02/18 09:28 Dose: 1 tab Naloxone HCl (Narcan) 0.1 mg IV ASDIRECTED PRN PRN Reason: decreased respiratory rate Ondansetron HCl (Zofran) 4 mg IV Q4H PRN PRN Reason: Nausea/Vomiting Last Admin: 12/02/18 16:33 Dose: 4 mg Admin: 12/02/18 11:10 Dose: 4 mg Oxycodone/Acetaminophen (Percocet 325-5 Mg) 1 tab PO Q6H PRN PRN Reason: Pain (severe 7-10) Last Admin: 12/06/18 11:16 Dose: 1 tab Admin: 12/05/18 16:48 Dose: 1 tab Admin: 12/05/18 07:26 Dose: 1 tab Admin: 12/05/18 01:19 Dose: 1 tab Admin: 12/04/18 17:32 Dose: 1 tab - Assessment Assessment (Free Text/Narrative):: Stable POD #2. - Plan Plan (Free Text/Narrative):: Dressing change today. Continue PT/OT. Ok to resume Eliqius. Placement when available, follow up with Ortho in 2 weeks.
--- NOTE | 2018-12-06 19:18 | PCM.PN ---
- General Info Date of Service: 12/06/18 Functional Status: Reports: Pain Controlled - Review of Systems General: Reports: Weakness, Fatigue HEENT: Reports: No Symptoms Pulmonary: Reports: No Symptoms Cardiovascular: Reports: No Symptoms Gastrointestinal: Reports: No Symptoms Genitourinary: Reports: No Symptoms Musculoskeletal: Reports: Joint Pain, Joint Swelling Neurological: Reports: Difficulty Walking Psychiatric: Reports: Hallucinations - Patient Data Vitals - Most Recent: Last Vital Signs Temp 97.3 F 12/06/18 15:00 Pulse 60 12/06/18 15:00 Resp 16 12/06/18 15:00 BP 118/69 12/06/18 15:00 Pulse Ox 92 L 12/06/18 15:00 Weight - Most Recent: 111 lb 0.009 oz I&O - Last 24 Hours: Intake & Output 12/06/18 12/06/18 12/06/18 06:59 14:59 22:59 Intake Total 9980 204 2063 Output Total 275 163 Balance 1438 77 1113 Lab Results Last 24 Hours: Laboratory Results - last 24 hr 12/06/18 12/06/18 12/06/18 Range/Units 10:42 10:42 12:13 WBC 6.8 (4.5-11.0) K/uL RBC 2.61 L (3.30-5.50) M/uL Hgb 8.0 L (12.0-15.0) g/dL Hct 26.5 L (36.0-48.0) % MCV 102 H (80-98) fL MCH 31 (27-31) pg MCHC 30 L (32-36) % Plt Count 80 L (150-400) K/uL Sodium 142 (140-148) mmol/L Potassium 4.3 (3.6-5.2) mmol/L Chloride 111 H (100-108) mmol/L Carbon Dioxide 27 (21-32) mmol/L Anion Gap 8.3 (5.0-14.0) mmol/L BUN 24 H (7-18) mg/dL Creatinine 0.7 (0.6-1.0) mg/dL Est Cr Clr Drug Dosing 46.70 mL/min Estimated GFR (MDRD) > 60 (>60) Glucose 128 H (74-106) mg/dL Calcium 8.4 L (8.5-10.1) mg/dL Total Bilirubin 0.6 (0.2-1.0) mg/dL AST 16 (15-37) U/L ALT 8 L (12-78) U/L Alkaline Phosphatase 70 (46-116) U/L Total Protein 5.1 L (6.4-8.2) g/dL Albumin 2.0 L (3.4-5.0) g/dL Globulin 3.1 (2.3-3.5) g/dL Albumin/Globulin Ratio 0.7 L (1.2-2.2) Urine Color Yellow Urine Appearance Slightly cloudy Urine pH 5.0 (4.5-8.0) Ur Specific [place] 1.015 (1.008-1.030) Urine Protein Trace (NEGATIVE) mg/dL Urine Glucose (UA) Normal (NEGATIVE) mg/dL Urine Ketones Negative (NEGATIVE) mg/dL Urine Occult Blood Trace (NEGATIVE) Urine Nitrite Negative (NEGATIVE) Urine Bilirubin Negative (NEGATIVE) Urine Urobilinogen Normal (NORMAL) mg/dL Ur Leukocyte Esterase Negative (NEGATIVE) Urine RBC 0-5 (0-5) Urine WBC 0-5 (0-5) Ur Epithelial Cells Few Amorphous Sediment Not seen Urine Bacteria Few Urine Mucus Not seen Med Orders - Current: Current Medications Acetaminophen (Tylenol) 650 mg PO QID [facility] Last Admin: 12/06/18 16:43 Dose: 650 mg Acetaminophen (Tylenol) 650 mg RECTAL QID PRN PRN Reason: Pain Al Hydroxide/Mg Hydroxide (Mag-Al Plus) 10 ml PO ASDIRECTED PRN PRN Reason: INDIGESTION Artificial Tears (Natural Balance Tears) 0 ml EYEBOTH QID [facility] Last Admin: 12/06/18 16:42 Dose: 1 drop Bandage/Support Products ( Nasal Thoracic Surgeon) 1 applic NASBOTH BID [facility] Last Admin: 12/06/18 09:51 Dose: 1 applic Calcium Carbonate/Glycine (Tums) 500 mg PO DAILY [facility] Last Admin: 12/06/18 09:45 Dose: 500 mg Carvedilol (Coreg) 6.25 mg PO BID [facility] Last Admin: 12/06/18 09:36 Dose: 6.25 mg Cholecalciferol (Vitamin D3) 1,000 units PO DAILY [facility] Last Admin: 12/06/18 11:15 Dose: 1,000 units Digoxin (Lanoxin) 125 mcg PO DAILY@13 [facility] Last Admin: 12/06/18 13:09 Dose: 125 mcg Divalproex Sodium (Divalproex Sodium) 250 mg PO DAILY [facility] Last Admin: 12/06/18 09:37 Dose: 250 mg Docusate Sodium (Colace) 100 mg PO BID PRN PRN Reason: Constipation Last Admin: 12/06/18 11:18 Dose: 100 mg Gabapentin (Neurontin) 100 mg PO TID [facility] Last Admin: 12/06/18 13:13 Dose: 100 mg Guaifenesin/Dextromethorphan (Robitussin Dm) 10 ml PO ASDIRECTED PRN PRN Reason: COUGH Hydrocortisone (Hydrocortisone 1% Crm) 0 gm TOP ASDIRECTED [facility] Hydromorphone HCl (Dilaudid) 0.2 mg IVPUSH Q1H PRN PRN Reason: Pain Last Admin: 12/04/18 18:32 Dose: 0.2 mg Sodium Chloride (Normal Saline) 1,000 mls @ 75 mls/hr IV ASDIRECTED [facility] Last Admin: 12/06/18 18:15 Dose: 125 mls/hr Loperamide HCl (Imodium) 2 mg PO ASDIRECTED PRN PRN Reason: DIARRHEA Lorazepam (Ativan) 2 mg PO BEDTIME [facility] Last Admin: 12/05/18 21:20 Dose: 2 mg Magnesium Hydroxide (Milk Of Magnesia) 30 ml PO DAILY PRN PRN Reason: Constipation Last Admin: 12/06/18 11:18 Dose: 30 ml Multivitamins/Minerals (Prosight) 1 tab PO BID [facility] Last Admin: 12/06/18 09:42 Dose: 1 tab Naloxone HCl (Narcan) 0.1 mg IV ASDIRECTED PRN PRN Reason: decreased respiratory rate Ondansetron HCl (Zofran) 4 mg IV Q4H PRN PRN Reason: Nausea/Vomiting Last Admin: 12/02/18 16:33 Dose: 4 mg Oxycodone/Acetaminophen (Percocet 325-5 Mg) 1 tab PO Q6H PRN PRN Reason: Pain (severe 7-10) Last Admin: 12/06/18 11:16 Dose: 1 tab Discontinued Medications Acetaminophen (Tylenol) 650 mg PO BID PRN PRN Reason: Pain Acetaminophen (Tylenol) 325 mg PO QID [facility] Last Admin: 12/02/18 12:10 Dose: 325 mg Amoxicillin (Amoxil) 500 mg PO Q8H [facility] Amoxicillin (Amoxil) 500 mg PO ONETIME ONE Stop: 12/02/18 11:31 Last Admin: 12/02/18 12:10 Dose: 500 mg Divalproex Sodium (Divalproex Sodium) 250 mg PO ONETIME ONE Stop: 12/05/18 18:01 Last Admin: 12/05/18 17:38 Dose: Not Given Ephedrine Sulfate (Ephedrine Sulfate) Confirm Administered Dose 50 mg .ROUTE .STK-MED ONE Stop: 12/04/18 12:26 Fentanyl (Sublimaze) 50 mcg IVPUSH ONETIME ONE Stop: 12/02/18 04:25 Last Admin: 12/02/18 04:27 Dose: 50 mcg Fentanyl (Sublimaze) Confirm Administered Dose 100 mcg .ROUTE .STK-MED ONE Stop: 12/04/18 09:11 Furosemide (Lasix) 20 mg IVPUSH ONETIME ONE Stop: 12/05/18 11:31 Last Admin: 12/05/18 11:39 Dose: 20 mg Hydromorphone HCl (Dilaudid) 0.5 mg IVPUSH ONETIME ONE Stop: 12/02/18 05:48 Last Admin: 12/02/18 05:54 Dose: 0.5 mg Hydromorphone HCl (Dilaudid Senior Construction Project Manager 15 Mg In Ns 30 Ml) 0 mg IV ASDIRECTED PRN; Protocol PRN Reason: CONDUCTOR SLEEPING CAR PAIN CONTROL Last Admin: 12/02/18 09:09 Dose: 15 mg Lactated Ringer's (Ringers, Lactated) 1,000 mls @ 125 mls/hr IV ASDIRECTED [facility] Last Admin: 12/02/18 06:53 Dose: 125 mls/hr Sodium Chloride (Normal Saline) 1,000 mls @ 100 mls/hr IV ASDIRECTED [facility] Last Admin: 12/02/18 21:10 Dose: 75 mls/hr Ampicillin Sodium 1 gm/ Sodium (Chloride) 50 mls @ 100 mls/hr IV Q8H [facility] Last Admin: 12/04/18 05:37 Dose: 100 mls/hr Sodium Chloride (Normal Saline) 250 mls @ 999 mls/hr IV .BOLUS ONE Stop: 12/03/18 12:18 Last Admin: 12/03/18 12:13 Dose: 999 mls/hr Sodium Chloride (Normal Saline) 250 mls @ 999 mls/hr IV .BOLUS ONE Stop: 12/03/18 13:55 Last Admin: 12/03/18 13:46 Dose: 999 mls/hr Levofloxacin/Dextrose 250 mg/ (Premix) 50 mls @ 50 mls/hr IV Q24H [facility] Stop: 12/06/18 08:59 Last Admin: 12/05/18 07:44 Dose: 50 mls/hr Cefazolin Sodium/Dextrose 1 gm (/ Premix) 50 mls @ 100 mls/hr IV ONETIME ONE Stop: 12/04/18 08:29 Last Admin: 12/04/18 10:30 Dose: 100 mls/hr Sodium Chloride (Normal Saline) Confirm Administered Dose 10 mls @ as directed .ROUTE .STK-MED ONE Stop: 12/04/18 11:44 Lactated Ringer's (Ringers, Lactated) Confirm Administered Dose 1,000 mls @ as directed .ROUTE .STK-MED ONE Stop: 12/04/18 12:25 Sodium Chloride (Normal Saline) Confirm Administered Dose 250 mls @ as directed .ROUTE .STK-MED ONE Stop: 12/04/18 12:55 Sodium Chloride (Normal Saline) Confirm Administered Dose 250 mls @ as directed .ROUTE .STK-MED ONE Stop: 12/04/18 12:56 Cefazolin Sodium/Dextrose 1 gm (/ Premix) 50 mls @ 100 mls/hr IV Q8H [facility] Stop: 12/05/18 02:29 Last Admin: 12/05/18 01:18 Dose: 100 mls/hr Levofloxacin (Levaquin) 250 mg PO ACBREAKFAST [facility] Stop: 12/06/18 07:31 Last Admin: 12/06/18 08:07 Dose: 250 mg Midazolam HCl (Versed 1 Mg/Ml) Confirm Administered Dose 2 mg .ROUTE .STK-MED ONE Stop: 12/04/18 09:11 Ondansetron HCl (Zofran Odt) 4 mg PO ONETIME ONE Stop: 12/02/18 06:47 Last Admin: 12/02/18 06:51 Dose: 4 mg Phenylephrine HCl (Fidel-Synephrine) Confirm Administered Dose 10 mg .ROUTE .STK- MED ONE Stop: 12/04/18 12:26 Pneumococcal Polyvalent Vaccine (Pneumovax 23) 0.5 ml IM .ONCE ONE Stop: 12/06/18 12:01 Last Admin: 12/06/18 13:10 Dose: 0.5 ml Povidone Iodine (Betadine 10% Soln) Confirm Administered Dose 1 ml .ROUTE .STK- MED ONE Stop: 12/04/18 12:36 Propofol (Diprivan 20 Ml) Confirm Administered Dose 200 mg .ROUTE .STK-MED ONE Stop: 12/04/18 09:11 - Exam General: Moderate Distress HEENT: Pupils Equal, Pupils Reactive, EOMI, Mucous Membr. Moist/[place] Neck: Supple Lungs: Clear to Auscultation, Normal Respiratory Effort Cardiovascular: Irregular Rhythm Extremities: Joint Swelling, Leg Pain Peripheral Pulses: 1+: Radial (L), Radial (R) Skin: Ecchymosis Wound/Incisions: Healing Well Neurological: No New Focal Deficit Psy/Mental Status: Anxious, Agitated, Hallucinations - Problem List Review Problem List Initiated/Reviewed/Updated: Yes - My Orders Last 24 Hours: My Active Orders 12/06/18 09:00 Divalproex Sodium 250 mg PO DAILY 12/06/18 10:14 Communication Order [RC] ASDIRECTED - Plan Plan:: Assessment/Plan: #1. Fracture Left hip. S/p surgery #2. Osteoporosis: She has a history of a compression fracture of her spine. #3. Hypotension. BP stable 118/69 #4. CHF. Echocardiogram Showed severe MR and TR with stable EF compared to 2 years ago at 45% #5. Anemia secondary to the fracture. Ritic count 2.2, Hb. 8.0 drop due to dilution. Have decreased the IV and given Lasix. Will recheck in the morning. #6. UTI. Treating with Levofloxacin changed to PO.. #7. Depression with confusion and hallucination. I started her on Depakote 250 mg daily #8. Generalized weakness #9. History of Colles fracture and Humerus fracture. Plan to discharge to [place] soon.
[2018-12-06] MEDS: LORazepam 1 MG Tab PO SCH (21:43)
[2018-12-07] MEDS: Hypromellose 0.4% Ophth Soln 15 ML Bottle EYEBOTH SCH ×4 (05:48→21:21)
[2018-12-07] MEDS: Acetaminophen 325 MG Tab PO SCH ×2 (05:48→09:15)
[2018-12-07] MEDS: Acetaminophen/oxyCODONE 325-5 MG Tab PO PRN (06:14)
--- NOTE | 2018-12-07 08:11 | PCM.PN ---
- General Info Date of Service: 12/07/18 - Review of Systems General: Reports: Weakness, Fatigue HEENT: Reports: No Symptoms Pulmonary: Reports: No Symptoms Cardiovascular: Reports: No Symptoms Gastrointestinal: Reports: No Symptoms Genitourinary: Reports: Retention Musculoskeletal: Reports: Leg Pain, Joint Pain, Joint Swelling Skin: Reports: No Symptoms Neurological: Reports: No Symptoms - Patient Data Vitals - Most Recent: Last Vital Signs Temp 96.5 F 12/07/18 07:00 Pulse 77 12/07/18 07:00 Resp 16 12/07/18 07:00 BP 114/60 12/07/18 07:00 Pulse Ox 93 L 12/07/18 07:00 Weight - Most Recent: 111 lb 0.009 oz I&O - Last 24 Hours: Intake & Output 12/06/18 12/07/18 12/07/18 22:59 06:59 14:59 Intake Total 1113 1283 Output Total 0 Balance 1113 1283 Lab Results Last 24 Hours: Laboratory Results - last 24 hr 12/06/18 12/06/18 12/06/18 Range/Units 10:42 10:42 12:13 WBC 6.8 (4.5-11.0) K/uL RBC 2.61 L (3.30-5.50) M/uL Hgb 8.0 L (12.0-15.0) g/dL Hct 26.5 L (36.0-48.0) % MCV 102 H (80-98) fL MCH 31 (27-31) pg MCHC 30 L (32-36) % Plt Count 80 L (150-400) K/uL Neut % (Auto) (36-66) % Lymph % (Auto) (24-44) % Hughes % (Auto) (2-6) % Eos % (Auto) (2-4) % Baso % (Auto) (0-1) % Percent Retic (0.5-1.5) % Sodium 142 (140-148) mmol/L Potassium 4.3 (3.6-5.2) mmol/L Chloride 111 H (100-108) mmol/L Carbon Dioxide 27 (21-32) mmol/L Anion Gap 8.3 (5.0-14.0) mmol/L BUN 24 H (7-18) mg/dL Creatinine 0.7 (0.6-1.0) mg/dL Est Cr Clr Drug Dosing 46.70 mL/min Estimated GFR (MDRD) > 60 (>60) Glucose 128 H (74-106) mg/dL Calcium 8.4 L (8.5-10.1) mg/dL Total Bilirubin 0.6 (0.2-1.0) mg/dL AST 16 (15-37) U/L ALT 8 L (12-78) U/L Alkaline Phosphatase 70 (46-116) U/L Total Protein 5.1 L (6.4-8.2) g/dL Albumin 2.0 L (3.4-5.0) g/dL Globulin 3.1 (2.3-3.5) g/dL Albumin/Globulin Ratio 0.7 L (1.2-2.2) Urine Color Yellow Urine Appearance Slightly cloudy Urine pH 5.0 (4.5-8.0) Ur Specific [place] 1.015 (1.008-1.030) Urine Protein Trace (NEGATIVE) mg/dL Urine Glucose (UA) Normal (NEGATIVE) mg/dL Urine Ketones Negative (NEGATIVE) mg/dL Urine Occult Blood Trace (NEGATIVE) Urine Nitrite Negative (NEGATIVE) Urine Bilirubin Negative (NEGATIVE) Urine Urobilinogen Normal (NORMAL) mg/dL Ur Leukocyte Esterase Negative (NEGATIVE) Urine RBC 0-5 (0-5) Urine WBC 0-5 (0-5) Ur Epithelial Cells Few Amorphous Sediment Not seen Urine Bacteria Few Urine Mucus Not seen 12/07/18 12/07/18 Range/Units 04:50 04:50 WBC 5.8 (4.5-11.0) K/uL RBC 2.44 L (3.30-5.50) M/uL Hgb 7.6 L (12.0-15.0) g/dL Hct 24.8 L (36.0-48.0) % MCV 102 H (80-98) fL MCH 31 (27-31) pg MCHC 31 L (32-36) % Plt Count 88 L (150-400) K/uL Neut % (Auto) 77 H (36-66) % Lymph % (Auto) 12 L (24-44) % Hughes % (Auto) 10 H (2-6) % Eos % (Auto) 1 L (2-4) % Baso % (Auto) 0 (0-1) % Percent Retic 2.3 H (0.5-1.5) % Sodium 144 (140-148) mmol/L Potassium 4.3 (3.6-5.2) mmol/L Chloride 113 H (100-108) mmol/L Carbon Dioxide 28 (21-32) mmol/L Anion Gap 7.3 (5.0-14.0) mmol/L BUN 25 H (7-18) mg/dL Creatinine 0.7 (0.6-1.0) mg/dL Est Cr Clr Drug Dosing 46.70 mL/min Estimated GFR (MDRD) > 60 (>60) Glucose 108 H (74-106) mg/dL Calcium 8.5 (8.5-10.1) mg/dL Total Bilirubin (0.2-1.0) mg/dL AST (15-37) U/L ALT (12-78) U/L Alkaline Phosphatase (46-116) U/L Total Protein (6.4-8.2) g/dL Albumin (3.4-5.0) g/dL Globulin (2.3-3.5) g/dL Albumin/Globulin Ratio (1.2-2.2) Urine Color Urine Appearance Urine pH (4.5-8.0) Ur Specific [place] (1.008-1.030) Urine Protein (NEGATIVE) mg/dL Urine Glucose (UA) (NEGATIVE) mg/dL Urine Ketones (NEGATIVE) mg/dL Urine Occult Blood (NEGATIVE) Urine Nitrite (NEGATIVE) Urine Bilirubin (NEGATIVE) Urine Urobilinogen (NORMAL) mg/dL Ur Leukocyte Esterase (NEGATIVE) Urine RBC (0-5) Urine WBC (0-5) Ur Epithelial Cells Amorphous Sediment Urine Bacteria Urine Mucus Med Orders - Current: Current Medications Acetaminophen (Tylenol) 650 mg PO QID [facility] Last Admin: 12/07/18 05:48 Dose: 650 mg Acetaminophen (Tylenol) 650 mg RECTAL QID PRN PRN Reason: Pain Al Hydroxide/Mg Hydroxide (Mag-Al Plus) 10 ml PO ASDIRECTED PRN PRN Reason: INDIGESTION Artificial Tears (Natural Balance Tears) 0 ml EYEBOTH QID [facility] Last Admin: 12/07/18 05:48 Dose: 1 drop Bandage/Support Products ( Nasal Research Instrumentation Technician) 1 applic NASBOTH BID [facility] Last Admin: 12/06/18 21:42 Dose: 1 applic Calcium Carbonate/Glycine (Tums) 500 mg PO DAILY [facility] Last Admin: 12/06/18 09:45 Dose: 500 mg Carvedilol (Coreg) 6.25 mg PO BID [facility] Last Admin: 12/06/18 21:43 Dose: 6.25 mg Cholecalciferol (Vitamin D3) 1,000 units PO DAILY [facility] Last Admin: 12/06/18 11:15 Dose: 1,000 units Digoxin (Lanoxin) 125 mcg PO DAILY@13 [facility] Last Admin: 12/06/18 13:09 Dose: 125 mcg Divalproex Sodium (Divalproex Sodium) 250 mg PO DAILY [facility] Last Admin: 12/06/18 09:37 Dose: 250 mg Docusate Sodium (Colace) 100 mg PO BID PRN PRN Reason: Constipation Last Admin: 12/06/18 11:18 Dose: 100 mg Gabapentin (Neurontin) 100 mg PO TID [facility] Last Admin: 12/06/18 21:45 Dose: 100 mg Guaifenesin/Dextromethorphan (Robitussin Dm) 10 ml PO ASDIRECTED PRN PRN Reason: COUGH Hydrocortisone (Hydrocortisone 1% Crm) 0 gm TOP ASDIRECTED [facility] Hydromorphone HCl (Dilaudid) 0.2 mg IVPUSH Q1H PRN PRN Reason: Pain Last Admin: 12/04/18 18:32 Dose: 0.2 mg Sodium Chloride (Normal Saline) 1,000 mls @ 75 mls/hr IV ASDIRECTED [facility] Last Admin: 12/06/18 18:15 Dose: 125 mls/hr Loperamide HCl (Imodium) 2 mg PO ASDIRECTED PRN PRN Reason: DIARRHEA Lorazepam (Ativan) 2 mg PO BEDTIME [facility] Last Admin: 12/06/18 21:43 Dose: 2 mg Magnesium Hydroxide (Milk Of Magnesia) 30 ml PO DAILY PRN PRN Reason: Constipation Last Admin: 12/06/18 11:18 Dose: 30 ml Multivitamins/Minerals (Prosight) 1 tab PO BID [facility] Last Admin: 12/06/18 21:45 Dose: 1 tab Naloxone HCl (Narcan) 0.1 mg IV ASDIRECTED PRN PRN Reason: decreased respiratory rate Ondansetron HCl (Zofran) 4 mg IV Q4H PRN PRN Reason: Nausea/Vomiting Last Admin: 12/02/18 16:33 Dose: 4 mg Oxycodone/Acetaminophen (Percocet 325-5 Mg) 1 tab PO Q6H PRN PRN Reason: Pain (severe 7-10) Last Admin: 12/07/18 06:14 Dose: 1 tab Discontinued Medications Acetaminophen (Tylenol) 650 mg PO BID PRN PRN Reason: Pain Acetaminophen (Tylenol) 325 mg PO QID [facility] Last Admin: 12/02/18 12:10 Dose: 325 mg Amoxicillin (Amoxil) 500 mg PO Q8H [facility] Amoxicillin (Amoxil) 500 mg PO ONETIME ONE Stop: 12/02/18 11:31 Last Admin: 12/02/18 12:10 Dose: 500 mg Divalproex Sodium (Divalproex Sodium) 250 mg PO ONETIME ONE Stop: 12/05/18 18:01 Last Admin: 12/05/18 17:38 Dose: Not Given Ephedrine Sulfate (Ephedrine Sulfate) Confirm Administered Dose 50 mg .ROUTE .STK-MED ONE Stop: 12/04/18 12:26 Fentanyl (Sublimaze) 50 mcg IVPUSH ONETIME ONE Stop: 12/02/18 04:25 Last Admin: 12/02/18 04:27 Dose: 50 mcg Fentanyl (Sublimaze) Confirm Administered Dose 100 mcg .ROUTE .STK-MED ONE Stop: 12/04/18 09:11 Furosemide (Lasix) 20 mg IVPUSH ONETIME ONE Stop: 12/05/18 11:31 Last Admin: 12/05/18 11:39 Dose: 20 mg Hydromorphone HCl (Dilaudid) 0.5 mg IVPUSH ONETIME ONE Stop: 12/02/18 05:48 Last Admin: 12/02/18 05:54 Dose: 0.5 mg Hydromorphone HCl (Dilaudid Marine Equipment Design Engineer 15 Mg In Ns 30 Ml) 0 mg IV ASDIRECTED PRN; Protocol PRN Reason: ENTRY LEVEL FINANCE PAIN CONTROL Last Admin: 12/02/18 09:09 Dose: 15 mg Lactated Ringer's (Ringers, Lactated) 1,000 mls @ 125 mls/hr IV ASDIRECTED [facility] Last Admin: 12/02/18 06:53 Dose: 125 mls/hr Sodium Chloride (Normal Saline) 1,000 mls @ 100 mls/hr IV ASDIRECTED [facility] Last Admin: 12/02/18 21:10 Dose: 75 mls/hr Ampicillin Sodium 1 gm/ Sodium (Chloride) 50 mls @ 100 mls/hr IV Q8H [facility] Last Admin: 12/04/18 05:37 Dose: 100 mls/hr Sodium Chloride (Normal Saline) 250 mls @ 999 mls/hr IV .BOLUS ONE Stop: 12/03/18 12:18 Last Admin: 12/03/18 12:13 Dose: 999 mls/hr Sodium Chloride (Normal Saline) 250 mls @ 999 mls/hr IV .BOLUS ONE Stop: 12/03/18 13:55 Last Admin: 12/03/18 13:46 Dose: 999 mls/hr Levofloxacin/Dextrose 250 mg/ (Premix) 50 mls @ 50 mls/hr IV Q24H [facility] Stop: 12/06/18 08:59 Last Admin: 12/05/18 07:44 Dose: 50 mls/hr Cefazolin Sodium/Dextrose 1 gm (/ Premix) 50 mls @ 100 mls/hr IV ONETIME ONE Stop: 12/04/18 08:29 Last Admin: 12/04/18 10:30 Dose: 100 mls/hr Sodium Chloride (Normal Saline) Confirm Administered Dose 10 mls @ as directed .ROUTE .STK-MED ONE Stop: 12/04/18 11:44 Lactated Ringer's (Ringers, Lactated) Confirm Administered Dose 1,000 mls @ as directed .ROUTE .STK-MED ONE Stop: 12/04/18 12:25 Sodium Chloride (Normal Saline) Confirm Administered Dose 250 mls @ as directed .ROUTE .STK-MED ONE Stop: 12/04/18 12:55 Sodium Chloride (Normal Saline) Confirm Administered Dose 250 mls @ as directed .ROUTE .STK-MED ONE Stop: 12/04/18 12:56 Cefazolin Sodium/Dextrose 1 gm (/ Premix) 50 mls @ 100 mls/hr IV Q8H [facility] Stop: 12/05/18 02:29 Last Admin: 12/05/18 01:18 Dose: 100 mls/hr Levofloxacin (Levaquin) 250 mg PO ACBREAKFAST [facility] Stop: 12/06/18 07:31 Last Admin: 12/06/18 08:07 Dose: 250 mg Midazolam HCl (Versed 1 Mg/Ml) Confirm Administered Dose 2 mg .ROUTE .STK-MED ONE Stop: 12/04/18 09:11 Ondansetron HCl (Zofran Odt) 4 mg PO ONETIME ONE Stop: 12/02/18 06:47 Last Admin: 12/02/18 06:51 Dose: 4 mg Phenylephrine HCl (Fidel-Synephrine) Confirm Administered Dose 10 mg .ROUTE .STK- MED ONE Stop: 12/04/18 12:26 Pneumococcal Polyvalent Vaccine (Pneumovax 23) 0.5 ml IM .ONCE ONE Stop: 12/06/18 12:01 Last Admin: 12/06/18 13:10 Dose: 0.5 ml Povidone Iodine (Betadine 10% Soln) Confirm Administered Dose 1 ml .ROUTE .STK- MED ONE Stop: 12/04/18 12:36 Propofol (Diprivan 20 Ml) Confirm Administered Dose 200 mg .ROUTE .STK-MED ONE Stop: 12/04/18 09:11 - Exam General: Alert, Oriented, Mild Distress HEENT: Pupils Equal, Pupils Reactive, EOMI, Mucous Membr. Moist/[place] Neck: Supple Lungs: Clear to Auscultation, Normal Respiratory Effort Cardiovascular: Irregular Rhythm GI/Abdominal Exam: Normal Bowel Sounds, Soft, Non-Tender, No Organomegaly, No Distention, No Abnormal Bruit, No Mass, Pelvis Stable Back Exam: Normal Inspection Extremities: Joint Swelling, Leg Pain, Redness Peripheral Pulses: 1+: Radial (L), Radial (R) Skin: Warm Wound/Incisions: Healing Well Neurological: No New Focal Deficit Psy/Mental Status: Anxious - Problem List Review Problem List Initiated/Reviewed/Updated: Yes - My Orders Last 24 Hours: My Active Orders 12/06/18 09:00 Divalproex Sodium 250 mg PO DAILY 12/06/18 10:14 Communication Order [RC] ASDIRECTED 12/07/18 08:04 VITAMIN B12 [CHEM] Routine 12/07/18 08:05 FOLATE (FOLIC ACID), SERUM Routine - Plan Plan:: Assessment/Plan: #1. Fracture Left hip. S/p surgery #2. Osteoporosis: She has a history of a compression fracture of her spine. #3. Hypotension. BP stable 114/60 #4. CHF. Echocardiogram Showed severe MR and TR with stable EF compared to 2 years ago at 45% #5. Anemia secondary to the fracture. Ritic count 2.3, Hb. 7.6 drop. Will transfuse one unit of blood. #6. UTI. Treating with Levofloxacin changed to PO.. #7. Depression with confusion and hallucination. I continue with Depakote 250 mg daily #8. Generalized weakness #9. History of Colles fracture and Humerus fracture. #10. Urinary retention. Will place the Khan cath again as she has 400cc of urine per bladder scan. Plan to discharge to [place] today if stable after blood.
--- NOTE | 2018-12-07 08:18 | PCM.DCSUM1 ---
Discharge Summary - Hospital Course Free Text/Narrative:: Admitted to the hospital after coming to the ER after falling and having pain in her left hip and was fractured. She has a history of osteoporosis with fractures in the past. Brief History: Admitted to the hospital after coming to the ER after falling and having pain in her left hip and was fractured. She has a history of osteoporosis with fractures in the past. Diagnosis: Stroke: No - Discharge Data Discharge Date: 12/12/18 Discharge Disposition: DC[facility] Condition: Fair - Patient Summary/Data Operative Procedure(s) Performed: Limited open reduction and intramedullary fixation with a long Synthes TFNa nail 12mm x 400mm Consults: Consultations 12/04/18 13:16 Consult to Physical Therapy [PT Evaluation and Treatment] [CONS] Routine Please Evaluate and Treat. PT Reason for Consult: Post op Ortho Surgery Pending Discharge: Yes Discharge Disposition: [facility] Special Instructions: partial weight bearing on left, approx. 50% This query below is only for informational purposes and is not editable. Admission Diagnosis/Problem: Hip fracture due to osteoporosis 12/04/18 13:17 Consult to Occupational Therapy [OT Evaluation and Treatment] [CONS] Routine Please Evaluate and Treat. OT Reason for Consult: ADL's Pending Discharge: Yes Discharge Disposition: [facility] This query below is only for informational purposes and is not editable. Admission Diagnosis/Problem: Hip fracture due to osteoporosis Hospital Course: She was on Eliquis so could not do surgery immediately and waited 2 days and surgery was done. Post surgery she had anemia and given 1 unit of blood prior to discharge. She also had urinary retention and will be discharged home with a Khan cath. She was confused and responded to Depakote. She has a history of Atrial Fib. and will need to start Eliquis soon. The wound needs to heal first as it is still loosing a small amount of blood. - Patient Instructions Diet: Heart Healthy Diet Activity: As Tolerated Activity, Other: Will need phy therapy - Discharge Plan *PRESCRIPTION DRUG MONITORING PROGRAM REVIEWED*: No *COPY OF PRESCRIPTION DRUG MONITORING REPORT IN PATIENT ZUNILDA: No Home Medications: Home Meds Digoxin [Lanoxin] 125 mcg PO DAILY@13 tablet 04/26/15 [Rx] Calcium Carbonate [Calcium] 500 mg PO DAILY 02/24/18 [History] Carvedilol [Coreg] 6.25 mg PO BID tablet 02/26/18 [Rx] Cholecalciferol (Vitamin D3) [Vitamin D3] 1,000 units PO DAILY tablet 02/26/18 [Rx] Vit A/Vit C/Vit E/Zinc/Copper [Preservision] 1 tab PO BID 03/01/18 [History] Ibuprofen [Motrin] 200 mg PO Q4H PRN tablet 03/03/18 [Rx] Acetaminophen [Tylenol] 325 mg PO QID 09/13/18 [History] Dextromethorphan/guaiFENesin [Robitussin DM] 10 ml PO ASDIRECTED 09/13/18 [ History] Gabapentin [Neurontin] 100 mg PO TID 09/13/18 [History] Hydrocortisone [Preparation H] 1 applic TOP ASDIRECTED 09/13/18 [History] LORazepam 2 mg PO BEDTIME 09/13/18 [History] Loperamide [Imodium] 2 mg PO ASDIRECTED 09/13/18 [History] Mag Hydrox/Al Hydrox/Simeth [Maalox Maximum Strength Susp] 10 ml PO ASDIRECTED 09/13/18 [History] Magnesium Hydroxide [Milk of Magnesia] 30 ml PO DAILY PRN 09/13/18 [History] Na Phos,M-B/Na Phos,DI-B [Fleet Enema] 133 ml RC ASDIRECTED 09/13/18 [History] Carboxymethylcellulose Sodium [Refresh Tears] 1 drop EYEBOTH QID 12/02/18 [ History] Acetaminophen [Tylenol] 650 mg PO QID tablet 12/07/18 [Rx] Acetaminophen/oxyCODONE [Percocet 325-5 MG] 1 tab PO Q6H PRN tablet 12/07/18 [ Rx] Divalproex Sodium 250 mg PO DAILY tab.cr 12/07/18 [Rx] Docusate Sodium [Colace] 100 mg PO BID PRN cap 12/07/18 [Rx] HYDROmorphone [Dilaudid] 0.2 mg IVPUSH Q1H PRN syringe 12/07/18 [Rx] Naloxone [Narcan] 0.1 mg IV ASDIRECTED PRN sdv 12/07/18 [Rx] Melatonin 9 mg PO BEDTIME tablet 12/11/18 [Rx] oxyCODONE 5 mg PO Q4H PRN tablet 12/11/18 [Rx] Patient Handouts: Total Hip Replacement, [id number], Preventing Constipation After Surgery Referrals: Guy Pastor Sr, MD [Primary Care Provider] - Guy Infante MD [Physician] - 12/21/18 2:00 pm (Please arrive 15 minutes early to register for your appointment. Please register at ER desk.) - Discharge Summary/Plan Comment DC Time >30 min.: Yes Discharge Summary/Plan Comment: Assessment/Plan: #1. Fracture Left hip. S/p surgery #2. Osteoporosis: She has a history of a compression fracture of her spine. #3. Hypotension. BP stable but low 106/57 #4. CHF. Echocardiogram Showed severe MR and TR with stable EF compared to 2 years ago at 45% #5. Anemia secondary to the fracture. Hb. 10.7. #6. UTI. Treated. #7. Depression with confusion and hallucination. #8. Generalized weakness #9. History of Colles fracture and Humerus fracture. #10. Urinary retention. Will continue with the Khan Cath due to retention - General Info Date of Service: 12/07/18 Functional Status: Reports: Pain Controlled - Review of Systems General: Reports: Weakness, Fatigue HEENT: Reports: No Symptoms Pulmonary: Reports: No Symptoms Cardiovascular: Reports: No Symptoms Gastrointestinal: Reports: No Symptoms Genitourinary: Reports: Retention Musculoskeletal: Reports: No Symptoms Skin: Reports: No Symptoms Neurological: Reports: No Symptoms Psychiatric: Reports: Anxiety - Patient Data Vitals - Most Recent: Last Vital Signs Temp 96.5 F 12/07/18 07:00 Pulse 77 12/07/18 07:00 Resp 16 12/07/18 07:00 BP 114/60 12/07/18 07:00 Pulse Ox 93 L 12/07/18 07:00 Weight - Most Recent: 111 lb 0.009 oz I&O - Last 24 hours: Intake & Output 12/06/18 12/07/18 12/07/18 22:59 06:59 14:59 Intake Total 1113 1283 Output Total 0 Balance 1113 1283 Lab Results - Last 24 hrs: Laboratory Results - last 24 hr 12/06/18 12/06/18 12/06/18 Range/Units 10:42 10:42 12:13 WBC 6.8 (4.5-11.0) K/uL RBC 2.61 L (3.30-5.50) M/uL Hgb 8.0 L (12.0-15.0) g/dL Hct 26.5 L (36.0-48.0) % MCV 102 H (80-98) fL MCH 31 (27-31) pg MCHC 30 L (32-36) % Plt Count 80 L (150-400) K/uL Neut % (Auto) (36-66) % Lymph % (Auto) (24-44) % [place] % (Auto) (2-6) % Eos % (Auto) (2-4) % Baso % (Auto) (0-1) % Percent Retic (0.5-1.5) % Sodium 142 (140-148) mmol/L Potassium 4.3 (3.6-5.2) mmol/L Chloride 111 H (100-108) mmol/L Carbon Dioxide 27 (21-32) mmol/L Anion Gap 8.3 (5.0-14.0) mmol/L BUN 24 H (7-18) mg/dL Creatinine 0.7 (0.6-1.0) mg/dL Est Cr Clr Drug Dosing 46.70 mL/min Estimated GFR (MDRD) > 60 (>60) Glucose 128 H (74-106) mg/dL Calcium 8.4 L (8.5-10.1) mg/dL Total Bilirubin 0.6 (0.2-1.0) mg/dL AST 16 (15-37) U/L ALT 8 L (12-78) U/L Alkaline Phosphatase 70 (46-116) U/L Total Protein 5.1 L (6.4-8.2) g/dL Albumin 2.0 L (3.4-5.0) g/dL Globulin 3.1 (2.3-3.5) g/dL Albumin/Globulin Ratio 0.7 L (1.2-2.2) Urine Color Yellow Urine Appearance Slightly cloudy Urine pH 5.0 (4.5-8.0) Ur Specific [place] 1.015 (1.008-1.030) Urine Protein Trace (NEGATIVE) mg/dL Urine Glucose (UA) Normal (NEGATIVE) mg/dL Urine Ketones Negative (NEGATIVE) mg/dL Urine Occult Blood Trace (NEGATIVE) Urine Nitrite Negative (NEGATIVE) Urine Bilirubin Negative (NEGATIVE) Urine Urobilinogen Normal (NORMAL) mg/dL Ur Leukocyte Esterase Negative (NEGATIVE) Urine RBC 0-5 (0-5) Urine WBC 0-5 (0-5) Ur Epithelial Cells Few Amorphous Sediment Not seen Urine Bacteria Few Urine Mucus Not seen 12/07/18 12/07/18 Range/Units 04:50 04:50 WBC 5.8 (4.5-11.0) K/uL RBC 2.44 L (3.30-5.50) M/uL Hgb 7.6 L (12.0-15.0) g/dL Hct 24.8 L (36.0-48.0) % MCV 102 H (80-98) fL MCH 31 (27-31) pg MCHC 31 L (32-36) % Plt Count 88 L (150-400) K/uL Neut % (Auto) 77 H (36-66) % Lymph % (Auto) 12 L (24-44) % [place] % (Auto) 10 H (2-6) % Eos % (Auto) 1 L (2-4) % Baso % (Auto) 0 (0-1) % Percent Retic 2.3 H (0.5-1.5) % Sodium 144 (140-148) mmol/L Potassium 4.3 (3.6-5.2) mmol/L Chloride 113 H (100-108) mmol/L Carbon Dioxide 28 (21-32) mmol/L Anion Gap 7.3 (5.0-14.0) mmol/L BUN 25 H (7-18) mg/dL Creatinine 0.7 (0.6-1.0) mg/dL Est Cr Clr Drug Dosing 46.70 mL/min Estimated GFR (MDRD) > 60 (>60) Glucose 108 H (74-106) mg/dL Calcium 8.5 (8.5-10.1) mg/dL Total Bilirubin (0.2-1.0) mg/dL AST (15-37) U/L ALT (12-78) U/L Alkaline Phosphatase (46-116) U/L Total Protein (6.4-8.2) g/dL Albumin (3.4-5.0) g/dL Globulin (2.3-3.5) g/dL Albumin/Globulin Ratio (1.2-2.2) Urine Color Urine Appearance Urine pH (4.5-8.0) Ur Specific [place] (1.008-1.030) Urine Protein (NEGATIVE) mg/dL Urine Glucose (UA) (NEGATIVE) mg/dL Urine Ketones (NEGATIVE) mg/dL Urine Occult Blood (NEGATIVE) Urine Nitrite (NEGATIVE) Urine Bilirubin (NEGATIVE) Urine Urobilinogen (NORMAL) mg/dL Ur Leukocyte Esterase (NEGATIVE) Urine RBC (0-5) Urine WBC (0-5) Ur Epithelial Cells Amorphous Sediment Urine Bacteria Urine Mucus Med Orders - Current: Current Medications Acetaminophen (Tylenol) 650 mg PO QID [facility] Last Admin: 12/07/18 05:48 Dose: 650 mg Acetaminophen (Tylenol) 650 mg RECTAL QID PRN PRN Reason: Pain Al Hydroxide/Mg Hydroxide (Mag-Al Plus) 10 ml PO ASDIRECTED PRN PRN Reason: INDIGESTION Artificial Tears (Natural Balance Tears) 0 ml EYEBOTH QID [facility] Last Admin: 12/07/18 05:48 Dose: 1 drop Bandage/Support Products ( Nasal Help Desk Analyst) 1 applic NASBOTH BID [facility] Last Admin: 12/06/18 21:42 Dose: 1 applic Calcium Carbonate/Glycine (Tums) 500 mg PO DAILY [facility] Last Admin: 12/06/18 09:45 Dose: 500 mg Carvedilol (Coreg) 6.25 mg PO BID [facility] Last Admin: 12/06/18 21:43 Dose: 6.25 mg Cholecalciferol (Vitamin D3) 1,000 units PO DAILY [facility] Last Admin: 12/06/18 11:15 Dose: 1,000 units Digoxin (Lanoxin) 125 mcg PO DAILY@13 [facility] Last Admin: 12/06/18 13:09 Dose: 125 mcg Divalproex Sodium (Divalproex Sodium) 250 mg PO DAILY [facility] Last Admin: 12/06/18 09:37 Dose: 250 mg Docusate Sodium (Colace) 100 mg PO BID PRN PRN Reason: Constipation Last Admin: 12/06/18 11:18 Dose: 100 mg Gabapentin (Neurontin) 100 mg PO TID [facility] Last Admin: 12/06/18 21:45 Dose: 100 mg Guaifenesin/Dextromethorphan (Robitussin Dm) 10 ml PO ASDIRECTED PRN PRN Reason: COUGH Hydrocortisone (Hydrocortisone 1% Crm) 0 gm TOP ASDIRECTED [facility] Hydromorphone HCl (Dilaudid) 0.2 mg IVPUSH Q1H PRN PRN Reason: Pain Last Admin: 12/04/18 18:32 Dose: 0.2 mg Sodium Chloride (Normal Saline) 1,000 mls @ 75 mls/hr IV ASDIRECTED [facility] Last Admin: 12/06/18 18:15 Dose: 125 mls/hr Loperamide HCl (Imodium) 2 mg PO ASDIRECTED PRN PRN Reason: DIARRHEA Lorazepam (Ativan) 2 mg PO BEDTIME [facility] Last Admin: 12/06/18 21:43 Dose: 2 mg Magnesium Hydroxide (Milk Of Magnesia) 30 ml PO DAILY PRN PRN Reason: Constipation Last Admin: 12/06/18 11:18 Dose: 30 ml Multivitamins/Minerals (Prosight) 1 tab PO BID [facility] Last Admin: 12/06/18 21:45 Dose: 1 tab Naloxone HCl (Narcan) 0.1 mg IV ASDIRECTED PRN PRN Reason: decreased respiratory rate Ondansetron HCl (Zofran) 4 mg IV Q4H PRN PRN Reason: Nausea/Vomiting Last Admin: 12/02/18 16:33 Dose: 4 mg Oxycodone/Acetaminophen (Percocet 325-5 Mg) 1 tab PO Q6H PRN PRN Reason: Pain (severe 7-10) Last Admin: 12/07/18 06:14 Dose: 1 tab Discontinued Medications Acetaminophen (Tylenol) 650 mg PO BID PRN PRN Reason: Pain Acetaminophen (Tylenol) 325 mg PO QID [facility] Last Admin: 12/02/18 12:10 Dose: 325 mg Amoxicillin (Amoxil) 500 mg PO Q8H [facility] Amoxicillin (Amoxil) 500 mg PO ONETIME ONE Stop: 12/02/18 11:31 Last Admin: 12/02/18 12:10 Dose: 500 mg Divalproex Sodium (Divalproex Sodium) 250 mg PO ONETIME ONE Stop: 12/05/18 18:01 Last Admin: 12/05/18 17:38 Dose: Not Given Ephedrine Sulfate (Ephedrine Sulfate) Confirm Administered Dose 50 mg .ROUTE .STK-MED ONE Stop: 12/04/18 12:26 Fentanyl (Sublimaze) 50 mcg IVPUSH ONETIME ONE Stop: 12/02/18 04:25 Last Admin: 12/02/18 04:27 Dose: 50 mcg Fentanyl (Sublimaze) Confirm Administered Dose 100 mcg .ROUTE .STK-MED ONE Stop: 12/04/18 09:11 Furosemide (Lasix) 20 mg IVPUSH ONETIME ONE Stop: 12/05/18 11:31 Last Admin: 12/05/18 11:39 Dose: 20 mg Hydromorphone HCl (Dilaudid) 0.5 mg IVPUSH ONETIME ONE Stop: 12/02/18 05:48 Last Admin: 12/02/18 05:54 Dose: 0.5 mg Hydromorphone HCl (Dilaudid Director Medical Affairs 15 Mg In Ns 30 Ml) 0 mg IV ASDIRECTED PRN; Protocol PRN Reason: SUPPORTIVE EMPLOYMENT CASE MANAGER PAIN CONTROL Last Admin: 12/02/18 09:09 Dose: 15 mg Lactated Ringer's (Ringers, Lactated) 1,000 mls @ 125 mls/hr IV ASDIRECTED [facility] Last Admin: 12/02/18 06:53 Dose: 125 mls/hr Sodium Chloride (Normal Saline) 1,000 mls @ 100 mls/hr IV ASDIRECTED [facility] Last Admin: 12/02/18 21:10 Dose: 75 mls/hr Ampicillin Sodium 1 gm/ Sodium (Chloride) 50 mls @ 100 mls/hr IV Q8H [facility] Last Admin: 12/04/18 05:37 Dose: 100 mls/hr Sodium Chloride (Normal Saline) 250 mls @ 999 mls/hr IV .BOLUS ONE Stop: 12/03/18 12:18 Last Admin: 12/03/18 12:13 Dose: 999 mls/hr Sodium Chloride (Normal Saline) 250 mls @ 999 mls/hr IV .BOLUS ONE Stop: 12/03/18 13:55 Last Admin: 12/03/18 13:46 Dose: 999 mls/hr Levofloxacin/Dextrose 250 mg/ (Premix) 50 mls @ 50 mls/hr IV Q24H [facility] Stop: 12/06/18 08:59 Last Admin: 12/05/18 07:44 Dose: 50 mls/hr Cefazolin Sodium/Dextrose 1 gm (/ Premix) 50 mls @ 100 mls/hr IV ONETIME ONE Stop: 12/04/18 08:29 Last Admin: 12/04/18 10:30 Dose: 100 mls/hr Sodium Chloride (Normal Saline) Confirm Administered Dose 10 mls @ as directed .ROUTE .[facility]-MED ONE Stop: 12/04/18 11:44 Lactated Ringer's (Ringers, Lactated) Confirm Administered Dose 1,000 mls @ as directed .ROUTE .ST-MED ONE Stop: 12/04/18 12:25 Sodium Chloride (Normal Saline) Confirm Administered Dose 250 mls @ as directed .ROUTE .[facility]-MED ONE Stop: 12/04/18 12:55 Sodium Chloride (Normal Saline) Confirm Administered Dose 250 mls @ as directed .ROUTE .[facility]-MED ONE Stop: 12/04/18 12:56 Cefazolin Sodium/Dextrose 1 gm (/ Premix) 50 mls @ 100 mls/hr IV Q8H [facility] Stop: 12/05/18 02:29 Last Admin: 12/05/18 01:18 Dose: 100 mls/hr Levofloxacin (Levaquin) 250 mg PO ACBREAKFAST [facility] Stop: 12/06/18 07:31 Last Admin: 12/06/18 08:07 Dose: 250 mg Midazolam HCl (Versed 1 Mg/Ml) Confirm Administered Dose 2 mg .ROUTE .[facility]-MED ONE Stop: 12/04/18 09:11 Ondansetron HCl (Zofran Odt) 4 mg PO ONETIME ONE Stop: 12/02/18 06:47 Last Admin: 12/02/18 06:51 Dose: 4 mg Phenylephrine HCl (Fidel-Synephrine) Confirm Administered Dose 10 mg .ROUTE .[facility]- MED ONE Stop: 12/04/18 12:26 Pneumococcal Polyvalent Vaccine (Pneumovax 23) 0.5 ml IM .ONCE ONE Stop: 12/06/18 12:01 Last Admin: 12/06/18 13:10 Dose: 0.5 ml Povidone Iodine (Betadine 10% Soln) Confirm Administered Dose 1 ml .ROUTE .STK- MED ONE Stop: 12/04/18 12:36 Propofol (Diprivan 20 Ml) Confirm Administered Dose 200 mg .ROUTE .[facility]-MED ONE Stop: 12/04/18 09:11 - Exam General: Reports: Alert, Oriented, Cooperative HEENT: Reports: Pupils Equal, Pupils Reactive, EOMI, Mucous Membr. Moist/[place] Neck: Reports: Supple Lungs: Reports: Clear to Auscultation, Normal Respiratory Effort Cardiovascular: Reports: Regular Rate, Regular Rhythm GI/Abdominal Exam: Normal Bowel Sounds, Soft, Non-Tender, No Organomegaly, No Distention, No Abnormal Bruit, No Mass, Pelvis Stable Extremities: Joint Swelling, Leg Pain Skin: Reports: Warm, Dry, Intact Wound/Incisions: Reports: Healing Well Neurological: Reports: No New Focal Deficit Psy/Mental Status: Reports: Anxious
[2018-12-07] MEDS: Sodium Chloride 0.9% 1,000 ML IV SCH (08:25)
[2018-12-07] MEDS: Gabapentin 100 MG Cap PO SCH ×3 (09:15→20:40)
[2018-12-07] MEDS: Cholecalciferol (Vitamin D3) 1,000 Unit Tab PO SCH (09:15)
[2018-12-07] MEDS: Calcium Carbonate 500 MG Tab.Chew PO SCH (09:15)
[2018-12-07] MEDS: Beta-Carotene (Vitamin A) w/Vitamin C & E plus Minerals Tab PO SCH ×2 (09:15→20:40)
[2018-12-07] MEDS: Nozin Nasal Sanitizer NASBOTH SCH ×2 (09:23→20:35)
[2018-12-07] MEDS: Divalproex Sodium Delayed-Release 250 MG Tab.CR PO SCH (09:23)
[2018-12-07] MEDS: Carvedilol 6.25 MG Tab PO SCH ×3 (09:30→20:55)
--- NOTE | 2018-12-07 10:24 | PCM.CONS ---
H&P History of Present Illness - General Date of Service: 12/07/18 Admit Problem/Dx: Admission Diagnosis/Problem Admission Diagnosis/Problem Hip fracture due to osteoporosis Source of Information: Old Records, Provider, RN History Limitations: Reports: Altered Mental Status (very lethargic) - History of Present Illness Initial Comments - Free Text/Narative: I was asked to see Melissa by Dr. Pastor today regarding medical management of congestive heart failure. She was admitted to the hospital nearly one week ago after a fall resulted in a left hip fracture. The patient is very lethargic today and unable to answer any questions. History is gathered from nursing and hospital notes. A couple of days ago she had difficulty with an agitated delirium. Over the past 12 hours or so she's become more lethargic. She has become more hypoxic and is now requiring 3 L of supplemental oxygen. Per report pain control have been difficult but had been improving. Review of intake and output suggest the patient has significant volume overload. Blood pressures have been on the low side and are currently on the low side of normal. Urine output has been sluggish. The patient did have a Khan catheter inserted because of urinary retention. She has not had any fevers. She has completed treatment for her urinary tract infection. Left Hip Pain Score (Numeric/FACES): 9 - Related Data Allergies/Adverse Reactions: Allergies Allergy/AdvReac Type Severity Reaction Status Date / Time tramadol AdvReac Vomiting Verified 10/18/18 14:05 Home Medications: Home Meds Digoxin [Lanoxin] 125 mcg PO DAILY@13 tablet 04/26/15 [Rx] Calcium Carbonate [Calcium] 500 mg PO DAILY 02/24/18 [History] Carvedilol [Coreg] 6.25 mg PO BID tablet 02/26/18 [Rx] Cholecalciferol (Vitamin D3) [Vitamin D3] 1,000 units PO DAILY tablet 02/26/18 [Rx] Vit A/Vit C/Vit E/Zinc/Copper [Preservision] 1 tab PO BID 03/01/18 [History] Ibuprofen [Motrin] 200 mg PO Q4H PRN tablet 03/03/18 [Rx] Acetaminophen [Tylenol] 325 mg PO QID 09/13/18 [History] Dextromethorphan/guaiFENesin [Robitussin DM] 10 ml PO ASDIRECTED 09/13/18 [ History] Gabapentin [Neurontin] 100 mg PO TID 09/13/18 [History] Hydrocortisone [Preparation H] 1 applic TOP ASDIRECTED 09/13/18 [History] LORazepam 2 mg PO BEDTIME 09/13/18 [History] Loperamide [Imodium] 2 mg PO ASDIRECTED 09/13/18 [History] Mag Hydrox/Al Hydrox/Simeth [Maalox Maximum Strength Susp] 10 ml PO ASDIRECTED 09/13/18 [History] Magnesium Hydroxide [Milk of Magnesia] 30 ml PO DAILY PRN 09/13/18 [History] Na Phos,M-B/Na Phos,DI-B [Fleet Enema] 133 ml RC ASDIRECTED 09/13/18 [History] Carboxymethylcellulose Sodium [Refresh Tears] 1 drop EYEBOTH QID 12/02/18 [ History] Acetaminophen [Tylenol] 650 mg PO QID tablet 12/07/18 [Rx] Acetaminophen/oxyCODONE [Percocet 325-5 MG] 1 tab PO Q6H PRN tablet 12/07/18 [ Rx] Divalproex Sodium 250 mg PO DAILY tab.cr 12/07/18 [Rx] Docusate Sodium [Colace] 100 mg PO BID PRN cap 12/07/18 [Rx] HYDROmorphone [Dilaudid] 0.2 mg IVPUSH Q1H PRN syringe 12/07/18 [Rx] Naloxone [Narcan] 0.1 mg IV ASDIRECTED PRN sdv 12/07/18 [Rx] Past Medical History HEENT History: Reports: Cataract, Impaired Vision, Macular Degeneration Cardiovascular History: Reports: Afib, Arrhythmia, Heart Failure, Other (See Below) Other Cardiovascular History: endocarditis 2009 Gastrointestinal History: Reports: None Genitourinary History: Reports: Urinary Incontinence, UTI, Recurrent Other Genitourinary History: current uti 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: hysterectomy/ uterine cancer Musculoskeletal History: Reports: Back Pain, Chronic, Fracture, Osteoporosis Other Musculoskeletal History: bilateral wrists, elbow, shoulder, left knee Neurological History: Reports: None Psychiatric History: Reports: Anxiety, Depression Oncologic (Cancer) History: Reports: Uterine Dermatologic History: Reports: None - Infectious Disease History Infectious Disease History: Reports: Chicken Pox, Measles, Mumps - Past Surgical History HEENT Surgical History: Reports: Cataract Surgery Cardiovascular Surgical History: Reports: AAA Repair Other Cardiovascular Surgeries/Procedures: 02/02/2018 [facility] GI Surgical History: Reports: Colonoscopy Female Surgical History: Reports: None Neurological Surgical History: Reports: Discectomy Musculoskeletal Surgical History: Reports: Shoulder Surgery, Other (See Below) Other Musculoskeletal Surgeries/Procedures:: Chronic right thigh pain Oncologic Surgical History: Reports: None Social & Family History - Family History Family Medical History: Noncontributory - Tobacco Use Smoking Status *Q: Never Smoker - Caffeine Use Caffeine Use: Reports: None - Alcohol Use Alcohol Use History: No H&P Review of Systems - Review of Systems: Review Of Systems: Unable To Obtain (Patient is very lethargic) Exam - Exam Exam: See Below - Vital Signs Vital Signs: Last Vital Signs Temp 35.8 C 12/07/18 07:00 Pulse 50 L 12/07/18 09:30 Resp 16 12/07/18 07:00 BP 98/59 L 12/07/18 09:30 Pulse Ox 93 L 12/07/18 07:00 Weight: 50.349 kg - Exam Quality Assessment: Supplemental Oxygen General: Lethargic. No: Alert, Mild Distress HEENT: Conjunctiva Clear, Mucosa Moist & Gaffney. No: Scleral Icterus Neck: Supple, Trachea Midline, JVD Lungs: Normal Respiratory Effort, Decreased Breath Sounds (Both bases), Crackles (Both bases). No: Wheezing Cardiovascular: Regular Rate, Irregular Rhythm, Systolic Murmur GI/Abdominal Exam: Normal Bowel Sounds, Soft, Non-Tender, No Distention Extremities: Pedal Edema (Pitting edema to the waist bilaterally). No: Increased Warmth Skin: Warm, Dry, Incision (Left hip and left knee. Both appear to be healing well. There is slight oozing from the incision over the hip area) Neuro Extensive - Mental Status: Slow Response to Commands. No: Alert Neuro Extensive - Motor, Sensory, Reflexes: Dysarthria. No: Abnormal Motor, Tremor Psychiatric: No: Alert, Agitated - Patient Data Lab Results Last 24 hrs: Laboratory Results - last 24 hr 12/06/18 12/06/18 12/06/18 Range/Units 10:42 10:42 12:13 WBC 6.8 (4.5-11.0) K/uL RBC 2.61 L (3.30-5.50) M/uL Hgb 8.0 L (12.0-15.0) g/dL Hct 26.5 L (36.0-48.0) % MCV 102 H (80-98) fL MCH 31 (27-31) pg MCHC 30 L (32-36) % Plt Count 80 L (150-400) K/uL Neut % (Auto) (36-66) % Lymph % (Auto) (24-44) % Power % (Auto) (2-6) % Eos % (Auto) (2-4) % Baso % (Auto) (0-1) % Percent Retic (0.5-1.5) % Sodium 142 (140-148) mmol/L Potassium 4.3 (3.6-5.2) mmol/L Chloride 111 H (100-108) mmol/L Carbon Dioxide 27 (21-32) mmol/L Anion Gap 8.3 (5.0-14.0) mmol/L BUN 24 H (7-18) mg/dL Creatinine 0.7 (0.6-1.0) mg/dL Est Cr Clr Drug Dosing 46.70 mL/min Estimated GFR (MDRD) > 60 (>60) Glucose 128 H (74-106) mg/dL Calcium 8.4 L (8.5-10.1) mg/dL Total Bilirubin 0.6 (0.2-1.0) mg/dL AST 16 (15-37) U/L ALT 8 L (12-78) U/L Alkaline Phosphatase 70 (46-116) U/L Total Protein 5.1 L (6.4-8.2) g/dL Albumin 2.0 L (3.4-5.0) g/dL Globulin 3.1 (2.3-3.5) g/dL Albumin/Globulin Ratio 0.7 L (1.2-2.2) Vitamin B12 (193-986) pg/ml Folate (8.6-58.9) ng/ml Urine Color Yellow Urine Appearance Slightly cloudy Urine pH 5.0 (4.5-8.0) Ur Specific [place] 1.015 (1.008-1.030) Urine Protein Trace (NEGATIVE) mg/dL Urine Glucose (UA) Normal (NEGATIVE) mg/dL Urine Ketones Negative (NEGATIVE) mg/dL Urine Occult Blood Trace (NEGATIVE) Urine Nitrite Negative (NEGATIVE) Urine Bilirubin Negative (NEGATIVE) Urine Urobilinogen Normal (NORMAL) mg/dL Ur Leukocyte Esterase Negative (NEGATIVE) Urine RBC 0-5 (0-5) Urine WBC 0-5 (0-5) Ur Epithelial Cells Few Amorphous Sediment Not seen Urine Bacteria Few Urine Mucus Not seen Blood Type Gel Antibody Screen Crossmatch 12/07/18 12/07/18 12/07/18 Range/Units 04:50 04:50 04:50 WBC 5.8 (4.5-11.0) K/uL RBC 2.44 L (3.30-5.50) M/uL Hgb 7.6 L (12.0-15.0) g/dL Hct 24.8 L (36.0-48.0) % MCV 102 H (80-98) fL MCH 31 (27-31) pg MCHC 31 L (32-36) % Plt Count 88 L (150-400) K/uL Neut % (Auto) 77 H (36-66) % Lymph % (Auto) 12 L (24-44) % Power % (Auto) 10 H (2-6) % Eos % (Auto) 1 L (2-4) % Baso % (Auto) 0 (0-1) % Percent Retic 2.3 H (0.5-1.5) % Sodium 144 (140-148) mmol/L Potassium 4.3 (3.6-5.2) mmol/L Chloride 113 H (100-108) mmol/L Carbon Dioxide 28 (21-32) mmol/L Anion Gap 7.3 (5.0-14.0) mmol/L BUN 25 H (7-18) mg/dL Creatinine 0.7 (0.6-1.0) mg/dL Est Cr Clr Drug Dosing 46.70 mL/min Estimated GFR (MDRD) > 60 (>60) Glucose 108 H (74-106) mg/dL Calcium 8.5 (8.5-10.1) mg/dL Total Bilirubin (0.2-1.0) mg/dL AST (15-37) U/L ALT (12-78) U/L Alkaline Phosphatase (46-116) U/L Total Protein (6.4-8.2) g/dL Albumin (3.4-5.0) g/dL Globulin (2.3-3.5) g/dL Albumin/Globulin Ratio (1.2-2.2) Vitamin B12 (193-986) pg/ml Folate 18.5 (8.6-58.9) ng/ml Urine Color Urine Appearance Urine pH (4.5-8.0) Ur Specific [place] (1.008-1.030) Urine Protein (NEGATIVE) mg/dL Urine Glucose (UA) (NEGATIVE) mg/dL Urine Ketones (NEGATIVE) mg/dL Urine Occult Blood (NEGATIVE) Urine Nitrite (NEGATIVE) Urine Bilirubin (NEGATIVE) Urine Urobilinogen (NORMAL) mg/dL Ur Leukocyte Esterase (NEGATIVE) Urine RBC (0-5) Urine WBC (0-5) Ur Epithelial Cells Amorphous Sediment Urine Bacteria Urine Mucus Blood Type Gel Antibody Screen Crossmatch 12/07/18 12/07/18 Range/Units 08:04 08:12 WBC (4.5-11.0) K/uL RBC (3.30-5.50) M/uL Hgb (12.0-15.0) g/dL Hct (36.0-48.0) % MCV (80-98) fL MCH (27-31) pg MCHC (32-36) % Plt Count (150-400) K/uL Neut % (Auto) (36-66) % Lymph % (Auto) (24-44) % Power % (Auto) (2-6) % Eos % (Auto) (2-4) % Baso % (Auto) (0-1) % Percent Retic (0.5-1.5) % Sodium (140-148) mmol/L Potassium (3.6-5.2) mmol/L Chloride (100-108) mmol/L Carbon Dioxide (21-32) mmol/L Anion Gap (5.0-14.0) mmol/L BUN (7-18) mg/dL Creatinine (0.6-1.0) mg/dL Est Cr Clr Drug Dosing mL/min Estimated GFR (MDRD) (>60) Glucose (74-106) mg/dL Calcium (8.5-10.1) mg/dL Total Bilirubin (0.2-1.0) mg/dL AST (15-37) U/L ALT (12-78) U/L Alkaline Phosphatase (46-116) U/L Total Protein (6.4-8.2) g/dL Albumin (3.4-5.0) g/dL Globulin (2.3-3.5) g/dL Albumin/Globulin Ratio (1.2-2.2) Vitamin B12 808 (193-986) pg/ml Folate (8.6-58.9) ng/ml Urine Color Urine Appearance Urine pH (4.5-8.0) Ur Specific [place] (1.008-1.030) Urine Protein (NEGATIVE) mg/dL Urine Glucose (UA) (NEGATIVE) mg/dL Urine Ketones (NEGATIVE) mg/dL Urine Occult Blood (NEGATIVE) Urine Nitrite (NEGATIVE) Urine Bilirubin (NEGATIVE) Urine Urobilinogen (NORMAL) mg/dL Ur Leukocyte Esterase (NEGATIVE) Urine RBC (0-5) Urine WBC (0-5) Ur Epithelial Cells Amorphous Sediment Urine Bacteria Urine Mucus Blood Type A POSITIVE Gel Antibody Screen Negative Crossmatch See Detail Result Diagrams: 12/07/18 04:50 12/07/18 04:50 Imaging Impressions Last 24 hrs: Chest x-ray - image was personally reviewed - There is evidence for cardiomegaly as well as fluid in the fissure and small bilateral effusions. No obvious infiltrate. Consult PN Assessment/Plan POD#: 4 Procedures: Procedures APPLY FOREARM SPLINT (07/01/13) ASSAY OF AMYLASE (04/25/15) ASSAY OF CREATININE (08/22/18) ASSAY OF DIGOXIN TOTAL (02/24/18) ASSAY OF LIPASE (02/16/18) ASSAY OF NATRIURETIC PEPTIDE (10/13/14) ASSAY OF TROPONIN QUANT (02/16/18) C-REACTIVE PROTEIN (02/16/18) CATARACT SURG W/IOL 1 STAGE (06/03/16) CHEST X-RAY 1 VIEW FRONTAL (01/14/15) CHEST X-RAY 2VW FRONTAL&LATL (10/13/14) CINE/VID X-RAY THROAT/ESOPH (11/14/13) COMPLETE CBC AUTOMATED (03/01/18) COMPLETE CBC W/AUTO DIFF WBC (05/05/18) COMPREHEN METABOLIC PANEL (03/01/18) CT ABD & PELVIS W/O CONTRAST (04/25/15) CT ANGIO ABDOM W/O & W/DYE (08/25/18) CT ANGIOGRAPH PELV W/O&W/DYE (08/25/18) CT HEAD/BRAIN W/O DYE (05/05/18) CT LUMBAR SPINE W/O DYE (08/22/18) CT NECK SPINE W/O DYE (05/05/18) ELECTROCARDIOGRAM TRACING (02/24/18) EMERGENCY DEPT VISIT (05/05/18) EMERGENCY DEPT VISIT (05/05/18) EMERGENCY DEPT VISIT (02/16/18) EMERGENCY DEPT VISIT (02/06/18) EMERGENCY DEPT VISIT (11/30/16) EMERGENCY DEPT VISIT (04/25/15) EMERGENCY DEPT VISIT (01/14/15) EMERGENCY DEPT VISIT (01/14/15) EMERGENCY DEPT VISIT (01/03/15) EMERGENCY DEPT VISIT (10/26/14) EMERGENCY DEPT VISIT (07/01/13) EXTRACRANIAL BILAT STUDY (04/09/14) GAIT TRAINING THERAPY (01/14/15) HEPATIC FUNCTION PANEL (04/25/15) HOT OR COLD PACKS THERAPY (10/10/13) HYDRATE IV INFUSION ADD-ON (10/03/16) HYDRATION IV INFUSION INIT (02/16/18) MANUAL THERAPY 1/> REGIONS (12/10/16) METABOLIC PANEL TOTAL CA (05/05/18) MICROBE SUSCEPTIBLE [place] (02/24/18) MOTION FLUOROSCOPY/SWALLOW (11/14/13) MRI CHEST SPINE W/O DYE (04/27/17) MRI LUMBAR SPINE W/O DYE (04/27/17) MRI PELVIS W/O DYE (04/27/17) NJX INTERLAMINAR LMBR/SAC (10/18/18) ORAL FUNCTION THERAPY (11/14/13) ORTHOTIC MGMT&TRAINJ 1ST ENC (09/10/13) OT EVALUATION (09/10/13) PROTHROMBIN TIME (06/01/18) PT EVAL LOW COMPLEX 20 MIN (03/01/18) PT EVAL MOD COMPLEX 30 MIN (11/05/16) PT EVALUATION (01/14/15) ROUTINE VENIPUNCTURE (08/22/18) THER/PROPH/DIAG INJ IV PUSH (10/03/16) THER/PROPH/DIAG INJ SC/IM (11/30/16) THERAPEUTIC ACTIVITIES (03/01/18) THERAPEUTIC EXERCISES (12/10/16) TTE W/DOPPLER COMPLETE (04/08/16) TX/PRO/DX INJ NEW DRUG ADDON (10/03/16) ULTRASOUND THERAPY (11/05/16) UPR/L XTREMITY ART 2 LEVELS (11/25/14) URINALYSIS AUTO W/SCOPE (05/05/18) URINE BACTERIA CULTURE (02/24/18) URINE CULTURE/COLONY COUNT (05/05/18) US EXAM ABDO BACK WALL YOUNG (06/23/17) US EXAM ABDOM COMPLETE (12/29/17) US URINE CAPACITY MEASURE (02/09/18) X-RAY EXAM ABDOMEN 1 VIEW (08/22/18) X-RAY EXAM CHEST 1 VIEW (02/06/18) X-RAY EXAM CHEST 2 VIEWS (02/24/18) X-RAY EXAM L-2 SPINE 4/>VWS (10/07/16) X-RAY EXAM OF ABDOMEN (11/30/16) X-RAY EXAM OF ELBOW (01/03/15) X-RAY EXAM OF HIP (01/14/15) X-RAY EXAM OF SHOULDER (01/03/15) X-RAY EXAM OF WRIST (01/14/15) X-RAY EXAM OF WRIST (01/03/15) X-RAY EXAM OF WRIST (07/01/13) X-RAY EXAM UNILAT RIBS/CHEST (10/26/14) Problem List Initiated/Reviewed/Updated: Yes My Orders Last 24 Hours: My Active Orders 12/07/18 10:19 Chest 1V Frontal [CR] Routine ABG [BLOOD GAS ARTERIAL] [BG] Routine Furosemide [Lasix] 20 mg IVPUSH ONETIME ONE 12/07/18 10:21 oxyCODONE 5 mg PO Q4H PRN 12/07/18 10:23 Cardiac Monitoring [RC] .As Directed Overnight Pulse Oximetry [RC] Click to Edit Pulse Oximetry Continuous Monitoring [OM.PC] Routine 12/07/18 14:00 Acetaminophen [Tylenol Extra Strength] 1,000 mg PO TID 12/07/18 21:00 Melatonin 9 mg PO BEDTIME Plan: ASSESSMENT AND PLAN - Systolic congestive heart failure - complicated by significant valvular disease. Patient has obvious evidence for volume overload and is hypoxic. I suspect her mild hypercapnia is related to the volume overload as well. She is not actively wheezing. Blood pressures are on the low side of normal and we will need to use small doses of furosemide to start. -Furosemide 20 mg IV now and reassess this afternoon -Supplement oxygen -Strict intake and output with Khan catheter in place -Continue carvedilol, hold if heart rate less than 60 Anemia due to acute blood loss - probably some contribution from excess total body water with congestive heart failure. Hemoglobin has been declining and she will be receiving 1 unit of packed red blood cells this morning. -Repeat hemoglobin tomorrow morning Mixed delirium - likely secondary to combination of recent surgery as well as pain medications and probable underlying dementia. She is very somnolent at this time but had difficulty with agitation just a couple of days ago. -Melatonin at bedtime Acute urinary retention - I suspect the significant edema in the groin area is contributing to her urinary retention. Hopefully diuresis will help alleviate this difficulty. -Khan catheter Chronic atrial fibrillation - currently rate controlled. -Continue carvedilol and digoxin -Cardiac monitoring with borderline bradycardia Comminuted left hip fracture - status post ORIF with intramedullary nailing. She appears very comfortable at this time. There is some oozing from the incision over the proximal hip but I suspect this is related to her edema from heart failure. -Pain control -Physical therapy as able Recent urinary tract infection - she has completed adequate antibiotic therapy. Maintenance issues - - DVT prophylaxis - mechanical with declining hemoglobin - GI prophylaxis - PPI - Nutrition - low sodium diet - Khan catheter - placed secondary to urinary retention which is discussed above Disposition - I anticipate discharge to a halfway facility after the hospital stay Tommie Glasgow M.D. Requesting Provider: Dr. Pastor Date Consult Requested: 12/07/18 Reason for Consult: Congestive heart failure Patient History Reviewed: Yes Admission H&P Reviewed: Yes Notified Requestor: No Time Spent (in minutes): 60
[2018-12-07] MEDS ORDERED: Furosemide 20 MG/2 ML VIAL IVPUSH ONE (10:40)
--- NOTE | 2018-12-07 11:32 | CRLCR ---
HISTORY: CHF, hypoxia. TECHNIQUE: One view chest. COMPARISON: 12/02/2018. FINDINGS: Marked enlargement of the cardiac silhouette as before. Increased small to moderate bilateral pleural effusions with bibasilar atelectasis or infiltrates. There is no pneumothorax. Changes of prior vertebroplasty. Aortic stent graft extends beyond the [id number]. Chronic deformity of the right proximal humerus. IMPRESSION: 1. Marked enlargement of the cardiac silhouette as before. 2. Small to moderate pleural effusions with bibasilar atelectasis or infiltrates. Dictated by Zaid Vanegas MD @ 12/07/2018 11:29:51 AM Dictated by: Zaid Vanegas MD @ 12/07/2018 11:29:55 (Electronically Signed)
[2018-12-07] MEDS: oxyCODONE 5 MG Tab PO PRN (13:13)
[2018-12-07] MEDS: Digoxin 125 MCG Tab PO SCH (13:14)
[2018-12-07] MEDS: Acetaminophen 500 MG Tab PO SCH ×2 (13:15→20:40)
[2018-12-07] MEDS ORDERED: Haloperidol Lactate 5 MG/ML SDV IVPUSH PRN (15:09)
[2018-12-07] MEDS: Furosemide 40 MG/4 ML VIAL IVPUSH SCH (16:47)
[2018-12-07] MEDS: Melatonin 3 MG Tab PO SCH (20:40)
[2018-12-07] MEDS: LORazepam 1 MG Tab PO SCH (20:44)
[2018-12-08] MEDS: Furosemide 40 MG/4 ML VIAL IVPUSH SCH ×3 (01:42→16:38)
[2018-12-08] MEDS: Hypromellose 0.4% Ophth Soln 15 ML Bottle EYEBOTH SCH ×4 (05:30→21:01)
[2018-12-08] MEDS: oxyCODONE 5 MG Tab PO PRN (07:47)
[2018-12-08] MEDS: Nozin Nasal Sanitizer NASBOTH SCH ×2 (08:01→20:46)
[2018-12-08] MEDS: Acetaminophen 500 MG Tab PO SCH ×3 (08:02→20:50)
[2018-12-08] MEDS: Calcium Carbonate 500 MG Tab.Chew PO SCH (08:02)
[2018-12-08] MEDS: Gabapentin 100 MG Cap PO SCH ×3 (08:03→20:49)
[2018-12-08] MEDS: Cholecalciferol (Vitamin D3) 1,000 Unit Tab PO SCH (08:03)
[2018-12-08] MEDS: Carvedilol 6.25 MG Tab PO SCH ×2 (08:04→20:47)
[2018-12-08] MEDS: Beta-Carotene (Vitamin A) w/Vitamin C & E plus Minerals Tab PO SCH ×2 (08:04→20:50)
--- NOTE | 2018-12-08 12:17 | PCM.CONSN ---
- General Info Date of Service: 12/08/18 Subjective Update: there were no acute events overnight. She has been fairly somnolent and does not participate much in conversation. Very mild intermittent agitation. Excellent urine output with diuresis. Edema has improved a fair amount. she reports that her pain is fairly well-controlled. She has not had much to eat or drink. Hemoglobin has improved with transfusion. Functional Status: Reports: Pain Controlled - Review of Systems General: Reports: Weakness Psychiatric: Reports: Confusion - Patient Data Vitals - Most Recent: Last Vital Signs Temp 36.0 C 12/08/18 11:12 Pulse 65 12/08/18 11:12 Resp 16 12/08/18 11:12 BP 110/68 12/08/18 11:12 Pulse Ox 96 12/08/18 11:12 Weight - Most Recent: 50.349 kg I&O - Last 24 Hours: Intake & Output 12/07/18 12/08/18 12/08/18 22:59 06:59 14:59 Intake Total 220 400 Output Total 400 2125 850 Balance -180 -3680 -339 Lab Results Last 24 Hours: Laboratory Results - last 24 hr 12/07/18 12/08/18 Range/Units 08:12 08:15 WBC 9.0 (4.5-11.0) K/uL RBC 3.28 L (3.30-5.50) M/uL Hgb 10.4 L D (12.0-15.0) g/dL Hct 32.4 L (36.0-48.0) % MCV 99 H (80-98) fL MCH 32 H (27-31) pg MCHC 32 (32-36) % Plt Count 104 L (150-400) K/uL Crossmatch See Detail Med Orders - Current: Current Medications Acetaminophen (Tylenol Extra Strength) 1,000 mg PO TID PENDING SALE TO [facility] Last Admin: 12/08/18 08:02 Dose: 1,000 mg Al Hydroxide/Mg Hydroxide (Mag-Al Plus) 10 ml PO ASDIRECTED PRN PRN Reason: INDIGESTION Artificial Tears (Natural Balance Tears) 0 ml EYEBOTH QID PENDING SALE TO [facility] Last Admin: 12/08/18 09:21 Dose: 1 each Bandage/Support Products ( Nasal Email Campaign Specialist) 1 applic NASBOTH BID PENDING SALE TO [facility] Last Admin: 12/08/18 08:01 Dose: 1 applic Calcium Carbonate/Glycine (Tums) 500 mg PO DAILY PENDING SALE TO [facility] Last Admin: 12/08/18 08:02 Dose: 500 mg Carvedilol (Coreg) 6.25 mg PO BID PENDING SALE TO [facility] Last Admin: 12/08/18 08:04 Dose: 6.25 mg Cholecalciferol (Vitamin D3) 1,000 units PO DAILY PENDING SALE TO [facility] Last Admin: 12/08/18 08:03 Dose: 1,000 units Digoxin (Lanoxin) 125 mcg PO DAILY@13 PENDING SALE TO [facility] Last Admin: 12/07/18 13:14 Dose: 125 mcg Docusate Sodium (Colace) 100 mg PO BID PRN PRN Reason: Constipation Last Admin: 12/06/18 11:18 Dose: 100 mg Furosemide (Lasix) 40 mg IVPUSH Q8H PENDING SALE TO [facility] Last Admin: 12/08/18 08:05 Dose: 40 mg Gabapentin (Neurontin) 100 mg PO TID PENDING SALE TO [facility] Last Admin: 12/08/18 08:03 Dose: 100 mg Guaifenesin/Dextromethorphan (Robitussin Dm) 10 ml PO ASDIRECTED PRN PRN Reason: COUGH Haloperidol Lactate (Haldol) 1 mg IVPUSH Q4H PRN PRN Reason: Agitation Hydrocortisone (Hydrocortisone 1% Crm) 0 gm TOP ASDIRECTED PENDING SALE TO [facility] Hydromorphone HCl (Dilaudid) 0.2 mg IVPUSH Q1H PRN PRN Reason: Pain Last Admin: 12/04/18 18:32 Dose: 0.2 mg Loperamide HCl (Imodium) 2 mg PO ASDIRECTED PRN PRN Reason: DIARRHEA Lorazepam (Ativan) 2 mg PO BEDTIME PENDING SALE TO [facility] Last Admin: 12/07/18 20:44 Dose: 2 mg Magnesium Hydroxide (Milk Of Magnesia) 30 ml PO DAILY PRN PRN Reason: Constipation Last Admin: 12/06/18 11:18 Dose: 30 ml Melatonin (Melatonin) 9 mg PO BEDTIME PENDING SALE TO [facility] Last Admin: 12/07/18 20:40 Dose: 9 mg Multivitamins/Minerals (Prosight) 1 tab PO BID PENDING SALE TO [facility] Last Admin: 12/08/18 08:04 Dose: 1 tab Naloxone HCl (Narcan) 0.1 mg IV ASDIRECTED PRN PRN Reason: decreased respiratory rate Ondansetron HCl (Zofran) 4 mg IV Q4H PRN PRN Reason: Nausea/Vomiting Last Admin: 12/02/18 16:33 Dose: 4 mg Oxycodone HCl (Oxycodone) 5 mg PO Q4H PRN PRN Reason: Pain Last Admin: 12/08/18 07:47 Dose: 5 mg Discontinued Medications Acetaminophen (Tylenol) 650 mg PO BID PRN PRN Reason: Pain Acetaminophen (Tylenol) 325 mg PO QID PENDING SALE TO [facility] Last Admin: 12/02/18 12:10 Dose: 325 mg Acetaminophen (Tylenol) 650 mg PO QID PENDING SALE TO [facility] Last Admin: 12/07/18 09:15 Dose: 650 mg Acetaminophen (Tylenol) 650 mg RECTAL QID PRN PRN Reason: Pain Amoxicillin (Amoxil) 500 mg PO Q8H PENDING SALE TO [facility] Amoxicillin (Amoxil) 500 mg PO ONETIME ONE Stop: 12/02/18 11:31 Last Admin: 12/02/18 12:10 Dose: 500 mg Divalproex Sodium (Divalproex Sodium) 250 mg PO ONETIME ONE Stop: 12/05/18 18:01 Last Admin: 12/05/18 17:38 Dose: Not Given Divalproex Sodium (Divalproex Sodium) 250 mg PO DAILY PENDING SALE TO [facility] Last Admin: 12/07/18 09:23 Dose: 250 mg Ephedrine Sulfate (Ephedrine Sulfate) Confirm Administered Dose 50 mg .ROUTE .STK-MED ONE Stop: 12/04/18 12:26 Fentanyl (Sublimaze) 50 mcg IVPUSH ONETIME ONE Stop: 12/02/18 04:25 Last Admin: 12/02/18 04:27 Dose: 50 mcg Fentanyl (Sublimaze) Confirm Administered Dose 100 mcg .ROUTE .STK-MED ONE Stop: 12/04/18 09:11 Furosemide (Lasix) 20 mg IVPUSH ONETIME ONE Stop: 12/05/18 11:31 Last Admin: 12/05/18 11:39 Dose: 20 mg Furosemide (Lasix) 20 mg IVPUSH ONETIME ONE Stop: 12/07/18 10:41 Last Admin: 12/07/18 10:51 Dose: 20 mg Hydromorphone HCl (Dilaudid) 0.5 mg IVPUSH ONETIME ONE Stop: 12/02/18 05:48 Last Admin: 12/02/18 05:54 Dose: 0.5 mg Hydromorphone HCl (Dilaudid Cell Biologist 15 Mg In Ns 30 Ml) 0 mg IV ASDIRECTED PRN; Protocol PRN Reason: HAND BUFFER PAIN CONTROL Last Admin: 12/02/18 09:09 Dose: 15 mg Lactated Ringer's (Ringers, Lactated) 1,000 mls @ 125 mls/hr IV ASDIRECTED PENDING SALE TO [facility] Last Admin: 12/02/18 06:53 Dose: 125 mls/hr Sodium Chloride (Normal Saline) 1,000 mls @ 100 mls/hr IV ASDIRECTED PENDING SALE TO [facility] Last Admin: 12/02/18 21:10 Dose: 75 mls/hr Ampicillin Sodium 1 gm/ Sodium (Chloride) 50 mls @ 100 mls/hr IV Q8H PENDING SALE TO [facility] Last Admin: 12/04/18 05:37 Dose: 100 mls/hr Sodium Chloride (Normal Saline) 250 mls @ 999 mls/hr IV .BOLUS ONE Stop: 12/03/18 12:18 Last Admin: 12/03/18 12:13 Dose: 999 mls/hr Sodium Chloride (Normal Saline) 250 mls @ 999 mls/hr IV .BOLUS ONE Stop: 12/03/18 13:55 Last Admin: 12/03/18 13:46 Dose: 999 mls/hr Sodium Chloride (Normal Saline) 1,000 mls @ 75 mls/hr IV ASDIRECTED PENDING SALE TO [facility] Last Admin: 12/07/18 08:25 Dose: 125 mls/hr Levofloxacin/Dextrose 250 mg/ (Premix) 50 mls @ 50 mls/hr IV Q24H PENDING SALE TO [facility] Stop: 12/06/18 08:59 Last Admin: 12/05/18 07:44 Dose: 50 mls/hr Cefazolin Sodium/Dextrose 1 gm (/ Premix) 50 mls @ 100 mls/hr IV ONETIME ONE Stop: 12/04/18 08:29 Last Admin: 12/04/18 10:30 Dose: 100 mls/hr Sodium Chloride (Normal Saline) Confirm Administered Dose 10 mls @ as directed .ROUTE .STK-MED ONE Stop: 12/04/18 11:44 Lactated Ringer's (Ringers, Lactated) Confirm Administered Dose 1,000 mls @ as directed .ROUTE .STK-MED ONE Stop: 12/04/18 12:25 Sodium Chloride (Normal Saline) Confirm Administered Dose 250 mls @ as directed .ROUTE .STK-MED ONE Stop: 12/04/18 12:55 Sodium Chloride (Normal Saline) Confirm Administered Dose 250 mls @ as directed .ROUTE .STK-MED ONE Stop: 12/04/18 12:56 Cefazolin Sodium/Dextrose 1 gm (/ Premix) 50 mls @ 100 mls/hr IV Q8H RACHELLE Stop: 12/05/18 02:29 Last Admin: 12/05/18 01:18 Dose: 100 mls/hr Levofloxacin (Levaquin) 250 mg PO ACBREAKFAST RACHELLE Stop: 12/06/18 07:31 Last Admin: 12/06/18 08:07 Dose: 250 mg Midazolam HCl (Versed 1 Mg/Ml) Confirm Administered Dose 2 mg .ROUTE .[facility]-MED ONE Stop: 12/04/18 09:11 Ondansetron HCl (Zofran Odt) 4 mg PO ONETIME ONE Stop: 12/02/18 06:47 Last Admin: 12/02/18 06:51 Dose: 4 mg Oxycodone/Acetaminophen (Percocet 325-5 Mg) 1 tab PO Q6H PRN PRN Reason: Pain (severe 7-10) Last Admin: 12/07/18 06:14 Dose: 1 tab Phenylephrine HCl (Fidel-Synephrine) Confirm Administered Dose 10 mg .ROUTE .ST- MED ONE Stop: 12/04/18 12:26 Pneumococcal Polyvalent Vaccine (Pneumovax 23) 0.5 ml IM .ONCE ONE Stop: 12/06/18 12:01 Last Admin: 12/06/18 13:10 Dose: 0.5 ml Povidone Iodine (Betadine 10% Soln) Confirm Administered Dose 1 ml .ROUTE .ST- MED ONE Stop: 12/04/18 12:36 Propofol (Diprivan 20 Ml) Confirm Administered Dose 200 mg .ROUTE .ST-MED ONE Stop: 12/04/18 09:11 - Exam Quality Assessment: Supplemental Oxygen General: Alert, Cooperative, Lethargic. No: Oriented HEENT: Other (eyelids are swollen, left greater than right) Lungs: Normal Respiratory Effort, Crackles (both bases) Cardiovascular: Regular Rate, Irregular Rhythm GI/Abdominal Exam: Soft, No Distention Extremities: No Pedal Edema, Other (edema of both arms as well as both legs around the thigh) Psy/Mental Status: Alert, Normal Affect Consult PN Assessment/Plan POD#: 4 Procedures: Procedures APPLY FOREARM SPLINT (07/01/13) ASSAY OF AMYLASE (04/25/15) ASSAY OF CREATININE (08/22/18) ASSAY OF DIGOXIN TOTAL (02/24/18) ASSAY OF LIPASE (02/16/18) ASSAY OF NATRIURETIC PEPTIDE (10/13/14) ASSAY OF TROPONIN QUANT (02/16/18) C-REACTIVE PROTEIN (02/16/18) CATARACT SURG W/IOL 1 STAGE (06/03/16) CHEST X-RAY 1 VIEW FRONTAL (01/14/15) CHEST X-RAY 2VW FRONTAL&LATL (10/13/14) CINE/VID X-RAY THROAT/ESOPH (11/14/13) COMPLETE CBC AUTOMATED (03/01/18) COMPLETE CBC W/AUTO DIFF WBC (05/05/18) COMPREHEN METABOLIC PANEL (03/01/18) CT ABD & PELVIS W/O CONTRAST (04/25/15) CT ANGIO ABDOM W/O & W/DYE (08/25/18) CT ANGIOGRAPH PELV W/O&W/DYE (08/25/18) CT HEAD/BRAIN W/O DYE (05/05/18) CT LUMBAR SPINE W/O DYE (08/22/18) CT NECK SPINE W/O DYE (05/05/18) ELECTROCARDIOGRAM TRACING (02/24/18) EMERGENCY DEPT VISIT (05/05/18) EMERGENCY DEPT VISIT (05/05/18) EMERGENCY DEPT VISIT (02/16/18) EMERGENCY DEPT VISIT (02/06/18) EMERGENCY DEPT VISIT (11/30/16) EMERGENCY DEPT VISIT (04/25/15) EMERGENCY DEPT VISIT (01/14/15) EMERGENCY DEPT VISIT (01/14/15) EMERGENCY DEPT VISIT (01/03/15) EMERGENCY DEPT VISIT (10/26/14) EMERGENCY DEPT VISIT (07/01/13) EXTRACRANIAL BILAT STUDY (04/09/14) GAIT TRAINING THERAPY (01/14/15) HEPATIC FUNCTION PANEL (04/25/15) HOT OR COLD PACKS THERAPY (10/10/13) HYDRATE IV INFUSION ADD-ON (10/03/16) HYDRATION IV INFUSION INIT (02/16/18) MANUAL THERAPY 1/> REGIONS (12/10/16) METABOLIC PANEL TOTAL CA (05/05/18) MICROBE SUSCEPTIBLE [place] (02/24/18) MOTION FLUOROSCOPY/SWALLOW (11/14/13) MRI CHEST SPINE W/O DYE (04/27/17) MRI LUMBAR SPINE W/O DYE (04/27/17) MRI PELVIS W/O DYE (04/27/17) NJX INTERLAMINAR LMBR/SAC (10/18/18) ORAL FUNCTION THERAPY (11/14/13) ORTHOTIC MGMT&TRAINJ 1ST ENC (09/10/13) OT EVALUATION (09/10/13) PROTHROMBIN TIME (06/01/18) PT EVAL LOW COMPLEX 20 MIN (03/01/18) PT EVAL MOD COMPLEX 30 MIN (11/05/16) PT EVALUATION (01/14/15) ROUTINE VENIPUNCTURE (08/22/18) THER/PROPH/DIAG INJ IV PUSH (10/03/16) THER/PROPH/DIAG INJ SC/IM (11/30/16) THERAPEUTIC ACTIVITIES (03/01/18) THERAPEUTIC EXERCISES (12/10/16) TTE W/DOPPLER COMPLETE (04/08/16) TX/PRO/DX INJ NEW DRUG ADDON (10/03/16) ULTRASOUND THERAPY (11/05/16) UPR/L XTREMITY ART 2 LEVELS (11/25/14) URINALYSIS AUTO W/SCOPE (05/05/18) URINE BACTERIA CULTURE (02/24/18) URINE CULTURE/COLONY COUNT (05/05/18) US EXAM ABDO BACK WALL YOUNG (06/23/17) US EXAM ABDOM COMPLETE (12/29/17) US URINE CAPACITY MEASURE (02/09/18) X-RAY EXAM ABDOMEN 1 VIEW (08/22/18) X-RAY EXAM CHEST 1 VIEW (02/06/18) X-RAY EXAM CHEST 2 VIEWS (02/24/18) X-RAY EXAM L-2 SPINE 4/>VWS (10/07/16) X-RAY EXAM OF ABDOMEN (11/30/16) X-RAY EXAM OF ELBOW (01/03/15) X-RAY EXAM OF HIP (01/14/15) X-RAY EXAM OF SHOULDER (01/03/15) X-RAY EXAM OF WRIST (01/14/15) X-RAY EXAM OF WRIST (01/03/15) X-RAY EXAM OF WRIST (07/01/13) X-RAY EXAM UNILAT RIBS/CHEST (10/26/14) Problem List Initiated/Reviewed/Updated: Yes My Orders Last 24 Hours: My Active Orders 12/07/18 14:00 Acetaminophen [Tylenol Extra Strength] 1,000 mg PO TID 12/07/18 15:09 Haloperidol Lactate [Haldol] 1 mg IVPUSH Q4H PRN 12/07/18 17:00 Furosemide [Lasix] 40 mg IVPUSH Q8H 12/07/18 21:00 Melatonin 9 mg PO BEDTIME 12/08/18 09:54 Daily Weight [Height and Weight] [RC] DAILY 12/09/18 05:00 BASIC METABOLIC PANEL,BMP [CHEM] Timed CBC W/O DIFF,HEMOGRAM [HEME] Timed (1) Plan: ASSESSMENT AND PLAN - Systolic congestive heart failure - complicated by significant valvular disease. excellent response to diuresis but still evidence for volume overload. still has JVD to the earlobe. -Daily weights -Furosemide 40 mg IV every 8 hours -Supplement oxygen -Strict intake and output with Khan catheter in place -Continue carvedilol, hold if heart rate less than 60 Anemia due to acute blood loss - hemoglobin responded well to transfusion and diuresis. -Repeat hemoglobin tomorrow morning Mixed delirium - likely secondary to combination of recent surgery as well as pain medications and probable underlying dementia. She is very somnolent at this time but has had mild episodes of agitation over the past 24 hours. -Melatonin at bedtime Acute urinary retention - I suspect the significant edema in the groin area is contributing to her urinary retention. Hopefully diuresis will help alleviate this difficulty. - Continue Khan catheter Chronic atrial fibrillation - currently rate controlled. -Continue carvedilol and digoxin -Cardiac monitoring with borderline bradycardia Comminuted left hip fracture - status post ORIF with intramedullary nailing. She appears very comfortable at this time. There is some oozing from the incision over the proximal hip but I suspect this is related to her edema from heart failure. -Pain control -Physical therapy as able Recent urinary tract infection - she has completed adequate antibiotic therapy. Maintenance issues - - DVT prophylaxis - mechanical with declining hemoglobin - GI prophylaxis - PPI - Nutrition - low sodium diet - Khan catheter - placed secondary to urinary retention which is discussed above Disposition - I anticipate discharge to a snf facility after the hospital stay Tommie Glasgow M.D.
[2018-12-08] MEDS: Digoxin 125 MCG Tab PO SCH (13:38)
--- NOTE | 2018-12-08 16:11 | PCM.SN ---
- Free Text/Narrative Note: 12/08/2018 1600 Pt very somnolent and lethargic. Still hypoxic. Vitals stable. Labs checked. Trop mildly elevated at 0.13 probably 2/2 demand ischemia with hypoxia and CHF. ABG with compensated resp acidosis and PCO2 of 53. Kidney function and electrolytes ok. Will continue to diurese and supplement oxygen. Will get trop in 4 hours. Andrae Glasgow MD
[2018-12-08] MEDS: Melatonin 3 MG Tab PO SCH (20:47)
[2018-12-08] MEDS: LORazepam 1 MG Tab PO SCH (20:54)
[2018-12-09] MEDS: Furosemide 40 MG/4 ML VIAL IVPUSH SCH ×3 (00:30→14:35)
[2018-12-09] MEDS: Hypromellose 0.4% Ophth Soln 15 ML Bottle EYEBOTH SCH ×4 (06:25→21:00)
--- NOTE | 2018-12-09 09:35 | PCM.CONSN ---
- General Info Date of Service: 12/09/18 Subjective Update: There were no acute events overnight. Patient was fairly somnolent yesterday and this led to rechecking arterial blood gases as well as a troponin. She had persistent but compensated respiratory acidosis. Troponin was mildly elevated and level has been stable suggesting demand ischemia with congestive heart failure and hypoxia. She is more alert and interactive today though she does remain somnolent. She does not say that she feels short of breath. She is complaining of a "belt" around her lower abdomen. She is complaining of left thigh pain. Functional Status: Reports: Pain Controlled - Review of Systems General: Reports: Weakness. Denies: Fever Neurological: Reports: Confusion - Patient Data Vitals - Most Recent: Last Vital Signs Temp 35.9 C 12/09/18 08:22 Pulse 77 12/09/18 08:22 Resp 18 12/09/18 08:22 BP 119/77 12/09/18 08:22 Pulse Ox 93 L 12/09/18 08:22 Weight - Most Recent: 61.689 kg I&O - Last 24 Hours: Intake & Output 12/08/18 12/09/18 12/09/18 22:59 06:59 14:59 Intake Total 0 Output Total 1150 1300 Balance -1150 -1300 Lab Results Last 24 Hours: Laboratory Results - last 24 hr 12/08/18 12/08/18 12/08/18 Range/Units 15:21 15:37 20:00 WBC (4.5-11.0) K/uL RBC (3.30-5.50) M/uL Hgb (12.0-15.0) g/dL Hct (36.0-48.0) % MCV (80-98) fL MCH (27-31) pg MCHC (32-36) % Plt Count (150-400) K/uL Puncture Site Rt brachial ABG pH 7.435 (7.350-7.450) ABG pCO2 53.3 H (35.0-42.0) mmHg ABG pO2 89.8 (75.0-100.0) mmHg ABG HCO3 35.2 H (22.0-26.0) mmol/L ABG Total CO2 32.6 H (21.0-25.0) mmol/L ABG O2 Saturation 97.3 (95.0-98.0) % ABG O2 Content 13.2 L (15.0-23.0) %vol ABG Base Excess 9.9 mm/L ABG Hemoglobin 9.8 L (12.0-16.0) g/dL ABG Oxyhemoglobin 95.2 % ABG Carboxyhemoglobin 1.4 (0.0-1.6) % ABG Methemoglobin 0.8 % Keenan Test Not performed O2 Delivery Device Nasal cannula Oxygen Flow Rate 5 L Sodium 145 (140-148) mmol/L Potassium 3.7 (3.6-5.2) mmol/L Chloride 105 (100-108) mmol/L Carbon Dioxide 33 H (21-32) mmol/L Anion Gap 10.7 (5.0-14.0) mmol/L BUN 27 H (7-18) mg/dL Creatinine 0.8 (0.6-1.0) mg/dL Est Cr Clr Drug Dosing 50.07 mL/min Estimated GFR (MDRD) > 60 (>60) Glucose 118 H (74-106) mg/dL Calcium 9.7 (8.5-10.1) mg/dL Troponin I 0.130 H* 0.105 H* (0.000-0.056) ng/mL Digoxin 1.49 (0.90-2.00) ng/mL 12/09/18 12/09/18 Range/Units 05:46 05:46 WBC 9.0 (4.5-11.0) K/uL RBC 3.27 L (3.30-5.50) M/uL Hgb 10.1 L (12.0-15.0) g/dL Hct 32.2 L (36.0-48.0) % MCV 99 H (80-98) fL MCH 31 (27-31) pg MCHC 31 L (32-36) % Plt Count 139 L (150-400) K/uL Puncture Site ABG pH (7.350-7.450) ABG pCO2 (35.0-42.0) mmHg ABG pO2 (75.0-100.0) mmHg ABG HCO3 (22.0-26.0) mmol/L ABG Total CO2 (21.0-25.0) mmol/L ABG O2 Saturation (95.0-98.0) % ABG O2 Content (15.0-23.0) %vol ABG Base Excess mm/L ABG Hemoglobin (12.0-16.0) g/dL ABG Oxyhemoglobin % ABG Carboxyhemoglobin (0.0-1.6) % ABG Methemoglobin % Keenan Test O2 Delivery Device Oxygen Flow Rate L Sodium 144 (140-148) mmol/L Potassium 3.2 L (3.6-5.2) mmol/L Chloride 101 (100-108) mmol/L Carbon Dioxide 36 H (21-32) mmol/L Anion Gap 10.2 (5.0-14.0) mmol/L BUN 30 H (7-18) mg/dL Creatinine 0.8 (0.6-1.0) mg/dL Est Cr Clr Drug Dosing 50.07 mL/min Estimated GFR (MDRD) > 60 (>60) Glucose 113 H (74-106) mg/dL Calcium 9.1 (8.5-10.1) mg/dL Troponin I 0.111 H* (0.000-0.056) ng/mL Digoxin (0.90-2.00) ng/mL Med Orders - Current: Current Medications Acetaminophen (Tylenol Extra Strength) 1,000 mg PO TID [facility] Last Admin: 12/08/18 20:50 Dose: 1,000 mg Al Hydroxide/Mg Hydroxide (Mag-Al Plus) 10 ml PO ASDIRECTED PRN PRN Reason: INDIGESTION Artificial Tears (Natural Balance Tears) 0 ml EYEBOTH QID [facility] Last Admin: 12/09/18 06:25 Dose: Not Given Bandage/Support Products ( Nasal Hospital Admissions Officer) 1 applic NASBOTH BID [facility] Last Admin: 12/08/18 20:46 Dose: 1 applic Calcium Carbonate/Glycine (Tums) 500 mg PO DAILY [facility] Last Admin: 12/08/18 08:02 Dose: 500 mg Carvedilol (Coreg) 6.25 mg PO BID [facility] Last Admin: 12/08/18 20:47 Dose: 6.25 mg Cholecalciferol (Vitamin D3) 1,000 units PO DAILY [facility] Last Admin: 12/08/18 08:03 Dose: 1,000 units Digoxin (Lanoxin) 125 mcg PO DAILY@13 [facility] Last Admin: 12/08/18 13:38 Dose: 125 mcg Docusate Sodium (Colace) 100 mg PO BID PRN PRN Reason: Constipation Last Admin: 12/06/18 11:18 Dose: 100 mg Gabapentin (Neurontin) 100 mg PO TID [facility] Last Admin: 12/08/18 20:49 Dose: 100 mg Guaifenesin/Dextromethorphan (Robitussin Dm) 10 ml PO ASDIRECTED PRN PRN Reason: COUGH Haloperidol Lactate (Haldol) 1 mg IVPUSH Q4H PRN PRN Reason: Agitation Hydrocortisone (Hydrocortisone 1% Crm) 0 gm TOP ASDIRECTED [facility] Potassium Chloride 20 meq/Lidocaine HCl 2 ml/ Sodium Chloride 112 mls @ 56 mls/ hr IV Q2H [facility] Stop: 12/09/18 13:59 Loperamide HCl (Imodium) 2 mg PO ASDIRECTED PRN PRN Reason: DIARRHEA Lorazepam (Ativan) 2 mg PO BEDTIME [facility] Last Admin: 12/08/18 20:54 Dose: 2 mg Magnesium Hydroxide (Milk Of Magnesia) 30 ml PO DAILY PRN PRN Reason: Constipation Last Admin: 12/06/18 11:18 Dose: 30 ml Melatonin (Melatonin) 9 mg PO BEDTIME [facility] Last Admin: 12/08/18 20:47 Dose: 9 mg Multivitamins/Minerals (Prosight) 1 tab PO BID [facility] Last Admin: 12/08/18 20:50 Dose: 1 tab Naloxone HCl (Narcan) 0.1 mg IV ASDIRECTED PRN PRN Reason: decreased respiratory rate Ondansetron HCl (Zofran) 4 mg IV Q4H PRN PRN Reason: Nausea/Vomiting Last Admin: 12/02/18 16:33 Dose: 4 mg Oxycodone HCl (Oxycodone) 5 mg PO Q4H PRN PRN Reason: Pain Last Admin: 12/08/18 07:47 Dose: 5 mg Discontinued Medications Acetaminophen (Tylenol) 650 mg PO BID PRN PRN Reason: Pain Acetaminophen (Tylenol) 325 mg PO QID [facility] Last Admin: 12/02/18 12:10 Dose: 325 mg Acetaminophen (Tylenol) 650 mg PO QID [facility] Last Admin: 12/07/18 09:15 Dose: 650 mg Acetaminophen (Tylenol) 650 mg RECTAL QID PRN PRN Reason: Pain Amoxicillin (Amoxil) 500 mg PO Q8H [facility] Amoxicillin (Amoxil) 500 mg PO ONETIME ONE Stop: 12/02/18 11:31 Last Admin: 12/02/18 12:10 Dose: 500 mg Divalproex Sodium (Divalproex Sodium) 250 mg PO ONETIME ONE Stop: 12/05/18 18:01 Last Admin: 12/05/18 17:38 Dose: Not Given Divalproex Sodium (Divalproex Sodium) 250 mg PO DAILY [facility] Last Admin: 12/07/18 09:23 Dose: 250 mg Ephedrine Sulfate (Ephedrine Sulfate) Confirm Administered Dose 50 mg .ROUTE .STK-MED ONE Stop: 12/04/18 12:26 Fentanyl (Sublimaze) 50 mcg IVPUSH ONETIME ONE Stop: 12/02/18 04:25 Last Admin: 12/02/18 04:27 Dose: 50 mcg Fentanyl (Sublimaze) Confirm Administered Dose 100 mcg .ROUTE .STK-MED ONE Stop: 12/04/18 09:11 Furosemide (Lasix) 20 mg IVPUSH ONETIME ONE Stop: 12/05/18 11:31 Last Admin: 12/05/18 11:39 Dose: 20 mg Furosemide (Lasix) 20 mg IVPUSH ONETIME ONE Stop: 12/07/18 10:41 Last Admin: 12/07/18 10:51 Dose: 20 mg Furosemide (Lasix) 40 mg IVPUSH Q8H [facility] Last Admin: 12/09/18 00:56 Dose: 40 mg Hydromorphone HCl (Dilaudid) 0.5 mg IVPUSH ONETIME ONE Stop: 12/02/18 05:48 Last Admin: 12/02/18 05:54 Dose: 0.5 mg Hydromorphone HCl (Dilaudid Motor Electrician 15 Mg In Ns 30 Ml) 0 mg IV ASDIRECTED PRN; Protocol PRN 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: 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 Last Admin: 12/02/18 09:09 Dose: 15 mg Hydromorphone HCl (Dilaudid) 0.2 mg IVPUSH Q1H PRN PRN Reason: Pain Last Admin: 12/04/18 18:32 Dose: 0.2 mg Lactated Ringer's (Ringers, Lactated) 1,000 mls @ 125 mls/hr IV ASDIRECTED [facility] Last Admin: 12/02/18 06:53 Dose: 125 mls/hr Sodium Chloride (Normal Saline) 1,000 mls @ 100 mls/hr IV ASDIRECTED [facility] Last Admin: 12/02/18 21:10 Dose: 75 mls/hr Ampicillin Sodium 1 gm/ Sodium (Chloride) 50 mls @ 100 mls/hr IV Q8H [facility] Last Admin: 12/04/18 05:37 Dose: 100 mls/hr Sodium Chloride (Normal Saline) 250 mls @ 999 mls/hr IV .BOLUS ONE Stop: 12/03/18 12:18 Last Admin: 12/03/18 12:13 Dose: 999 mls/hr Sodium Chloride (Normal Saline) 250 mls @ 999 mls/hr IV .BOLUS ONE Stop: 12/03/18 13:55 Last Admin: 12/03/18 13:46 Dose: 999 mls/hr Sodium Chloride (Normal Saline) 1,000 mls @ 75 mls/hr IV ASDIRECTED [facility] Last Admin: 12/07/18 08:25 Dose: 125 mls/hr Levofloxacin/Dextrose 250 mg/ (Premix) 50 mls @ 50 mls/hr IV Q24H [facility] Stop: 12/06/18 08:59 Last Admin: 12/05/18 07:44 Dose: 50 mls/hr Cefazolin Sodium/Dextrose 1 gm (/ Premix) 50 mls @ 100 mls/hr IV ONETIME ONE Stop: 12/04/18 08:29 Last Admin: 12/04/18 10:30 Dose: 100 mls/hr Sodium Chloride (Normal Saline) Confirm Administered Dose 10 mls @ as directed .ROUTE .STK-MED ONE Stop: 12/04/18 11:44 Lactated Ringer's (Ringers, Lactated) Confirm Administered Dose 1,000 mls @ as directed .ROUTE .STK-MED ONE Stop: 12/04/18 12:25 Sodium Chloride (Normal Saline) Confirm Administered Dose 250 mls @ as directed .ROUTE .STK-MED ONE Stop: 12/04/18 12:55 Sodium Chloride (Normal Saline) Confirm Administered Dose 250 mls @ as directed .ROUTE .STK-MED ONE Stop: 12/04/18 12:56 Cefazolin Sodium/Dextrose 1 gm (/ Premix) 50 mls @ 100 mls/hr IV Q8H [facility] Stop: 12/05/18 02:29 Last Admin: 12/05/18 01:18 Dose: 100 mls/hr Levofloxacin (Levaquin) 250 mg PO ACBREAKFAST RACHELLE Stop: 12/06/18 07:31 Last Admin: 12/06/18 08:07 Dose: 250 mg Midazolam HCl (Versed 1 Mg/Ml) Confirm Administered Dose 2 mg .ROUTE .STK-MED ONE Stop: 12/04/18 09:11 Ondansetron HCl (Zofran Odt) 4 mg PO ONETIME ONE Stop: 12/02/18 06:47 Last Admin: 12/02/18 06:51 Dose: 4 mg Oxycodone/Acetaminophen (Percocet 325-5 Mg) 1 tab PO Q6H PRN PRN Reason: Pain (severe 7-10) Last Admin: 12/07/18 06:14 Dose: 1 tab Phenylephrine HCl (Fidel-Synephrine) Confirm Administered Dose 10 mg .ROUTE .STK- MED ONE Stop: 12/04/18 12:26 Pneumococcal Polyvalent Vaccine (Pneumovax 23) 0.5 ml IM .ONCE ONE Stop: 12/06/18 12:01 Last Admin: 12/06/18 13:10 Dose: 0.5 ml Povidone Iodine (Betadine 10% Soln) Confirm Administered Dose 1 ml .ROUTE .STK- MED ONE Stop: 12/04/18 12:36 Propofol (Diprivan 20 Ml) Confirm Administered Dose 200 mg .ROUTE .STK-MED ONE Stop: 12/04/18 09:11 - Exam Quality Assessment: Supplemental Oxygen General: Alert, Cooperative, No Acute Distress, Lethargic. No: Oriented Lungs: Normal Respiratory Effort, Crackles (few at both bases) Cardiovascular: Regular Rhythm, Irregular Rhythm GI/Abdominal Exam: Normal Bowel Sounds, Soft, Non-Tender, No Distention Extremities: No Pedal Edema. No: Increased Warmth Skin: Warm, Dry Psy/Mental Status: Alert. No: Agitated Consult PN Assessment/Plan POD#: 5 Procedures: Procedures APPLY FOREARM SPLINT (07/01/13) ASSAY OF AMYLASE (04/25/15) ASSAY OF CREATININE (08/22/18) ASSAY OF DIGOXIN TOTAL (02/24/18) ASSAY OF LIPASE (02/16/18) ASSAY OF NATRIURETIC PEPTIDE (10/13/14) ASSAY OF TROPONIN QUANT (02/16/18) C-REACTIVE PROTEIN (02/16/18) CATARACT SURG W/IOL 1 STAGE (06/03/16) CHEST X-RAY 1 VIEW FRONTAL (01/14/15) CHEST X-RAY 2VW FRONTAL&LATL (10/13/14) CINE/VID X-RAY THROAT/ESOPH (11/14/13) COMPLETE CBC AUTOMATED (03/01/18) COMPLETE CBC W/AUTO DIFF WBC (05/05/18) COMPREHEN METABOLIC PANEL (03/01/18) CT ABD & PELVIS W/O CONTRAST (04/25/15) CT ANGIO ABDOM W/O & W/DYE (08/25/18) CT ANGIOGRAPH PELV W/O&W/DYE (08/25/18) CT HEAD/BRAIN W/O DYE (05/05/18) CT LUMBAR SPINE W/O DYE (08/22/18) CT NECK SPINE W/O DYE (05/05/18) ELECTROCARDIOGRAM TRACING (02/24/18) EMERGENCY DEPT VISIT (05/05/18) EMERGENCY DEPT VISIT (05/05/18) EMERGENCY DEPT VISIT (02/16/18) EMERGENCY DEPT VISIT (02/06/18) EMERGENCY DEPT VISIT (11/30/16) EMERGENCY DEPT VISIT (04/25/15) EMERGENCY DEPT VISIT (01/14/15) EMERGENCY DEPT VISIT (01/14/15) EMERGENCY DEPT VISIT (01/03/15) EMERGENCY DEPT VISIT (10/26/14) EMERGENCY DEPT VISIT (07/01/13) EXTRACRANIAL BILAT STUDY (04/09/14) GAIT TRAINING THERAPY (01/14/15) HEPATIC FUNCTION PANEL (04/25/15) HOT OR COLD PACKS THERAPY (10/10/13) HYDRATE IV INFUSION ADD-ON (10/03/16) HYDRATION IV INFUSION INIT (02/16/18) MANUAL THERAPY 1/> REGIONS (12/10/16) METABOLIC PANEL TOTAL CA (05/05/18) MICROBE SUSCEPTIBLE [place] (02/24/18) MOTION FLUOROSCOPY/SWALLOW (11/14/13) MRI CHEST SPINE W/O DYE (04/27/17) MRI LUMBAR SPINE W/O DYE (04/27/17) MRI PELVIS W/O DYE (04/27/17) NJX INTERLAMINAR LMBR/SAC (10/18/18) ORAL FUNCTION THERAPY (11/14/13) ORTHOTIC MGMT&TRAINJ 1ST ENC (09/10/13) OT EVALUATION (09/10/13) PROTHROMBIN TIME (06/01/18) PT EVAL LOW COMPLEX 20 MIN (03/01/18) PT EVAL MOD COMPLEX 30 MIN (11/05/16) PT EVALUATION (01/14/15) ROUTINE VENIPUNCTURE (08/22/18) THER/PROPH/DIAG INJ IV PUSH (10/03/16) THER/PROPH/DIAG INJ SC/IM (11/30/16) THERAPEUTIC ACTIVITIES (03/01/18) THERAPEUTIC EXERCISES (12/10/16) TTE W/DOPPLER COMPLETE (04/08/16) TX/PRO/DX INJ NEW DRUG ADDON (10/03/16) ULTRASOUND THERAPY (11/05/16) UPR/L XTREMITY ART 2 LEVELS (11/25/14) URINALYSIS AUTO W/SCOPE (05/05/18) URINE BACTERIA CULTURE (02/24/18) URINE CULTURE/COLONY COUNT (05/05/18) US EXAM ABDO BACK WALL YOUNG (06/23/17) US EXAM ABDOM COMPLETE (12/29/17) US URINE CAPACITY MEASURE (02/09/18) X-RAY EXAM ABDOMEN 1 VIEW (08/22/18) X-RAY EXAM CHEST 1 VIEW (02/06/18) X-RAY EXAM CHEST 2 VIEWS (02/24/18) X-RAY EXAM L-2 SPINE 4/>VWS (10/07/16) X-RAY EXAM OF ABDOMEN (11/30/16) X-RAY EXAM OF ELBOW (01/03/15) X-RAY EXAM OF HIP (01/14/15) X-RAY EXAM OF SHOULDER (01/03/15) X-RAY EXAM OF WRIST (01/14/15) X-RAY EXAM OF WRIST (01/03/15) X-RAY EXAM OF WRIST (07/01/13) X-RAY EXAM UNILAT RIBS/CHEST (10/26/14) Problem List Initiated/Reviewed/Updated: Yes My Orders Last 24 Hours: My Active Orders 12/08/18 09:54 Daily Weight [Height and Weight] [RC] DAILY 12/09/18 09:31 Discontinue Telemetry Monitoring [Cardiac Monitoring Discontinue] [RC] Click to Edit 12/09/18 10:00 Potassium Chloride 20 meq Lidocaine 1% [Xylocaine 1%] 2 ml Sodium Chloride 0.9 % [Normal Saline] 100 ml IV Q2H 12/09/18 Lunch Mechanical Soft Diet [DIET] 12/10/18 05:00 BASIC METABOLIC PANEL,BMP [CHEM] Timed CBC W/O DIFF,HEMOGRAM [HEME] Timed (1) TROPONIN I [CHEM] Timed Plan: ASSESSMENT AND PLAN - Systolic congestive heart failure - complicated by significant valvular disease. Excellent response to diuresis and JVD has resolved. I plan to hold diuretics today and reassess this afternoon. -Daily weights -Hold diuretics -Supplement oxygen -Strict intake and output with Khan catheter in place -Continue carvedilol, hold if heart rate less than 60 Elevated troponin - mild and likely secondary to demand ischemia with hypoxia and CHF. -Repeat level in the morning Anemia due to acute blood loss - hemoglobin increased today from yesterday. -Repeat hemoglobin tomorrow morning Mixed delirium - likely secondary to combination of recent surgery as well as pain medications and probable underlying dementia. She is very somnolent yet but more interactive than she has been in the past 2 days. She does answer questions appropriately. -Melatonin at bedtime Acute urinary retention - I suspect the significant edema in the groin area is contributing to her urinary retention. Hopefully diuresis will help alleviate this difficulty. If her mental status clears a little further we could try without the catheter tomorrow. - Continue Khan catheter Chronic atrial fibrillation - currently rate controlled. -Continue carvedilol and digoxin -Cardiac monitoring with borderline bradycardia Comminuted left hip fracture - status post ORIF with intramedullary nailing. She appears very comfortable at this time. -Pain control -Physical therapy as able Recent urinary tract infection - she has completed adequate antibiotic therapy. Maintenance issues - - DVT prophylaxis - mechanical with declining hemoglobin - GI prophylaxis - PPI - Nutrition - low sodium diet - Khan catheter - placed secondary to urinary retention which is discussed above Disposition - I anticipate discharge to a detention facility after the hospital stay Tommie Glasgow M.D.
[2018-12-09] MEDS: Carvedilol 6.25 MG Tab PO SCH ×2 (09:59→20:41)
[2018-12-09] MEDS: Gabapentin 100 MG Cap PO SCH ×3 (10:01→20:40)
[2018-12-09] MEDS: Beta-Carotene (Vitamin A) w/Vitamin C & E plus Minerals Tab PO SCH ×2 (10:02→20:41)
[2018-12-09] MEDS: Acetaminophen 500 MG Tab PO SCH ×3 (10:02→20:41)
[2018-12-09] MEDS: Calcium Carbonate 500 MG Tab.Chew PO SCH (10:02)
[2018-12-09] MEDS: Cholecalciferol (Vitamin D3) 1,000 Unit Tab PO SCH (10:02)
[2018-12-09] MEDS: Nozin Nasal Sanitizer NASBOTH SCH ×2 (10:59→20:40)
[2018-12-09] MEDS: Potassium Chloride 20 MEQ, Lidocaine 1% 2 ML in Sodium Chloride 0.9% 100 ML IV SCH ×2 (11:18→13:30)
[2018-12-09] MEDS: Digoxin 125 MCG Tab PO SCH (13:17)
[2018-12-09] MEDS: Docusate Sodium 100 MG Cap PO PRN ×2 (13:22→20:55)
[2018-12-09] MEDS: Magnesium Hydroxide 400 MG/5 ML Susp 30 ML Cup PO PRN (15:57)
[2018-12-09] MEDS: Melatonin 3 MG Tab PO SCH (20:40)
[2018-12-09] MEDS: LORazepam 1 MG Tab PO SCH (20:40)
[2018-12-10] MEDS: Hypromellose 0.4% Ophth Soln 15 ML Bottle EYEBOTH SCH ×4 (06:10→21:13)
[2018-12-10] MEDS: Nozin Nasal Sanitizer NASBOTH SCH ×2 (09:21→21:14)
[2018-12-10] MEDS: Cholecalciferol (Vitamin D3) 1,000 Unit Tab PO SCH (09:23)
[2018-12-10] MEDS: Calcium Carbonate 500 MG Tab.Chew PO SCH (09:23)
[2018-12-10] MEDS: Gabapentin 100 MG Cap PO SCH ×3 (09:23→21:14)
[2018-12-10] MEDS: Acetaminophen 500 MG Tab PO SCH ×3 (09:24→21:10)
[2018-12-10] MEDS: Carvedilol 6.25 MG Tab PO SCH ×2 (09:25→21:10)
--- NOTE | 2018-12-10 10:08 | PCM.CONSN ---
- General Info Date of Service: 12/10/18 Subjective Update: There were no acute events overnight. Patient was fairly somnolent throughout the afternoon but is alert and interactive this morning. Speech is a little bit difficult to understand. On occasion she is noted to have difficulty trying to swallow. She remains on 4 L of supplemental oxygen. She is complaining of a heavy weight on her feet this morning but there is not even a sheet covering her feet. She does not complain of hip pain today. She reports that she is hungry. Hemoglobin stable. Functional Status: Reports: Pain Controlled - Patient Data Vitals - Most Recent: Last Vital Signs Temp 36.4 C 12/10/18 07:53 Pulse 73 12/10/18 09:25 Resp 20 12/10/18 07:53 BP 109/44 L 12/10/18 09:25 Pulse Ox 98 12/10/18 07:53 Weight - Most Recent: 60.736 kg I&O - Last 24 Hours: Intake & Output 12/09/18 12/10/18 12/10/18 22:59 06:59 14:59 Output Total 600 200 Balance -600 -200 Lab Results Last 24 Hours: Laboratory Results - last 24 hr 12/10/18 12/10/18 Range/Units 05:39 05:39 WBC 7.0 (4.5-11.0) K/uL RBC 3.21 L (3.30-5.50) M/uL Hgb 10.1 L (12.0-15.0) g/dL Hct 32.1 L (36.0-48.0) % MCV 100 H (80-98) fL MCH 32 H (27-31) pg MCHC 32 (32-36) % Plt Count 132 L (150-400) K/uL Sodium 145 (140-148) mmol/L Potassium 3.9 (3.6-5.2) mmol/L Chloride 105 (100-108) mmol/L Carbon Dioxide 38 H (21-32) mmol/L Anion Gap 5.9 (5.0-14.0) mmol/L BUN 40 H (7-18) mg/dL Creatinine 0.8 (0.6-1.0) mg/dL Est Cr Clr Drug Dosing 49.29 mL/min Estimated GFR (MDRD) > 60 (>60) Glucose 105 (74-106) mg/dL Calcium 9.2 (8.5-10.1) mg/dL Troponin I 0.082 H* (0.000-0.056) ng/mL Med Orders - Current: Current Medications Acetaminophen (Tylenol Extra Strength) 1,000 mg PO TID [facility] Last Admin: 12/10/18 09:24 Dose: 1,000 mg Al Hydroxide/Mg Hydroxide (Mag-Al Plus) 10 ml PO ASDIRECTED PRN PRN Reason: INDIGESTION Artificial Tears (Natural Balance Tears) 0 ml EYEBOTH QID [facility] Last Admin: 12/10/18 06:10 Dose: 1 each Bandage/Support Products ( Nasal Unit Controller) 1 applic NASBOTH BID [facility] Last Admin: 12/10/18 09:21 Dose: 1 applic Calcium Carbonate/Glycine (Tums) 500 mg PO DAILY [facility] Last Admin: 12/10/18 09:23 Dose: 500 mg Carvedilol (Coreg) 6.25 mg PO BID [facility] Last Admin: 12/10/18 09:25 Dose: 6.25 mg Cholecalciferol (Vitamin D3) 1,000 units PO DAILY [facility] Last Admin: 12/10/18 09:23 Dose: 1,000 units Digoxin (Lanoxin) 125 mcg PO DAILY@13 [facility] Last Admin: 12/09/18 13:17 Dose: 125 mcg Docusate Sodium (Colace) 100 mg PO BID PRN PRN Reason: Constipation Last Admin: 12/09/18 20:55 Dose: 100 mg Gabapentin (Neurontin) 100 mg PO TID [facility] Last Admin: 12/10/18 09:23 Dose: 100 mg Guaifenesin/Dextromethorphan (Robitussin Dm) 10 ml PO ASDIRECTED PRN PRN Reason: COUGH Hydrocortisone (Hydrocortisone 1% Crm) 0 gm TOP ASDIRECTED [facility] Loperamide HCl (Imodium) 2 mg PO ASDIRECTED PRN PRN Reason: DIARRHEA Lorazepam (Ativan) 2 mg PO BEDTIME [facility] Last Admin: 12/09/18 20:40 Dose: 2 mg Magnesium Hydroxide (Milk Of Magnesia) 30 ml PO DAILY PRN PRN Reason: Constipation Last Admin: 12/09/18 15:57 Dose: 30 ml Melatonin (Melatonin) 9 mg PO BEDTIME [facility] Last Admin: 12/09/18 20:40 Dose: 9 mg Multivitamins/Minerals (Prosight) 1 tab PO BID [facility] Last Admin: 12/09/18 20:41 Dose: 1 tab Naloxone HCl (Narcan) 0.1 mg IV ASDIRECTED PRN PRN Reason: decreased respiratory rate Ondansetron HCl (Zofran) 4 mg IV Q4H PRN PRN Reason: Nausea/Vomiting Last Admin: 12/02/18 16:33 Dose: 4 mg Oxycodone HCl (Oxycodone) 5 mg PO Q4H PRN PRN Reason: Pain Last Admin: 12/08/18 07:47 Dose: 5 mg Discontinued Medications Acetaminophen (Tylenol) 650 mg PO BID PRN PRN Reason: Pain Acetaminophen (Tylenol) 325 mg PO QID [facility] Last Admin: 12/02/18 12:10 Dose: 325 mg Acetaminophen (Tylenol) 650 mg PO QID [facility] Last Admin: 12/07/18 09:15 Dose: 650 mg Acetaminophen (Tylenol) 650 mg RECTAL QID PRN PRN Reason: Pain Amoxicillin (Amoxil) 500 mg PO Q8H [facility] Amoxicillin (Amoxil) 500 mg PO ONETIME ONE Stop: 12/02/18 11:31 Last Admin: 12/02/18 12:10 Dose: 500 mg Divalproex Sodium (Divalproex Sodium) 250 mg PO ONETIME ONE Stop: 12/05/18 18:01 Last Admin: 12/05/18 17:38 Dose: Not Given Divalproex Sodium (Divalproex Sodium) 250 mg PO DAILY [facility] Last Admin: 12/07/18 09:23 Dose: 250 mg Ephedrine Sulfate (Ephedrine Sulfate) Confirm Administered Dose 50 mg .ROUTE .STK-MED ONE Stop: 12/04/18 12:26 Fentanyl (Sublimaze) 50 mcg IVPUSH ONETIME ONE Stop: 12/02/18 04:25 Last Admin: 12/02/18 04:27 Dose: 50 mcg Fentanyl (Sublimaze) Confirm Administered Dose 100 mcg .ROUTE .STK-MED ONE Stop: 12/04/18 09:11 Furosemide (Lasix) 20 mg IVPUSH ONETIME ONE Stop: 12/05/18 11:31 Last Admin: 12/05/18 11:39 Dose: 20 mg Furosemide (Lasix) 20 mg IVPUSH ONETIME ONE Stop: 12/07/18 10:41 Last Admin: 12/07/18 10:51 Dose: 20 mg Furosemide (Lasix) 40 mg IVPUSH Q8H [facility] Last Admin: 12/09/18 14:35 Dose: Not Given Haloperidol Lactate (Haldol) 1 mg IVPUSH Q4H PRN PRN Reason: Agitation Hydromorphone HCl (Dilaudid) 0.5 mg IVPUSH ONETIME ONE Stop: 12/02/18 05:48 Last Admin: 12/02/18 05:54 Dose: 0.5 mg Hydromorphone HCl (Dilaudid Recreational Vehicle Repairer 15 Mg In Ns 30 Ml) 0 mg IV ASDIRECTED PRN; Protocol PRN Reason: WEB SYSTEMS DEVELOPER PAIN CONTROL Last Admin: 12/02/18 09:09 Dose: 15 mg Hydromorphone HCl (Dilaudid) 0.2 mg IVPUSH Q1H PRN PRN Reason: Pain Last Admin: 12/04/18 18:32 Dose: 0.2 mg Lactated Ringer's (Ringers, Lactated) 1,000 mls @ 125 mls/hr IV ASDIRECTED [facility] Last Admin: 12/02/18 06:53 Dose: 125 mls/hr Sodium Chloride (Normal Saline) 1,000 mls @ 100 mls/hr IV ASDIRECTED [facility] Last Admin: 12/02/18 21:10 Dose: 75 mls/hr Ampicillin Sodium 1 gm/ Sodium (Chloride) 50 mls @ 100 mls/hr IV Q8H [facility] Last Admin: 12/04/18 05:37 Dose: 100 mls/hr Sodium Chloride (Normal Saline) 250 mls @ 999 mls/hr IV .BOLUS ONE Stop: 12/03/18 12:18 Last Admin: 12/03/18 12:13 Dose: 999 mls/hr Sodium Chloride (Normal Saline) 250 mls @ 999 mls/hr IV .BOLUS ONE Stop: 12/03/18 13:55 Last Admin: 12/03/18 13:46 Dose: 999 mls/hr Sodium Chloride (Normal Saline) 1,000 mls @ 75 mls/hr IV ASDIRECTED [facility] Last Admin: 12/07/18 08:25 Dose: 125 mls/hr Levofloxacin/Dextrose 250 mg/ (Premix) 50 mls @ 50 mls/hr IV Q24H [facility] Stop: 12/06/18 08:59 Last Admin: 12/05/18 07:44 Dose: 50 mls/hr Cefazolin Sodium/Dextrose 1 gm (/ Premix) 50 mls @ 100 mls/hr IV ONETIME ONE Stop: 12/04/18 08:29 Last Admin: 12/04/18 10:30 Dose: 100 mls/hr Sodium Chloride (Normal Saline) Confirm Administered Dose 10 mls @ as directed .ROUTE .STK-MED ONE Stop: 12/04/18 11:44 Lactated Ringer's (Ringers, Lactated) Confirm Administered Dose 1,000 mls @ as directed .ROUTE .STK-MED ONE Stop: 12/04/18 12:25 Sodium Chloride (Normal Saline) Confirm Administered Dose 250 mls @ as directed .ROUTE .STK-MED ONE Stop: 12/04/18 12:55 Sodium Chloride (Normal Saline) Confirm Administered Dose 250 mls @ as directed .ROUTE .STK-MED ONE Stop: 12/04/18 12:56 Cefazolin Sodium/Dextrose 1 gm (/ Premix) 50 mls @ 100 mls/hr IV Q8H [facility] Stop: 12/05/18 02:29 Last Admin: 12/05/18 01:18 Dose: 100 mls/hr Potassium Chloride 20 meq/Lidocaine HCl 2 ml/ Sodium Chloride 112 mls @ 56 mls/ hr IV Q2H [facility] Stop: 12/09/18 13:59 Last Admin: 12/09/18 13:30 Dose: 56 mls/hr Levofloxacin (Levaquin) 250 mg PO ACBREAKFAST [facility] Stop: 12/06/18 07:31 Last Admin: 12/06/18 08:07 Dose: 250 mg Midazolam HCl (Versed 1 Mg/Ml) Confirm Administered Dose 2 mg .ROUTE .STK-MED ONE Stop: 12/04/18 09:11 Ondansetron HCl (Zofran Odt) 4 mg PO ONETIME ONE Stop: 12/02/18 06:47 Last Admin: 12/02/18 06:51 Dose: 4 mg Oxycodone/Acetaminophen (Percocet 325-5 Mg) 1 tab PO Q6H PRN PRN Reason: Pain (severe 7-10) Last Admin: 12/07/18 06:14 Dose: 1 tab Phenylephrine HCl (Fidel-Synephrine) Confirm Administered Dose 10 mg .ROUTE .STK- MED ONE Stop: 12/04/18 12:26 Pneumococcal Polyvalent Vaccine (Pneumovax 23) 0.5 ml IM .ONCE ONE Stop: 12/06/18 12:01 Last Admin: 12/06/18 13:10 Dose: 0.5 ml Povidone Iodine (Betadine 10% Soln) Confirm Administered Dose 1 ml .ROUTE .STK- MED ONE Stop: 12/04/18 12:36 Propofol (Diprivan 20 Ml) Confirm Administered Dose 200 mg .ROUTE .STK-MED ONE Stop: 12/04/18 09:11 - Exam Quality Assessment: Supplemental Oxygen General: Alert, Cooperative, No Acute Distress. No: Oriented Lungs: Normal Respiratory Effort, Crackles (both bases) Cardiovascular: Regular Rate, Irregular Rhythm, Murmurs GI/Abdominal Exam: Soft, No Distention Extremities: No Pedal Edema. No: Increased Warmth Skin: Warm, Dry Psy/Mental Status: Alert, Agitated (mild) Consult PN Assessment/Plan POD#: 6 Procedures: Procedures APPLY FOREARM SPLINT (07/01/13) ASSAY OF AMYLASE (04/25/15) ASSAY OF CREATININE (08/22/18) ASSAY OF DIGOXIN TOTAL (02/24/18) ASSAY OF LIPASE (02/16/18) ASSAY OF NATRIURETIC PEPTIDE (10/13/14) ASSAY OF TROPONIN QUANT (02/16/18) C-REACTIVE PROTEIN (02/16/18) CATARACT SURG W/IOL 1 STAGE (06/03/16) CHEST X-RAY 1 VIEW FRONTAL (01/14/15) CHEST X-RAY 2VW FRONTAL&LATL (10/13/14) CINE/VID X-RAY THROAT/ESOPH (11/14/13) COMPLETE CBC AUTOMATED (03/01/18) COMPLETE CBC W/AUTO DIFF WBC (05/05/18) COMPREHEN METABOLIC PANEL (03/01/18) CT ABD & PELVIS W/O CONTRAST (04/25/15) CT ANGIO ABDOM W/O & W/DYE (08/25/18) CT ANGIOGRAPH PELV W/O&W/DYE (08/25/18) CT HEAD/BRAIN W/O DYE (05/05/18) CT LUMBAR SPINE W/O DYE (08/22/18) CT NECK SPINE W/O DYE (05/05/18) ELECTROCARDIOGRAM TRACING (02/24/18) EMERGENCY DEPT VISIT (05/05/18) EMERGENCY DEPT VISIT (05/05/18) EMERGENCY DEPT VISIT (02/16/18) EMERGENCY DEPT VISIT (02/06/18) EMERGENCY DEPT VISIT (11/30/16) EMERGENCY DEPT VISIT (04/25/15) EMERGENCY DEPT VISIT (01/14/15) EMERGENCY DEPT VISIT (01/14/15) EMERGENCY DEPT VISIT (01/03/15) EMERGENCY DEPT VISIT (10/26/14) EMERGENCY DEPT VISIT (07/01/13) EXTRACRANIAL BILAT STUDY (04/09/14) GAIT TRAINING THERAPY (01/14/15) HEPATIC FUNCTION PANEL (04/25/15) HOT OR COLD PACKS THERAPY (10/10/13) HYDRATE IV INFUSION ADD-ON (10/03/16) HYDRATION IV INFUSION INIT (02/16/18) MANUAL THERAPY 1/> REGIONS (12/10/16) METABOLIC PANEL TOTAL CA (05/05/18) MICROBE SUSCEPTIBLE [place] (02/24/18) MOTION FLUOROSCOPY/SWALLOW (11/14/13) MRI CHEST SPINE W/O DYE (04/27/17) MRI LUMBAR SPINE W/O DYE (04/27/17) MRI PELVIS W/O DYE (04/27/17) NJX INTERLAMINAR LMBR/SAC (10/18/18) ORAL FUNCTION THERAPY (11/14/13) ORTHOTIC MGMT&TRAINJ 1ST ENC (09/10/13) OT EVALUATION (09/10/13) PROTHROMBIN TIME (06/01/18) PT EVAL LOW COMPLEX 20 MIN (03/01/18) PT EVAL MOD COMPLEX 30 MIN (11/05/16) PT EVALUATION (01/14/15) ROUTINE VENIPUNCTURE (08/22/18) THER/PROPH/DIAG INJ IV PUSH (10/03/16) THER/PROPH/DIAG INJ SC/IM (11/30/16) THERAPEUTIC ACTIVITIES (03/01/18) THERAPEUTIC EXERCISES (12/10/16) TTE W/DOPPLER COMPLETE (04/08/16) TX/PRO/DX INJ NEW DRUG ADDON (10/03/16) ULTRASOUND THERAPY (11/05/16) UPR/L XTREMITY ART 2 LEVELS (11/25/14) URINALYSIS AUTO W/SCOPE (05/05/18) URINE BACTERIA CULTURE (02/24/18) URINE CULTURE/COLONY COUNT (05/05/18) US EXAM ABDO BACK WALL YOUNG (06/23/17) US EXAM ABDOM COMPLETE (12/29/17) US URINE CAPACITY MEASURE (02/09/18) X-RAY EXAM ABDOMEN 1 VIEW (08/22/18) X-RAY EXAM CHEST 1 VIEW (02/06/18) X-RAY EXAM CHEST 2 VIEWS (02/24/18) X-RAY EXAM L-2 SPINE 4/>VWS (10/07/16) X-RAY EXAM OF ABDOMEN (11/30/16) X-RAY EXAM OF ELBOW (01/03/15) X-RAY EXAM OF HIP (01/14/15) X-RAY EXAM OF SHOULDER (01/03/15) X-RAY EXAM OF WRIST (01/14/15) X-RAY EXAM OF WRIST (01/03/15) X-RAY EXAM OF WRIST (07/01/13) X-RAY EXAM UNILAT RIBS/CHEST (10/26/14) Problem List Initiated/Reviewed/Updated: Yes My Orders Last 24 Hours: My Active Orders 12/09/18 09:31 Discontinue Telemetry Monitoring [Cardiac Monitoring Discontinue] [RC] Click to Edit 12/09/18 Lunch Mechanical Soft Diet [DIET] 12/11/18 05:00 BASIC METABOLIC PANEL,BMP [CHEM] Timed HGB [HEMOGLOBIN] [HEME] Timed Plan: ASSESSMENT AND PLAN - Systolic congestive heart failure - complicated by significant valvular disease. Excellent response to diuresis. Volume status still seems appropriate today. -Daily weights -Hold diuretics -Supplement oxygen -Strict intake and output with Khan catheter in place -Continue carvedilol, hold if heart rate less than 60 Elevated troponin - mild and likely secondary to demand ischemia with hypoxia and CHF. Anemia due to acute blood loss - hemoglobin stable with no evidence for bleeding. -Repeat hemoglobin tomorrow morning Mixed delirium - likely secondary to combination of recent surgery as well as pain medications and probable underlying dementia. She has intermittent episodes of somnolence followed by more lucent episodes. Seems to be slowly getting better. -Melatonin at bedtime Acute urinary retention - I suspect the significant edema in the groin area is contributing to her urinary retention. -Continue Khan catheter -Consider trial of voiding tomorrow Chronic atrial fibrillation - currently rate controlled. -Continue carvedilol and digoxin -Cardiac monitoring with borderline bradycardia Comminuted left hip fracture - status post ORIF with intramedullary nailing. She appears very comfortable at this time. -Pain control -Physical therapy as able Recent urinary tract infection - she has completed adequate antibiotic therapy. Maintenance issues - - DVT prophylaxis - mechanical with recent bleeding issues - GI prophylaxis - PPI - Nutrition - low sodium diet - Khan catheter - placed secondary to urinary retention which is discussed above, consider trial of voiding tomorrow Disposition - I anticipate discharge to a shelter facility after the hospital stay Tommie Glasgow M.D.
[2018-12-10] MEDS: Beta-Carotene (Vitamin A) w/Vitamin C & E plus Minerals Tab PO SCH ×2 (11:35→21:10)
[2018-12-10] MEDS: Digoxin 125 MCG Tab PO SCH (14:02)
[2018-12-10] MEDS: LORazepam 1 MG Tab PO SCH (21:09)
[2018-12-10] MEDS: Melatonin 3 MG Tab PO SCH (21:10)
[2018-12-11] MEDS: Hypromellose 0.4% Ophth Soln 15 ML Bottle EYEBOTH SCH ×4 (06:04→21:09)
[2018-12-11] MEDS: Calcium Carbonate 500 MG Tab.Chew PO SCH (08:40)
[2018-12-11] MEDS: Acetaminophen 500 MG Tab PO SCH ×3 (08:40→21:09)
[2018-12-11] MEDS: Nozin Nasal Sanitizer NASBOTH SCH ×2 (08:40→21:03)
[2018-12-11] MEDS: Cholecalciferol (Vitamin D3) 1,000 Unit Tab PO SCH (08:40)
[2018-12-11] MEDS: Beta-Carotene (Vitamin A) w/Vitamin C & E plus Minerals Tab PO SCH ×2 (08:41→21:09)
[2018-12-11] MEDS: Gabapentin 100 MG Cap PO SCH ×3 (08:41→21:07)
[2018-12-11] MEDS: Carvedilol 6.25 MG Tab PO SCH ×2 (08:44→21:04)
[2018-12-11] MEDS: oxyCODONE 5 MG Tab PO PRN ×2 (09:13→20:57)
[2018-12-11] MEDS: Digoxin 125 MCG Tab PO SCH (13:17)
--- NOTE | 2018-12-11 20:45 | PCM.PN ---
- General Info Date of Service: 12/11/18 Functional Status: Reports: Pain Controlled - Review of Systems General: Reports: Weakness, Fatigue HEENT: Reports: No Symptoms Pulmonary: Reports: No Symptoms Cardiovascular: Reports: No Symptoms Gastrointestinal: Reports: No Symptoms Genitourinary: Reports: No Symptoms Musculoskeletal: Reports: No Symptoms Skin: Reports: No Symptoms Neurological: Reports: Confusion, Trouble Speaking, Change in Speech Psychiatric: Reports: Hallucinations - Patient Data Vitals - Most Recent: Last Vital Signs Temp 96.3 F 12/11/18 19:36 Pulse 57 L 12/11/18 19:36 Resp 18 12/11/18 19:36 BP 103/53 L 12/11/18 19:36 Pulse Ox 92 L 12/11/18 19:36 Weight - Most Recent: 133 lb 14.4 oz I&O - Last 24 Hours: Intake & Output 12/11/18 12/11/18 12/11/18 06:59 14:59 22:59 Intake Total 805 Output Total 200 350 Balance -200 805 -350 Lab Results Last 24 Hours: Laboratory Results - last 24 hr 12/11/18 12/11/18 Range/Units 04:18 04:18 Hgb 9.7 L (12.0-15.0) g/dL Sodium 145 (140-148) mmol/L Potassium 4.1 (3.6-5.2) mmol/L Chloride 105 (100-108) mmol/L Carbon Dioxide 36 H (21-32) mmol/L Anion Gap 8.1 (5.0-14.0) mmol/L BUN 40 H (7-18) mg/dL Creatinine 0.7 (0.6-1.0) mg/dL Est Cr Clr Drug Dosing 56.34 mL/min Estimated GFR (MDRD) > 60 (>60) Glucose 103 (74-106) mg/dL Calcium 9.2 (8.5-10.1) mg/dL Med Orders - Current: Current Medications Acetaminophen (Tylenol Extra Strength) 1,000 mg PO TID [facility] Last Admin: 12/11/18 14:27 Dose: 1,000 mg Al Hydroxide/Mg Hydroxide (Mag-Al Plus) 10 ml PO ASDIRECTED PRN PRN Reason: INDIGESTION Artificial Tears (Natural Balance Tears) 0 ml EYEBOTH QID [facility] Last Admin: 12/11/18 16:23 Dose: 1 each Bandage/Support Products ( Nasal Advertising Traffic Manager) 1 applic NASBOTH BID [facility] Last Admin: 12/11/18 08:40 Dose: 1 applic Calcium Carbonate/Glycine (Tums) 500 mg PO DAILY [facility] Last Admin: 12/11/18 08:40 Dose: 500 mg Carvedilol (Coreg) 6.25 mg PO BID [facility] Last Admin: 12/11/18 08:44 Dose: 6.25 mg Cholecalciferol (Vitamin D3) 1,000 units PO DAILY [facility] Last Admin: 12/11/18 08:40 Dose: 1,000 units Digoxin (Lanoxin) 125 mcg PO DAILY@13 [facility] Last Admin: 12/11/18 13:17 Dose: 125 mcg Docusate Sodium (Colace) 100 mg PO BID PRN PRN Reason: Constipation Last Admin: 12/09/18 20:55 Dose: 100 mg Gabapentin (Neurontin) 100 mg PO TID [facility] Last Admin: 12/11/18 14:27 Dose: 100 mg Guaifenesin/Dextromethorphan (Robitussin Dm) 10 ml PO ASDIRECTED PRN PRN Reason: COUGH Hydrocortisone (Hydrocortisone 1% Crm) 0 gm TOP ASDIRECTED [facility] Loperamide HCl (Imodium) 2 mg PO ASDIRECTED PRN PRN Reason: DIARRHEA Lorazepam (Ativan) 2 mg PO BEDTIME [facility] Last Admin: 12/10/18 21:09 Dose: 2 mg Magnesium Hydroxide (Milk Of Magnesia) 30 ml PO DAILY PRN PRN Reason: Constipation Last Admin: 12/09/18 15:57 Dose: 30 ml Melatonin (Melatonin) 9 mg PO BEDTIME [facility] Last Admin: 12/10/18 21:10 Dose: 9 mg Multivitamins/Minerals (Prosight) 1 tab PO BID [facility] Last Admin: 12/11/18 08:41 Dose: 1 tab Ondansetron HCl (Zofran) 4 mg IV Q4H PRN PRN Reason: Nausea/Vomiting Last Admin: 12/02/18 16:33 Dose: 4 mg Oxycodone HCl (Oxycodone) 5 mg PO Q4H PRN PRN Reason: Pain Last Admin: 12/11/18 09:13 Dose: 5 mg Discontinued Medications Acetaminophen (Tylenol) 650 mg PO BID PRN PRN Reason: Pain Acetaminophen (Tylenol) 325 mg PO QID [facility] Last Admin: 12/02/18 12:10 Dose: 325 mg Acetaminophen (Tylenol) 650 mg PO QID [facility] Last Admin: 12/07/18 09:15 Dose: 650 mg Acetaminophen (Tylenol) 650 mg RECTAL QID PRN PRN Reason: Pain Amoxicillin (Amoxil) 500 mg PO Q8H [facility] Amoxicillin (Amoxil) 500 mg PO ONETIME ONE Stop: 12/02/18 11:31 Last Admin: 12/02/18 12:10 Dose: 500 mg Divalproex Sodium (Divalproex Sodium) 250 mg PO ONETIME ONE Stop: 12/05/18 18:01 Last Admin: 12/05/18 17:38 Dose: Not Given Divalproex Sodium (Divalproex Sodium) 250 mg PO DAILY [facility] Last Admin: 12/07/18 09:23 Dose: 250 mg Ephedrine Sulfate (Ephedrine Sulfate) Confirm Administered Dose 50 mg .ROUTE .STK-MED ONE Stop: 12/04/18 12:26 Fentanyl (Sublimaze) 50 mcg IVPUSH ONETIME ONE Stop: 12/02/18 04:25 Last Admin: 12/02/18 04:27 Dose: 50 mcg Fentanyl (Sublimaze) Confirm Administered Dose 100 mcg .ROUTE .STK-MED ONE Stop: 12/04/18 09:11 Furosemide (Lasix) 20 mg IVPUSH ONETIME ONE Stop: 12/05/18 11:31 Last Admin: 12/05/18 11:39 Dose: 20 mg Furosemide (Lasix) 20 mg IVPUSH ONETIME ONE Stop: 12/07/18 10:41 Last Admin: 12/07/18 10:51 Dose: 20 mg Furosemide (Lasix) 40 mg IVPUSH Q8H [facility] Last Admin: 12/09/18 14:35 Dose: Not Given Haloperidol Lactate (Haldol) 1 mg IVPUSH Q4H PRN PRN Reason: Agitation Hydromorphone HCl (Dilaudid) 0.5 mg IVPUSH ONETIME ONE Stop: 12/02/18 05:48 Last Admin: 12/02/18 05:54 Dose: 0.5 mg Hydromorphone HCl (Dilaudid Yard Warehouse Worker 15 Mg In Ns 30 Ml) 0 mg IV ASDIRECTED PRN; Protocol PRN 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: 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BOLUS ONE Stop: 12/03/18 12:18 Last Admin: 12/03/18 12:13 Dose: 999 mls/hr Sodium Chloride (Normal Saline) 250 mls @ 999 mls/hr IV .BOLUS ONE Stop: 12/03/18 13:55 Last Admin: 12/03/18 13:46 Dose: 999 mls/hr Sodium Chloride (Normal Saline) 1,000 mls @ 75 mls[facility] Last Admin: 12/07/18 08:25 Dose: 125 mls/hr Levofloxacin/Dextrose 250 mg/ (Premix) 50 mls @ 50 mls/hr IV Q24H [facility] Stop: 12/06/18 08:59 Last Admin: 12/05/18 07:44 Dose: 50 mls/hr Cefazolin Sodium/Dextrose 1 gm (/ Premix) 50 mls @ 100 mls/hr IV ONETIME ONE Stop: 12/04/18 08:29 Last Admin: 12/04/18 10:30 Dose: 100 mls/hr Sodium Chloride (Normal Saline) Confirm Administered Dose 10 mls @ as directed .ROUTE .STK-MED ONE Stop: 12/04/18 11:44 Lactated Ringer's (Ringers, Lactated) Confirm Administered Dose 1,000 mls @ as directed .ROUTE .STK-MED ONE Stop: 12/04/18 12:25 Sodium Chloride (Normal Saline) Confirm Administered Dose 250 mls @ as directed .ROUTE .STK-MED ONE Stop: 12/04/18 12:55 Sodium Chloride (Normal Saline) Confirm Administered Dose 250 mls @ as directed .ROUTE .STK-MED ONE Stop: 12/04/18 12:56 Cefazolin Sodium/Dextrose 1 gm (/ Premix) 50 mls @ 100 mls/hr IV Q8H [facility] Stop: 12/05/18 02:29 Last Admin: 12/05/18 01:18 Dose: 100 mls/hr Potassium Chloride 20 meq/Lidocaine HCl 2 ml/ Sodium Chloride 112 mls @ 56 mls/ hr IV Q2H [facility] Stop: 12/09/18 13:59 Last Admin: 12/09/18 13:30 Dose: 56 mls/hr Levofloxacin (Levaquin) 250 mg PO ACBREAKFAST [facility] Stop: 12/06/18 07:31 Last Admin: 12/06/18 08:07 Dose: 250 mg Midazolam HCl (Versed 1 Mg/Ml) Confirm Administered Dose 2 mg .ROUTE .STK-MED ONE Stop: 12/04/18 09:11 Naloxone HCl (Narcan) 0.1 mg IV ASDIRECTED PRN PRN Reason: decreased respiratory rate Ondansetron HCl (Zofran Odt) 4 mg PO ONETIME ONE Stop: 12/02/18 06:47 Last Admin: 12/02/18 06:51 Dose: 4 mg Oxycodone/Acetaminophen (Percocet 325-5 Mg) 1 tab PO Q6H PRN PRN Reason: Pain (severe 7-10) Last Admin: 12/07/18 06:14 Dose: 1 tab Phenylephrine HCl (Fidel-Synephrine) Confirm Administered Dose 10 mg .ROUTE .STK- MED ONE Stop: 12/04/18 12:26 Pneumococcal Polyvalent Vaccine (Pneumovax 23) 0.5 ml IM .ONCE ONE Stop: 12/06/18 12:01 Last Admin: 12/06/18 13:10 Dose: 0.5 ml Povidone Iodine (Betadine 10% Soln) Confirm Administered Dose 1 ml .ROUTE .STK- MED ONE Stop: 12/04/18 12:36 Propofol (Diprivan 20 Ml) Confirm Administered Dose 200 mg .ROUTE .STK-MED ONE Stop: 12/04/18 09:11 - Exam General: Alert, Oriented Neck: Supple Lungs: Clear to Auscultation, Normal Respiratory Effort Cardiovascular: Irregular Rhythm GI/Abdominal Exam: Normal Bowel Sounds, Soft, Non-Tender, No Organomegaly, No Distention, No Abnormal Bruit, No Mass, Pelvis Stable Back Exam: Normal Inspection Extremities: Joint Swelling, Leg Pain Peripheral Pulses: 1+: Radial (L), Radial (R) Wound/Incisions: Healing Well, Other (evidence of skin reaction to the tape) - Problem List Review Problem List Initiated/Reviewed/Updated: Yes - My Orders Last 24 Hours: My Active Orders 12/12/18 05:11 CBC WITH AUTO DIFF [HEME] Routine COMPREHENSIVE METABOLIC PN,CMP [CHEM] Routine - Plan Plan:: Assessment/Plan: #1. Fracture Left hip. S/p surgery #2. Osteoporosis: She has a history of a compression fracture of her spine. #3. Hypotension. BP stable 106/57 #4. CHF. Echocardiogram Showed severe MR and TR with stable EF compared to 2 years ago at 45% #5. Anemia secondary to the fracture. Hb. 9.7 drop. Will repeat in AM #6. UTI. treated still has a cadet cath. due to retention. #7. Depression with confusion and hallucination. #8. Generalized weakness #9. History of Colles fracture and Humerus fracture. #10. Urinary retention. continue with the Cadet cath, Plan to discharge to [place] tomorrow.
[2018-12-11] MEDS: LORazepam 1 MG Tab PO SCH (21:01)
[2018-12-11] MEDS: Melatonin 3 MG Tab PO SCH (21:06)
[2018-12-11] MEDS: Ondansetron 4 MG/2 ML SDV IV PRN (21:24)
[2018-12-12] MEDS: Hypromellose 0.4% Ophth Soln 15 ML Bottle EYEBOTH SCH (05:47)
[2018-12-12 07:28] VITALS: BP 105/51
[2018-12-12] MEDS: oxyCODONE 5 MG Tab PO PRN (07:56)
[2018-12-12] MEDS: Beta-Carotene (Vitamin A) w/Vitamin C & E plus Minerals Tab PO SCH (08:00)
[2018-12-12] MEDS: Gabapentin 100 MG Cap PO SCH (08:00)
[2018-12-12] MEDS: Carvedilol 6.25 MG Tab PO SCH (08:00)
[2018-12-12] MEDS: Acetaminophen 500 MG Tab PO SCH (08:00)
[2018-12-12] MEDS: Cholecalciferol (Vitamin D3) 1,000 Unit Tab PO SCH (08:00)
[2018-12-12] MEDS: Calcium Carbonate 500 MG Tab.Chew PO SCH (08:01)
--- NOTE | 2018-12-12 08:29 | PCM.PN ---
- General Info Date of Service: 12/12/18 Functional Status: Reports: Pain Controlled - Review of Systems General: Reports: Weakness HEENT: Reports: No Symptoms Pulmonary: Reports: No Symptoms Cardiovascular: Reports: Dyspnea on Exertion Gastrointestinal: Reports: No Symptoms Genitourinary: Reports: Retention Musculoskeletal: Reports: Joint Pain, Joint Swelling Skin: Reports: Rash Psychiatric: Reports: Anxiety - Patient Data Vitals - Most Recent: Last Vital Signs Temp 97.4 F 12/12/18 07:27 Pulse 68 12/12/18 08:00 Resp 16 12/12/18 07:27 BP 105/51 L 12/12/18 08:00 Pulse Ox 97 12/12/18 07:27 Weight - Most Recent: 133 lb 14.4 oz I&O - Last 24 Hours: Intake & Output 12/11/18 12/12/18 12/12/18 22:59 06:59 14:59 Intake Total 270 Output Total 495 155 Balance -495 115 Lab Results Last 24 Hours: Laboratory Results - last 24 hr 12/12/18 12/12/18 Range/Units 04:10 04:10 WBC 5.6 (4.5-11.0) K/uL RBC 3.11 L (3.30-5.50) M/uL Hgb 9.6 L (12.0-15.0) g/dL Hct 32.7 L (36.0-48.0) % MCV 105 H (80-98) fL MCH 31 (27-31) pg MCHC 29 L (32-36) % Plt Count 158 (150-400) K/uL Neut % (Auto) 76 H (36-66) % Lymph % (Auto) 12 L (24-44) % [place] % (Auto) 10 H (2-6) % Eos % (Auto) 2 (2-4) % Baso % (Auto) 0 (0-1) % Sodium 143 (140-148) mmol/L Potassium 4.2 (3.6-5.2) mmol/L Chloride 105 (100-108) mmol/L Carbon Dioxide 38 H (21-32) mmol/L Anion Gap 4.2 L (5.0-14.0) mmol/L BUN 36 H (7-18) mg/dL Creatinine 0.7 (0.6-1.0) mg/dL Est Cr Clr Drug Dosing 56.34 mL/min Estimated GFR (MDRD) > 60 (>60) Glucose 111 H (74-106) mg/dL Calcium 9.0 (8.5-10.1) mg/dL Total Bilirubin 1.0 D (0.2-1.0) mg/dL AST 18 (15-37) U/L ALT 8 L (12-78) U/L Alkaline Phosphatase 85 (46-116) U/L Total Protein 5.8 L (6.4-8.2) g/dL Albumin 2.1 L (3.4-5.0) g/dL Globulin 3.7 H (2.3-3.5) g/dL Albumin/Globulin Ratio 0.6 L (1.2-2.2) Med Orders - Current: Current Medications Acetaminophen (Tylenol Extra Strength) 1,000 mg PO TID [facility] Last Admin: 12/12/18 08:00 Dose: 1,000 mg Al Hydroxide/Mg Hydroxide (Mag-Al Plus) 10 ml PO ASDIRECTED PRN PRN Reason: INDIGESTION Artificial Tears (Natural Balance Tears) 0 ml EYEBOTH QID [facility] Last Admin: 12/12/18 05:47 Dose: 1 each Calcium Carbonate/Glycine (Tums) 500 mg PO DAILY [facility] Last Admin: 12/12/18 08:01 Dose: 500 mg Carvedilol (Coreg) 6.25 mg PO BID [facility] Last Admin: 12/12/18 08:00 Dose: 6.25 mg Cholecalciferol (Vitamin D3) 1,000 units PO DAILY [facility] Last Admin: 12/12/18 08:00 Dose: 1,000 units Digoxin (Lanoxin) 125 mcg PO DAILY@13 [facility] Last Admin: 12/11/18 13:17 Dose: 125 mcg Docusate Sodium (Colace) 100 mg PO BID PRN PRN Reason: Constipation Last Admin: 12/09/18 20:55 Dose: 100 mg Gabapentin (Neurontin) 100 mg PO TID [facility] Last Admin: 12/12/18 08:00 Dose: 100 mg Guaifenesin/Dextromethorphan (Robitussin Dm) 10 ml PO ASDIRECTED PRN PRN Reason: COUGH Last Admin: 12/11/18 21:02 Dose: 10 ml Hydrocortisone (Hydrocortisone 1% Crm) 0 gm TOP ASDIRECTED [facility] Loperamide HCl (Imodium) 2 mg PO ASDIRECTED PRN PRN Reason: DIARRHEA Lorazepam (Ativan) 2 mg PO BEDTIME [facility] Last Admin: 12/11/18 21:01 Dose: 2 mg Magnesium Hydroxide (Milk Of Magnesia) 30 ml PO DAILY PRN PRN Reason: Constipation Last Admin: 12/09/18 15:57 Dose: 30 ml Melatonin (Melatonin) 9 mg PO BEDTIME [facility] Last Admin: 12/11/18 21:06 Dose: 9 mg Multivitamins/Minerals (Prosight) 1 tab PO BID [facility] Last Admin: 12/12/18 08:00 Dose: 1 tab Ondansetron HCl (Zofran) 4 mg IV Q4H PRN PRN Reason: Nausea/Vomiting Last Admin: 12/11/18 21:24 Dose: 4 mg Oxycodone HCl (Oxycodone) 5 mg PO Q4H PRN PRN Reason: Pain Last Admin: 12/12/18 07:56 Dose: 5 mg Discontinued Medications Acetaminophen (Tylenol) 650 mg PO BID PRN PRN Reason: Pain Acetaminophen (Tylenol) 325 mg PO QID [facility] Last Admin: 12/02/18 12:10 Dose: 325 mg Acetaminophen (Tylenol) 650 mg PO QID [facility] Last Admin: 12/07/18 09:15 Dose: 650 mg Acetaminophen (Tylenol) 650 mg RECTAL QID PRN PRN Reason: Pain Amoxicillin (Amoxil) 500 mg PO Q8H [facility] Amoxicillin (Amoxil) 500 mg PO ONETIME ONE Stop: 12/02/18 11:31 Last Admin: 12/02/18 12:10 Dose: 500 mg Bandage/Support Products ( Nasal Carbon Electrodes Supervisor) 1 applic NASBOTH BID [facility] Last Admin: 12/11/18 21:03 Dose: 1 applic Divalproex Sodium (Divalproex Sodium) 250 mg PO ONETIME ONE Stop: 12/05/18 18:01 Last Admin: 12/05/18 17:38 Dose: Not Given Divalproex Sodium (Divalproex Sodium) 250 mg PO DAILY [facility] Last Admin: 12/07/18 09:23 Dose: 250 mg Ephedrine Sulfate (Ephedrine Sulfate) Confirm Administered Dose 50 mg .ROUTE .STK-MED ONE Stop: 12/04/18 12:26 Fentanyl (Sublimaze) 50 mcg IVPUSH ONETIME ONE Stop: 12/02/18 04:25 Last Admin: 12/02/18 04:27 Dose: 50 mcg Fentanyl (Sublimaze) Confirm Administered Dose 100 mcg .ROUTE .STK-MED ONE Stop: 12/04/18 09:11 Furosemide (Lasix) 20 mg IVPUSH ONETIME ONE Stop: 12/05/18 11:31 Last Admin: 12/05/18 11:39 Dose: 20 mg Furosemide (Lasix) 20 mg IVPUSH ONETIME ONE Stop: 12/07/18 10:41 Last Admin: 12/07/18 10:51 Dose: 20 mg Furosemide (Lasix) 40 mg IVPUSH Q8H [facility] Last Admin: 12/09/18 14:35 Dose: Not Given Haloperidol Lactate (Haldol) 1 mg IVPUSH Q4H PRN PRN Reason: Agitation Hydromorphone HCl (Dilaudid) 0.5 mg IVPUSH ONETIME ONE Stop: 12/02/18 05:48 Last Admin: 12/02/18 05:54 Dose: 0.5 mg Hydromorphone HCl (Dilaudid [employer] 15 Mg In Ns 30 Ml) 0 mg IV ASDIRECTED PRN; Protocol 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 Last Admin: 12/02/18 09:09 Dose: 15 mg Hydromorphone HCl (Dilaudid) 0.2 mg IVPUSH Q1H PRN PRN Reason: Pain Last Admin: 12/04/18 18:32 Dose: 0.2 mg Lactated Ringer's (Ringers, Lactated) 1,000 mls @ 125 mls/hr IV ASDIRECTED [facility] Last Admin: 12/02/18 06:53 Dose: 125 mls/hr Sodium Chloride (Normal Saline) 1,000 mls @ 100 mls/hr IV ASDIRECTED [facility] Last Admin: 12/02/18 21:10 Dose: 75 mls/hr Ampicillin Sodium 1 gm/ Sodium (Chloride) 50 mls @ 100 mls/hr IV Q8H [facility] Last Admin: 12/04/18 05:37 Dose: 100 mls/hr Sodium Chloride (Normal Saline) 250 mls @ 999 mls/hr IV .BOLUS ONE Stop: 12/03/18 12:18 Last Admin: 12/03/18 12:13 Dose: 999 mls/hr Sodium Chloride (Normal Saline) 250 mls @ 999 mls/hr IV .BOLUS ONE Stop: 12/03/18 13:55 Last Admin: 12/03/18 13:46 Dose: 999 mls/hr Sodium Chloride (Normal Saline) 1,000 mls @ 75 mls/hr IV ASDIRECTED [facility] Last Admin: 12/07/18 08:25 Dose: 125 mls/hr Levofloxacin/Dextrose 250 mg/ (Premix) 50 mls @ 50 mls/hr IV Q24H [facility] Stop: 12/06/18 08:59 Last Admin: 12/05/18 07:44 Dose: 50 mls/hr Cefazolin Sodium/Dextrose 1 gm (/ Premix) 50 mls @ 100 mls/hr IV ONETIME ONE Stop: 12/04/18 08:29 Last Admin: 12/04/18 10:30 Dose: 100 mls/hr Sodium Chloride (Normal Saline) Confirm Administered Dose 10 mls @ as directed .ROUTE .STK-MED ONE Stop: 12/04/18 11:44 Lactated Ringer's (Ringers, Lactated) Confirm Administered Dose 1,000 mls @ as directed .ROUTE .STK-MED ONE Stop: 12/04/18 12:25 Sodium Chloride (Normal Saline) Confirm Administered Dose 250 mls @ as directed .ROUTE .STK-MED ONE Stop: 12/04/18 12:55 Sodium Chloride (Normal Saline) Confirm Administered Dose 250 mls @ as directed .ROUTE .STK-MED ONE Stop: 12/04/18 12:56 Cefazolin Sodium/Dextrose 1 gm (/ Premix) 50 mls @ 100 mls/hr IV Q8H [facility] Stop: 12/05/18 02:29 Last Admin: 12/05/18 01:18 Dose: 100 mls/hr Potassium Chloride 20 meq/Lidocaine HCl 2 ml/ Sodium Chloride 112 mls @ 56 mls/ hr IV Q2H [facility] Stop: 12/09/18 13:59 Last Admin: 12/09/18 13:30 Dose: 56 mls/hr Levofloxacin (Levaquin) 250 mg PO ACBREAKFAST [facility] Stop: 12/06/18 07:31 Last Admin: 12/06/18 08:07 Dose: 250 mg Midazolam HCl (Versed 1 Mg/Ml) Confirm Administered Dose 2 mg .ROUTE .STK-MED ONE Stop: 12/04/18 09:11 Naloxone HCl (Narcan) 0.1 mg IV ASDIRECTED PRN PRN Reason: decreased respiratory rate Ondansetron HCl (Zofran Odt) 4 mg PO ONETIME ONE Stop: 12/02/18 06:47 Last Admin: 12/02/18 06:51 Dose: 4 mg Oxycodone/Acetaminophen (Percocet 325-5 Mg) 1 tab PO Q6H PRN PRN Reason: Pain (severe 7-10) Last Admin: 12/07/18 06:14 Dose: 1 tab Phenylephrine HCl (Fidel-Synephrine) Confirm Administered Dose 10 mg .ROUTE .STK- MED ONE Stop: 12/04/18 12:26 Pneumococcal Polyvalent Vaccine (Pneumovax 23) 0.5 ml IM .ONCE ONE Stop: 12/06/18 12:01 Last Admin: 12/06/18 13:10 Dose: 0.5 ml Povidone Iodine (Betadine 10% Soln) Confirm Administered Dose 1 ml .ROUTE .STK- MED ONE Stop: 12/04/18 12:36 Propofol (Diprivan 20 Ml) Confirm Administered Dose 200 mg .ROUTE .STK-MED ONE Stop: 12/04/18 09:11 - Exam General: Mild Distress HEENT: Pupils Equal, Pupils Reactive, EOMI, Mucous Membr. Moist/[place] Neck: Supple Lungs: Clear to Auscultation, Normal Respiratory Effort Cardiovascular: Irregular Rhythm Extremities: Pedal Edema, Joint Swelling Peripheral Pulses: 1+: Radial (L), Radial (R) Skin: Warm, Dry Wound/Incisions: Healing Well Neurological: No New Focal Deficit Psy/Mental Status: Anxious - Problem List Review Problem List Initiated/Reviewed/Updated: Yes - My Orders Last 24 Hours: My Active Orders 12/12/18 08:23 Ready for Discharge [RC] PER UNIT ROUTINE - Plan Plan:: Assessment/Plan: #1. Fracture Left hip. S/p surgery #2. Osteoporosis: She has a history of a compression fracture of her spine. #3. Hypotension. BP stable 105/51 #4. CHF. Echocardiogram Showed severe MR and TR with stable EF compared to 2 years ago at 45% #5. Anemia secondary to the fracture. Hb. 9.6. #6. UTI. continue cadet cath. due to retention. #7. Depression #8. Generalized weakness #9. History of Colles fracture and Humerus fracture. #10. Urinary retention. continue with the Cadet cath, Plan to discharge to [place] today.
== END 2018-12-12 09:10 | DRG 481 ==
LOC: JP.ED 03:17 → JP.MS 07:21
PROVIDERS: ADMIT Internal Medicine; ATTEND Internal Medicine
PROC: 0QS706Z Reposition Left Upper Femur with Intramedullary Internal Fixation Device, Open Approach (ICD-10-PCS; principal; 2018-12-04)
PROC: 30233N1 Transfusion of Nonautologous Red Blood Cells into Peripheral Vein, Percutaneous Approach (ICD-10-PCS; 2018-12-04)
PROC: 3E0234Z Introduction of Serum, Toxoid and Vaccine into Muscle, Percutaneous Approach (ICD-10-PCS; 2018-12-06)
PROC: 30233N1 Transfusion of Nonautologous Red Blood Cells into Peripheral Vein, Percutaneous Approach (ICD-10-PCS; 2018-12-07)
DX: S72.145A Nondisplaced intertrochanteric fracture of left femur, initial encounter for closed fracture (principal); N39.0 Urinary tract infection, site not specified; F05 Delirium due to known physiological condition; I50.20 Unspecified systolic (congestive) heart failure; D62 Acute posthemorrhagic anemia; E87.2 Acidosis; M25.552 Pain in left hip; R44.3 Hallucinations, unspecified; Z66 Do not resuscitate; I48.2 Chronic atrial fibrillation; Z79.01 Long term (current) use of anticoagulants; F32.9 Major depressive disorder, single episode, unspecified; R53.1 Weakness; W19.XXXA Unspecified fall, initial encounter; Y92.099 Unspecified place in other non-institutional residence as the place of occurrence of the external cause; M81.0 Age-related osteoporosis without current pathological fracture; Z87.310 Personal history of (healed) osteoporosis fracture; I95.9 Hypotension, unspecified; Z23 Encounter for immunization; R33.9 Retention of urine, unspecified; R09.02 Hypoxemia; R45.1 Restlessness and agitation; I34.0 Nonrheumatic mitral (valve) insufficiency; I36.1 Nonrheumatic tricuspid (valve) insufficiency; E87.70 Fluid overload, unspecified; R74.8 Abnormal levels of other serum enzymes; F41.9 Anxiety disorder, unspecified; M54.9 Dorsalgia, unspecified; G89.29 Other chronic pain; Z87.440 Personal history of urinary (tract) infections; Z85.42 Personal history of malignant neoplasm of other parts of uterus; R32 Unspecified urinary incontinence; H54.7 Unspecified visual loss; H35.30 Unspecified macular degeneration; Z90.710 Acquired absence of both cervix and uterus; Z88.5 Allergy status to narcotic agent; Z79.899 Other long term (current) drug therapy
CPT/HCPCS: 36415; 51702; 71045; 72170; 73502; 80048; 81001; 85027; 87086; 87186; 96361; 96374; 96375; 99284 ×2; A9270; J1170; J3010; J7120; 36430; 36600; 80053; 80162; 82607; 82746; 82803; 84484; 85018; 85025; 85045; 86850; 86900; 86901; 86920; 86922; 87088; 90732; 92610-GN; 93005; 93306; 94762; 97110-GP; 97162-GP; 97530-GP; C1713; C1776; J0290; J0690; J1940; J1956; J2001; J2250; J2370; J2405; J2704; J3480; J7030; J7040; J7050; P9016